=== PATIENT | female | born 1945 | race Caucasian/White ===

== ENCOUNTER 2016-10-14 17:16 | Inpatient (IN) | payer OTHER, BC ==
[2016-10-14] MEDS ORDERED: morphine CARPU-JECT 4 MG/1 ML DISP.SYRIN IVPUSH ONE (17:32)
--- NOTE | 2016-10-14 17:36 | PDOC ---
History of Present Illness - General History Source: Patient - History of Present Illness Initial Comments: 10/14/16 18:13 The patient is a 70 year old female with a significant past medical history CAD s/p stents x5 on aspirin and plavix, NIDDM, and parkinsons disease who presents to the Emergency Department s/p fall. Pt states that she fell, landed on her left hip, and hit her face when she was getting of a chair outside her house. She reports right hip pain and laceration to her lower lip and right eyebrow. She denies fever, chills, abdominal pain, nausea, vomiting, diarrhea, chest pain, SOB, palpitations, neck pain, back pain, headache, dizziness, change in vision, LOC. <Macy Bullock - Last Filed: 10/14/16 18:13> - General History Source: Patient, Family Exam Limitations: No Limitations <Saad Newby - Last Filed: 10/16/16 21:35> - General Stated Complaint: SLIP AND FALL HIP INJURY Time Seen by Provider: 10/14/16 17:22 Past History <Macy Blulock - Last Filed: 10/14/16 18:13> - Past Medical History Cardiac Disorders: Yes (cardiac stent x 5) Diabetes: Yes (NIDDM) HTN: Yes - Psycho/Social/Smoking Cessation Hx Anxiety: No Suicidal Ideation: No Smoking History: Current every day smoker Number of Cigarettes Smoked Daily: 3 Hx Alcohol Use: No Substance Use Type: None <Saad Newby - Last Filed: 10/16/16 21:35> - Past Medical History Allergies/Adverse Reactions: Allergies Allergy/AdvReac Type Severity Reaction Status Date / Time No Known Allergies Allergy Verified 10/14/16 18:39 Home Medications: Ambulatory Orders PARoxetine HCL [Paxil] 20 mg PO DAILY #7 tablet 07/19/14 Ascorbate Calcium [Vitamin C] 500 mg PO DAILY 10/14/16 Aspirin [Aspirin EC] 81 mg PO DAILY 10/14/16 Atorvastatin Ca [Lipitor] 40 mg PO HS 10/14/16 Carbidopa/Levodopa [Carbidopa-Levodopa 25-100 Tab] 1 each PO BID 10/14/16 Clopidogrel Bisulfate [Plavix -] 75 mg PO DAILY 10/14/16 Metformin HCl [Glucophage] 1,000 mg PO BID 10/14/16 Metoprolol Tartrate [Lopressor -] 50 mg PO DAILY 10/14/16 Triamterene/Hydrochlorothiazid [Triamterene-Hctz 37.5-25 mg Cp] 1 each PO DAILY 10/14/16 Review of Systems - Review of Systems Able to Perform ROS?: Yes Comments:: 10/14/16 18:14 GENERAL/CONSTITUTIONAL: No fever or chills. No weakness. HEAD, EYES, EARS, NOSE AND THROAT: No change in vision. No ear pain or discharge. No sore throat. CARDIOVASCULAR: No chest pain or shortness of breath. RESPIRATORY: No cough, wheezing, or hemoptysis. GASTROINTESTINAL: No nausea, vomiting, diarrhea or constipation. GENITOURINARY: No dysuria, frequency, or change in urination. MUSCULOSKELETAL: Yes: right hip pain. No joint or muscle swelling. No neck or back pain. SKIN: Yes: laceration to right eyebrow and lower lip No rash NEUROLOGIC: No headache, vertigo, loss of consciousness, or change in strength/ sensation. ENDOCRINE: No increased thirst. No abnormal weight change. HEMATOLOGIC/LYMPHATIC: No anemia, easy bleeding, or history of blood clots. ALLERGIC/IMMUNOLOGIC: No hives or skin allergy. All Other Systems: Reviewed and Negative <Macy Bullock - Last Filed: 10/14/16 18:13> *Physical Exam - Physical Exam Comments: 10/14/16 18:16 GENERAL: Awake, alert, and fully oriented, in no acute distress HEAD: No signs of trauma EYES: PERRLA, EOMI, sclera anicteric, conjunctiva clear ENT: Auricles normal inspection, hearing grossly normal, nares patent, oropharynx clear without exudates. Moist mucosa NECK: Normal ROM, supple, no lymphadenopathy, JVD, or masses LUNGS: Breath sounds equal, clear to auscultation bilaterally. No wheezes, and no crackles HEART: Regular rate and rhythm, normal S1 and S2, no murmurs, rubs or gallops ABDOMEN: Soft, nontender, normoactive bowel sounds. No guarding, no rebound. No masses EXTREMITIES: +Right hip shortened externally rotated. Normal range of motion, no edema. No clubbing or cyanosis. No cords, erythema. NEUROLOGICAL: Cranial nerves II through XII grossly intact. Normal speech, normal gait SKIN: +Small laceration lateral aspect of right eyebrow. Lower lip ecchymosis and edema with superficial laceration to inner lip.Warm, Dry, normal turgor, no rashes. <GaspermargretMacy simental - Last Filed: 10/14/16 18:13> Heart Score/ECG Review #1 ECG reviewed & interpreted by me at: 17:40 10/14/16 18:41 NSR 68, no std/cholo, T wave flat III, QTC 414 msec, normal axis, normal intervals <Saad Newby - Last Filed: 10/16/16 21:35> ED Treatment Course - LABORATORY CBC & Chemistry Diagram: 10/15/16 07:20 10/16/16 08:35 - RADIOLOGY Radiology Studies Ordered: Category Date Time Status HEAD CT WITHOUT CONTRAST [CT] Stat CT Scan 10/14/16 17:32 Ordered CHEST - PA [RAD] Stat Radiology 10/14/16 17:32 Ordered HIP & PELVIS-RIGHT [RAD] Stat Radiology 10/14/16 17:32 Ordered <Saad Newby - Last Filed: 10/16/16 21:35> Medical Decision Making - Medical Decision Making 10/14/16 17:51 A portion of this note was documented by scribe services under my direction. I have reviewed the details of the note, within reason, and agree with the documentation with the following case summary and management plan written by me. Patient treated in the ED. Nursing notes are reviewed and incorporated into the medical decision-making. Vital signs reviewed. Peripheral IV access obtained by the nurse, laboratory studies are drawn and sent, reviewed and interpreted by myself. 70-year-old female with past medical history of Parkinson's disease, coronary artery disease status post 5 stents on aspirin and Plavix presents with mechanical fall. Patient was attempting to get off from chair when she fell and landed on her right hip and hit her face. Sustained a superficial abrasion to the right eyebrow and swollen lower lip. Had a superficial inner lip abrasion. No through and through. Last tetanus status unknown. The wounds are too superficial to suture up at this time. Update tetanus. CAT scan the head given that she is on aspirin and Plavix. She has no cervical spine tenderness. Patient's right hip appears to have femoral neck or intertrochanteric fracture. We'll perform x-rays. Pain control. Labs and admission to the hospital. 10/14/16 19:19 CBC, BMP 10/14/16 18:10 10/14/16 18:10 CMP Sodium 139 mmol/L (136-145) 10/14/16 18:10 Potassium 4.4 mmol/L (3.5-5.1) 10/14/16 18:10 Chloride 108 mmol/L (98-107) H 10/14/16 18:10 Carbon Dioxide 24 mmol/L (21-32) 10/14/16 18:10 Anion Gap 7 (8-16) L 10/14/16 18:10 BUN 52 mg/dL (7-18) H 10/14/16 18:10 Creatinine 1.2 mg/dL (0.55-1.02) H D 10/14/16 18:10 Creat Clearance w eGFR 44.41 (>60) 10/14/16 18:10 Random Glucose 170 mg/dL (74-106) H 10/14/16 18:10 Calcium 8.6 mg/dL (8.5-10.1) 10/14/16 18:10 Total Bilirubin 0.8 mg/dL (0.2-1.0) 10/14/16 18:10 AST 17 U/L (15-37) D 10/14/16 18:10 ALT 13 U/L (12-78) 10/14/16 18:10 Alkaline Phosphatase 121 U/L (45-117) H D 10/14/16 18:10 Total Protein 6.8 g/dl (6.4-8.2) 10/14/16 18:10 Albumin 3.8 g/dl (3.4-5.0) 10/14/16 18:10 Labs reviewed. Imaging pending. [facility] attending DR. Clark for further management and disposition. <Saad Newby - Last Filed: 10/16/16 21:35> *DC/Admit/Observation/Transfer - Attestations Scribe Attestion: 10/14/16 18:17 Documentation prepared by Macy Bullock, acting as durable medical equipment technician for Saad Newby MD. <Macy Bullock - Last Filed: 10/14/16 18:13> <Saad Newby - Last Filed: 10/16/16 21:35> Diagnosis at time of Disposition: Femoral neck fracture, Parkinsons disease - Discharge Dispostion Condition at time of disposition: Improved - Referrals
[2016-10-14] MEDS ORDERED: DIPHTH,PERTUSS(ACELL),TET 0.5 ML DISP.SYRIN IM ONE (17:40)
[2016-10-14] MEDS ORDERED: morphine CARPU-JECT 4 MG/1 ML DISP.SYRIN ONE (18:00)
[2016-10-14 18:36] LABS: BASOPHIL 0.4 % (0-2.0); EOSINOPHIL 0.5 % (0-4.5); MCH 27.6 pg (25.7-33.7); MCHC 31.7 g/dl (32.0-36.0); MEAN PLT VOLUME 9.1 fl (7.5-11.1); NEUTROPHILS 89.4 % (42.8-82.8); PLATELET COUNT 222 K/MM3 (134-434); RDW 13.5 % (11.6-15.6); WHITE BLOOD COUNT 12.1 K/mm3 (4.0-10.0)
[2016-10-14 18:47] LABS: INR 1.18 (0.82-1.09)
[2016-10-14 18:50] LABS: ACTIVATED PTT 29.1 SECONDS (26.9-34.4)
[2016-10-14 19:03] LABS: ALBUMIN 3.8 g/dl (3.4-5.0); CALCIUM 8.6 mg/dL (8.5-10.1); CREATININE 1.2 mg/dL (0.55-1.02)
[2016-10-14 19:04] LABS: BILIRUBIN,TOTAL 0.8 mg/dL (0.2-1.0); TOT PROT 6.8 g/dl (6.4-8.2)
--- NOTE | 2016-10-14 19:20 | PDOC ---
*Physical Exam - Vital Signs Last Vital Signs Temp Pulse Resp BP Pulse Ox 97.6 F 68 18 146/75 94 L 10/14/16 17:34 10/14/16 17:34 10/14/16 17:34 10/14/16 17:34 10/14/16 17:34 <Kaiser Clark - Last Filed: 10/14/16 21:50> - Vital Signs Last Vital Signs Temp Pulse Resp BP Pulse Ox 97.6 F 68 18 146/75 94 L 10/14/16 17:34 10/14/16 17:34 10/14/16 17:34 10/14/16 17:34 10/14/16 17:34 <Aria Weiss - Last Filed: 10/14/16 22:08> ED Treatment Course - LABORATORY CBC & Chemistry Diagram: 10/14/16 18:10 10/14/16 18:10 - ADDITIONAL ORDERS Additional order review: Laboratory Results 10/14/16 10/14/16 18:10 18:10 INR 1.18 H PTT (Actin FS) 29.1 Sodium 139 Potassium 4.4 Chloride 108 H Carbon Dioxide 24 Anion Gap 7 L BUN 52 H Creatinine 1.2 H D Creat Clearance w eGFR 44.41 Random Glucose 170 H Calcium 8.6 Total Bilirubin 0.8 AST 17 D ALT 13 Alkaline Phosphatase 121 H D Total Protein 6.8 Albumin 3.8 10/14/16 18:10 RBC 4.28 MCV 87.0 MCHC 31.7 L RDW 13.5 MPV 9.1 Neutrophils % 89.4 H Lymphocytes % 4.4 L Monocytes % 5.3 Eosinophils % 0.5 Basophils % 0.4 - Medications Given in the ED: ED Medications Discontinued Medications Generic Name Dose Route Start Last Admin Trade Name Freq PRN Reason Stop Dose Admin Diphtheria/Tetanus/Acell Pertussis 0.5 ml 10/14/16 17:40 10/14/16 18:10 Boostrix - IM 10/14/16 17:41 0.5 ml .ONCE ONE Administration Morphine Sulfate 4 mg 10/14/16 17:32 10/14/16 18:10 Morphine Injection - IVPUSH 10/14/16 17:33 4 mg ONCE ONE Administration <Kaiser Clark - Last Filed: 10/14/16 21:50> - LABORATORY CBC & Chemistry Diagram: 10/14/16 18:10 01/01/17 18:10 - ADDITIONAL ORDERS Additional order review: Laboratory Results 10/14/16 10/14/16 18:10 18:10 INR 1.18 H PTT (Actin FS) 29.1 Sodium 139 Potassium 4.4 Chloride 108 H Carbon Dioxide 24 Anion Gap 7 L BUN 52 H Creatinine 1.2 H D Creat Clearance w eGFR 44.41 Random Glucose 170 H Calcium 8.6 Total Bilirubin 0.8 AST 17 D ALT 13 Alkaline Phosphatase 121 H D Total Protein 6.8 Albumin 3.8 10/14/16 18:10 RBC 4.28 MCV 87.0 MCHC 31.7 L RDW 13.5 MPV 9.1 Neutrophils % 89.4 H Lymphocytes % 4.4 L Monocytes % 5.3 Eosinophils % 0.5 Basophils % 0.4 - Medications Given in the ED: ED Medications Discontinued Medications Generic Name Dose Route Start Last Admin Trade Name Freq PRN Reason Stop Dose Admin Diphtheria/Tetanus/Acell Pertussis 0.5 ml 10/14/16 17:40 10/14/16 18:10 Boostrix - IM 10/14/16 17:41 0.5 ml .ONCE ONE Administration Morphine Sulfate 4 mg 10/14/16 17:32 10/14/16 18:10 Morphine Injection - IVPUSH 10/14/16 17:33 4 mg ONCE ONE Administration <Aria Weiss - Last Filed: 10/14/16 22:08> Medical Decision Making - Medical Decision Making 10/14/16 19:29 70 year old female with history of Parkinsons, CAD presents s/p fall with head injury and likely right hip fracture. Plan: Awaiting CMP, CBC, UA, x-ray, head CT. Will likely admit. 10/14/16 19:[address] without contrast, reviewed and interpreted by Imaging Carpenter Supervisor [employer]. COMPARISON: None. FINDINGS: 1. There is no evidence of an acute intracranial process, intracranial hemorrhage or mass effect. There are infarcts in the basal ganglia bilaterally and thalami bilaterally that appear to be chronic. 2. Ventricular size is concordant with the degree of atrophy. 3. The visualized portions of the orbits, paranasal and mastoid sinuses are notable for moderate paranasal sinus mucosal thickening with air-fluid levels. This may represent changes of acute sinusitis. 4. There is no evidence of fracture. THIS DOCUMENT HAS BEEN ELECTRONICALLY SIGNED Griselda Elizabeth MD 10/14/2016 19:45 EST 10/14/16 20:05 Placed call to patient's PCP, Dr. Grimm, at [phone]. Was instructed to call [phone] for cardiology related consults only. Will admit to [facility]. 10/14/16 20:41 Declined by [facility], who said they do not cover for Dr. Grimm. Call placed to Dr. Grimm's home number at [phone], who requested Dr. Moreland for admssion, Dr. Garcia for cardiology. Placed call to Dr. Moreland at [phone]. Awaiting call back. 10/14/16 21:[address] Hubbard, covering for Dr. Moreland, who agreed to admission. Placed call to Dr. Reddy, requested for Orthopedic Surgery by Dr. Grimm, at [phone]. Awaiting call back. 10/14/16 21:[address] David, covering for Dr. Reddy, who agreed to consult. <Aira Weiss - Last Filed: 10/14/16 22:08> *DC/Admit/Observation/Transfer - Discharge Dispostion Admit: Yes - Attestations Physician Attestion: 10/14/16 19:19 I, Dr. Kaiser Clark, attest that this document has been prepared under my direction and personally reviewed by me in its entirety. I further attest, that it accurately reflects all work, treatment, procedures and medical decision -making performed by me. <Kaiser Clark - Last Filed: 10/14/16 21:50> - Attestations Scribe Attestion: 10/14/16 19:31 Documentation prepared by Aria Weiss, acting as medical coding manager for Kaiser Clark DO. <Aria Weiss - Last Filed: 10/14/16 22:08> Diagnosis at time of Disposition: Parkinsons disease Femoral neck fracture Qualifiers: Encounter type: initial encounter Fracture type: closed Laterality: right Qualified Code(s): S72.001A - Fracture of unspecified part of neck of right femur, initial encounter for closed fracture - Discharge Dispostion Condition at time of disposition: Improved - Referrals Referrals: Nikita Grimm MD [Primary Care Provider] - - Patient Instructions - Post Discharge Activity
[2016-10-14 19:27] LABS: URINE APPEARANCE SLCLOUDY; URINE BILIRUBIN NEGATIVE (NEGATIVE); URINE BLOOD NEGATIVE (NEGATIVE); URINE COLOR YELLOW; URINE GLUCOSE (UA) NEGATIVE (NEGATIVE); URINE KETONE NEGATIVE (NEGATIVE); URINE LEUK ESTERASE NEGATIVE (NEGATIVE); URINE NITRITE NEGATIVE (NEGATIVE); URINE UROBILINOGEN NEGATIVE E.U./dl (0.2-1.0)
[2016-10-14 19:34] LABS: URINE PROTEIN 1+ (NEGATIVE)
[2016-10-14 19:36] LABS: URINE BACTERIA RARE /hpf (NONE SEEN); URINE MUCUS RARE; URINE RBC 2 /hpf (0-3); URINE WBC 1 /hpf (3-5); YEAST FEW
[2016-10-14] MEDS ORDERED: CARBIDOPA/LEVODOPA 25/100 TABLET (FP) ONE (21:17)
[2016-10-14] MEDS ORDERED: ATORVASTATIN CA 40 MG TABLET (FP) ONE (21:17)
[2016-10-14] MEDS ORDERED: metFORMIN HCL 500 MG TABLET (FP) ONE (21:17)
[2016-10-14] MEDS ORDERED: TRIAMTERENE AND HCTZ - 37.5 MG/25 MG CAPSULE PO ONE (21:19)
[2016-10-14] MEDS ORDERED: metFORMIN HCL 500 MG TABLET (FP) PO ONE (21:20)
[2016-10-14] MEDS ORDERED: CARBIDOPA/LEVODOPA 25/100 TABLET (FP) PO ONE (21:20)
[2016-10-14] MEDS ORDERED: ATORVASTATIN CA 40 MG TABLET (FP) PO ONE (21:21)
[2016-10-14] MEDS ORDERED: HYDROmorphone HCL CARPU-JECT 1 MG/1 ML DISP.SYRIN IVPUSH PRN (22:32)
[2016-10-14] MEDS ORDERED: ACETAMINOPHEN 325 MG TABLET (FP) PO PRN (22:32)
[2016-10-14] MEDS ORDERED: D5-1/2NS+20 MEQ KCL - 1,000 ML IV SCH (22:45)
[2016-10-15] MEDS: HYDROmorphone HCL CARPU-JECT 1 MG/1 ML DISP.SYRIN IVPB PRN ×2 (00:59→12:54)
[2016-10-15 01:21] VITALS: BMI 25.5
[2016-10-15] MEDS: metFORMIN HCL 500 MG TABLET (FP) PO SCH ×2 (06:24→16:49)
[2016-10-15] MEDS ORDERED: PT OWN MED DRAWER 7, Y5N ONE ×2 (08:44→10:21)
[2016-10-15 08:49] LABS: BASOPHIL 0.4 % (0-2.0); EOSINOPHIL 0.8 % (0-4.5); MCH 28.9 pg (25.7-33.7); MCHC 33.3 g/dl (32.0-36.0); MEAN CELL VOLUME 86.9 fl (80-96); MEAN PLT VOLUME 8.9 fl (7.5-11.1); PLATELET COUNT 218 K/MM3 (134-434); RDW 13.4 % (11.6-15.6); WHITE BLOOD COUNT 10.3 K/mm3 (4.0-10.0)
[2016-10-15 09:20] LABS: ALBUMIN 3.5 g/dl (3.4-5.0); BILIRUBIN,TOTAL 0.7 mg/dL (0.2-1.0); CALCIUM 8.7 mg/dL (8.5-10.1); CREATININE 1.2 mg/dL (0.55-1.02); TOT PROT 6.3 g/dl (6.4-8.2)
[2016-10-15] MEDS: HEPARIN NA (PORCINE) 5,000 UNITS/ML 1ML VIAL SQ SCH ×2 (09:58→22:17)
[2016-10-15] MEDS: METOPROLOL TARTRATE 50 MG TABLET (FP) PO SCH (09:59)
[2016-10-15] MEDS: CARBIDOPA/LEVODOPA 25/100 TABLET (FP) PO SCH ×2 (10:25→22:18)
--- NOTE | 2016-10-15 11:25 | HP ---
Admitting History and Physical - Primary Care Physician PCP: Erika Moreland - Admission Chief Complaint: S/P FALL RIGHT HIPN FRACTURE History of Present Illness: 70 Y/O FEMALE WITH PARKINSONS DISEASE AND HTN, CAD S/P STENT HERE WITH FALL OUTSIDE HER HOUSE WITH ACUTE RIGHT HIP FRACTURE SCHEDULED FOR ORTHOPDIC SURGERY IN A.M. 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 Cardiovascular: Yes: CAD, HTN - Smoking History Smoking history: Current every day smoker Have you smoked in the past 12 months: No Aproximately how many cigarettes per day: 3 - Alcohol/Substance Use Hx Alcohol Use: No Home Medications - Allergies Allergies/Adverse Reactions: Allergies Allergy/AdvReac Type Severity Reaction Status Date / Time No Known Allergies Allergy Verified 10/14/16 18:39 - Home Medications Home Medications: Ambulatory Orders PARoxetine HCL [Paxil] 20 mg PO DAILY #7 tablet 07/19/14 Ascorbate Calcium [Vitamin C] 500 mg PO DAILY 10/14/16 Aspirin [Aspirin EC] 81 mg PO DAILY 10/14/16 Atorvastatin Ca [Lipitor] 40 mg PO HS 10/14/16 Carbidopa/Levodopa [Carbidopa-Levodopa 25-100 Tab] 1 each PO BID 10/14/16 Clopidogrel Bisulfate [Plavix -] 75 mg PO DAILY 10/14/16 Metformin HCl [Glucophage] 1,000 mg PO BID 10/14/16 Metoprolol Tartrate [Lopressor -] 50 mg PO DAILY 10/14/16 Triamterene/Hydrochlorothiazid [Triamterene-Hctz 37.5-25 mg Cp] 1 each PO DAILY 10/14/16 Review of Systems - Review of Systems Constitutional: reports: Weakness Eyes: reports: No Symptoms HENT: reports: Gingival Bleeding Neck: reports: No Symptoms Cardiovascular: reports: No Symptoms Respiratory: reports: No Symptoms Gastrointestinal: reports: No Symptoms Genitourinary: reports: Other Musculoskeletal: reports: Extremity Pain, Joint Pain, Joint Swelling, Muscle Pain Integumentary: reports: Bruising Neurological: reports: No Symptoms Endocrine: reports: No Symptoms Hematology/Lymphatic: reports: No Symptoms Physical Examination Vital Signs: Vital Signs Temperature 98.1 F 10/15/16 09:00 Pulse Rate 64 10/15/16 09:00 Respiratory Rate 18 10/15/16 09:00 Blood Pressure 153/79 10/15/16 09:00 O2 Sat by Pulse Oximetry (%) 98 10/14/16 23:59 Findings/Remarks: BEDSIDE, DENIES CP OR SOB Constitutional: Yes: Mild Distress Eyes: Yes: WNL HENT: Yes: Other (ECCHYMOSIS TO LOWER LIP NO ACTIVE BLEED) Neck: Yes: WNL Cardiovascular: Yes: WNL Respiratory: Yes: WNL Gastrointestinal: Yes: WNL Renal/: Yes: Schmid Present, Hematuria Musculoskeletal: Yes: Muscle Weakness Extremities: Yes: Other Edema: No Peripheral Pulses WNL: Yes Integumentary: Yes: Bruising, Erythema Wound/Incision: Yes: Dressing Dry and Intact Neurological: Yes: Pre-Existing Deficit, Unsteady Gait ...Motor Strength: LLE, RLE Psychiatric: Yes: Other Labs: CBC, BMP 10/15/16 07:20 10/15/16 07:20 Imaging - Results X-ray: Report Reviewed Problem List - Problems (1) Femoral neck fracture Code(s): S72.009A - FRACTURE OF UNSP PART OF NECK OF UNSP FEMUR, INIT Qualifiers: Encounter type: initial encounter Fracture type: closed Laterality : right Qualified Code(s): S72.001A - Fracture of unspecified part of neck of right femur, initial encounter for closed fracture (2) Parkinsons disease Code(s): G20 - PARKINSON'S DISEASE (3) Fall Code(s): W19.XXXA - UNSPECIFIED FALL, INITIAL ENCOUNTER (4) Low back pain Code(s): M54.5 - LOW BACK PAIN (5) Rib contusion Code(s): S20.219A - CONTUSION OF UNSPECIFIED FRONT WALL OF THORAX, INIT ENCNTR Assessment/Plan CARDIOLOGY CLEARANCE FOR HIP FRACTURE REPAIR PAIN CONTROL DVT PROPHYLAXIS SCHMID WITH HEMATUREA, LIKELY KIDNEY CONTUSION [facility] PER FAMILY REQUEST
--- NOTE | 2016-10-15 11:41 | CONSULT ---
Consult - text type - Consultation Consultation Note: FULL CONSULT DICTATED IMP: RIGHT DISPLACED FEMORAL NECK FRACTURE PLAN: --> OR TOMORROW FOR RIGHT HIP HEMIARTHROPLASTY
[2016-10-15] MEDS: PARoxetine HCL 20 MG TABLET (FP) PO SCH (12:07)
[2016-10-15] MEDS: TRIAMTERENE AND HCTZ - 37.5 MG/25 MG CAPSULE PO SCH (12:07)
--- NOTE | 2016-10-15 12:27 | CONS ---
DATE OF CONSULTATION: 10/15/2016 HISTORY: The patient is a 70-year-old female status post fall injuring her right hip complaining of pain in the right hip with inability to ambulate. PHYSICAL EXAMINATION: The patient has a shortened, externally rotated right hip. Marked increased pain with range of motion of the hip. Good motion in the ankle and toes. Calf is soft, nontender, neurovascularly intact with 2+ pulses. DIAGNOSTICS: X-rays reveal a displaced right femoral neck fracture. IMPRESSION: Displaced right femoral neck fracture. PLAN: Risks, benefits, and alternatives discussed with the patient and with in great detail. The patient will be booked for a right hemiarthroplasty tomorrow with Dr. Erika Moreland, the patient's medical doctor. The patient is optimizing the patient. Cardiology will be consulted as well as the patient has had 5 cardiac stents in the past and needs to be assessed preoperatively. The patient is only on aspirin, and no other anticoagulation should interfere with operative intervention. We will tentatively put the patient on the schedule for tomorrow pending these optimizations and evaluations. RODRIGO LEBRON M.D. [id number]
--- NOTE | 2016-10-15 13:09 | EKG ---
Test Reason : Blood Pressure : / mmHG Vent. Rate : 068 BPM Atrial Rate : 068 BPM P-R Int : 154 ms QRS Dur : 080 ms QT Int : 390 ms P-R-T Axes : 048 046 026 degrees QTc Int : 414 ms NORMAL SINUS RHYTHM WITH SINUS ARRHYTHMIA NORMAL ECG WHEN COMPARED WITH ECG OF 08-SEP-2008 11:34, NO SIGNIFICANT CHANGE WAS FOUND Confirmed by STEPHANY ZIMMERMAN MD ([id number]) on 10/15/2016 1:09:34 PM Referred By: Overread By: STEPHANY ZIMMERMAN MD
--- NOTE | 2016-10-15 17:20 | CONSULT ---
Cardiology Consult (text) - Consultation Consultation Note: CC: pre-operative clearance 70 year old smoker with a significant past medical history CAD s/p stents x 5 ( not within past year) on aspirin and plavix, HTN, NIDDM, and parkinsons disease who presents s/p mechanical fall c/b hip fracture. States fall was not related to dizziness or presyncope. Lost her balance, has chronic unstable gait. Denies anginal symptoms, able to regularly walk up and down stairs in home without symptoms or limitations. Denies h/o heart failure, TIA/CVA. No orthopnea, pnd, le edema, cp, sob, palps, dizziness, claudication, bleeding or transient neurologic symptoms. No f/c/s, n/v/d, rashes, cough, congestion, headache. Patient with mild pain at site of bruising/injury. Pain currently well controlled. Cards: Dr. Grimm pmhx/pshx: per hpi social hx: smoker, no etoh or illicits fam hx: nc ros: per hpi Ambulatory Orders PARoxetine HCL [Paxil] 20 mg PO DAILY #7 tablet 07/19/14 Ascorbate Calcium [Vitamin C] 500 mg PO DAILY 10/14/16 Aspirin [Aspirin EC] 81 mg PO DAILY 10/14/16 Atorvastatin Ca [Lipitor] 40 mg PO HS 10/14/16 Carbidopa/Levodopa [Carbidopa-Levodopa 25-100 Tab] 1 each PO BID 10/14/16 Clopidogrel Bisulfate [Plavix -] 75 mg PO DAILY 10/14/16 Metformin HCl [Glucophage] 1,000 mg PO BID 10/14/16 Metoprolol Tartrate [Lopressor -] 50 mg PO DAILY 10/14/16 Triamterene/Hydrochlorothiazid [Triamterene-Hctz 37.5-25 mg Cp] 1 each PO DAILY 10/14/16 Current Medications Acetaminophen (Tylenol -) 650 mg PO Q4H PRN PRN Reason: FEVER OR PAIN Atorvastatin Calcium (Lipitor -) 40 mg PO [facility] Carbidopa/Levodopa (Sinemet 25/100 -) 1 each PO BID [facility] Last Admin: 10/15/16 10:25 Dose: 1 each Heparin Sodium (Porcine) (Heparin -) 5,000 unit SQ BID [facility] Last Admin: 10/15/16 09:58 Dose: 5,000 unit Hydromorphone HCl (Dilaudid Injection -) 1 mg IVPB Q4H PRN PRN Reason: PAIN Last Admin: 10/15/16 12:54 Dose: 1 mg Metformin HCl (Glucophage -) 1,000 mg PO BIDAC [facility] Last Admin: 10/15/16 16:49 Dose: 1,000 mg Metoprolol Tartrate (Lopressor -) 50 mg PO DAILY [facility] Last Admin: 10/15/16 09:59 Dose: 50 mg Paroxetine HCl (Paxil -) 20 mg PO DAILY [facility] Last Admin: 10/15/16 12:07 Dose: 20 mg Triamterene/HCTZ (Dyazide 25/37.5mg) 1 cap PO DAILY [facility] Last Admin: 10/15/16 12:07 Dose: 1 cap Vital Signs - 24 hr 10/14/16 10/14/16 10/14/16 17:34 22:33 23:59 Temperature 97.6 F 99.6 F Pulse Rate 68 67 Pulse Rate [ 65 Right Radial] Respiratory 18 20 18 Rate Blood Pressure 146/75 145/77 Blood Pressure 136/72 [Left Arm] O2 Sat by Pulse 94 L 98 98 Oximetry (%) 10/15/16 10/15/16 10/15/16 06:00 09:00 11:57 Temperature 98.2 F 98.1 F Pulse Rate 66 64 86 Pulse Rate [ Right Radial] Respiratory 20 18 Rate Blood Pressure 122/68 153/79 Blood Pressure [Left Arm] O2 Sat by Pulse 97 97 Oximetry (%) 10/15/16 14:46 Temperature 98.5 F Pulse Rate 59 L Pulse Rate [ Right Radial] Respiratory 20 Rate Blood Pressure 143/80 Blood Pressure [Left Arm] O2 Sat by Pulse Oximetry (%) CBC, BMP 10/15/16 07:20 10/15/16 07:20 Laboratory Tests 10/14/16 10/15/16 18:10 07:20 INR 1.18 H Total Bilirubin 0.7 AST 12 L D ALT 14 Alkaline Phosphatase 113 Albumin 3.5 EKG: SR, nl axis/intervals. no ischemic changes. CXR: weak inspiration with possible congestive changes. By my review appears to have changes c/w chronic lung disease. 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 Chronic small vessel ischemia. Mild diffuse atrophy with ventricular dilation. Sinusitis. 70 year old smoker with a significant past medical history CAD s/p stents x 5 on aspirin and plavix, HTN, HL, NIDDM, and parkinsons disease who presents s/ p mechanical fall c/b hip fracture. Pre-operative clearance - R displaced femoral neck fracture - h/o CAD. No signs or symptoms of volume overload. But diminished air movement on exam, likely from weak inspiration +/- underlying pulmonary disease. No h/o TIA/CVA, but evidence of small vessel ischemia on CT. RCRI 1- 2. No further testing needed prior to surgery. Patient with intermediate risk of cheo-operative complications, patient counseled on risk. Close monitoring of respiratory status cheo-operatively, low threshold for pulmonary evaluation. Incentive spirometry, O2 monitoring. CAD s/p stent x 5 - no stent within the past year. On DAPT as outpatient, currently holding for surgery. Resume at least ASA once ok per surgery. - no anginal sx's. No ischemic ekg changes. - con't metoprolol, atorvastatin HTN - well controlled on home regimen. + tobacco, - cessation counseling.
[2016-10-15] MEDS ORDERED: ATORVASTATIN CA 40 MG TABLET (FP) PO SCH (22:00)
[2016-10-16] MEDS: metFORMIN HCL 500 MG TABLET (FP) PO SCH ×2 (06:20→17:30)
[2016-10-16 09:17] LABS: CREATININE 1.1 mg/dL (0.55-1.02)
[2016-10-16] MEDS: CARBIDOPA/LEVODOPA 25/100 TABLET (FP) PO SCH ×2 (10:45→21:51)
[2016-10-16] MEDS: METOPROLOL TARTRATE 50 MG TABLET (FP) PO SCH (10:45)
[2016-10-16] MEDS: HEPARIN NA (PORCINE) 5,000 UNITS/ML 1ML VIAL SQ SCH (10:50)
[2016-10-16] MEDS: PARoxetine HCL 20 MG TABLET (FP) PO SCH (10:50)
[2016-10-16] MEDS: TRIAMTERENE AND HCTZ - 37.5 MG/25 MG CAPSULE PO SCH (10:51)
[2016-10-16] MEDS ORDERED: ceFAZolin SODIUM 1 GM VIAL ONE ×2 (10:53→12:35)
[2016-10-16] MEDS ORDERED: MIDAZOLAM HCL 2 MG/2 ML SINGLE DOSE VIAL ONE (11:47)
[2016-10-16] MEDS ORDERED: BUPIVACAINE HCL/PF 0.5% (5MG/ML) 10 ML VIAL ONE (11:48)
[2016-10-16] MEDS ORDERED: ePHEDrine SULFATE 50 MG/1 ML AMPULE ONE (12:30)
[2016-10-16] MEDS ORDERED: ceFAZolin SODIUM 1 GM VIAL IVPB ONE (12:34)
[2016-10-16] MEDS ORDERED: ONDANSETRON 4 MG/2 ML VIAL ONE (12:40)
[2016-10-16] MEDS ORDERED: VANCOMYCIN 1,000 MG VIAL (RESTRICTED TO ID ONLY) ONE ×2 (12:58)
[2016-10-16] MEDS ORDERED: VASOPRESSIN 20 UNITS/ML VIAL IV ONE (13:12)
--- NOTE | 2016-10-16 13:30 | OP ---
Operative Note - Note: Operative Date: 10/16/16 ([facility]) Pre-Operative Diagnosis: right femoral neck fx Operation: right hip dalia Post-Operative Diagnosis: Same as Pre-op Surgeon: Claudio David Per Diem Physical Therapist Assistant: Will Beverly Anesthesiologist/VEHICLE WASHER: Ritesh Cast Anesthesia: Spinal, Local Specimens Removed: femoral head Estimated Blood Loss (mls): 100 Operative Report Dictated: Yes
[2016-10-16] MEDS ORDERED: ONDANSETRON 4 MG/2 ML VIAL IVPUSH PRN (13:41)
[2016-10-16] MEDS ORDERED: ACETAMINOPHEN 1000 MG/100 ML VIAL (NON FORMULARY) IVPB ONE ×2 (13:42→14:57)
[2016-10-16] MEDS ORDERED: ACETAMINOPHEN 325 MG TABLET (FP) PO PRN (13:56)
--- NOTE | 2016-10-16 14:29 | OP ---
DATE OF OPERATION: 10/16/2016 PREOPERATIVE DIAGNOSIS: Displaced right femoral neck fracture. POSTOPERATIVE DIAGNOSIS: Displaced right femoral neck fracture. PROCEDURE: Right hip hemiarthroplasty. SURGICAL ATTENDING: Claudio David MD TIN RECOVERY WORKER: LAZARUS Hdez ANESTHESIA: Spinal. CLOSURE: Accolade II Press-Fit No. 5 stem with 1 Dall-Miles cable, a +4 head, and a 46 bipolar, No. 1 Vicryl on the capsule and fascia, 0 and 2-0 subcutaneous, 3-0 Monocryl subcuticular with skin glue for skin. ESTIMATED BLOOD LOSS: 100 mL. COMPLICATIONS: None. CONDITION: To recovery in stable condition. DESCRIPTION OF OPERATIVE PROCEDURE: Patient taken to the operating room on October 16, 2016. Spinal anesthesia was administered by the anesthesiologist. IV Kefzol was administered prophylactically prior to the case. Patient placed in a lateral decubitus position with all prominences well padded. Right hip area was prepped and draped in the usual sterile fashion. A posterior approach was utilized to gain access to the hip. A 12-cm curved longitudinal incision over the posterolateral aspect of the greater trochanter was incised. Hemostasis achieved with Bovie cautery. Sharp dissection was carried down to the level of the fascia which was opened the entire length of the incision. The gluteus robert fibers were spread in the direction of origin, exposing the greater trochanter. A Charnley retractor was placed on this layer. Care was taken not to impale the sciatic nerve. Short external rotators were detached off the capsule. A T-capsulotomy was then performed, exposing the fracture. The femoral head was removed with a corkscrew. The acetabulum was trialed with a 46 bipolar head and achieved good suction and fit. The neck was osteotomized at the appropriate level with the oscillating saw. The proximal femur was prepared using serial broaches and awls until a No. 5 stem achieved a good fit. There was a possible small crack in the calcar. One Dall-Miles cable was placed circumferentially on the bone just above the lesser trochanter and on the calcar to prophylactically fix it before any propagation of any fracture in the calcar could propagate. A No. 5 real stem was then malleted into place and achieved good fixation and fill. A +4 and a 46 bipolar was cold welded to the Charnley and the hip was reduced. Leg lengths were judged to be equal. Range of motion was found to be stable in marked flexion at 90 degrees of flexion, was stable to marked adduction and internal rotation, a positive hang test, negative telescoping, and good stability in external rotation and extension. The hip was irrigated with copious amounts of irrigation. Vancomycin powder was placed inside the joint. The capsule was closed using 0 Vicryl, 0 and 2-0 for the subcutaneous and the fascia, and 3-0 Monocryl subcuticular layer for the skin with skin glue. Estimated blood loss: Approximately 100 mL. No complication. Patient was transferred to recovery room in stable condition with bilateral SCDs. An abduction pillow was applied. X-ray shows good position of the component. Bryce [id number]
[2016-10-16] MEDS ORDERED: ACETAMINOPHEN INJECTION 100 ML IVPB ONE (14:46)
[2016-10-16] MEDS ORDERED: LACTATED RINGERS SOLUTION 1,000 ML IV SCH (15:00)
--- NOTE | 2016-10-16 15:30 | PN ---
Progress Note, Physician Chief Complaint: s/p right hip repair doing well in bed with family bedside denies cp or sob - Current Medication List Current Medications: Active Medications Acetaminophen (Tylenol -) 650 mg PO Q4H PRN PRN Reason: FEVER OR PAIN Atorvastatin Calcium (Lipitor -) 40 mg PO HS [facility] Carbidopa/Levodopa (Sinemet 25/100 -) 1 each PO BID [facility] Enoxaparin Sodium (Lovenox -) 40 mg SQ DAILY [facility] Fentanyl (Sublimaze Injection -) 50 mcg IVPUSH [id number] PRN PRN Reason: PAIN Stop: 10/19/16 13:42 Hydromorphone HCl (Dilaudid Injection -) 1 mg IVPB Q4H PRN PRN Reason: PAIN Lactated Ringer's (Lactated Ringers Solution) 1,000 mls @ 75 mls/hr IV ASDIR [facility] Cefazolin Sodium (Ancef 1 Gm Premixed Ivpb -) 50 mls @ 100 mls/hr IVPB Q8H [facility] Stop: 10/17/16 04:29 Metformin HCl (Glucophage -) 1,000 mg PO BIDAC [facility] Metoprolol Tartrate (Lopressor -) 50 mg PO DAILY [facility] Ondansetron HCl (Zofran Injection) 4 mg IVPUSH Q6H PRN PRN Reason: NAUSEA AND/OR VOMITING Stop: 10/16/16 19:42 Paroxetine HCl (Paxil -) 20 mg PO DAILY [facility] Triamterene/HCTZ (Dyazide 25/37.5mg) 1 cap PO DAILY [facility] - Objective Vital Signs: Vital Signs Temperature 98.0 F 10/16/16 15:05 Pulse Rate 58 L 10/16/16 15:05 Respiratory Rate 16 10/16/16 15:05 Blood Pressure 117/63 10/16/16 15:05 O2 Sat by Pulse Oximetry (%) 98 10/16/16 14:50 Constitutional: Yes: Mild Distress Eyes: Yes: WNL HENT: Yes: WNL Neck: Yes: WNL Cardiovascular: Yes: WNL Respiratory: Yes: WNL Gastrointestinal: Yes: WNL Genitourinary: Yes: WNL Musculoskeletal: Yes: Joint Swelling, Muscle Pain, Muscle Weakness Extremities: Yes: Other Edema: No Peripheral Pulses WNL: Yes Integumentary: Yes: WNL Wound/Incision: Yes: Clean/Dry Neurological: Yes: WNL ...Motor Strength: RLE Psychiatric: Yes: WNL Labs: CBC, BMP 10/15/16 07:20 10/16/16 08:35 INR, PTT INR 1.18 (0.82-1.09) H 10/14/16 18:10 Problem List - Problems (1) Femoral neck fracture Code(s): S72.009A - FRACTURE OF UNSP PART OF NECK OF UNSP FEMUR, INIT Qualifiers: Encounter type: initial encounter Fracture type: closed Laterality : right Qualified Code(s): S72.001A - Fracture of unspecified part of neck of right femur, initial encounter for closed fracture (2) Parkinsons disease Code(s): G20 - PARKINSON'S DISEASE (3) Fall Code(s): W19.XXXA - UNSPECIFIED FALL, INITIAL ENCOUNTER (4) Low back pain Code(s): M54.5 - LOW BACK PAIN (5) Rib contusion Code(s): S20.219A - CONTUSION OF UNSPECIFIED FRONT WALL OF THORAX, INIT ENCNTR Assessment/Plan Hip repair today for Right hip fracture dvt prophylaxis adira for snf pain control
[2016-10-16] MEDS ORDERED: CEFAZOLIN 1 GM/D5W 50 ML IVPB SCH (20:00)
[2016-10-16] MEDS: CEFAZOLIN 1 GM/D5W 50 ML IVPB SCH (20:06)
[2016-10-16] MEDS: ATORVASTATIN CA 40 MG TABLET (FP) PO SCH (21:51)
[2016-10-16] MEDS: HYDROmorphone HCL CARPU-JECT 1 MG/1 ML DISP.SYRIN IVPB PRN (21:57)
[2016-10-17] MEDS: CEFAZOLIN 1 GM/D5W 50 ML IVPB SCH (04:15)
[2016-10-17] MEDS: metFORMIN HCL 500 MG TABLET (FP) PO SCH ×2 (06:32→16:43)
--- NOTE | 2016-10-17 08:23 | PN ---
Progress Note (short form) - Note Progress Note: ANESTHESIA POST-OP CHECK 70F s/p right hip hemiarthroplasty under spinal anesthesia, POD #1. No acute complaints, denies N/V, tolerating PO, schafer in place. Pain 5/10 and tolerable. Denies backache, headache, numbness, weakness. Vital Signs Temperature 98.1 F 10/17/16 08:00 Pulse Rate 84 10/17/16 08:00 Respiratory Rate 20 10/17/16 08:00 Blood Pressure 132/62 10/17/16 08:00 O2 Sat by Pulse Oximetry (%) 99 10/16/16 21:25 Active Medications Acetaminophen (Tylenol -) 650 mg PO Q4H PRN PRN Reason: FEVER OR PAIN Atorvastatin Calcium (Lipitor -) 40 mg PO HS [facility] Last Admin: 10/16/16 21:51 Dose: 40 mg Carbidopa/Levodopa (Sinemet 25/100 -) 1 each PO BID [facility] Last Admin: 10/16/16 21:51 Dose: 1 each Enoxaparin Sodium (Lovenox -) 40 mg SQ DAILY [facility] Fentanyl (Sublimaze Injection -) 50 mcg IVPUSH [id number] PRN PRN Reason: PAIN Stop: 10/19/16 13:42 Hydromorphone HCl (Dilaudid Injection -) 1 mg IVPB Q4H PRN PRN Reason: PAIN Last Admin: 10/16/16 21:57 Dose: 1 mg Lactated Ringer's (Lactated Ringers Solution) 1,000 mls @ 75 mls/hr IV ASDIR [facility] Metformin HCl (Glucophage -) 1,000 mg PO BIDAC [facility] Last Admin: 10/17/16 06:32 Dose: 1,000 mg Metoprolol Tartrate (Lopressor -) 50 mg PO DAILY [facility] Paroxetine HCl (Paxil -) 20 mg PO DAILY [facility] Triamterene/HCTZ (Dyazide 25/37.5mg) 1 cap PO DAILY [facility] Gen: awake, alert Ext: No apparent motor or sensory deficits of bilateral lower ext. No apparent anesthesia complications. Pain well controlled. Continue management as per primary team.
[2016-10-17 08:44] LABS: MCH 28.6 pg (25.7-33.7); MCHC 33.3 g/dl (32.0-36.0); MEAN CELL VOLUME 85.8 fl (80-96); MEAN PLT VOLUME 8.3 fl (7.5-11.1); PLATELET COUNT 228 K/MM3 (134-434); RDW 13.3 % (11.6-15.6); WHITE BLOOD COUNT 10.8 K/mm3 (4.0-10.0)
[2016-10-17] MEDS ORDERED: PT OWN MED DRAWER 7, Y5N ONE (08:49)
[2016-10-17] MEDS: PARoxetine HCL 20 MG TABLET (FP) PO SCH (09:04)
[2016-10-17] MEDS: ENOXAPARIN NA (PORCINE) 40 MG/0.4 ML DISP.SYRIN SQ SCH (09:04)
[2016-10-17] MEDS: TRIAMTERENE AND HCTZ - 37.5 MG/25 MG CAPSULE PO SCH (09:04)
[2016-10-17] MEDS: METOPROLOL TARTRATE 50 MG TABLET (FP) PO SCH (09:04)
[2016-10-17] MEDS: CARBIDOPA/LEVODOPA 25/100 TABLET (FP) PO SCH ×2 (09:04→21:58)
[2016-10-17 09:13] LABS: CALCIUM 8.7 mg/dL (8.5-10.1); CREATININE 1.2 mg/dL (0.55-1.02)
--- NOTE | 2016-10-17 09:25 | PN ---
Progress Note, Physician Chief Complaint: AWAKE ALERT DENIES CHEST PAIN NO SOB INSTRUCTIONS GIVEN ON INCENTIVE SPIROMETRY - Current Medication List Current Medications: Active Medications Acetaminophen (Tylenol -) 650 mg PO Q4H PRN PRN Reason: FEVER OR PAIN Atorvastatin Calcium (Lipitor -) 40 mg PO HS [facility] Last Admin: 10/16/16 21:51 Dose: 40 mg Carbidopa/Levodopa (Sinemet 25/100 -) 1 each PO BID [facility] Last Admin: 10/17/16 09:04 Dose: 1 each Enoxaparin Sodium (Lovenox -) 40 mg SQ DAILY [facility] Last Admin: 10/17/16 09:04 Dose: 40 mg Fentanyl (Sublimaze Injection -) 50 mcg IVPUSH [id number] PRN PRN Reason: PAIN Stop: 10/19/16 13:42 Ferrous Sulfate (Feosol -) 325 mg PO DAILY [facility] Hydromorphone HCl (Dilaudid Injection -) 1 mg IVPB Q4H PRN PRN Reason: PAIN Last Admin: 10/16/16 21:57 Dose: 1 mg Lactated Ringer's (Lactated Ringers Solution) 1,000 mls @ 75 mls/hr IV ASDIR [facility] Metformin HCl (Glucophage -) 1,000 mg PO BIDAC [facility] Last Admin: 10/17/16 06:32 Dose: 1,000 mg Metoprolol Tartrate (Lopressor -) 50 mg PO DAILY [facility] Last Admin: 10/17/16 09:04 Dose: 50 mg Paroxetine HCl (Paxil -) 20 mg PO DAILY [facility] Last Admin: 10/17/16 09:04 Dose: 20 mg Triamterene/HCTZ (Dyazide 25/37.5mg) 1 cap PO DAILY [facility] Last Admin: 10/17/16 09:04 Dose: 1 cap - Objective Vital Signs: Vital Signs Temperature 98.1 F 10/17/16 08:00 Pulse Rate 84 10/17/16 08:00 Respiratory Rate 20 10/17/16 08:00 Blood Pressure 132/62 10/17/16 08:00 O2 Sat by Pulse Oximetry (%) 99 10/16/16 21:25 Constitutional: Yes: No Distress Eyes: Yes: WNL HENT: Yes: WNL Neck: Yes: WNL Cardiovascular: Yes: WNL Respiratory: Yes: WNL Gastrointestinal: Yes: WNL Genitourinary: Yes: WNL Musculoskeletal: Yes: Joint Stiffness, Muscle Pain, Muscle Weakness Extremities: Yes: WNL Edema: No Peripheral Pulses WNL: Yes Integumentary: Yes: WNL Wound/Incision: Yes: Clean/Dry Neurological: Yes: WNL ...Motor Strength: RLE Psychiatric: Yes: WNL Labs: CBC, BMP 10/17/16 08:00 10/17/16 08:00 INR, PTT INR 1.18 (0.82-1.09) H 10/14/16 18:10 Problem List - Problems (1) Femoral neck fracture Code(s): S72.009A - FRACTURE OF UNSP PART OF NECK OF UNSP FEMUR, INIT Qualifiers: Encounter type: initial encounter Fracture type: closed Laterality : right Qualified Code(s): S72.001A - Fracture of unspecified part of neck of right femur, initial encounter for closed fracture (2) Parkinsons disease Code(s): G20 - PARKINSON'S DISEASE (3) Fall Code(s): W19.XXXA - UNSPECIFIED FALL, INITIAL ENCOUNTER (4) Low back pain Code(s): M54.5 - LOW BACK PAIN (5) Rib contusion Code(s): S20.219A - CONTUSION OF UNSPECIFIED FRONT WALL OF THORAX, INIT ENCNTR Assessment/Plan Hip repair POD #1 for Right hip fracture dvt prophylaxis adira for snf pain control FERROUS SULFATE 325MG DAILY CHECK LABS AM SPIROMETRY
--- NOTE | 2016-10-17 09:44 | PN ---
Progress Note (short form) - Note Progress Note: Ortho Pt seen and examined s/p right hip dalia pod #1 Selected Entries 10/17/16 08:00 Temperature 98.1 F Pulse Rate 84 Respiratory 20 Rate Blood Pressure 132/62 Laboratory Tests 10/17/16 08:00 WBC 10.8 H Hgb 9.3 L D Hct 27.9 L Plt Count 228 dressing c/d/i, calf soft, nt nvi a/p PT monitor h/h dvt ppx pain control d/c planning
[2016-10-17] MEDS: FERROUS SO4 325 MG TABLET (FP) PO SCH (09:50)
[2016-10-17] MEDS ORDERED: ENOXAPARIN NA (PORCINE) 30 MG/0.3 ML DISP.SYRIN SQ SCH (10:00)
[2016-10-17] MEDS: HYDROmorphone HCL CARPU-JECT 1 MG/1 ML DISP.SYRIN IVPB PRN (15:17)
--- NOTE | 2016-10-17 18:51 | PN ---
Progress Note (short form) - Note Progress Note: CC: pre-operative clearance S: Feels well, ambulated today. pain controlled. no cp, sob, palps, dizziness. Eating well. Cards: Dr. Grimm Current Medications Acetaminophen (Tylenol -) 650 mg PO Q4H PRN PRN Reason: FEVER OR PAIN Atorvastatin Calcium (Lipitor -) 40 mg PO HS [facility] Last Admin: 10/16/16 21:51 Dose: 40 mg Carbidopa/Levodopa (Sinemet 25/100 -) 1 each PO BID [facility] Last Admin: 10/17/16 09:04 Dose: 1 each Enoxaparin Sodium (Lovenox -) 40 mg SQ DAILY [facility] Last Admin: 10/17/16 09:04 Dose: 40 mg Fentanyl (Sublimaze Injection -) 50 mcg IVPUSH [id number] PRN PRN Reason: PAIN Stop: 10/19/16 13:42 Ferrous Sulfate (Feosol -) 325 mg PO DAILY [facility] Last Admin: 10/17/16 09:50 Dose: 325 mg Hydromorphone HCl (Dilaudid Injection -) 1 mg IVPB Q4H PRN PRN Reason: PAIN Last Admin: 10/17/16 15:17 Dose: 1 mg Lactated Ringer's (Lactated Ringers Solution) 1,000 mls @ 75 mls/hr IV ASDIR [facility] Last Admin: 10/17/16 16:42 Dose: 75 mls/hr Metformin HCl (Glucophage -) 1,000 mg PO BIDAC [facility] Last Admin: 10/17/16 16:43 Dose: 1,000 mg Metoprolol Tartrate (Lopressor -) 50 mg PO DAILY [facility] Last Admin: 10/17/16 09:04 Dose: 50 mg Paroxetine HCl (Paxil -) 20 mg PO DAILY [facility] Last Admin: 10/17/16 09:04 Dose: 20 mg Triamterene/HCTZ (Dyazide 25/37.5mg) 1 cap PO DAILY [facility] Last Admin: 10/17/16 09:04 Dose: 1 cap Vital Signs - 24 hr 10/16/16 10/16/16 10/17/16 21:00 21:25 02:04 Temperature 97.9 F 98.3 F Pulse Rate 74 70 Respiratory 20 20 Rate Blood Pressure 147/68 137/75 O2 Sat by Pulse 99 99 Oximetry (%) 10/17/16 10/17/16 10/17/16 05:24 08:00 09:00 Temperature 99.2 F 98.1 F Pulse Rate 80 84 Respiratory 20 20 Rate Blood Pressure 130/64 132/62 O2 Sat by Pulse 99 Oximetry (%) 10/17/16 10/17/16 09:50 13:38 Temperature 98.8 F Pulse Rate 88 70 Respiratory 17 Rate Blood Pressure O2 Sat by Pulse 93 L Oximetry (%) Intake & Output 10/15/16 10/16/16 10/17/16 10/18/16 07:59 07:59 07:59 07:59 Intake Total 450 1435 1300 300 Output Total 1100 1350 500 325 Balance -650 85 800 -25 Weight 130 lb 12.8 oz NAD, calm JVD flat, neck supple diminished bs, nl effort RRR nl s1, s2 nl m/r/g + bs soft nt nd ext without e/c/c + dp/pt aaox3 CBC, BMP 10/17/16 08:00 10/17/16 08:00 EKG: SR, nl axis/intervals. no ischemic changes. CXR: weak inspiration with possible congestive changes. By my review appears to have changes c/w chronic lung disease. 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 Chronic small vessel ischemia. Mild diffuse atrophy with ventricular dilation. Sinusitis. 70 year old smoker with a significant past medical history CAD s/p stents x 5 on aspirin and plavix, HTN, HL, NIDDM, possible ckd and parkinsons disease who presents s/p mechanical fall c/b hip fracture. Pre-operative clearance - R displaced femoral neck fracture. POD 1 s/p Rt hip hemiarthroplasty without complication. Pre-operative clearance-intermediate risk of cheo-operative complications. - Doing well post-op. HR well controlled, no recent bp's but had been well controlled. - Would d/c IVF to prevent volume overload. Poor air movement on exam. Incentive spirometry, O2 monitoring. CAD s/p stent x 5 - no stent within the past year. On DAPT as outpatient, held cheo-operatively. Resume at least ASA once ok per surgery. - no anginal sx's. No ischemic ekg changes. - con't metoprolol, atorvastatin HTN - well controlled on home regimen. + tobacco, - cessation counseling. DM - glucose control per pmd.
[2016-10-17] MEDS: ATORVASTATIN CA 40 MG TABLET (FP) PO SCH (21:58)
[2016-10-18] MEDS: metFORMIN HCL 500 MG TABLET (FP) PO SCH ×2 (06:13→16:56)
[2016-10-18 08:17] LABS: MCH 27.8 pg (25.7-33.7); MCHC 32.8 g/dl (32.0-36.0); MEAN CELL VOLUME 84.7 fl (80-96); MEAN PLT VOLUME 8.2 fl (7.5-11.1); PLATELET COUNT 257 K/MM3 (134-434); WHITE BLOOD COUNT 14.1 K/mm3 (4.0-10.0)
[2016-10-18 08:35] LABS: CALCIUM 8.6 mg/dL (8.5-10.1); CREATININE 1.1 mg/dL (0.55-1.02)
[2016-10-18] MEDS ORDERED: PT OWN MED DRAWER 7, Y5N ONE (08:58)
[2016-10-18] MEDS: FERROUS SO4 325 MG TABLET (FP) PO SCH (09:05)
[2016-10-18] MEDS: ENOXAPARIN NA (PORCINE) 40 MG/0.4 ML DISP.SYRIN SQ SCH (09:05)
[2016-10-18] MEDS: CARBIDOPA/LEVODOPA 25/100 TABLET (FP) PO SCH ×2 (09:05→22:37)
[2016-10-18] MEDS: METOPROLOL TARTRATE 50 MG TABLET (FP) PO SCH (09:06)
[2016-10-18] MEDS: PARoxetine HCL 20 MG TABLET (FP) PO SCH (09:06)
[2016-10-18] MEDS: TRIAMTERENE AND HCTZ - 37.5 MG/25 MG CAPSULE PO SCH (09:06)
--- NOTE | 2016-10-18 10:20 | PN ---
Progress Note (short form) - Note Progress Note: Ortho Pt seen and examined s/p right hip dalia pod #2 Selected Entries 10/18/16 08:39 Temperature 100 F H Pulse Rate 99 H Respiratory 18 Rate Blood Pressure 145/77 Laboratory Tests 10/18/16 07:35 WBC 14.1 H D Hgb 7.7 L D Hct 23.4 L D Plt Count 257 dressing c/d/i, calf soft, nt nvi a/p Transfuse 1 unit PRBCs- f/u cbc Hold AC until tomorrows dose PT if able dvt ppx pain control d/c planning
--- NOTE | 2016-10-18 10:49 | PN ---
Progress Note, Physician Chief Complaint: PATIENT SCHEDULED FOR DISCHARGE TODAY HOWEVER, SHE DEVELOPED FEVER 101', ACUTE DROP IN H/H TO 7.7/23 - Current Medication List Current Medications: Active Medications Acetaminophen (Tylenol -) 650 mg PO Q4H PRN PRN Reason: FEVER OR PAIN Atorvastatin Calcium (Lipitor -) 40 mg PO HS [facility] Last Admin: 10/17/16 21:58 Dose: 40 mg Carbidopa/Levodopa (Sinemet 25/100 -) 1 each PO BID [facility] Last Admin: 10/18/16 09:05 Dose: 1 each Enoxaparin Sodium (Lovenox -) 40 mg SQ DAILY [facility] Last Admin: 10/18/16 09:05 Dose: 40 mg Fentanyl (Sublimaze Injection -) 50 mcg IVPUSH [id number] PRN PRN Reason: PAIN Stop: 10/19/16 13:42 Ferrous Sulfate (Feosol -) 325 mg PO DAILY [facility] Last Admin: 10/18/16 09:05 Dose: 325 mg Hydromorphone HCl (Dilaudid Injection -) 1 mg IVPB Q4H PRN PRN Reason: PAIN Last Admin: 10/17/16 15:17 Dose: 1 mg Metformin HCl (Glucophage -) 1,000 mg PO BIDAC [facility] Last Admin: 10/18/16 06:13 Dose: 1,000 mg Metoprolol Tartrate (Lopressor -) 50 mg PO DAILY [facility] Last Admin: 10/18/16 09:06 Dose: 50 mg Paroxetine HCl (Paxil -) 20 mg PO DAILY [facility] Last Admin: 10/18/16 09:06 Dose: 20 mg Triamterene/HCTZ (Dyazide 25/37.5mg) 1 cap PO DAILY [facility] Last Admin: 10/18/16 09:06 Dose: 1 cap - Objective Vital Signs: Vital Signs Temperature 100 F H 10/18/16 08:39 Pulse Rate 99 H 10/18/16 08:39 Respiratory Rate 18 10/18/16 08:39 Blood Pressure 145/77 10/18/16 08:39 O2 Sat by Pulse Oximetry (%) 98 10/17/16 21:00 Constitutional: Yes: Mild Distress HENT: Yes: WNL Cardiovascular: Yes: WNL Respiratory: Yes: WNL Gastrointestinal: Yes: WNL Genitourinary: Yes: Incontinence Musculoskeletal: Yes: Muscle Pain, Muscle Weakness Extremities: Yes: Other Edema: No Peripheral Pulses WNL: Yes Integumentary: Yes: Bruising Wound/Incision: Yes: Dressing Dry and Intact Neurological: Yes: Other ...Motor Strength: LLE, RLE Psychiatric: Yes: WNL Labs: CBC, BMP 10/18/16 07:35 10/18/16 07:35 INR, PTT INR 1.18 (0.82-1.09) H 10/14/16 18:10 Problem List - Problems (1) Femoral neck fracture Code(s): S72.009A - FRACTURE OF UNSP PART OF NECK OF UNSP FEMUR, INIT Qualifiers: Encounter type: initial encounter Fracture type: closed Laterality : right Qualified Code(s): S72.001A - Fracture of unspecified part of neck of right femur, initial encounter for closed fracture (2) Parkinsons disease Code(s): G20 - PARKINSON'S DISEASE (3) Fall Code(s): W19.XXXA - UNSPECIFIED FALL, INITIAL ENCOUNTER (4) Low back pain Code(s): M54.5 - LOW BACK PAIN (5) Rib contusion Code(s): S20.219A - CONTUSION OF UNSPECIFIED FRONT WALL OF THORAX, INIT ENCNTR (6) Fever Code(s): R50.9 - FEVER, UNSPECIFIED (7) Anemia Code(s): D64.9 - ANEMIA, UNSPECIFIED Assessment/Plan Hip repair POD #2 for Right hip fracture FEVER AND ACUTE ANEMIA BLOOD LOSS, HOLD DISCHARGE UNTIL TOMORROW ID FOR EVAL dvt prophylaxis adira for snf pain control FERROUS SULFATE 325MG DAILY CHECK LABS AM SPIROMETRY
[2016-10-18] MEDS: DOCUSATE SODIUM 100 MG CAPSULE (FP) PO SCH (11:44)
[2016-10-18] MEDS: POLYETHYLENE GLYCOL 3350 119 GM BTL PO SCH (11:44)
--- NOTE | 2016-10-18 12:10 | PATH ---
Surgical Pathology Report Patient Name: ANGELA MONCADA [facility]. Rec. #: [id number] /Age/Gender: 1945 (Age: 70) / F Account: [id number] Location: [address] [place] [address] Taken: 10/16/2016 Received: 10/16/2016 Reported: 10/18/2016 Physicians: Claudio David M.D. Specimen(s) Received RIGHT FEMORAL HEAD Clinical History Right hip fracture Final Diagnosis FEMORAL HEAD, RIGHT HIP ARTHROPLASTY: BONE WITH FOCAL NECROSIS AND HEMORRHAGE CONSISTENT WITH FRACTURE SITE. Electronically Signed Russel Pina M.D. Gross Description Received in formalin, labeled "right femoral head" is a 4.0 x 4.0 x 3.8 cm. femoral head with no femoral neck attached. The margin of resection is red-brown, jagged and hemorrhagic. No areas of eburnation are identified. The articular surface is cancino-yellow and focally granular. The underlying trabecular bone is cancino-yellow, heterogeneous and focally hemorrhagic. Separately received within the same container are 2 cancino, irregular, hemorrhagic portions of bone measuring 4.5 x 3.0 x 2.4 cm in aggregate, consistent with portions of femoral neck. Export Coordinator sections are submitted in one cassette, following decalcification. 10/17/201610/17/2016
--- NOTE | 2016-10-18 14:48 | PN ---
Progress Note (short form) - Note Progress Note: ID Full note dictated Low grade temps getting blood now No complaints Selected Entries 10/18/16 10/18/16 08:39 13:29 Temperature 100 F H 98.6 F Pulse Rate 75 Respiratory 20 Rate Blood Pressure 137/71 Looks comfortable Microbiology 10/14/16 18:42 Urine - Urine - Catheterized Urine Culture - Final NO GROWTH OBTAINED Laboratory Tests 10/18/16 10/18/16 07:35 07:35 WBC 14.1 H D Hgb 7.7 L D Hct 23.4 L D Plt Count 257 BUN 31 H Day 2 post op Low grade fever Post op anemia orthopedic surgery Plan Observe only discharge planning if afebrile HCT stable [facility] Problem List - Problems (1) Femoral neck fracture Code(s): S72.009A - FRACTURE OF UNSP PART OF NECK OF UNSP FEMUR, INIT Qualifiers: Encounter type: initial encounter Fracture type: closed Laterality : right Qualified Code(s): S72.001A - Fracture of unspecified part of neck of right femur, initial encounter for closed fracture (2) Fever Code(s): R50.9 - FEVER, UNSPECIFIED
--- NOTE | 2016-10-18 15:30 | CONS ---
INFECTIOUS DISEASE CONSULTATION DATE OF CONSULTATION: DATE OF DICTATION: 10/18/2016 This is a 70-year-old female who fell at home, fracturing her right hip, who I am asked to see 2 days postoperatively orthopedic surgery for fever. She has a history of Parkinson disease and notes that she fell on her porch. She did not lose consciousness. She has a history of coronary artery disease with her stent, and at the same time, fractured her hip and sustained contusions to her face and scalp. She was seen in consultation by Orthopedic Surgery, and on October 16, taken to the operating room for right hemiarthroplasty surgery. The surgery was uneventful, and she did well. I am asked to see her now as she was noted to have low-grade fever today, and at the same time, her hemoglobin and hematocrit were decreasing in the absence of any obvious bleeding source. She is currently receiving transfusion of 1 unit of packed cells, but note that the fever apparently occurred prior to blood transfusion. She denies any shortness of breath, cough, chest pain, abdominal pain, diarrhea, or urinary complaints. PAST MEDICAL HISTORY: As noted above. MEDICATIONS AT HOME: Aspirin, atorvastatin, Sinemet, metformin, metoprolol, triamterene/hydrochlorothiazide. ALLERGIES: None known. SOCIAL HISTORY: Every-day smoker. Lives with her and daughter. No history of alcohol abuse. FAMILY HISTORY AND REVIEW OF SYSTEMS: Reviewed and noncontributory. PHYSICAL EXAMINATION: General: She was an alert, quiet, elderly woman in no acute distress. Vital Signs: Her temperature was 98.6, pulse 75, blood pressure 137/71, respirations 20, T-max 100. Neck: Supple. Lungs: Diminished breath sounds bilaterally. Heart: S1, S2. Regular rhythm without audible murmur. Abdomen: Soft, nontender, without organomegaly. Extremities: Right hip surgical postop incision. LABORATORY DATA: The white count is 14.1, hemoglobin 7.7, hematocrit 23.4, platelets 257. INR 1.18. BUN of 31, creatinine 1.1. Urinalysis with 2 RBCs, 1 WBC. Urine culture dated October____2016, no growth. ASSESSMENT: A 70-year-old female day 2 postoperative right hemiarthroplasty following a fall at home. Low-grade temperatures in the postoperative setting to be expected. She does not look toxic or have any obvious subjective or objective findings suggesting an infection at this time. She is receiving blood transfusion but apparently had fever prior to the initiation of the transfusion. At this point, she is encouraged to increase her mobility in bed, encourage incentive spirometry, and observe fever off of antibiotics for the time being. PRANAY DYE M.D. [id number]
[2016-10-18] MEDS: ATORVASTATIN CA 40 MG TABLET (FP) PO SCH (22:37)
[2016-10-19 06:08] VITALS: BP 137/74
[2016-10-19] MEDS: metFORMIN HCL 500 MG TABLET (FP) PO SCH (07:01)
[2016-10-19 07:40] LABS: MCH 28.7 pg (25.7-33.7); MCHC 33.4 g/dl (32.0-36.0); MEAN PLT VOLUME 8.3 fl (7.5-11.1); PLATELET COUNT 274 K/MM3 (134-434); RDW 13.2 % (11.6-15.6); WHITE BLOOD COUNT 16.5 K/mm3 (4.0-10.0)
--- NOTE | 2016-10-19 08:03 | DS ---
Physical Examination Vital Signs: Vital Signs Temperature 98.7 F 10/19/16 06:00 Pulse Rate 93 H 10/19/16 06:00 Respiratory Rate 28 H 10/19/16 06:00 Blood Pressure 137/74 10/19/16 06:00 O2 Sat by Pulse Oximetry (%) 95 10/18/16 21:00 Constitutional: Yes: No Distress Eyes: Yes: WNL HENT: Yes: WNL Neck: Yes: WNL Cardiovascular: Yes: WNL Respiratory: Yes: WNL Gastrointestinal: Yes: WNL Renal/: Yes: WNL Musculoskeletal: Yes: Joint Swelling, Muscle Weakness Extremities: Yes: Deformity Edema: No Peripheral Pulses WNL: Yes Integumentary: Yes: Other Wound/Incision: Yes: Dressing Dry and Intact Neurological: Yes: Pre-Existing Deficit, Unsteady Gait ...Motor Strength: RLE Psychiatric: Yes: WNL Labs: CBC, BMP 10/19/16 06:30 Discharge Summary Reason For Visit: FEMORAL NECK FRACTURE, PARKINSONS DISEASE Current Active Problems Anemia (Acute) Femoral neck fracture (Acute) Fever (Acute) Parkinsons disease (Acute) Procedures: Principal: right hipneck repair/fx Other Procedures: transfusion prbc Hospital Course: admitted cleared medically for hip fracture surgery, femeral neck fracture repair, post op fever and acute blood loss with transfusion given, can dc to snf with close monitoring of cbc and fevers , id consult no abx at this time Condition: Improved - Instructions Diet, Activity, Other Instructions: low sodium Referrals: Nikita Grimm MD [Primary Care Provider] - Disposition: [facility]ILITY - Home Medications Comprehensive Discharge Medication List: Ambulatory Orders PARoxetine HCL [Paxil] 20 mg PO DAILY #7 tablet 07/19/14 Ascorbate Calcium [Vitamin C] 500 mg PO DAILY 10/14/16 Aspirin [Aspirin EC] 81 mg PO DAILY 10/14/16 Atorvastatin Ca [Lipitor] 40 mg PO HS 10/14/16 Carbidopa/Levodopa [Carbidopa-Levodopa 25-100 Tab] 1 each PO BID 10/14/16 Clopidogrel Bisulfate [Plavix -] 75 mg PO DAILY 10/14/16 Metformin HCl [Glucophage] 1,000 mg PO BID 10/14/16 Metoprolol Tartrate [Lopressor -] 50 mg PO DAILY 10/14/16 Triamterene/Hydrochlorothiazid [Triamterene-Hctz 37.5-25 mg Cp] 1 each PO DAILY 10/14/16
[2016-10-19 08:23] LABS: CALCIUM 8.9 mg/dL (8.5-10.1); CREATININE 1.1 mg/dL (0.55-1.02)
--- NOTE | 2016-10-19 09:24 | PN ---
Progress Note (short form) - Note Progress Note: Ortho Pt seen and examined s/p right hip dalia pod #3 Selected Entries 10/19/16 06:00 Temperature 98.7 F Pulse Rate 93 H Respiratory 28 H Rate Blood Pressure 137/74 Laboratory Tests 10/19/16 06:30 WBC 16.5 H Hgb 8.9 L D Hct 26.7 L Plt Count 274 dressing c/d/i, calf soft, nt nvi a/p PT dvt ppx pain control d/c to snf when medically cleared
[2016-10-19] MEDS: FERROUS SO4 325 MG TABLET (FP) PO SCH (09:59)
[2016-10-19] MEDS: DOCUSATE SODIUM 100 MG CAPSULE (FP) PO SCH (09:59)
[2016-10-19] MEDS: METOPROLOL TARTRATE 50 MG TABLET (FP) PO SCH (09:59)
[2016-10-19] MEDS: CARBIDOPA/LEVODOPA 25/100 TABLET (FP) PO SCH (09:59)
[2016-10-19] MEDS: PARoxetine HCL 20 MG TABLET (FP) PO SCH (09:59)
[2016-10-19] MEDS: POLYETHYLENE GLYCOL 3350 119 GM BTL PO SCH (10:00)
[2016-10-19] MEDS: ENOXAPARIN NA (PORCINE) 40 MG/0.4 ML DISP.SYRIN SQ SCH (10:00)
[2016-10-19] MEDS ORDERED: MAGNESIUM HYDROX 2400MG/30ML ORAL SUSPENSION 30 ML CUP PO PRN (11:03)
[2016-10-19] MEDS: TRIAMTERENE AND HCTZ - 37.5 MG/25 MG CAPSULE PO SCH (11:35)
[2016-10-19 13:56] VITALS: PULSE 78; TEMP 97.9
[2016-10-19] MEDS ORDERED: INSULIN SLIDING SCALE (NOVOLOG) 1 VIAL SQ SCH (16:30)
== END 2016-10-19 15:44 | DRG 470 ==
LOC: JER 17:16 → JERBED 21:56 → OBSVTOIN 22:33 → J6S 10-15 00:42
PROVIDERS: ADMIT Family Medicine; ATTEND Family Medicine
PROC: 0SRR0JZ Replacement of Right Hip Joint, Femoral Surface with Synthetic Substitute, Open Approach (ICD-10-PCS; principal; 2016-10-16 11:30)
PROC: 30233N1 Transfusion of Nonautologous Red Blood Cells into Peripheral Vein, Percutaneous Approach (ICD-10-PCS; 2016-10-18)
DX: S72.001A Fracture of unspecified part of neck of right femur, initial encounter for closed fracture (principal); D62 Acute posthemorrhagic anemia; S00.211A Abrasion of right eyelid and periocular area, initial encounter; S00.511A Abrasion of lip, initial encounter; W07.XXXA Fall from chair, initial encounter; Y92.008 Other place in unspecified non-institutional (private) residence as the place of occurrence of the external cause; I25.10 Atherosclerotic heart disease of native coronary artery without angina pectoris; F17.210 Nicotine dependence, cigarettes, uncomplicated; Z95.5 Presence of coronary angioplasty implant and graft; G20 Parkinson's disease; E11.9 Type 2 diabetes mellitus without complications; M54.5 Low back pain; R31.9 Hematuria, unspecified; R26.81 Unsteadiness on feet; J32.8 Other chronic sinusitis; R50.9 Fever, unspecified; Z79.84 Long term (current) use of oral hypoglycemic drugs
CPT/HCPCS: 36415; 36430; 70450-TC; 71010-TC; 73501-TC-RT; 73523-TC; 80048; 80053; 81003; 81015; 83036; 85025; 85027; 85610; 85730; 86850; 86900; 86901; 86922; 87086; 88305-TC; 88311-TC; 90715; 93005; 93010; 94010; 94760; 97116-GP; 97163-GP; 99284-25; G0378; J1644; P9058

== ENCOUNTER 2017-04-01 10:30 | Inpatient (IN) | payer OTHER, BC ==
--- NOTE | 2017-04-01 11:20 | PDOC ---
History of Present Illness - General History Source: Patient, Old Records Exam Limitations: No Limitations - History of Present Illness Initial Comments: 04/01/17 11:27 The patient is a 71-year-old woman with a significant past medical history of hypertension, hypercholesterolemia, coronary artery disease status post stents x5 (on Aspirin/Plavix), non-insulin dependent diabetes mellitus, Parkinsons disease who presents to the emergency department with complaints of buttocks pain status post fall this morning. No head injury, No loss of consciousness. Patient is typically ambulatory with a walker status post fall in that led to a right total hip replacement. She states that this morning, she got up to get her walker, when she suddenly fell backwards and landing on her side, somewhat injuring her face. She states that initially she felt pain upon her right groin area, that has migrated to her bilateral buttocks muscles. She is unable to describe the nature of the pain but notes that it is exacerbated when she attempts to sit/up, thus she has not been able to ambulate and mildly alleviated when lying supine on the stretcher. She denies experiencing numbness , weakness and tingling sensations throughout her extremities. She denies other bodily pain or injury. She denies chest pain, shortness of breath, dizziness, lightheadedness, or palpitation. She denies headache, fever, chills, cough, nausea, vomiting, diarrhea, visual changes, neck pain, dysuria, hematuria, frequency, bowel/bladder incontinence or retention, abdominal pain. Allergies: No Known Drug Allergies Past Surgical History: Stent placements x5. Total right hip replacement. Social History: Current everyday cigarettes smoker (approximately 5 cigarettes/ day. No EtOH and recreational drug use. Primary Care Physician/Orthotics Prosthetics Technician: Dr. Nikita Grimm [phone]/ Orthopedic Surgeon: Dr. Claudio David [phone] <Silvia Contreras - Last Filed: 04/01/17 13:54> - General History Source: Patient Exam Limitations: No Limitations <Saad Newby - Last Filed: 04/01/17 15:22> - General Chief Complaint: Injury Stated Complaint: FALL Time Seen by Provider: 04/01/17 10:45 Past History <Silvia Contreras - Last Filed: 04/01/17 13:54> - Past Medical History Cardiac Disorders: Yes (cardiac stent x 5) Diabetes: Yes (NIDDM) HTN: Yes - Psycho/Social/Smoking Cessation Hx Anxiety: No Suicidal Ideation: No Smoking History: Current every day smoker Have you smoked in the past 12 months: No Number of Cigarettes Smoked Daily: 3 'Breaking Loose' booklet given: 10/14/16 Hx Alcohol Use: No Drug/Substance Use Hx: No Substance Use Type: None Hx Substance Use Treatment: No <Saad Newby - Last Filed: 04/01/17 15:22> - Past Medical History Allergies/Adverse Reactions: Allergies Allergy/AdvReac Type Severity Reaction Status Date / Time No Known Allergies Allergy Verified 04/01/17 11:33 Home Medications: Ambulatory Orders PARoxetine HCL [Paxil] 20 mg PO DAILY #7 tablet 07/19/14 Ascorbate Calcium [Vitamin C] 500 mg PO DAILY 10/14/16 Aspirin [Aspirin EC] 81 mg PO DAILY 10/14/16 Atorvastatin Ca [Lipitor] 40 mg PO HS 10/14/16 Carbidopa/Levodopa [Carbidopa-Levodopa 25-100 Tab] 1 each PO BID 10/14/16 Clopidogrel Bisulfate [Plavix -] 75 mg PO DAILY 10/14/16 Metformin HCl [Glucophage] 1,000 mg PO BID 10/14/16 Metoprolol Tartrate [Lopressor -] 50 mg PO DAILY 10/14/16 Triamterene/Hydrochlorothiazid [Triamterene-Hctz 37.5-25 mg Cp] 1 each PO DAILY 10/14/16 Review of Systems - Review of Systems Able to Perform ROS?: Yes Comments:: 04/01/17 11:27 GENERAL/CONSTITUTIONAL: No fever or chills. No weakness. HEAD, EYES, EARS, NOSE AND THROAT: No change in vision. No ear pain or discharge. No sore throat. CARDIOVASCULAR: No chest pain or shortness of breath. RESPIRATORY: No cough, wheezing, or hemoptysis. GASTROINTESTINAL: No nausea, vomiting, diarrhea or constipation. GENITOURINARY: No dysuria, frequency, or change in urination. MUSCULOSKELETAL: Yes: Right groin pain (now resolved). Bilateral buttocks pain. No neck or back pain. SKIN: No rash NEUROLOGIC: No headache, vertigo, loss of consciousness, or change in strength/ sensation. ENDOCRINE: No increased thirst. No abnormal weight change. HEMATOLOGIC/LYMPHATIC: No anemia, easy bleeding, or history of blood clots. ALLERGIC/IMMUNOLOGIC: No hives or skin allergy. <ContrerasSilvia - Last Filed: 04/01/17 13:54> *Physical Exam - Physical Exam Comments: 04/01/17 11:27 GENERAL: Awake, alert, and fully oriented, in no acute distress HEAD: Mild ecchymosis over the right forehead EYES: PERRLA, EOMI, sclera anicteric, conjunctiva clear ENT: Auricles normal inspection, hearing grossly normal, nares patent, oropharynx clear without exudates. Moist mucosa NECK: Normal ROM, supple, no lymphadenopathy, JVD, or masses LUNGS: Breath sounds equal, clear to auscultation bilaterally. No wheezes, and no crackles HEART: Regular rate and rhythm, normal S1 and S2, no murmurs, rubs or gallops ABDOMEN: Soft, nontender, normoactive bowel sounds. No guarding, no rebound. No masses EXTREMITIES: Normal range of motion, no edema. No clubbing or cyanosis. No cords, erythema, or tenderness NEUROLOGICAL: Cranial nerves II through XII grossly intact. Normal speech. <Contreras,Silvia - Last Filed: 04/01/17 13:54> Heart Score/ECG Review #1 ECG reviewed & interpreted by me at: 11:35 04/01/17 15:22 NSR 52, no std/cholo, normal axis, normal intervals, occasional PAC, QTC 412 msec. no TWI <Saad Newby - Last Filed: 04/01/17 15:22> ED Treatment Course - RADIOLOGY Radiograph Interpretation: 04/01/17 13:33 EXAM: CT/PELVIS CT WITHOUT CONTRAST Interpreted by Dr. Lawson Kapoor IMPRESSION: Sequential axial images were obtained from the iliac crests through the symphysis pubis. Coronal and sagittal reconstructed images were also obtained. There are comminuted fractures of the medial aspect of the left superior and inferior pubic rami near the symphysis. No significant displacement of fracture fragments is identified. No additional fractures or acute bony abnormalities are identified. The patient is S/P total right hip replacement. Evaluation of the soft tissues of the pelvis demonstrates marked fecal impaction within the rectum. No pelvic masses or fluid collections are identified. There are uterine calcifications consistent with leiomyomata. EXAM: CT/HEAD CT WITHOUT CONTRAST Interpreted by Dr. Lawson Kapoor IMPRESSION: Sequential axial images were obtained from the base of the skull to the vertex. There is no evidence of acute intracranial hemorrhage, mass lesions or infarctions. There is a mild degree of diffuse cerebral atrophy with sulcal widening and ventricular dilatation. There is a moderate degree of hypodense changes within the periventricular white matter, left greater than right, consistent with chronic, small vessel ischemia. There is a scalp hematoma in the right frontal region. There is no evidence of fracture or acute bony pathology. <Silvia Contreras - Last Filed: 04/01/17 13:54> - LABORATORY CBC & Chemistry Diagram: 04/01/17 14:45 04/01/17 14:45 - RADIOLOGY Radiology Studies Ordered: Category Date Time Status HEAD CT WITHOUT CONTRAST [CT] Stat CT Scan 04/01/17 11:[address] WITHOUT CONTRAST [CT] Stat CT Scan 04/01/17 11:15 Ordered <Saad Newby - Last Filed: 04/01/17 15:22> Medical Decision Making - Medical Decision Making 04/01/17 13:[address] Erika Moreland. Immediate response. Case was discussed. 04/01/17 13:[address] Claudio David. Immediate response. Case was discussed. <Silvia Contreras - Last Filed: 04/01/17 13:54> - Medical Decision Making 04/01/17 12:47 A portion of this note was documented by scribe services under my direction. I have reviewed the details of the note, within reason, and agree with the documentation with the following case summary and management plan written by me. Patient treated in the ED. Nursing notes are reviewed and incorporated into the medical decision-making. Vital signs reviewed. Peripheral IV access obtained by the nurse, laboratory studies are drawn and sent, reviewed and interpreted by myself. Vital Signs Temp Pulse Resp BP Pulse Ox 98.6 F 50 L 18 120/72 97 04/01/17 11:30 04/01/17 11:30 04/01/17 11:30 04/01/17 11:30 04/01/17 11:30 71-year-old female history of hypertension, hyperlipidemia, coronary disease status post stents, diabetes, Parkinson's disease, hip replacement presents with mechanical fall. Patient was attempting to reach for her walker when she fell backwards and landed on her buttocks and hit her head. Denies also conscious. Patient does take aspirin and Plavix. Has no headache. Did develop some mild ecchymosis over the right forehead. Denies C-spine tenderness. Does report some worsening generalized pelvic pain on ambulation. However, did not palpate any particular tenderness. We'll obtain a head CT to rule out intercrural hemorrhage. Patient is cleared from C-spine perspective given negative Nexus criteria. We'll need to rule out occult pelvis fracture with a pelvis CT and reassess. 04/01/17 13:[address] reviewed. No acute findings. CT pelvis demonstrated communited left superior and inferior rami fracture. Given unable to ambulate, will admit. Case discussed with Dr. David who is aware of the patient. Case discussed with Dr. Moreland who admits the patient to med/surg admission. Case discussed in detail with admitting physician including history, physical exam and ancillary studies. Admitting physician has assumed care for the patient, will follow all pending diagnostics and will complete the evaluation and treatment. <Saad Newby - Last Filed: 04/01/17 15:22> *DC/Admit/Observation/Transfer - Attestations Scribe Attestion: 04/01/17 11:28 Documentation prepared by Silvia Contreras, acting as medical doctor md/medical director for Saad Newby MD. <Silvia Contreras - Last Filed: 04/01/17 13:54> - Discharge Dispostion Admit: Yes <Saad Newby - Last Filed: 04/01/17 15:22> Diagnosis at time of Disposition: Pelvic fracture Qualifiers: Encounter type: initial encounter Pelvic bone location: multiple parts Fracture type: closed Fracture alignment: without disruption of pelvic ring Qualified Code(s): S32.82XA - Multiple fractures of pelvis without disruption of pelvic ring, initial encounter for closed fracture - Referrals
[2017-04-01 11:35] VITALS: BMI 24.8
[2017-04-01] MEDS ORDERED: ACETAMINOPHEN 325 MG TABLET (FP) PO ONE (12:47)
--- NOTE | 2017-04-01 14:18 | EKG ---
Test Reason : Blood Pressure : / mmHG Vent. Rate : 052 BPM Atrial Rate : 052 BPM P-R Int : 184 ms QRS Dur : 084 ms QT Int : 444 ms P-R-T Axes : 036 020 039 degrees QTc Int : 412 ms SINUS BRADYCARDIA WITH PREMATURE ATRIAL COMPLEXES OTHERWISE NORMAL ECG WHEN COMPARED WITH ECG OF 14-OCT-2016 17:40, PREMATURE ATRIAL COMPLEXES ARE NOW PRESENT Confirmed by STEPHANY ZIMMERMAN MD ([id number]) on 04/01/2017 2:17:33 PM Referred By: Confirmed By:STEPHANY ZIMMERMAN MD
[2017-04-01] MEDS ORDERED: ACETAMINOPHEN 325 MG TABLET (FP) ONE (14:41)
[2017-04-01 15:00] LABS: BASOPHIL 0.4 % (0-2.0); EOSINOPHIL 0.7 % (0-4.5); MCH 28.2 pg (25.7-33.7); MCHC 32.5 g/dl (32.0-36.0); MEAN CELL VOLUME 86.7 fl (80-96); MEAN PLT VOLUME 8.4 fl (7.5-11.1); NEUTROPHILS 79.2 % (42.8-82.8); PLATELET COUNT 183 K/MM3 (134-434); RDW 14.5 % (11.6-15.6); WHITE BLOOD COUNT 9.1 K/mm3 (4.0-10.0)
[2017-04-01 15:22] LABS: INR 1.08 (0.82-1.09); PROTHROMBIN TIME (PATIENT) 11.9 SEC (9.98-11.88)
[2017-04-01 15:24] LABS: ACTIVATED PTT 31.1 SECONDS (26.9-34.4)
[2017-04-01 15:27] LABS: ALBUMIN 3.9 g/dl (3.4-5.0); ALK PHOS 100 U/L (45-117); ANION GAP 6 (8-16); BILIRUBIN,TOTAL 1.1 mg/dL (0.2-1.0); CALCIUM 9.5 mg/dL (8.5-10.1); CO2 27 mmol/L (21-32); CREATININE 1.3 mg/dL (0.55-1.02); GLUCOSE,RANDOM 117 mg/dL (74-106); SGOT/AST 22 U/L (15-37); SGPT/ALT 28 U/L (12-78); TOT PROT 7.1 g/dl (6.4-8.2)
[2017-04-01] MEDS ORDERED: ACETAMINOPHEN 1000 MG/100 ML VIAL (NON FORMULARY) IVPB PRN (17:12)
--- NOTE | 2017-04-01 19:08 | HP ---
Admitting History and Physical - Primary Care Physician PCP: Erika Moreland - Admission Chief Complaint: HIP FRACTURE History of Present Illness: The patient is a 71-year-old woman with a significant past medical history of hypertension, hypercholesterolemia, coronary artery disease status post stents x5 (on Aspirin/Plavix), non-insulin dependent diabetes mellitus, Parkinsons disease who presents to the emergency department with complaints of buttocks pain status post fall this morning. No head injury, No loss of consciousness. Patient is typically ambulatory with a walker status post fall in that led to a right total hip replacement. She states that this morning, she got up to get her walker, when she suddenly fell backwards and landing on her side, somewhat injuring her face. She states that initially she felt pain upon her right groin area, that has migrated to her bilateral buttocks muscles. She is unable to describe the nature of the pain but notes that it is exacerbated when she attempts to sit/up, thus she has not been able to ambulate and mildly alleviated when lying supine on the stretcher. She denies experiencing numbness , weakness and tingling sensations throughout her extremities. She denies other bodily pain or injury. She denies chest pain, shortness of breath, dizziness, lightheadedness, or palpitation. She denies headache, fever, chills, cough, nausea, vomiting, diarrhea, visual changes, neck pain, dysuria, hematuria, frequency, bowel/bladder incontinence or retention, abdominal pain. History Source: Patient, Medical Record Limitations to Obtaining History: Clinical Condition - Past Medical History [employer] REPA[employer]ER: Yes: Parkinson's Cardiovascular: Yes: CAD, HTN ...: No - Smoking History Smoking history: Former smoker Have you smoked in the past 12 months: No Aproximately how many cigarettes per day: 0 - Alcohol/Substance Use Hx Alcohol Use: No Home Medications - Allergies Allergies/Adverse Reactions: Allergies Allergy/AdvReac Type Severity Reaction Status Date / Time No Known Allergies Allergy Verified 04/01/17 11:33 - Home Medications Home Medications: Ambulatory Orders PARoxetine HCL [Paxil] 20 mg PO DAILY #7 tablet 07/19/14 Ascorbate Calcium [Vitamin C] 500 mg PO DAILY 10/14/16 Aspirin [Aspirin EC] 81 mg PO DAILY 10/14/16 Atorvastatin Ca [Lipitor] 40 mg PO HS 10/14/16 Carbidopa/Levodopa [Carbidopa-Levodopa 25-100 Tab] 1 each PO BID 10/14/16 Clopidogrel Bisulfate [Plavix -] 75 mg PO DAILY 10/14/16 Metoprolol Tartrate [Lopressor -] 50 mg PO DAILY 10/14/16 Triamterene/Hydrochlorothiazid [Triamterene-Hctz 37.5-25 mg Cp] 1 each PO DAILY 10/14/16 Glipizide [Glipizide ER] 5 mg PO DAILY 04/01/17 Review of Systems - Review of Systems Constitutional: reports: Weakness Eyes: reports: No Symptoms HENT: reports: No Symptoms Neck: reports: No Symptoms Cardiovascular: reports: No Symptoms Respiratory: reports: No Symptoms Gastrointestinal: reports: No Symptoms Genitourinary: reports: No Symptoms Musculoskeletal: reports: Extremity Pain, Muscle Pain, Muscle Weakness Integumentary: reports: No Symptoms Neurological: reports: Pre-Existing Deficit, Unsteady Gait, Weakness Endocrine: reports: No Symptoms Hematology/Lymphatic: reports: No Symptoms Psychiatric: reports: No Symptoms Physical Examination Vital Signs: Vital Signs Temperature 98.4 F 04/01/17 17:21 Pulse Rate 48 L 04/01/17 17:21 Respiratory Rate 20 04/01/17 17:21 Blood Pressure 136/88 04/01/17 17:21 O2 Sat by Pulse Oximetry (%) 95 04/01/17 17:33 Constitutional: Yes: Moderate Distress Eyes: Yes: WNL HENT: Yes: WNL Neck: Yes: WNL Cardiovascular: Yes: WNL Respiratory: Yes: WNL Gastrointestinal: Yes: WNL Renal/: Yes: WNL Musculoskeletal: Yes: Muscle Weakness Extremities: Yes: Other Edema: No Peripheral Pulses WNL: Yes Integumentary: Yes: WNL Wound/Incision: Yes: Clean/Dry Neurological: Yes: Pre-Existing Deficit, Unsteady Gait ...Motor Strength: LLE, RLE Psychiatric: Yes: WNL Labs: CBC, BMP 04/01/17 14:45 04/01/17 14:45 Imaging - Results Cat Scan: Report Reviewed Problem List - Problems (1) Anemia Code(s): D64.9 - ANEMIA, UNSPECIFIED Qualifiers: Anemia type: other cause (2) Femoral neck fracture Code(s): S72.009A - FRACTURE OF UNSP PART OF NECK OF UNSP FEMUR, INIT (3) Parkinsons disease Code(s): G20 - PARKINSON'S DISEASE (4) Pelvic fracture Code(s): S32.9XXA - FRACTURE OF UNSP PARTS OF LUMBOSACRAL SPINE AND PELVIS, INIT Qualifiers: Encounter type: initial encounter Pelvic bone location: multiple parts Fracture type: closed Fracture alignment: without disruption of pelvic ring Qualified Code(s): S32.82XA - Multiple fractures of pelvis without disruption of pelvic ring, initial encounter for closed fracture (5) Fall Code(s): W19.XXXA - UNSPECIFIED FALL, INITIAL ENCOUNTER Assessment/Plan PELVIC FRACTURE DR [facility] CARDIAC CLEARANCE LABS FALL PRECAUTION DVT PROPHYLAXIS
[2017-04-01] MEDS ORDERED: INSULIN (NOVOLOG) ASPART 100 UNITS/ML 10ML VIAL ONE (21:14)
[2017-04-01] MEDS: ATORVASTATIN CA 40 MG TABLET (FP) PO SCH (21:15)
[2017-04-01] MEDS: HEPARIN NA (PORCINE) 5,000 UNITS/ML 1ML VIAL SQ SCH (21:15)
[2017-04-01] MEDS: CARBIDOPA/LEVODOPA 25/100 TABLET (FP) PO SCH (21:15)
[2017-04-01] MEDS: INSULIN SLIDING SCALE (NOVOLOG) 1 VIAL SQ SCH (21:15)
[2017-04-01] MEDS: SENNOSIDES 8.6MG TABLET (FP) PO SCH (21:19)
[2017-04-01] MEDS ORDERED: EYE OS SCH (22:00)
[2017-04-01] MEDS ORDERED: KETOROLAC 0.4% OS SCH (22:00)
[2017-04-01] MEDS ORDERED: PREDNISOLONE 1% OS SCH (22:00)
[2017-04-01] MEDS ORDERED: POLYMYXIN B OS SCH (23:00)
[2017-04-01] MEDS ORDERED: TRIMETHOPRIM OS SCH (23:00)
[2017-04-01] MEDS: KETOROLAC 0.4% OS SCH (23:07)
[2017-04-01] MEDS: EYE OS SCH (23:07)
[2017-04-01] MEDS: POLYMYXIN B OS SCH (23:07)
[2017-04-01] MEDS: TRIMETHOPRIM OS SCH (23:07)
[2017-04-01] MEDS: PREDNISOLONE 1% OS SCH (23:07)
[2017-04-02] MEDS: POLYMYXIN B OS SCH ×3 (06:04→18:33)
[2017-04-02] MEDS: TRIMETHOPRIM OS SCH ×3 (06:04→18:33)
[2017-04-02] MEDS: EYE OS SCH ×3 (06:04→18:33)
[2017-04-02] MEDS: KETOROLAC 0.4% OS SCH ×3 (06:04→18:33)
[2017-04-02] MEDS: PREDNISOLONE 1% OS SCH ×3 (06:05→18:33)
[2017-04-02] MEDS: INSULIN SLIDING SCALE (NOVOLOG) 1 VIAL SQ SCH ×4 (06:05→21:37)
[2017-04-02] MEDS ORDERED: PT OWN MED DRAWER 7, Y5N ONE ×5 (06:21→23:38)
[2017-04-02 07:15] LABS: MCH 29.2 pg (25.7-33.7); MCHC 33.8 g/dl (32.0-36.0); MEAN CELL VOLUME 86.3 fl (80-96); MEAN PLT VOLUME 8.2 fl (7.5-11.1); PLATELET COUNT 164 K/MM3 (134-434); RDW 14.6 % (11.6-15.6); WHITE BLOOD COUNT 7.8 K/mm3 (4.0-10.0)
[2017-04-02 07:38] LABS: ALBUMIN 3.6 g/dl (3.4-5.0); ANION GAP 9 (8-16); CALCIUM 9.2 mg/dL (8.5-10.1); CO2 25 mmol/L (21-32); CREATININE 1.3 mg/dL (0.55-1.02); GLUCOSE,RANDOM 135 mg/dL (74-106); SGOT/AST 14 U/L (15-37); SGPT/ALT 13 U/L (12-78)
[2017-04-02 07:42] LABS: ALK PHOS 87 U/L (45-117); BILIRUBIN,TOTAL 1.3 mg/dL (0.2-1.0); TOT PROT 6.5 g/dl (6.4-8.2)
[2017-04-02] MEDS: TRIAMTERENE AND HCTZ - 37.5 MG/25 MG CAPSULE PO SCH (09:56)
[2017-04-02] MEDS: HEPARIN NA (PORCINE) 5,000 UNITS/ML 1ML VIAL SQ SCH ×2 (09:56→21:36)
[2017-04-02] MEDS: PARoxetine HCL 20 MG TABLET (FP) PO SCH (09:56)
[2017-04-02] MEDS: CARBIDOPA/LEVODOPA 25/100 TABLET (FP) PO SCH ×2 (09:56→21:36)
[2017-04-02] MEDS ORDERED: METOPROLOL TARTRATE 50 MG TABLET (FP) PO SCH (10:00)
--- NOTE | 2017-04-02 11:26 | CON.CARD ---
Cardiology Consult (text) - Consultation Consultation Note: CC: pre-operative clearance 71 year old smoker with a significant past medical history CAD s/p stents x 5 ( not within past year) on aspirin and plavix, HTN, NIDDM, parkinsons disease, recent rt hip fracture s/p repair in October now with recurrent mechanical fall c/b left hip fracture. States fall was not related to dizziness or presyncope. Lost her balance, has chronic unstable gait. Denies anginal symptoms, able to regularly walk up and down stairs in home without symptoms or limitations. Denies h/o heart failure, TIA/CVA. No orthopnea, pnd, le edema, cp, sob, palps, dizziness, claudication, bleeding or transient neurologic symptoms. No f/c/s, n/v/d, rashes, cough, congestion, headache. Patient with mild pain at site of bruising/injury. Pain currently well controlled. Cards: Dr. Grimm pmhx/pshx: per hpi social hx: smoker, no etoh or illicits fam hx: no premature cad ros: per hpi Ambulatory Orders PARoxetine HCL [Paxil] 20 mg PO DAILY #7 tablet 07/19/14 Ascorbate Calcium [Vitamin C] 500 mg PO DAILY 10/14/16 Aspirin [Aspirin EC] 81 mg PO DAILY 10/14/16 Atorvastatin Ca [Lipitor] 40 mg PO HS 10/14/16 Carbidopa/Levodopa [Carbidopa-Levodopa 25-100 Tab] 1 each PO BID 10/14/16 Clopidogrel Bisulfate [Plavix -] 75 mg PO DAILY 10/14/16 Metoprolol Tartrate [Lopressor -] 50 mg PO DAILY 10/14/16 Triamterene/Hydrochlorothiazid [Triamterene-Hctz 37.5-25 mg Cp] 1 each PO DAILY 10/14/16 Glipizide [Glipizide ER] 5 mg PO DAILY 04/01/17 Current Medications Atorvastatin Calcium (Lipitor -) 40 mg PO [facility] Last Admin: 04/01/17 21:15 Dose: 40 mg Carbidopa/Levodopa (Sinemet 25/100 -) 1 each PO BID [facility] Last Admin: 04/02/17 09:56 Dose: 1 each Heparin Sodium (Porcine) (Heparin -) 5,000 unit SQ BID [facility] Last Admin: 04/02/17 09:56 Dose: 5,000 unit Insulin Aspart (Novolog Vial Sliding Scale -) 1 vial SQ ACHS [facility] PRN Reason: Protocol Last Admin: 04/02/17 06:05 Dose: Not Given Metoprolol Tartrate (Lopressor -) 50 mg PO DAILY [facility] Last Admin: 04/02/17 09:56 Dose: 50 mg Paroxetine HCl (Paxil -) 20 mg PO DAILY [facility] Last Admin: 04/02/17 09:56 Dose: 20 mg (Pt Own Med) Prednisolone 1% Suspension 1 each OS Q6HPO [facility] Last Admin: 04/02/17 06:05 Dose: 1 each (Pt Own Med) Ketorolac 0.4% Eye Drops 1 each OS Q6HPO [facility] Last Admin: 04/02/17 06:04 Dose: 1 each (Pt Own Med) Polymixin B/Trimethoprim Eye Drops 1 each OS Q6HPO [facility] Last Admin: 04/02/17 06:04 Dose: 1 each Senna (Senna -) 1 tab PO HS [facility] Last Admin: 04/01/17 21:19 Dose: 1 tab Triamterene/HCTZ (Dyazide 25/37.5mg) 1 cap PO DAILY [facility] Last Admin: 04/02/17 09:56 Dose: 1 cap Vital Signs - 24 hr 04/01/17 04/01/17 04/01/17 11:30 17:21 17:33 Temperature 98.6 F 98.4 F Pulse Rate 50 L 48 L Respiratory 18 20 Rate Blood Pressure 120/72 136/88 O2 Sat by Pulse 97 95 Oximetry (%) 04/01/17 04/01/17 04/02/17 20:06 23:52 02:00 Temperature 97.8 F 99.0 F Pulse Rate 63 Respiratory 20 20 Rate Blood Pressure 128/70 O2 Sat by Pulse 95 Oximetry (%) 04/02/17 04/02/17 06:08 08:00 Temperature 98.8 F 98.4 F Pulse Rate 70 53 L Respiratory 20 18 Rate Blood Pressure 107/60 137/72 O2 Sat by Pulse Oximetry (%) Intake & Output 03/31/17 04/01/17 04/02/17 04/03/17 07:59 07:59 07:59 07:59 Intake Total 200 350 Balance 200 350 Weight 136 lb NAD, calm JVD flat, neck supple ctab, nl effort rrr nl s1, s2 no mrg + bs soft nt nd ext without e/c/c no carotid bruits no jaundice, diaphoresis CBC, BMP 04/02/17 06:35 04/02/17 06:35 EKG: SB, PAC, nl axis/intervals. early r wave progression. no ischemic changes. head CT: no acute pathology 71 year old smoker with a significant past medical history CAD s/p stents x 5 ( not within past year) on aspirin and plavix, HTN, NIDDM, parkinsons disease, recent rt hip fracture s/p repair in October now with recurrent mechanical fall c/b left hip fracture. Pre-operative clearance - h/o CAD, revascularized. No signs or symptoms of volume overload. No h/o TIA/CVA, evidence of small vessel ischemia on CT. RCRI 1-2 with poor functional status. No active cardiac issues, no further testing needed prior to surgery. Patient with intermediate risk of hceo-operative complications, patient counseled on risk. Close monitoring of respiratory status cheo- operatively, low threshold for pulmonary evaluation. Incentive spirometry, O2 monitoring. CAD s/p stent x 5 - no stent within the past year. Recently on DAPT but changed to ASA only s/p last hip fracture surgery. Currently both on hold in prep for OR. Would recommend resuming asa alone, no strong indication for ongoing DAPT. - no anginal sx's. No ischemic ekg changes. - con't metoprolol, (decrease dose in light of bradycardia), atorvastatin HTN - well controlled on home regimen. adjustments as above. + tobacco, - cessation counseling.
--- NOTE | 2017-04-02 14:55 | CON.ORTH ---
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: Yes: Parkinson's Cardio/Vascular: Yes: CAD, HTN ...: No - Alcohol/Substance Use Hx Alcohol Use: No - Smoking History Smoking history: Former smoker Have you smoked in the past 12 months: No Aproximately how many cigarettes per day: 0 Home Medications - Allergies Allergies/Adverse Reactions: Allergies Allergy/AdvReac Type Severity Reaction Status Date / Time No Known Allergies Allergy Verified 04/01/17 11:33 - Home Medications Home Medications: Ambulatory Orders PARoxetine HCL [Paxil] 20 mg PO DAILY #7 tablet 07/19/14 Ascorbate Calcium [Vitamin C] 500 mg PO DAILY 10/14/16 Aspirin [Aspirin EC] 81 mg PO DAILY 10/14/16 Atorvastatin Ca [Lipitor] 40 mg PO HS 10/14/16 Carbidopa/Levodopa [Carbidopa-Levodopa 25-100 Tab] 1 each PO BID 10/14/16 Clopidogrel Bisulfate [Plavix -] 75 mg PO DAILY 10/14/16 Metoprolol Tartrate [Lopressor -] 50 mg PO DAILY 10/14/16 Triamterene/Hydrochlorothiazid [Triamterene-Hctz 37.5-25 mg Cp] 1 each PO DAILY 10/14/16 Glipizide [Glipizide ER] 5 mg PO DAILY 04/01/17 Physical Exam for Ortho Vital Signs: Vital Signs Temperature 98.9 F 04/02/17 14:36 Pulse Rate 53 L 04/02/17 14:36 Respiratory Rate 18 04/02/17 14:36 Blood Pressure 129/73 04/02/17 14:36 O2 Sat by Pulse Oximetry (%) 95 04/02/17 09:00 Labs: CBC, BMP 04/02/17 06:35 04/02/17 06:35 INR, PTT INR 1.08 (0.82-1.09) 04/01/17 14:45 - Lower Extremity Pelvis: Yes: Left, Limited ROM, Pain, Tenderness, Other (nvi) Imaging - Results Cat Scan: Report Reviewed, Image Reviewed Assessment/Plan 71-year-old woman with a significant past medical history of hypertension, hypercholesterolemia, coronary artery disease status post stents x5 (on Aspirin/ Plavix), non-insulin dependent diabetes mellitus, Parkinsons disease who presented to the emergency department with complaints of left hip/pelvic pain s/ p fall. h/o right hip dalia a/p- left superior and inferior pubic rami fx PT eval wbat pain control dvt ppx d/c planning to either home/rehab d/w Dr. David
--- NOTE | 2017-04-02 15:14 | PN ---
Progress Note, Physician Chief Complaint: NOTES REVIEWED PAIN CONTROLLED NO SURGERY NEEDED - Current Medication List Current Medications: Active Medications Atorvastatin Calcium (Lipitor -) 40 mg PO HS [facility] Last Admin: 04/01/17 21:15 Dose: 40 mg Calcitonin (Miacalcin [place] -) 200 units NS DAILY [facility] Carbidopa/Levodopa (Sinemet 25/100 -) 1 each PO BID [facility] Last Admin: 04/02/17 09:56 Dose: 1 each Ergocalciferol (Drisdol -) 50,000 unit PO Q7D@1000 [facility] Heparin Sodium (Porcine) (Heparin -) 5,000 unit SQ BID [facility] Last Admin: 04/02/17 09:56 Dose: 5,000 unit Insulin Aspart (Novolog Vial Sliding Scale -) 1 vial SQ ACHS [facility] PRN Reason: Protocol Last Admin: 04/02/17 11:53 Dose: Not Given Metoprolol Tartrate (Lopressor -) 50 mg PO DAILY [facility] Last Admin: 04/02/17 09:56 Dose: 50 mg Paroxetine HCl (Paxil -) 20 mg PO DAILY [facility] Last Admin: 04/02/17 09:56 Dose: 20 mg (Pt Own Med) Prednisolone 1% Suspension 1 each OS Q6HPO [facility] Last Admin: 04/02/17 12:29 Dose: 1 each (Pt Own Med) Ketorolac 0.4% Eye Drops 1 each OS Q6HPO [facility] Last Admin: 04/02/17 12:29 Dose: 1 each (Pt Own Med) Polymixin B/Trimethoprim Eye Drops 1 each OS Q6HPO [facility] Last Admin: 04/02/17 12:29 Dose: 1 each Senna (Senna -) 1 tab PO HS [facility] Last Admin: 04/01/17 21:19 Dose: 1 tab Triamterene/HCTZ (Dyazide 25/37.5mg) 1 cap PO DAILY [facility] Last Admin: 04/02/17 09:56 Dose: 1 cap - Objective Vital Signs: Vital Signs Temperature 98.9 F 04/02/17 14:36 Pulse Rate 53 L 04/02/17 14:36 Respiratory Rate 18 04/02/17 14:36 Blood Pressure 129/73 04/02/17 14:36 O2 Sat by Pulse Oximetry (%) 95 04/02/17 09:00 Constitutional: Yes: Mild Distress Eyes: Yes: WNL, Other (RIGHT EYE ECCHYMOSIS) HENT: Yes: WNL Neck: Yes: WNL Cardiovascular: Yes: WNL Respiratory: Yes: WNL Gastrointestinal: Yes: WNL Genitourinary: Yes: Incontinence Musculoskeletal: Yes: Muscle Pain, Muscle Weakness Extremities: Yes: Other Edema: No Peripheral Pulses WNL: Yes Integumentary: Yes: WNL Wound/Incision: Yes: Clean/Dry Neurological: Yes: Pre-Existing Deficit ...Motor Strength: LLE, RLE Psychiatric: Yes: WNL Labs: CBC, BMP 04/02/17 06:35 04/02/17 06:35 INR, PTT INR 1.08 (0.82-1.09) 04/01/17 14:45 Problem List - Problems (1) Anemia Code(s): D64.9 - ANEMIA, UNSPECIFIED Qualifiers: Anemia type: other cause (2) Femoral neck fracture Code(s): S72.009A - FRACTURE OF UNSP PART OF NECK OF UNSP FEMUR, INIT (3) Parkinsons disease Code(s): G20 - PARKINSON'S DISEASE (4) Pelvic fracture Code(s): S32.9XXA - FRACTURE OF UNSP PARTS OF LUMBOSACRAL SPINE AND PELVIS, INIT Qualifiers: Encounter type: initial encounter Pelvic bone location: multiple parts Fracture type: closed Fracture alignment: without disruption of pelvic ring Qualified Code(s): S32.82XA - Multiple fractures of pelvis without disruption of pelvic ring, initial encounter for closed fracture (5) Fall Code(s): W19.XXXA - UNSPECIFIED FALL, INITIAL ENCOUNTER Assessment/Plan PELVIC FRACTURE DR [facility] NO SURGERY NEEDED PT EVAL SNF VS HOME CALCITONIN VIT D CARDIAC CLEARANCE LABS FALL PRECAUTION DVT PROPHYLAXIS
[2017-04-02] MEDS: CALCITONIN - SALMON SYNTHETIC 3.7 ML SPRAY.PUMP NS SCH (16:34)
[2017-04-02] MEDS: SENNOSIDES 8.6MG TABLET (FP) PO SCH (21:36)
[2017-04-02] MEDS: ATORVASTATIN CA 40 MG TABLET (FP) PO SCH (21:36)
[2017-04-03] MEDS: PREDNISOLONE 1% OS SCH ×4 (00:06→18:17)
[2017-04-03] MEDS: POLYMYXIN B OS SCH ×4 (00:06→18:17)
[2017-04-03] MEDS: KETOROLAC 0.4% OS SCH ×4 (00:06→18:16)
[2017-04-03] MEDS: EYE OS SCH ×4 (00:06→18:16)
[2017-04-03] MEDS: TRIMETHOPRIM OS SCH ×4 (00:06→18:17)
[2017-04-03] MEDS: INSULIN SLIDING SCALE (NOVOLOG) 1 VIAL SQ SCH ×4 (06:11→21:22)
[2017-04-03] MEDS ORDERED: PT OWN MED DRAWER 7, Y5N ONE ×5 (06:22→23:05)
[2017-04-03 08:02] LABS: MCH 29.2 pg (25.7-33.7); MCHC 33.6 g/dl (32.0-36.0); MEAN CELL VOLUME 86.9 fl (80-96); MEAN PLT VOLUME 8.4 fl (7.5-11.1); PLATELET COUNT 180 K/MM3 (134-434); RDW 14.7 % (11.6-15.6); WHITE BLOOD COUNT 9.4 K/mm3 (4.0-10.0)
[2017-04-03 08:22] LABS: ANION GAP 11 (8-16); CALCIUM 9.5 mg/dL (8.5-10.1); CO2 22 mmol/L (21-32); CREATININE 1.1 mg/dL (0.55-1.02); GLUCOSE,RANDOM 165 mg/dL (74-106)
--- NOTE | 2017-04-03 09:33 | PN ---
Progress Note, Physician Chief Complaint: awake alert c/o constipation no cp/sob - Current Medication List Current Medications: Active Medications Atorvastatin Calcium (Lipitor -) 40 mg PO HS [facility] Last Admin: 04/02/17 21:36 Dose: 40 mg Calcitonin (Miacalcin [place] -) 200 units NS DAILY [facility] Last Admin: 04/02/17 16:34 Dose: 200 unit Carbidopa/Levodopa (Sinemet 25/100 -) 1 each PO BID [facility] Last Admin: 04/02/17 21:36 Dose: 1 each Ergocalciferol (Drisdol -) 50,000 unit PO Q7D@1000 [facility] Heparin Sodium (Porcine) (Heparin -) 5,000 unit SQ BID [facility] Last Admin: 04/02/17 21:36 Dose: 5,000 unit Insulin Aspart (Novolog Vial Sliding Scale -) 1 vial SQ ACHS [facility] PRN Reason: Protocol Last Admin: 04/03/17 06:11 Dose: Not Given Metoprolol Tartrate (Lopressor -) 25 mg PO DAILY [facility] Paroxetine HCl (Paxil -) 20 mg PO DAILY [facility] Last Admin: 04/02/17 09:56 Dose: 20 mg (Pt Own Med) Prednisolone 1% Suspension 1 each OS Q6HPO [facility] Last Admin: 04/03/17 06:11 Dose: 1 each (Pt Own Med) Ketorolac 0.4% Eye Drops 1 each OS Q6HPO [facility] Last Admin: 04/03/17 06:11 Dose: 1 each (Pt Own Med) Polymixin B/Trimethoprim Eye Drops 1 each OS Q6HPO [facility] Last Admin: 04/03/17 06:11 Dose: 1 each Senna (Senna -) 1 tab PO HS [facility] Last Admin: 04/02/17 21:36 Dose: 1 tab Triamterene/HCTZ (Dyazide 25/37.5mg) 1 cap PO DAILY [facility] Last Admin: 04/02/17 09:56 Dose: 1 cap - Objective Vital Signs: Vital Signs Temperature 98.1 F 04/03/17 08:00 Pulse Rate 62 04/03/17 08:00 Respiratory Rate 18 04/03/17 08:00 Blood Pressure 145/78 04/03/17 08:00 O2 Sat by Pulse Oximetry (%) 95 04/02/17 21:00 Constitutional: Yes: Mild Distress Eyes: Yes: WNL HENT: Yes: WNL Neck: Yes: WNL Cardiovascular: Yes: WNL Respiratory: Yes: WNL Gastrointestinal: Yes: WNL Genitourinary: Yes: Incontinence Musculoskeletal: Yes: Joint Swelling, Muscle Weakness Extremities: Yes: Other Edema: No Peripheral Pulses WNL: Yes Integumentary: Yes: WNL Wound/Incision: Yes: Clean/Dry Neurological: Yes: Pre-Existing Deficit, Weakness ...Motor Strength: LLE, RLE Psychiatric: Yes: Other Labs: CBC, BMP 04/03/17 07:15 04/03/17 07:15 INR, PTT INR 1.08 (0.82-1.09) 04/01/17 14:45 Problem List - Problems (1) Anemia Code(s): D64.9 - ANEMIA, UNSPECIFIED Qualifiers: Anemia type: other cause (2) Femoral neck fracture Code(s): S72.009A - FRACTURE OF UNSP PART OF NECK OF UNSP FEMUR, INIT (3) Parkinsons disease Code(s): G20 - PARKINSON'S DISEASE (4) Pelvic fracture Code(s): S32.9XXA - FRACTURE OF UNSP PARTS OF LUMBOSACRAL SPINE AND PELVIS, INIT Qualifiers: Encounter type: initial encounter Pelvic bone location: multiple parts Fracture type: closed Fracture alignment: without disruption of pelvic ring Qualified Code(s): S32.82XA - Multiple fractures of pelvis without disruption of pelvic ring, initial encounter for closed fracture (5) Fall Code(s): W19.XXXA - UNSPECIFIED FALL, INITIAL ENCOUNTER Assessment/Plan FREQUENT FALLS PHYSIATRY EVAL DR ALBERTS NO ORTHOPEDIC PROCEDURES FOR PELVIC FX PT OOB TO CHAIR NEURO EVAL FOR PARKINSONS UNSTEADY GAIT
[2017-04-03] MEDS: METOPROLOL TARTRATE 50 MG TABLET (FP) PO SCH (09:35)
[2017-04-03] MEDS: CARBIDOPA/LEVODOPA 25/100 TABLET (FP) PO SCH (09:36)
[2017-04-03] MEDS: PARoxetine HCL 20 MG TABLET (FP) PO SCH (09:36)
[2017-04-03] MEDS: TRIAMTERENE AND HCTZ - 37.5 MG/25 MG CAPSULE PO SCH (09:36)
[2017-04-03] MEDS: HEPARIN NA (PORCINE) 5,000 UNITS/ML 1ML VIAL SQ SCH ×2 (09:37→21:22)
[2017-04-03] MEDS: CALCITONIN - SALMON SYNTHETIC 3.7 ML SPRAY.PUMP NS SCH (09:37)
[2017-04-03] MEDS ORDERED: ACETAMINOPHEN 325 MG TABLET (FP) PO PRN (10:26)
[2017-04-03] MEDS: oxyCODONE HCL 5 MG TABLET PO PRN (10:58)
--- NOTE | 2017-04-03 19:36 | CONSULT ---
Consult - text type - Consultation Consultation Note: NEUROLOGY CONSULTATION is greatly appreciated: This 71 yo RH woman lives with her who is present throughout the exam. PMH sig for DM, HTN, Chol, ASHD, S/P Stents on multiple meds including clopidogrel. Seen by me in for "slowing up" and received diagnosis of PD. Responded to starter dose of L-Dopa (25/100 TID) but last seen 11/27/12. Since then progressive gait detioration with multiple falls, usually "backwards. " S/P fall in Oct requiring R Hip ORIF. Went home without rehab stint. notes she walks with walker and his assist but requires help with "everything." On Sinemet IR 25/100 BID. Yesterday was sitting in the backyard, smoking when she slid out of the chair and landed on her buttocks with subsequent pain. C/o incontinence In ED Pelvic CT showed non-displaced pelvic ramus fracture. CT of head (reviewed): Moderate atrophy, B/L basal ganglia lacunar infarcts, diffuse periventricular microvascualr disease. ELI: No evidence of head trauma. No bruits. Cor reg. s/p R hip ORIF. Right leg foreshortened 1 inch. NEURO: Awake, alert, Ox 3. MS Normal. Speech sl hypophonic Masked facies. Gag OK Bradykinesia. No tremor. + Cogwheel rigidity. Normal reflexes in arms and knees. Absent AJ's. Normal strength. Downgoing toes. No FTN dystaxia Decreased vibration both feet. Stands with assistance. Frozen. Spontaneous retropulsion and falls to Right. IMP: Moderately severe Parkinsonism. PD vs Vascular etiology Diabetic Peripheral Neuropathy Severe gait dysfunction secondary to both of the above and mechanical factors. SUGGEST: Change Sinemet to CR 25/100 and increase to TID @ 7, 12, and 5 for 3 days... Then 1 1/2 tabs (ie 37.5/150) PO TID x 3 days... Then CR 50/200 PO TID @ 7, 12, 5 Check B12, TSH, UA, C&S and Rx for UTI if present. PT for gait with walker and BUILD-UP right shoe. Neuro follow-up as out patient. Thank you very much, Claudio Pool MD
[2017-04-03] MEDS: ATORVASTATIN CA 40 MG TABLET (FP) PO SCH (21:22)
[2017-04-03] MEDS: SENNOSIDES 8.6MG TABLET (FP) PO SCH (21:22)
[2017-04-03 22:02] LABS: URINE APPEARANCE CLOUDY; URINE BILIRUBIN NEGATIVE (NEGATIVE); URINE COLOR YELLOW; URINE GLUCOSE (UA) NEGATIVE (NEGATIVE); URINE KETONE NEGATIVE (NEGATIVE); URINE NITRITE NEGATIVE (NEGATIVE); URINE UROBILINOGEN NEGATIVE E.U./dl (0.2-1.0)
[2017-04-03 22:10] LABS: URINE BLOOD 1+ (NEGATIVE); URINE LEUK ESTERASE 3+ (NEGATIVE); URINE PROTEIN 1+ (NEGATIVE)
[2017-04-03 22:47] LABS: URINE BACTERIA RARE /hpf (NONE SEEN); URINE RBC 8 /hpf (0-3); URINE WBC 62 /hpf (3-5)
[2017-04-04] MEDS: TRIMETHOPRIM OS SCH ×3 (00:01→11:50)
[2017-04-04] MEDS: POLYMYXIN B OS SCH ×3 (00:01→11:50)
[2017-04-04] MEDS: PREDNISOLONE 1% OS SCH ×3 (00:01→11:50)
[2017-04-04] MEDS: KETOROLAC 0.4% OS SCH ×3 (00:01→11:50)
[2017-04-04] MEDS: EYE OS SCH ×3 (00:01→11:50)
[2017-04-04] MEDS ORDERED: PT OWN MED DRAWER 7, Y5N ONE ×2 (06:01→10:44)
[2017-04-04] MEDS: INSULIN SLIDING SCALE (NOVOLOG) 1 VIAL SQ SCH ×3 (06:12→11:48)
--- NOTE | 2017-04-04 09:04 | PN ---
Progress Note (short form) - Note Progress Note: Ortho Pt seen and examined s/p left pelvic fx decr pain, incr rom, nvi a/p PT wbat dvt ppx pain control d/c planning
[2017-04-04] MEDS: oxyCODONE HCL 5 MG TABLET PO PRN (10:06)
--- NOTE | 2017-04-04 10:15 | DS ---
Physical Examination Vital Signs: Vital Signs Temperature 97.8 F 04/04/17 08:28 Pulse Rate 84 04/04/17 08:28 Respiratory Rate 24 04/04/17 08:28 Blood Pressure 140/85 04/04/17 08:28 O2 Sat by Pulse Oximetry (%) 96 04/03/17 21:00 Findings/Remarks: NAD IN PT Constitutional: Yes: Mild Distress Eyes: Yes: WNL HENT: Yes: WNL Neck: Yes: WNL Cardiovascular: Yes: WNL Respiratory: Yes: WNL Gastrointestinal: Yes: WNL Musculoskeletal: Yes: Joint Stiffness, Muscle Weakness Extremities: Yes: Other Edema: No Peripheral Pulses WNL: Yes Integumentary: Yes: Other Wound/Incision: Yes: Other Neurological: Yes: Pre-Existing Deficit, Unsteady Gait ...Motor Strength: LLE, RLE Psychiatric: Yes: Other Labs: CBC, BMP 04/03/17 07:15 04/03/17 07:15 Discharge Summary Reason For Visit: PELVIC FRACTURE Current Active Problems Anemia (Acute) Femoral neck fracture (Acute) Fever (Acute) Parkinsons disease (Acute) Pelvic fracture (Acute) Procedures: Principal: CT SCAN Other Procedures: LABS Hospital Course: PELVIC FRACTURE, NO SURGERY NEEDED, NEUROLOGY AND PHYSIATRY EVAL FOR FALL PREVENTION AND OPTIMIZE PARKINSONS GAIT, FAMILY REFUSING SNF, HOME WITH [facility] Condition: Fair - Instructions Diet, Activity, Other Instructions: LOW SODIUM/ADA SEE PMD IN 2 WEEKS Referrals: Nikita Grimm MD [Primary Care Provider] - Disposition: [facility]/HOME HEALTH CARE - Home Medications Comprehensive Discharge Medication List: Ambulatory Orders PARoxetine HCL [Paxil] 20 mg PO DAILY #7 tablet 07/19/14 Ascorbate Calcium [Vitamin C] 500 mg PO DAILY 10/14/16 Aspirin [Aspirin EC] 81 mg PO DAILY 10/14/16 Atorvastatin Ca [Lipitor] 40 mg PO HS 10/14/16 Clopidogrel Bisulfate [Plavix -] 75 mg PO DAILY 10/14/16 Metoprolol Tartrate [Lopressor -] 50 mg PO DAILY 10/14/16 Triamterene/Hydrochlorothiazid [Triamterene-Hctz 37.5-25 mg Cp] 1 each PO DAILY 10/14/16 Glipizide [Glipizide ER] 5 mg PO DAILY 04/01/17 Acetaminophen [Tylenol .Regular Strength -] 650 mg PO Q6H PRN #0 tablet Atorvastatin Ca [Lipitor] 40 mg PO HS tablet 04/04/17 Calcitonin-[place] [Miacalcin [place] -] 200 units NS DAILY #1 spray 04/04/17 Carbidopa/Levodopa *Cr* 25/100 [Sinemet *Cr* 25/100 -] 1 combo PO TID #90 tab Ergocalciferol [Drisdol -] 50,000 unit PO Q7D@1000 #4 cap 04/04/17 Metoprolol Tartrate [Lopressor -] 50 mg PO DAILY tablet 04/04/17 Paroxetine HCl [Paxil -] 20 mg PO DAILY tablet 04/04/17 Sennosides [Senna -] 1 tab PO HS tablet 04/04/17
[2017-04-04] MEDS: METOPROLOL TARTRATE 50 MG TABLET (FP) PO SCH (10:50)
[2017-04-04] MEDS: PARoxetine HCL 20 MG TABLET (FP) PO SCH (10:50)
[2017-04-04] MEDS: TRIAMTERENE AND HCTZ - 37.5 MG/25 MG CAPSULE PO SCH (10:51)
[2017-04-04] MEDS: CALCITONIN - SALMON SYNTHETIC 3.7 ML SPRAY.PUMP NS SCH (10:52)
[2017-04-04] MEDS: HEPARIN NA (PORCINE) 5,000 UNITS/ML 1ML VIAL SQ SCH (10:52)
[2017-04-04 13:02] VITALS: BP 133/77; PULSE 61; TEMP 98.5
--- NOTE | 2017-04-04 13:27 | CONSULT ---
Consult Consult Specialty:: PM&R - History of Present Illness Chief Complaint: L groin pain up to 03/23 with walking History of Present Illness: This is a 71 year old woman with a medical history of Parkinson's disease, HTN, HLD, CAD s/p stents, NIDDM, s/p R THR, who presented to the ED 04/01/17 following a fall at home. CT head 04/01/17 showed no acute pathology, and CT pelvis showed L superior and inferior pubic rami fx. Cardiology was consulted for cardiac clearance; Ortho was consulted who cleared for WBAT LLE and PT without surgical intervention. Per PT note 04/04/17, she is Minimum Assist in Transfers, and ambulated 20 feet Contact Guard with Rolling Walker. Physiatry is being consulted for further recommendations. 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 Cardio/Vascular: Yes: CAD, HTN ...: No - Alcohol/Substance Use Hx Alcohol Use: No - Smoking History Smoking history: Former smoker Have you smoked in the past 12 months: No Aproximately how many cigarettes per day: 0 - Social History Usual Living Arrangement: With Spouse (in apartment in house, 3+1 steps to enter then one level, ambulated with Rollator) Home Medications - Allergies Allergies/Adverse Reactions: Allergies Allergy/AdvReac Type Severity Reaction Status Date / Time No Known Allergies Allergy Verified 04/01/17 11:33 - Home Medications Home Medications: Ambulatory Orders PARoxetine HCL [Paxil] 20 mg PO DAILY #7 tablet 07/19/14 Ascorbate Calcium [Vitamin C] 500 mg PO DAILY 10/14/16 Aspirin [Aspirin EC] 81 mg PO DAILY 10/14/16 Atorvastatin Ca [Lipitor] 40 mg PO HS 10/14/16 Clopidogrel Bisulfate [Plavix -] 75 mg PO DAILY 10/14/16 Metoprolol Tartrate [Lopressor -] 50 mg PO DAILY 10/14/16 Triamterene/Hydrochlorothiazid [Triamterene-Hctz 37.5-25 mg Cp] 1 each PO DAILY 10/14/16 Glipizide [Glipizide ER] 5 mg PO DAILY 04/01/17 Acetaminophen [Tylenol .Regular Strength -] 650 mg PO Q6H PRN #0 tablet Atorvastatin Ca [Lipitor] 40 mg PO HS tablet 04/04/17 Calcitonin-[place] [Miacalcin [place] -] 200 units NS DAILY #1 spray 04/04/17 Carbidopa/Levodopa *Cr* 25/100 [Sinemet *Cr* 25/100 -] 1 combo PO TID #90 tab Ergocalciferol [Drisdol -] 50,000 unit PO Q7D@1000 #4 cap 04/04/17 Metoprolol Tartrate [Lopressor -] 50 mg PO DAILY tablet 04/04/17 Paroxetine HCl [Paxil -] 20 mg PO DAILY tablet 04/04/17 Sennosides [Senna -] 1 tab PO HS tablet 04/04/17 Review of Systems Findings/Remarks: denies fevers, chills, changes in vision/ hearing/ mood, CP, SOB, abdominal pain , nausea, vomiting, diarrhea, dysuria, numbness/ paresthesias. She notes constipation and L groin pain with weight-bearing only, no pain at rest and no other muscle/ joint pain. Physical Exam Vital Signs: Vital Signs Temperature 98.5 F 04/04/17 13:01 Pulse Rate 61 04/04/17 13:01 Respiratory Rate 18 04/04/17 13:01 Blood Pressure 133/77 04/04/17 13:01 O2 Sat by Pulse Oximetry (%) 96 04/03/17 21:00 Musculoskeletal: Yes: Other (General: calm elderly F sitting in chair NAD, AAO x3 HEENT: NC with R forehead hematoma EOMI OP clear N/M: CN II-XII grossly Intact; B shoulder flexion to 130 degrees, 5-/5 BUE/ BLE except for 4-/ 5 L HF due to groin pain; Pinprick Intact BUE/ BLE, diffusely hyporeflexic BUE/ BLE, negative B Bergeron's sign, B plantars equivocal Extremities: no BLE pitting edema, no B calf tenderness) Labs: CBC, BMP 04/03/17 07:15 04/03/17 07:15 Imaging - Results Cat Scan: Pending, Report Reviewed (CT head 04/01/17 no acute injury; CT pelvis shows L superior and inferior pubic rami fx) Assessment/Plan Impression: 1) Deficits mobility/ ADLs 2) Gait abnormality 3) L groin pain 2/2 04/01/17 L superior and inferior pubic rami fx 4) hx R THR with multiple recent falls 5) Parkinson's disease 6) hx HTN, HLD, CAD s/p stents 7) NIDDM with diabetic neuropathy 8) BMI WNL 9) UA+ 04/03/17 with UCx pending 10) Up to date pneumovax, no recent flu shot Recommendations: 1) PT for stretching strengthening ROM bed mobility, transfers, balance, ambulation, stairs, and caregiver training 2) Falls, safety precautions 3) Cardiac, diabetic precautions 4) Ice L groin/ hip prn, WBAT LLE 5) DVT ppx: on hep sc 6) Encourage prn bowel regimen and consider increasing Senna to 2 qHS with Colace 100mg TID 7) Skin protection: float heels while in bed, frequent turning 8) Agree with Neurology consult for neuropathy work-up. May benefit from EMG BLE r/o peripheral neuropathy as outpatient once L groin pain improves in order to better tolerate 9) F/u UCx 10) Discharge planning: d/w pt and that she would benefit from short- stay inpatient rehabilitation for pain control and gait abnormality. She is not interested in inpatient rehab; recommended home with home services instead. Thank you for this referral.
[2017-04-09] MEDS ORDERED: ERGOCALCIFEROL (VITAMIN D2) 50,000 UNIT CAPSULE (FP) PO SCH (10:00)
== END 2017-04-04 15:19 | disposition home health service (06) | DRG 536 ==
LOC: JER 10:30 → JERBED 13:51 → J6S 16:40
PROVIDERS: ADMIT Family Medicine; ATTEND Family Medicine
DX: S32.82XA Multiple fractures of pelvis without disruption of pelvic ring, initial encounter for closed fracture (principal); S00.03XA Contusion of scalp, initial encounter; W01.0XXA Fall on same level from slipping, tripping and stumbling without subsequent striking against object, initial encounter; Z91.81 History of falling; Y92.009 Unspecified place in unspecified non-institutional (private) residence as the place of occurrence of the external cause; G20 Parkinson's disease; I10 Essential (primary) hypertension; E78.5 Hyperlipidemia, unspecified; I25.10 Atherosclerotic heart disease of native coronary artery without angina pectoris; Z95.5 Presence of coronary angioplasty implant and graft; Z72.0 Tobacco use; K56.41 Fecal impaction; Z96.641 Presence of right artificial hip joint; E11.42 Type 2 diabetes mellitus with diabetic polyneuropathy; Z79.84 Long term (current) use of oral hypoglycemic drugs
CPT/HCPCS: 36415; 70450-TC; 71010-TC; 72192-TC; 80048; 80053; 81003; 81015; 82607; 85025; 85027; 85610; 85730; 86850; 86900; 86901; 87086; 93005; 93010; 97116-GP; 97161-GP; 99283-25; J1644; J3489

== ENCOUNTER 2019-06-24 21:17 | Inpatient (IN) | payer OTHER, BC ==
--- NOTE | 2019-06-24 22:51 | PDOC ---
Attending Attestation - Resident Resident Name: Darlyn Patel - ED Attending Attestation I have performed the following: I have examined & evaluated the patient, The case was reviewed & discussed with the resident, I agree w/resident's findings & plan - HPI HPI: 06/25/19 02:48 see resident hpi - Physicial Exam PE: 06/25/19 02:49 agree with resident exam - Medical Decision Making 06/25/19 02:49 73-year-old female with difficulty ambulating, last seen normal 24 hours ago according to family who is at the bedside On attempts to ablate in the emergency department patient has difficulty moving both lower extremities, more so on the right Plan for CT labs EKG and admission to medical service for further evaluation
--- NOTE | 2019-06-24 23:07 | PDOC ---
History of Present Illness - General Chief Complaint: CVA/TIA Stated Complaint: POSSIBLE STROKE Time Seen by Provider: 06/24/19 22:39 - History of Present Illness Initial Comments: 06/24/19 23:08 73 year old woman with a significant past medical history of hypertension, hypercholesterolemia, coronary artery disease status post stents x5 (on Aspirin/ Plavix), non-insulin dependent diabetes mellitus, prior CVA/TIAs, Parkinsons disease who presents with R leg dragging while walking with walker and possible R arm and R facial droop as witnessed by her daughter at approx 1900. Last known well was at 0700 today. The daughter also notes that the patient was mumbling and less comprehensible (albeit at baseline the patient talks very low and unclear). Once the patient's daughter called EMS and by the time she arrived the daughter reports improvement of her symptoms in arm weakness and facial changes (baseline, pt has L eye droop). Daughter denies any recent illness, cough, congestion, vomiting, diarrhea. Patient has urinary and fecal incontinence at baseline ROS GENERAL/CONSTITUTIONAL: No fever or chills. No weakness. HEAD, EYES, EARS, NOSE AND THROAT: No change in vision. No ear pain or discharge. No sore throat. CARDIOVASCULAR: No chest pain or shortness of breath RESPIRATORY: No cough, wheezing, or hemoptysis. GASTROINTESTINAL: No nausea, vomiting, diarrhea or constipation. GENITOURINARY: No dysuria, frequency, or change in urination. MUSCULOSKELETAL: No joint or muscle swelling or pain. No neck or back pain. SKIN: No rash NEUROLOGIC: No headache, vertigo, loss of consciousness, or change in strength/ sensation. ENDOCRINE: No increased thirst. No abnormal weight change HEMATOLOGIC/LYMPHATIC: No anemia, easy bleeding, or history of blood clots. ALLERGIC/IMMUNOLOGIC: No hives or skin allergy. PE GENERAL: Awake, alert, and fully oriented, in no acute distress HEAD: No signs of trauma, normocephalic, atraumatic EYES: PERRLA, EOMI, sclera anicteric, conjunctiva clear ENT: oropharynx clear without exudates. Moist mucosa NECK: Normal ROM, supple LUNGS: No distress, speaks very low but clear, CTAB HEART: Regular rate and rhythm, normal S1 and S2, no murmurs, rubs or gallops, peripheral pulses normal and equal bilaterally. ABDOMEN: Soft, nontender, No guarding, no rebound. No masses EXTREMITIES : Normal inspection, Normal range of motion, no edema. No clubbing or cyanosis. NEUROLOGICAL: Cranial nerves II through XII grossly intact, No pronator drift, no sensory changes, patient with intermittent foot dragging with walking. SKIN: Warm, Dry, normal turgor, no rashes or lesions noted MDM DDX including but not limited to: r/o cva W/U: - cbc, cmp, caogs, CT ED Course: Patient with labs wnl CT - old infarcts no new bleeds Plan for admission to r/o CVA Darlyn Patel, PGY2 Emergency Medicine tPA Exclusion checklist 3-4.5h - Time Elapsed Date last known well: 06/24/19 Time last known well: 07:00 Elaspsed time: 9 Day(s) and 10 Hour(s) and 20 Minutes - Thrombolytic Therapy Candidate Is patient eligible for thrombolytic therapy: No - Exclusion Criteria 3-4.5 hr SBP greater than 185 or DBP greater than 110mmHg despite tx: No Recent IC/spinal surgery,head trauma or stroke<3mos.: No Hx IC hemorrhage, IC neoplasm, AV malformation or aneurysm: No Active internal bleeding: No Blding diathesis(low plt ct, inc PTT,INR>1.7 or use of NOAC): No Symptoms suggest subarachnoid hemorrhage: No CT demonstrates multilobar infarct(>1/3 cerebral hemiphere): No Arterial puncture at noncompressible site in previous 7 days: No Blood glucose concentration less than 50mg/dL (2.7mmol/L): No - Relative Exclusion Criteria 3-4.5 hr Life expectancy <1 yr or severe co-morbid illness: No : No Patient/family refused: No Rapid improvement: Yes Stroke severity too mild: Yes Recent acute HI (w/in previous 3 months): No Seizure at onset with postictal residual neuro impairments: No Major surgery or serious trauma w/in previous 14 days: No - Add'l Relative Exclusion 3-4.5 hr Age > 80: No Hx of both diabetes AND prior ischemic stroke: Yes Taking an oral anticoagulant regardless of INR: No NIHSS >25: No - Ineligibility reason(s) Reasons No tPA given: Outside of window - delayed arrival NIH Stroke Scale - Last Known Well Date/Time & Onset Date Last Known Well: 06/24/19 Time Last Known Well: 07:00 - Initial Evaluation Level of consciousness: Alert Ask patient the month and their age: Answers both correctly Ask patient to open & close eyes; make fist and let go: Obeys both correctly Best gaze (horizontal eye movement): Normal Visual field testing: No visual field loss Facial paresis (Show teeth/raise eyebrows/close eyes tight): Normal symmetrical movement Motor Function: Left Arm: Normal Motor Function: Right Arm: Normal (extends arm 90 (or 45) degrees for 10 seconds without drift Motor Function: Left Leg: Normal (extends leg 30 degrees for 5 seconds without drift) Motor Function: Right Leg: Normal (extends leg 30 degrees for 5 seconds without drift) Limb Ataxia: No ataxia Sensory(Use pinprick test arms,legs,trunk,face/side to side): Normal Best language (Describe picture, name items, read sentences): No Aphasia Dysarthria (read several words): Normal articulation Extinction and Inattention: No abnormality - Total Score NIH Stroke Scale Score: 0 Past History - Past Medical History Allergies/Adverse Reactions: Allergies Allergy/AdvReac Type Severity Reaction Status Date / Time No Known Allergies Allergy Verified 06/24/19 21:27 Home Medications: Ambulatory Orders PARoxetine HCL [Paxil] 20 mg PO DAILY #7 tablet 07/19/14 Ascorbate Calcium [Vitamin C] 500 mg PO DAILY 10/14/16 Aspirin [Aspirin EC] 81 mg PO DAILY 10/14/16 Atorvastatin Ca [Lipitor] 40 mg PO HS 10/14/16 Clopidogrel Bisulfate [Plavix -] 75 mg PO DAILY 10/14/16 Metoprolol Tartrate [Lopressor -] 50 mg PO DAILY 10/14/16 Triamterene/Hydrochlorothiazid [Triamterene-Hctz 37.5-25 mg Cp] 1 each PO DAILY 10/14/16 Acetaminophen [Tylenol .Regular Strength -] 650 mg PO Q6H PRN #0 tablet Calcitonin-[place] [Miacalcin [place] -] 200 units NS DAILY #1 spray 04/04/17 Carbidopa/Levodopa *Cr* 25/100 [Sinemet *Cr* 25/100 -] 1 combo PO TID #90 tab Ergocalciferol [Vitamin D2] 50,000 unit PO Q7D@1000 #4 cap 04/04/17 Sitagliptin Phosphate [Januvia] 0 mg PO DAILY 06/25/19 Vitamin E 0 unit PO DAILY 06/25/19 Cardiac Disorders: Yes (cardiac stent x 5) COPD: No Diabetes: Yes (NIDDM) HTN: Yes - Surgical History Orthopedic Surgery: Yes (right hip surgery oct 2016) - Suicide/Smoking/Psychosocial Hx Smoking History: Never smoked Have you smoked in the past 12 months: No Number of Cigarettes Smoked Daily: 0 'Breaking Loose' booklet given: 10/14/16 Hx Alcohol Use: No Drug/Substance Use Hx: No Substance Use Type: None Hx Substance Use Treatment: No *Physical Exam - Vital Signs Last Vital Signs Temp Pulse Resp BP Pulse Ox 98.4 F 72 18 145/72 06/24/19 21:28 06/24/19 21:28 06/24/19 21:28 06/24/19 21:28 ED Treatment Course - LABORATORY CBC & Chemistry Diagram: 06/30/19 05:10 07/03/19 10:54 *DC/Admit/Observation/Transfer Diagnosis at time of Disposition: Facial droop, Right sided weakness - Discharge Dispostion Condition at time of disposition: Guarded Decision to Admit order: Yes - Referrals - Patient Instructions - Post Discharge Activity
[2019-06-24 23:27] LABS: BASO % 1.1 % (0-2.0); EOS % 1.3 % (0-4.5); HEMATOCRIT 35.7 % (32.4-45.2); HEMOGLOBIN 11.9 GM/dL (10.7-15.3); LYMPH % 19.7 % (8-40); MCH 29.3 pg (25.7-33.7); MCHC 33.3 g/dl (32.0-36.0); MEAN CELL VOLUME 88.1 fl (80-96); MEAN PLT VOLUME 8.9 fl (7.5-11.1); MONO % 7.2 % (3.8-10.2); NEUT % 70.7 % (42.8-82.8); PLATELET COUNT 202 K/MM3 (134-434); RBC 4.06 M/mm3 (3.60-5.2); RDW 13.7 % (11.6-15.6); WHITE BLOOD COUNT 7.1 K/mm3 (4.0-10.0)
[2019-06-24 23:47] LABS: INR 1.05 (0.83-1.09); PROTHROMBIN TIME (PATIENT) 12.4 SEC (9.7-13.0)
[2019-06-24 23:50] LABS: ACTIVATED PTT 31.8 SECONDS (25.2-36.5)
[2019-06-24 23:57] LABS: ALBUMIN 3.9 g/dl (3.4-5.0); ALK PHOS 81 U/L (45-117); ANION GAP 12 MMOL/L (8-16); BILIRUBIN,TOTAL 1.2 mg/dL (0.2-1); BLOOD UREA NITROGEN 48.5 mg/dL (7-18); CHLORIDE 105 mmol/L (98-107); CO2 26 mmol/L (21-32); CREATININE 1.5 mg/dL (0.55-1.3); GLUCOSE,RANDOM 227 mg/dL (74-106); POTASSIUM 3.4 mmol/L (3.5-5.1); SGOT/AST 9 U/L (15-37); SGPT/ALT 6 U/L (13-61); SODIUM 143 mmol/L (136-145); TOT PROT 6.8 g/dl (6.4-8.2)
[2019-06-25] MEDS: SODIUM CHLORIDE 1,000 ML IV SCH ×2 (00:12→23:19)
[2019-06-25] MEDS ORDERED: SODIUM CHLORIDE 1,000 ML IV SCH (08:15)
--- NOTE | 2019-06-25 08:40 | PDOC ---
*Physical Exam - Vital Signs Last Vital Signs Temp Pulse Resp BP Pulse Ox 97.2 F L 80 19 122/76 95 06/24/19 21:40 06/24/19 21:40 06/24/19 21:40 06/24/19 21:40 06/24/19 21:40 ED Treatment Course - LABORATORY CBC & Chemistry Diagram: 06/25/19 08:50 06/25/19 08:50 - ADDITIONAL ORDERS Additional order review: Laboratory Results 06/24/19 06/24/19 06/24/19 23:20 23:20 23:20 PT with INR 12.40 INR 1.05 PTT (Actin FS) 31.8 Sodium 143 Potassium 3.4 L Chloride 105 Carbon Dioxide 26 Anion Gap 12 BUN 48.5 H Creatinine 1.5 H Est GFR (CKD-EPI)AfAm 39.64 Est GFR (CKD-EPI)NonAf 34.21 Random Glucose 227 H Calcium 10.0 Total Bilirubin 1.2 H AST 9 L ALT 6 L Alkaline Phosphatase 81 Troponin I < 0.02 B-Natriuretic Peptide 135.0 H Total Protein 6.8 Albumin 3.9 06/24/19 23:20 RBC 4.06 MCV 88.1 MCHC 33.3 RDW 13.7 MPV 8.9 Neutrophils % 70.7 Lymphocytes % 19.7 D Monocytes % 7.2 Eosinophils % 1.3 D Basophils % 1.1 Medical Decision Making - Medical Decision Making Patient signed out by Dr. Patel 73 year old woman with a significant past medical history of hypertension, hypercholesterolemia, coronary artery disease status post stents x5 (on Aspirin/ Plavix), non-insulin dependent diabetes mellitus, prior CVA/TIAs, Parkinsons disease who presents with R leg dragging while walking with walker and possible R arm and R facial droop as witnessed by her daughter at approx 1900. Weakness and facial droop have since resolved, however, R. leg is still dragging NIHSS 0 Outside the window for tpa Patient admitted and endorsed to inpatient team. Per their request, we will call neurology. Pagenikko Pool who is on-call, [phone] 06/25/19 08:40 Per inpatient team request, we will page Dr. Snell instead of Dr. Corine Snell paged 06/25/19 09:[address] Malkani who will evaluate the patient Stroke w/u recommended Already on ASA and plavix No further interventions at this time 06/25/19 09:19 *DC/Admit/Observation/Transfer Diagnosis at time of Disposition: Facial droop, Right sided weakness - Discharge Dispostion Condition at time of disposition: Guarded Decision to Admit order: Yes - Referrals - Patient Instructions - Post Discharge Activity
--- NOTE | 2019-06-25 08:46 | HP ---
CHIEF COMPLAINT: RLE Weakness + R Facial droop PCP: Dr. Moreland HISTORY OF PRESENT ILLNESS: 73 y/o F with PMHx of CAD (s/p 5 stents, on ASA/Plavix), Parkinsons disease, Prior CVA/TIA, HTN, NIDDM, HLD, presents with Right lower extremity weakness. Patient was accompanied by her daughter Theresa who aided in providing HPI. Theresa says that patient typically has an abnormal gait requiring assistance, and has recently had atleast 2 falls, most recently falling backward yesterday into an arm chair without hitting her head or LOC. Yesterday evening around 1900, theresa noticed that patient had weakness performing her ADLs and speaking very slowly with mumbling; typically patient is able to eat on her own and bring her dishes to the sink. Theresa additionally noticed a right facial droop at this time accompanied by right lower extremity weakness; Patient was dragging her right lower extremity and her gait was changed prompting her daughter to alert EMD. At baseline, patient has dementia, a soft spoken occassionally mumbled speech and difficult with balance but this was much different. Theresa mentions that the patient was trying to speak but slurring with word finding difficulty. Theresa lives at home with her mother and ensures that patient is medication complaint. Denies any recent medication changes or travel. Additionally she mentions that the has constipation, otherwise denies fevers, chills, chest pain , SOB, nausea, vomiting, diarrhea, hematuria. Recent Travel: Denies PAST MEDICAL HISTORY: As above PAST SURGICAL HISTORY: 5 Cardiac stents R Total hip replacement Hysterectomy Social History: Smoking: Quit in September 2018 Alcohol: Denies Drugs: Denies Residence: at home with , daughter Ambulation: Walker Family History: Mother: Renal Cell carcinoma Allergies No Known Allergies Allergy (Verified 06/24/19 21:27) HOME MEDICATIONS: Home Medications Medication Instructions Recorded PARoxetine HCL [Paxil] 20 mg PO DAILY #7 tablet 07/19/14 Ascorbate Calcium [Vitamin C] 500 mg PO DAILY 10/14/16 Aspirin [Aspirin EC] 81 mg PO DAILY 10/14/16 Atorvastatin Ca [Lipitor] 40 mg PO HS 10/14/16 Clopidogrel Bisulfate [Plavix -] 75 mg PO DAILY 10/14/16 Metoprolol Tartrate [Lopressor -] 50 mg PO DAILY 10/14/16 Triamterene/Hydrochlorothiazid 1 each PO DAILY 10/14/16 [Triamterene-Hctz 37.5-25 mg Cp] Acetaminophen [Tylenol .Regular 650 mg PO Q6H PRN #0 tablet 04/04/17 Strength -] Calcitonin-[place] [Miacalcin [place] 200 units NS DAILY #1 spray 04/04/17 -] Carbidopa/Levodopa *Cr* 25/100 1 combo PO TID #90 tab 04/04/17 [Sinemet *Cr* 25/100 -] Ergocalciferol [Vitamin D2] 50,000 unit PO Q7D@1000 #4 cap 04/04/17 Sitagliptin Phosphate [Januvia] 0 mg PO DAILY 06/25/19 Vitamin E 0 unit PO DAILY 06/25/19 REVIEW OF SYSTEMS As per HPI PHYSICAL EXAMINATION Vital Signs - 24 hr 06/24/19 06/24/19 21:28 21:40 Temperature 98.4 F 97.2 F L Pulse Rate 72 60 Pulse Rate [ 80 Left Apical] Respiratory 18 19 Rate Blood Pressure 145/72 Blood Pressure 122/76 [Right Arm] O2 Sat by Pulse 95 Oximetry (%) GENERAL: Awake, alert, NAD HEAD: NCAT EYES: PERRL, EOMI, Left lid lag (Chronic) ENT: Moist mucous membranes. NECK: Supple, No JVD LUNGS: CTAB. No wheezes, no crackles. HEART: Regular rate and rhythm, normal S1 and S2 without murmur ABDOMEN: Soft, nontender, not distended, + bowel sounds, no guarding, no rebound MUSCULOSKELETAL: No CVA tenderness. EXTREMITIES: 2+ pulses, No peripheral edema. NEUROLOGICAL: Cranial nerves II-XII intact. Gait not observed. Awake and Verbal but minimally responsive to questioning, intermittently answering yes or no. NIHSS 5 (Unable to perform finger to nose with RUE, No response to sensation questioning, Mild to moderate aphasia with some obvious changes, Mild to moderate dysarthria) SKIN: Warm, dry, diffuse ecchymosis over the LLE, and Right medial upper extremity Laboratory Results - last 24 hr 06/24/19 06/24/19 06/24/19 23:20 23:20 23:20 WBC 7.1 RBC 4.06 Hgb 11.9 Hct 35.7 MCV 88.1 MCH 29.3 MCHC 33.3 RDW 13.7 Plt Count 202 MPV 8.9 Absolute Neuts (auto) 5.0 Neutrophils % 70.7 Lymphocytes % 19.7 D Monocytes % 7.2 Eosinophils % 1.3 D Basophils % 1.1 Nucleated RBC % 0 PT with INR INR PTT (Actin FS) Sodium 143 Potassium 3.4 L Chloride 105 Carbon Dioxide 26 Anion Gap 12 BUN 48.5 H Creatinine 1.5 H Est GFR (CKD-EPI)AfAm 39.64 Est GFR (CKD-EPI)NonAf 34.21 Random Glucose 227 H Calcium 10.0 Total Bilirubin 1.2 H AST 9 L ALT 6 L Alkaline Phosphatase 81 Troponin I < 0.02 B-Natriuretic Peptide 135.0 H Total Protein 6.8 Albumin 3.9 06/24/19 23:20 WBC RBC Hgb Hct MCV MCH MCHC RDW Plt Count MPV Absolute Neuts (auto) Neutrophils % Lymphocytes % Monocytes % Eosinophils % Basophils % Nucleated RBC % PT with INR 12.40 INR 1.05 PTT (Actin FS) 31.8 Sodium Potassium Chloride Carbon Dioxide Anion Gap BUN Creatinine Est GFR (CKD-EPI)AfAm Est GFR (CKD-EPI)NonAf Random Glucose Calcium Total Bilirubin AST ALT Alkaline Phosphatase Troponin I B-Natriuretic Peptide Total Protein Albumin ASSESSMENT/PLAN: 73 y/o F with PMHx of CAD (s/p 5 stents, on ASA/Plavix), Parkinsons disease, Prior CVA/TIA, HTN, NIDDM, HLD, presents with Right lower extremity weakness. #RLE Weakness + R Facial Droop, Now resolved -Concern for possible TIA, NIHSS 5; Outside tPA window -Noncon Head CT negative for acute pathology; Pending official read -EKG shows Sinus bradycardia, possibly T Wave Flattening in V1-V6 -Continue home dose Antiplatelet therapy (ASA, Clopidogrel), Statin -Will Check Echo, Carotid dopplers, Lipid panel, Brain MRI w/o contrast -Neurochecks -Tele -Fall/Seizure/Dysphagia precautions -Keep HOB elevated to 30 degrees -neurology (Dr. Snell) consulted -Cardiology (Dr. Garcia) consulted -Speech and Swallow #NOELLE -Likely due to dehydration, Resolved -Continue IV Hydration #Hypokalemia -Repleted #Falls -Physical therapy -Pain control via Acetaminophen #CAD -Continue home dose ASA, Clopidogrel, Statin #NIDDM -BGMs ISS ACHS #HLD -Statin #FEN -NS @ 50 -Replete lytes PRN -NPO pending S&S eval #PPx -DVT: Heparin SQ Dispo: Admit to tele Visit type - Emergency Visit Emergency Visit: Yes ED Registration Date: 06/25/19 Care time: The patient presented to the Emergency Department on the above date and was hospitalized for further evaluation of their emergent condition. - New Patient This patient is new to me today: Yes Date on this admission: 06/26/19 - Critical Care Critical Care patient: No ATTENDING PHYSICIAN STATEMENT I saw and evaluated the patient. I reviewed the resident's note and discussed the case with the resident. I agree with the resident's findings and plan as documented. SUBJECTIVE: OBJECTIVE: ASSESSMENT AND PLAN:
--- NOTE | 2019-06-25 08:53 | PN ---
Teaching Attending Note Name of Resident: Marcela Yadav ATTENDING PHYSICIAN STATEMENT I saw and evaluated the patient. I reviewed the resident's note and discussed the case with the resident. I agree with the resident's findings and plan as documented. SUBJECTIVE: Patient is a 73 y/o F with PMHx of CAD (s/p 5 stents, on ASA/Plavix), Parkinsons disease, Prior CVA/TIA, HTN, NIDDM, HLD, presents with Right lower extremity weakness with right facial droop and expressive aphasia. OBJECTIVE: Vital Signs Temperature 97.2 F L 06/24/19 21:40 Pulse Rate 80 06/24/19 21:40 Respiratory Rate 19 06/24/19 21:40 Blood Pressure 122/76 06/24/19 21:40 O2 Sat by Pulse Oximetry (%) 95 06/24/19 21:40 GENERAL: The patient is awake, alert, and fully oriented, in no acute distress. HEAD: Normal with no signs of trauma. EYES: PERRL, extraocular movements intact, sclera anicteric, conjunctiva clear. ENT: Ears normal, oropharynx clear without exudates, moist mucous membranes. NECK: Trachea midline, full range of motion, supple. LUNGS: Breath sounds equal, clear to auscultation bilaterally, no wheezes, no crackles, no accessory muscle use. HEART: Regular rate and rhythm, S1, S2 without murmur, rub or gallop. ABDOMEN: Soft, nontender, nondistended, normoactive bowel sounds, no guarding, no rebound, no hepatosplenomegaly, no masses. EXTREMITIES: 2+ pulses, warm, well-perfused, no edema. NEUROLOGICAL: Cranial nerves II through XII grossly intact. expressive aphasia, gait not observed. PSYCH: Normal mood, normal affect. SKIN: Warm, dry, normal turgor, bruises on LEs bl old from falls CBCD WBC 7.1 K/mm3 (4.0-10.0) 06/24/19 23:20 RBC 4.06 M/mm3 (3.60-5.2) 06/24/19 23:20 Hgb 11.9 GM/dL (10.7-15.3) 06/24/19 23:20 Hct 35.7 % (32.4-45.2) 06/24/19 23:20 MCV 88.1 fl (80-96) 06/24/19 23:20 MCHC 33.3 g/dl (32.0-36.0) 06/24/19 23:20 RDW 13.7 % (11.6-15.6) 06/24/19 23:20 Plt Count 202 K/MM3 (134-434) 06/24/19 23:20 MPV 8.9 fl (7.5-11.1) 06/24/19 23:20 CMP Sodium 143 mmol/L (136-145) 06/24/19 23:20 Potassium 3.4 mmol/L (3.5-5.1) L 06/24/19 23:20 Chloride 105 mmol/L (98-107) 06/24/19 23:20 Carbon Dioxide 26 mmol/L (21-32) 06/24/19 23:20 Anion Gap 12 MMOL/L (8-16) 06/24/19 23:20 BUN 48.5 mg/dL (7-18) H 06/24/19 23:20 Creatinine 1.5 mg/dL (0.55-1.3) H 06/24/19 23:20 Random Glucose 227 mg/dL (74-106) H 06/24/19 23:20 Calcium 10.0 mg/dL (8.5-10.1) 06/24/19 23:20 Total Bilirubin 1.2 mg/dL (0.2-1) H 06/24/19 23:20 AST 9 U/L (15-37) L 06/24/19 23:20 ALT 6 U/L (13-61) L 06/24/19 23:20 Alkaline Phosphatase 81 U/L (45-117) 06/24/19 23:20 Total Protein 6.8 g/dl (6.4-8.2) 06/24/19 23:20 Albumin 3.9 g/dl (3.4-5.0) 06/24/19 23:20 CARDIAC ENZYMES Troponin I < 0.02 ng/ml (0.00-0.05) 06/24/19 23:20 Current Medications Generic Name Dose Route Start Last Admin Trade Name Freq PRN Reason Stop Dose Admin Aspirin 81 mg 06/25/19 10:00 Asa - PO DAILY [facility] Atorvastatin Calcium 40 mg 06/25/19 22:00 Lipitor - PO HS [facility] Clopidogrel Bisulfate 75 mg 06/25/19 10:00 Plavix - PO DAILY [facility] Heparin Sodium (Porcine) 5,000 unit 06/25/19 09:00 Heparin - SQ TID [facility] Sodium Chloride 1,000 mls @ 0 mls/hr 06/24/19 23:30 06/25/19 00:12 Normal Saline - IV 1,000 mls/hr ASDIR [facility] Administration Wide Open Sodium Chloride 1,000 mls @ 50 mls/hr 06/25/19 08:15 Normal Saline - IV ASDIR [facility] Insulin Aspart 1 vial 06/25/19 11:00 Novolog Vial Sliding Scale - SQ ACHS [facility] Protocol Home Medications Medication Instructions Recorded PARoxetine HCL [Paxil] 20 mg PO DAILY #7 tablet 07/19/14 Ascorbate Calcium [Vitamin C] 500 mg PO DAILY 10/14/16 Aspirin [Aspirin EC] 81 mg PO DAILY 10/14/16 Atorvastatin Ca [Lipitor] 40 mg PO HS 10/14/16 Clopidogrel Bisulfate [Plavix -] 75 mg PO DAILY 10/14/16 Metoprolol Tartrate [Lopressor -] 50 mg PO DAILY 10/14/16 Triamterene/Hydrochlorothiazid 1 each PO DAILY 10/14/16 [Triamterene-Hctz 37.5-25 mg Cp] Acetaminophen [Tylenol .Regular 650 mg PO Q6H PRN #0 tablet 04/04/17 Strength -] Calcitonin-[place] [Miacalcin [place] 200 units NS DAILY #1 spray 04/04/17 -] Carbidopa/Levodopa *Cr* 25/100 1 combo PO TID #90 tab 04/04/17 [Sinemet *Cr* 25/100 -] Ergocalciferol [Vitamin D2] 50,000 unit PO Q7D@1000 #4 cap 04/04/17 Sitagliptin Phosphate [Januvia] 0 mg PO DAILY 06/25/19 Vitamin E 0 unit PO DAILY 06/25/19 ASSESSMENT AND PLAN: Patient is a 73 y/o F with PMHx of CAD (s/p 5 stents, on ASA/Plavix), Parkinsons disease, Prior CVA/TIA, HTN, NIDDM, HLD, presents with Right lower extremity weakness with facial droop. #TIA r/o CVA with RLE Weakness with right Facial Droop, which resolved now. will admit her to tele and monitor for possible P-afib, patient is on plavix and asa. will continue lipitor 40mg , cpk level , lipid panel. #s/p Falls with hx of falls due to unsteady gait due to having advanced parkinsonism, PT evaluation. #Hx of CAD with prior 5 stents continue current home regimen dose ASA, plavix , Statin #NIDDM: BGMs ISS ACHS #HLD: continue statin ,will get lipid panel. DVT PPx: Heparin SQ will go back to 's service today.
[2019-06-25 09:00] LABS: BASO % 0.9 % (0-2.0); EOS % 2.4 % (0-4.5); HEMATOCRIT 33.5 % (32.4-45.2); HEMOGLOBIN 11.4 GM/dL (10.7-15.3); LYMPH % 25.8 % (8-40); MCH 29.7 pg (25.7-33.7); MCHC 33.9 g/dl (32.0-36.0); MEAN CELL VOLUME 87.6 fl (80-96); MEAN PLT VOLUME 8.6 fl (7.5-11.1); MONO % 7.6 % (3.8-10.2); NEUT % 63.3 % (42.8-82.8); PLATELET COUNT 186 K/MM3 (134-434); RBC 3.82 M/mm3 (3.60-5.2); RDW 13.5 % (11.6-15.6); WHITE BLOOD COUNT 6.2 K/mm3 (4.0-10.0)
[2019-06-25 09:38] LABS: ALBUMIN 3.5 g/dl (3.4-5.0); ALK PHOS 64 U/L (45-117); ANION GAP 10 MMOL/L (8-16); BILIRUBIN,TOTAL 1.3 mg/dL (0.2-1); BLOOD UREA NITROGEN 40.4 mg/dL (7-18); CALCIUM 9.3 mg/dL (8.5-10.1); CHLORIDE 108 mmol/L (98-107); CHOLESTEROL 172 mg/dL (50-200); CO2 26 mmol/L (21-32); CREATININE 1.2 mg/dL (0.55-1.3); GLUCOSE,RANDOM 148 mg/dL (74-106); HDL CHOLESTEROL 36 mg/dL (40-60); PHOSPHOROUS 2.8 mg/dL (2.5-4.9); SGOT/AST 11 U/L (15-37); SGPT/ALT < 6 U/L (13-61); SODIUM 144 mmol/L (136-145); TOT PROT 6.2 g/dl (6.4-8.2); TRIGLYCERIDES 224 mg/dL (0-150)
[2019-06-25] MEDS ORDERED: ASPIRIN 81 MG CHEWABLE TABLETS PO SCH (10:00)
[2019-06-25] MEDS ORDERED: POTASSIUM CHLORIDE TABS 20 MEQ TABLET.ER (FP) PO ONE ×2 (10:59→17:02)
[2019-06-25] MEDS ORDERED: ASPIRIN 300 MG SUPP.RECT PR SCH (11:00)
[2019-06-25] MEDS ORDERED: HEPARIN NA (PORCINE) 5,000 UNITS/ML 1ML VIAL ONE (11:45)
[2019-06-25] MEDS ORDERED: KCL 10 MEQ IVPB 10 MEQ/100 ML INFUS.BAG IVPB ONE (11:45)
[2019-06-25] MEDS: KCL 10 MEQ IVPB 10 MEQ/100 ML INFUS.BAG IVPB SCH ×3 (11:58→18:07)
[2019-06-25] MEDS: INSULIN SLIDING SCALE (NOVOLOG) 1 VIAL SQ SCH ×3 (11:58→23:19)
[2019-06-25] MEDS: HEPARIN NA (PORCINE) 5,000 UNITS/ML 1ML VIAL SQ SCH ×3 (11:58→23:16)
[2019-06-25] MEDS ORDERED: ASPIRIN 300 MG SUPP.RECT RC ONE (12:21)
--- NOTE | 2019-06-25 13:08 | CON.CARD ---
Cardiology Consult (text) - Consultation Consultation Note: cc: rle weakness hpi: hx from charts, pt with dementia, not communicating. 73 year old f with history of CAD s/p remote stents, HTN, NIDDM, and parkinsons disease, dementia here with rle weakness. Pt appears comfortable. Found to have lacunar cva. pmhx/pshx: per hpi, hysterectomy social hx: ex smoker fam hx: unknown ros: unable to obtain 2/2 dementia meds: Home Medications Medication Instructions Recorded PARoxetine HCL [Paxil] 20 mg PO DAILY #7 tablet 07/19/14 Ascorbate Calcium [Vitamin C] 500 mg PO DAILY 10/14/16 Aspirin [Aspirin EC] 81 mg PO DAILY 10/14/16 Atorvastatin Ca [Lipitor] 40 mg PO HS 10/14/16 Clopidogrel Bisulfate [Plavix -] 75 mg PO DAILY 10/14/16 Metoprolol Tartrate [Lopressor -] 50 mg PO DAILY 10/14/16 Triamterene/Hydrochlorothiazid 1 each PO DAILY 10/14/16 [Triamterene-Hctz 37.5-25 mg Cp] Acetaminophen [Tylenol .Regular 650 mg PO Q6H PRN #0 tablet 04/04/17 Strength -] Calcitonin-[place] [Miacalcin [place] 200 units NS DAILY #1 spray 04/04/17 -] Carbidopa/Levodopa *Cr* 25/100 1 combo PO TID #90 tab 04/04/17 [Sinemet *Cr* 25/100 -] Ergocalciferol [Vitamin D2] 50,000 unit PO Q7D@1000 #4 cap 04/04/17 Sitagliptin Phosphate [Januvia] 0 mg PO DAILY 06/25/19 Vitamin E 0 unit PO DAILY 06/25/19 pe: Vital Signs Period Temp Pulse Resp BP Sys/Chavez Pulse Ox Last 24 Hr 97.2 F-98.4 F 60-80 18-19 122-145/72-76 95-95 nad no jvd rrr s1s2 no mrg cta bl nl eff awake alert confused abd nt nd pos bs no jaundice diaphoresis pos dp pt no carotid bruits no le e/c/c Laboratory Last Values WBC 6.2 K/mm3 (4.0-10.0) 06/25/19 08:50 RBC 3.82 M/mm3 (3.60-5.2) 06/25/19 08:50 Hgb 11.4 GM/dL (10.7-15.3) 06/25/19 08:50 Hct 33.5 % (32.4-45.2) 06/25/19 08:50 MCV 87.6 fl (80-96) 06/25/19 08:50 MCH 29.7 pg (25.7-33.7) 06/25/19 08:50 MCHC 33.9 g/dl (32.0-36.0) 06/25/19 08:50 RDW 13.5 % (11.6-15.6) 06/25/19 08:50 Plt Count 186 K/MM3 (134-434) 06/25/19 08:50 MPV 8.6 fl (7.5-11.1) 06/25/19 08:50 Absolute Neuts (auto) 3.9 K/mm3 (1.5-8.0) 06/25/19 08:50 Neutrophils % 63.3 % (42.8-82.8) 06/25/19 08:50 Lymphocytes % 25.8 % (8-40) D 06/25/19 08:50 Monocytes % 7.6 % (3.8-10.2) 06/25/19 08:50 Eosinophils % 2.4 % (0-4.5) D 06/25/19 08:50 Basophils % 0.9 % (0-2.0) 06/25/19 08:50 Nucleated RBC % 0 % (0-0) 06/25/19 08:50 PT with INR 12.40 SEC (9.7-13.0) 06/24/19 23:20 INR 1.05 (0.83-1.09) 06/24/19 23:20 PTT (Actin FS) 31.8 SECONDS (25.2-36.5) 06/24/19 23:20 Sodium 144 mmol/L (136-145) 06/25/19 08:50 Potassium 3.0 mmol/L (3.5-5.1) L 06/25/19 08:50 Chloride 108 mmol/L (98-107) H 06/25/19 08:50 Carbon Dioxide 26 mmol/L (21-32) 06/25/19 08:50 Anion Gap 10 MMOL/L (8-16) 06/25/19 08:50 BUN 40.4 mg/dL (7-18) H 06/25/19 08:50 Creatinine 1.2 mg/dL (0.55-1.3) 06/25/19 08:50 Est GFR (CKD-EPI)AfAm 51.92 06/25/19 08:50 Est GFR (CKD-EPI)NonAf 44.80 06/25/19 08:50 POC Glucometer 153 UNITS (80-120) 06/25/19 11:55 Random Glucose 148 mg/dL (74-106) H 06/25/19 08:50 Hemoglobin A1c % 7.2 % (4.2-6.3) H 06/25/19 08:50 Calcium 9.3 mg/dL (8.5-10.1) 06/25/19 08:50 Phosphorus 2.8 mg/dL (2.5-4.9) 06/25/19 08:50 Magnesium 2.0 mg/dL (1.8-2.4) 06/25/19 08:50 Total Bilirubin 1.3 mg/dL (0.2-1) H 06/25/19 08:50 AST 11 U/L (15-37) L 06/25/19 08:50 ALT < 6 U/L (13-61) L 06/25/19 08:50 Alkaline Phosphatase 64 U/L (45-117) 06/25/19 08:50 Troponin I < 0.02 ng/ml (0.00-0.05) 06/24/19 23:20 B-Natriuretic Peptide 135.0 pg/ml (5-125) H 06/24/19 23:20 Total Protein 6.2 g/dl (6.4-8.2) L 06/25/19 08:50 Albumin 3.5 g/dl (3.4-5.0) 06/25/19 08:50 Triglycerides 224 mg/dL (0-150) H 06/25/19 08:50 Cholesterol 172 mg/dL (50-200) 06/25/19 08:50 Total LDL Cholesterol 99 mg/dL (5-100) 06/25/19 08:50 HDL Cholesterol 36 mg/dL (40-60) L 06/25/19 08:50 TSH 0.53 uIU/ml (0.358-3.74) 06/25/19 08:50 EKG: SR, nl axis/intervals. no ischemic changes. CXR: no chf echo 06/2019: nl lv/rv, no sig valve path carotids 06/2019: no sig stenosis a/p: 73 year old f with history of CAD s/p remote stents, HTN, NIDDM, and parkinsons disease, dementia here with rle weakness. cva: -echo and carotids unremarkable -cont tele -neuro eval CAD s/p remote pci: - no signs acs - echo unremarkable here - has been on asa and plavix as outpt, cont if ok by neuro - continue atorvastatin HTN -stable, cont home meds
--- NOTE | 2019-06-25 13:32 | ECHO ---
Name: ANTWAN ANGELA Exam:Adult Echocardiogram Study Date: 06/25/2019 10:14 AM Age: 73 yrs Reason For Study: R/O AFIB Height: 62 in Weight: 130 lb BSA: 1.6 m2 MMode/2D Measurements & Calculations IVSd: 1.1 cm Ao root diam: 3.0 cm LVIDd: 3.5 cm LA dimension: 3.7 cm LVIDs: 2.2 cm LVPWd: 1.1 cm LVPWs: 1.3 cm EDV(Teich): 51.3 ml ESV(Teich): 15.8 ml LVOT diam: 1.7 cm RV S Javid: 14.3 cm/sec Doppler Measurements & Calculations MV E max javid: 56.3 cm/sec Ao V2 max: 114.9 cm/sec MV A max javid: 95.1 cm/sec Ao max P.3 mmHg MV E/A: 0.59 Ao V2 mean: 76.4 cm/sec MV dec time: 0.25 sec Ao mean P.7 mmHg Ao V2 VTI: 24.8 cm SHIRA(I,D): 2.2 cm2 SHIRA(V,D): 2.4 cm2 LV V1 max P.6 mmHg SV(LVOT): 54.3 ml LV V1 mean P.5 mmHg LV V1 max: 118.4 cm/sec LV V1 mean: 71.8 cm/sec LV V1 VTI: 23.0 cm PA V2 max: 95.0 cm/sec Med Peak E' Javid: 4.6 cm/sec PA max P.6 mmHg Med E/e': 12.3 Lat Peak E' Javid: 7.3 cm/sec Lat E/e': 7.7 Procedure A complete two-dimensional transthoracic echocardiogram was performed (2D, M-mode, Doppler and color flow Doppler). Left Ventricle The left ventricular size, thickness and function are normal. The left ventricular ejection fraction is normal. Ejection Fraction = 60-65%. The left ventricular wall motion is normal. Right Ventricle The right ventricle is normal in size and function. Atria Normal left and right atrial size and function. Mitral Valve There is no mitral regurgitation noted. Tricuspid Valve There is trace tricuspid regurgitation. There was insufficient TR detected to calculate RV systolic p ressure. Aortic Valve No hemodynamically significant valvular aortic stenosis. No aortic regurgitation is present. Pulmonic Valve There is no pulmonic valvular regurgitation. Great Vessels The aortic root is normal size. Pericardium/Pleura There is no pericardial effusion. Interpretation Summary The left ventricular size, thickness and function are normal The right ventricle is normal in size and function. There is trace tricuspid regurgitation. MD Mark Tran 06/25/2019 01:31 PM
--- NOTE | 2019-06-25 14:03 | PN ---
Progress Note, Physician History of Present Illness: patient seen and examined in ER difficulty with speech able to move her right leg and arm daughter at bedside says that her mom speech is different - Current Medication List Current Medications: Active Medications Aspirin (Asa -) 300 mg MT DAILY [facility] Last Admin: 06/25/19 12:23 Dose: 300 mg Atorvastatin Calcium (Lipitor -) 40 mg PO HS [facility] Clopidogrel Bisulfate (Plavix -) 75 mg PO DAILY [facility] Heparin Sodium (Porcine) (Heparin -) 5,000 unit SQ TID [facility] Last Admin: 06/25/19 11:58 Dose: 5,000 unit Sodium Chloride (Normal Saline -) 1,000 mls @ 0 mls/hr IV ASDIR [facility] Last Admin: 06/25/19 00:12 Dose: 1,000 mls/hr Sodium Chloride (Normal Saline -) 1,000 mls @ 50 mls/hr IV ASDIR [facility] Last Admin: 06/25/19 09:58 Dose: 50 mls/hr Potassium Chloride (Potassium Chloride 10 Meq Premix Ivpb -) 10 meq in 100 mls @ 100 mls/hr IVPB Q60M [facility] Stop: 06/25/19 13:59 Last Admin: 06/25/19 11:58 Dose: 100 mls/hr Insulin Aspart (Novolog Vial Sliding Scale -) 1 vial SQ ACHS [facility]; Protocol Last Admin: 06/25/19 11:58 Dose: Not Given - Objective Vital Signs: Vital Signs Temperature 97.2 F L 06/24/19 21:40 Pulse Rate 80 06/24/19 21:40 Respiratory Rate 19 06/24/19 21:40 Blood Pressure 122/76 06/24/19 21:40 O2 Sat by Pulse Oximetry (%) 95 06/24/19 21:40 Constitutional: Yes: Calm Cardiovascular: Yes: Regular Rate and Rhythm, S1, S2 Respiratory: Yes: CTA Bilaterally Gastrointestinal: Yes: Normal Bowel Sounds, Soft Edema: No Neurological: Yes: Facial Droop, Other (change in speech able to move all 4 extremties) Labs: CBC, BMP 06/25/19 08:50 06/25/19 08:50 INR, PTT INR 1.05 (0.83-1.09) 06/24/19 23:20 Problem List - Problems (1) CVA (cerebral vascular accident) Assessment/Plan: MRI note acute /subacute infarct in right side rodriguez radiate and periventricular white matter NPO swallow eval statin aspirin, neuro consult PT echo noted for normal left ventricle function and size carotid doppler no significant stenosis Code(s): I63.9 - CEREBRAL INFARCTION, UNSPECIFIED (2) Hypokalemia Assessment/Plan: repleted recheck potassium and magnesium Code(s): E87.6 - HYPOKALEMIA (3) Diabetes Assessment/Plan: bgm sliding scale [id number] 7.2 Code(s): E11.9 - TYPE 2 DIABETES MELLITUS WITHOUT COMPLICATIONS (4) Parkinsons disease Assessment/Plan: sinemet once cleard to take oral medication neuro eval Code(s): G20 - PARKINSON'S DISEASE
--- NOTE | 2019-06-25 14:25 | CONSULT ---
Admitting History and Physical - Primary Care Physician PCP: Maeve Machado - Admission History of Present Illness: Patient is a 73 y/o F with PMHx of CAD (s/p 5 stents, on ASA/Plavix), Parkinsons disease, Prior CVA/TIA, HTN, NIDDM, HLD, presents with Right lower extremity weakness with facial droop. Known to me from previous MBS, last in 2017. Pt has been on soft food thin liquid, careful slow intake with good tolerance. MRI -acute /subacute infarct in right side rodriguez radiate and periventricular white matter. Multiple infarcts. Recently she has been more forgetful, ST memory worse than LT. Pt remember my name immediately. 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 Cardiovascular: Yes: CAD, HTN - Smoking History Smoking history: Never smoked Have you smoked in the past 12 months: No Aproximately how many cigarettes per day: 0 - Alcohol/Substance Use Hx Alcohol Use: No History - Admission Reason For Visit: POSSIBLE STROKE,WEAKNESS - Diagnostics X-ray: Report Reviewed CT Scan: Report Reviewed MRI: Report Reviewed (acute /subacute infarct in right side rodriguez radiate and periventricular white matter) - General Mental Status: Alert and Oriented, Awake and Alert, Able to Follow Commands, Vague, Flat Affect Attention: Moderate Impairment Ability to Follow Directions: Fair Head/Neck Control: Fair - Hearing Hearing: Functional Speech Evaluation - Communication Primary Language: TURKISH Communication: Yes: Dysarthria Oral Expression Ability: Yes: Moderate Impairment, Severe Impairment - Speech Production Dysarthria: Yes: Mixed Able to Make Needs Known: Yes: Moderately Impaired, Severely Impaired Intelligibility: Yes: Moderately Impaired, Severely Impaired - Speech Characteristics Voice Loudness: Mildly Soft/Quiet Voice Pitch: Yes: Mildly Low Voice Phonatory-based Quality: Yes: Harsh (strain strangled), Dysphonia Speech Pattern: Impaired Speech Clarity: < 25% Nasal Resonance: Hypernasal Articulation: Yes: Imprecise Rate of Speech: Too Slow - Language/Auditory Comprehension Follows: Yes: 1 Stage Simple Commands Observation: Able to respond to yes/no queries: Yes, Yes/No Confusion: No, Comprehends Conversational Speech: Yes - Language/Verbal Expression Functional Communication Status: Yes: Moderately Impaired, Severely Impaired - Swallow Evaluation/Bedside Assessment Current Nutritional Intake: NPO Oral Secretions: Yes: WFL Dentition: Yes: Adequate Facial Symmetry at Rest: Symmetrical Jaw Position: Closed at Rest Against Resistance Opening: Weak Against Resistance Closing: Weak Lingual Movement: Symmetric Lingual Speed of Movement: Reduced Lingual Movement Strgth Against Opposition: Reduced Laryngeal Movement: Reduced Excursion, Labored,delay initiation Rate of Intake: Slow/Holding Chewing: Impaired Oral Prep Time: Increased A-P Transit: Impaired Timing of Swallow: Delayed Coughing/Throat Clear: Yes (thin) Recommendations - Speech Evaluation, Impression/Plan Impression: Dysarthria, Strain strangled, limited articulatory excursion, difficulty initiating speech. Recognizes me. Thinks she is at [facility]. Orl holding with very delayerd untimely swallow. Educated daughter present. - Dysphagia Impressions/Plan Swallowing Skills: Impaired Dysphagia Impressions: Moderate Impairment, Severe Impairment *Silent aspiration: cannot be R/O at bedside Recommendations: Modified Barium Swallow (when improved) - Recommendations Diet Consistency: NPO Medication Administration: Crushed with applesauce (1/3 tsp, wait for swallow reflex before given more/) Liquids: NPO
--- NOTE | 2019-06-25 14:43 | PN ---
Progress Note (short form) - Note Progress Note: not able to swallow aspirin supository given ivf with potassium recheck labs Problem List - Problems (1) CVA (cerebral vascular accident) Code(s): I63.9 - CEREBRAL INFARCTION, UNSPECIFIED (2) Hypokalemia Code(s): E87.6 - HYPOKALEMIA (3) Diabetes Code(s): E11.9 - TYPE 2 DIABETES MELLITUS WITHOUT COMPLICATIONS (4) Parkinsons disease Code(s): G20 - PARKINSON'S DISEASE
--- NOTE | 2019-06-25 15:28 | EKG ---
Test Reason : Blood Pressure : / mmHG Vent. Rate : 055 BPM Atrial Rate : 055 BPM P-R Int : 186 ms QRS Dur : 088 ms QT Int : 412 ms P-R-T Axes : 037 007 123 degrees QTc Int : 394 ms SINUS BRADYCARDIA NONSPECIFIC T WAVE ABNORMALITY ABNORMAL ECG WHEN COMPARED WITH ECG OF 01-APR-2017 11:35, PREMATURE ATRIAL COMPLEXES ARE NO LONGER PRESENT NONSPECIFIC T WAVE ABNORMALITY NOW EVIDENT IN INFERIOR LEADS NONSPECIFIC T WAVE ABNORMALITY NOW EVIDENT IN ANTEROLATERAL LEADS Confirmed by TAMARA KRAMER MD ([id number]) on 06/25/2019 3:28:02 PM Referred By: Confirmed By:TAMARA KRAMER MD
[2019-06-25] MEDS: D5-1/2NS+20 MEQ KCL - 20 MEQ/1,000 ML INFUS.BAG IV SCH (16:15)
[2019-06-25] MEDS ORDERED: CLOPIDOGREL BISULFATE 75 MG TABLET (FP) ONE (17:02)
[2019-06-25] MEDS: CLOPIDOGREL BISULFATE 75 MG TABLET (FP) PO SCH (17:18)
[2019-06-25] MEDS: ATORVASTATIN CA 80 MG TABLET (FP) PO SCH (23:32)
[2019-06-26] MEDS: INSULIN SLIDING SCALE (NOVOLOG) 1 VIAL SQ SCH ×4 (06:34→22:25)
[2019-06-26] MEDS: HEPARIN NA (PORCINE) 5,000 UNITS/ML 1ML VIAL SQ SCH ×3 (06:34→22:25)
[2019-06-26 07:20] LABS: BASO % 1.2 % (0-2.0); EOS % 2.2 % (0-4.5); HEMATOCRIT 34.6 % (32.4-45.2); HEMOGLOBIN 11.9 GM/dL (10.7-15.3); LYMPH % 22.9 % (8-40); MCH 29.8 pg (25.7-33.7); MCHC 34.3 g/dl (32.0-36.0); MONO % 6.7 % (3.8-10.2); PLATELET COUNT 199 K/MM3 (134-434); RBC 3.98 M/mm3 (3.60-5.2); RDW 13.5 % (11.6-15.6); WHITE BLOOD COUNT 7.1 K/mm3 (4.0-10.0)
[2019-06-26 07:36] LABS: ALBUMIN 3.6 g/dl (3.4-5.0); BILIRUBIN,TOTAL 1.8 mg/dL (0.2-1); BLOOD UREA NITROGEN 25.5 mg/dL (7-18); CALCIUM 9.1 mg/dL (8.5-10.1); CREATININE 0.9 mg/dL (0.55-1.3); MAGNESIUM 1.7 mg/dL (1.8-2.4); PHOSPHOROUS 1.9 mg/dL (2.5-4.9); POTASSIUM 3.1 mmol/L (3.5-5.1); TOT PROT 6.1 g/dl (6.4-8.2)
--- NOTE | 2019-06-26 08:54 | CONSULT ---
Consult - text type - Consultation Consultation Note: Neurology CHIEF COMPLAINT: Weakness HISTORY OF PRESENT ILLNESS: 73 y/o F with PMHx of CAD (s/p 5 stents, on ASA/Plavix), Parkinsons disease, Prior CVA/TIA, HTN, NIDDM, HLD, presented with right lower extremity weakness. Patient was accompanied by her daughter Theresa who aided in providing HPI per notes. Theresa stated that patient typically has an abnormal gait requiring assistance, and has recently had at least 2 falls, most recently falling backward yesterday into an arm chair without hitting her head or LOC. Evening prior to admission around 1900, daughter reportedly noticed that patient had weakness performing her ADLs and speaking very slowly with mumbling; typically patient is able to eat on her own and bring her dishes to the sink. Theresa additionally noticed a right facial droop at this time accompanied by right lower extremity weakness; Patient was dragging her right lower extremity and her gait was changed prompting her daughter to alert EMD. At baseline, patient has dementia, a soft spoken occassionally mumbled speech and difficult with balance but this was much different. Theresa lives at home with her mother and ensures that patient is medication complaint according to note. Denies any recent medication changes or travel. Additionally she mentions that the has constipation, otherwise denies fevers, chills, chest pain, SOB, nausea, vomiting , diarrhea, hematuria. CT head completed and without acute changes though noted chronic L periventricular infarcts. MRI brain completed overnight and although it demonstrated acute R rodriguez radiata infarct that does not localize to R sided weakness. Of note, there are chronic R perventricular chronic infarcts. Patient with minimal speech and limited exam but is moving extremities grossly. She was on ASA 81, Plavix 75 but inpatient ordered to have ASA 300, this would significantly increase bleed risk. Patient already on dual antiplatelet, adjusted back to plavix 75 with ASA 81. LDL 99, remains on statin 40mg. Recent Travel: Denies PAST MEDICAL HISTORY: As above PAST SURGICAL HISTORY: 5 Cardiac stents R Total hip replacement Hysterectomy Social History: Smoking: Quit in September 2018 Alcohol: Denies Drugs: Denies Residence: at home with , daughter Ambulation: Walker Family History: Mother: Renal Cell carcinoma Allergies No Known Allergies Allergy (Verified 06/24/19 21:27) HOME MEDICATIONS: Home Medications Medication Instructions Recorded PARoxetine HCL [Paxil] 20 mg PO DAILY #7 tablet 07/19/14 Ascorbate Calcium [Vitamin C] 500 mg PO DAILY 10/14/16 Aspirin [Aspirin EC] 81 mg PO DAILY 10/14/16 Atorvastatin Ca [Lipitor] 40 mg PO HS 10/14/16 Clopidogrel Bisulfate [Plavix -] 75 mg PO DAILY 10/14/16 Metoprolol Tartrate [Lopressor -] 50 mg PO DAILY 10/14/16 Triamterene/Hydrochlorothiazid 1 each PO DAILY 10/14/16 [Triamterene-Hctz 37.5-25 mg Cp] Acetaminophen [Tylenol .Regular 650 mg PO Q6H PRN #0 tablet 04/04/17 Strength -] Calcitonin-[place] [Miacalcin [place] 200 units NS DAILY #1 spray 04/04/17 -] Carbidopa/Levodopa *Cr* 25/100 1 combo PO TID #90 tab 04/04/17 [Sinemet *Cr* 25/100 -] Ergocalciferol [Vitamin D2] 50,000 unit PO Q7D@1000 #4 cap 04/04/17 Sitagliptin Phosphate [Januvia] 0 mg PO DAILY 06/25/19 Vitamin E 0 unit PO DAILY 06/25/19 REVIEW OF SYSTEMS REVIEW OF SYSTEMS CONSTITUTIONAL: Absent: fever, chills, diaphoresis, + generalized weakness, malaise HEENT: Absent: rhinorrhea, nasal congestion, throat pain, throat swelling, difficulty swallowing, mouth swelling, ear pain, eye pain, visual changes CARDIOVASCULAR: Absent: chest pain, syncope, palpitations, irregular heart rate, lightheadedness , peripheral edema RESPIRATORY: Absent: cough, shortness of breath, dyspnea with exertion, orthopnea, wheezing, stridor, hemoptysis GASTROINTESTINAL: Absent: abdominal pain, abdominal distension, nausea GENITOURINARY: Absent: dysuria, frequency, urgency, MUSCULOSKELETAL: Absent: myalgia, SKIN: Absent: rash, itching, pallor HEMATOLOGIC/IMMUNOLOGIC: Absent: easy bleeding, easy bruising, lymphadenopathy, frequent infections ENDOCRINE: Absent: unexplained weight gain, unexplained weight loss, heat intolerance, cold intolerance NEUROLOGIC: Absent: headache, focal weakness or paresthesias, dizziness, seizure, PSYCHIATRIC: Absent: anxiety, depression, suicidal or homicidal ideation, hallucinations. PHYSICAL EXAMINATION Vital Signs - 24 hr 06/24/19 06/24/19 21:28 21:40 Temperature 98.4 F 97.2 F L Pulse Rate 72 60 Pulse Rate [ 80 Left Apical] Respiratory 18 19 Rate Blood Pressure 145/72 Blood Pressure 122/76 [Right Arm] O2 Sat by Pulse 95 Oximetry (%) GENERAL: Awake, alert, NAD HEAD: NCAT EYES: PERRL, EOMI, Left lid lag (Chronic) ENT: Moist mucous membranes. NECK: Supple, No JVD LUNGS: CTAB. No wheezes, no crackles. HEART: Regular rate and rhythm, normal S1 and S2 without murmur ABDOMEN: Soft, nontender, not distended, + bowel sounds, no guarding, no rebound MUSCULOSKELETAL: No CVA tenderness. EXTREMITIES: 2+ pulses, No peripheral edema. NEUROLOGICAL: Cranial nerves II-XII intact. Awake and Verbal but minimally responsive to questioning, intermittently answering yes or no. moves all extremities but not participating in confrontation testing, sensory grossly intact, gait deferred SKIN: Warm, dry, diffuse ecchymosis over the LLE, and Right medial upper extremity CBCD WBC 7.1 K/mm3 (4.0-10.0) 06/26/19 06:17 RBC 3.98 M/mm3 (3.60-5.2) 06/26/19 06:17 Hgb 11.9 GM/dL (10.7-15.3) 06/26/19 06:17 Hct 34.6 % (32.4-45.2) 06/26/19 06:17 MCV 87.0 fl (80-96) 06/26/19 06:17 MCHC 34.3 g/dl (32.0-36.0) 06/26/19 06:17 RDW 13.5 % (11.6-15.6) 06/26/19 06:17 Plt Count 199 K/MM3 (134-434) 06/26/19 06:17 MPV 9.0 fl (7.5-11.1) 06/26/19 06:17 CMP Sodium 143 mmol/L (136-145) 06/26/19 06:17 Potassium 3.1 mmol/L (3.5-5.1) L 06/26/19 06:17 Chloride 110 mmol/L (98-107) H 06/26/19 06:17 Carbon Dioxide 26 mmol/L (21-32) 06/26/19 06:17 Anion Gap 7 MMOL/L (8-16) L 06/26/19 06:17 BUN 25.5 mg/dL (7-18) H 06/26/19 06:17 Creatinine 0.9 mg/dL (0.55-1.3) 06/26/19 06:17 Random Glucose 124 mg/dL (74-106) H 06/26/19 06:17 Calcium 9.1 mg/dL (8.5-10.1) 06/26/19 06:17 Total Bilirubin 1.8 mg/dL (0.2-1) H 06/26/19 06:17 AST 10 U/L (15-37) L 06/26/19 06:17 ALT 11 U/L (13-61) L 06/26/19 06:17 Alkaline Phosphatase 67 U/L (45-117) 06/26/19 06:17 Total Protein 6.1 g/dl (6.4-8.2) L 06/26/19 06:17 Albumin 3.6 g/dl (3.4-5.0) 06/26/19 06:17 CARDIAC ENZYMES Troponin I < 0.02 ng/ml (0.00-0.05) 06/24/19 23:20 ASSESSMENT/PLAN: 73 y/o F with PMHx of CAD (s/p 5 stents, on ASA/Plavix), Parkinsons disease, Prior CVA/TIA, HTN, NIDDM, HLD, presented with right lower extremity weakness. Patient was accompanied by her daughter Theresa who aided in providing HPI per notes. Theresa stated that patient typically has an abnormal gait requiring assistance, and has recently had at least 2 falls, most recently falling backward yesterday into an arm chair without hitting her head or LOC. Evening prior to admission around 1900, daughter reportedly noticed that patient had weakness performing her ADLs and speaking very slowly with mumbling; typically patient is able to eat on her own and bring her dishes to the sink. Theresa additionally noticed a right facial droop at this time accompanied by right lower extremity weakness; Patient was dragging her right lower extremity and her gait was changed prompting her daughter to alert EMD. At baseline, patient has dementia, a soft spoken occassionally mumbled speech and difficult with balance but this was much different. Theresa lives at home with her mother and ensures that patient is medication complaint according to note. Denies any recent medication changes or travel. Additionally she mentions that the has constipation, otherwise denies fevers, chills, chest pain, SOB, nausea, vomiting , diarrhea, hematuria. CT head completed and without acute changes though noted chronic L periventricular infarcts. MRI brain completed overnight and although it demonstrated acute R rodriguez radiata infarct that does not localize to R sided weakness. Of note, there are chronic R perventricular chronic infarcts. Patient with minimal speech and limited exam but is moving extremities grossly. She was on ASA 81, Plavix 75 but inpatient ordered to have ASA 300, this would significantly increase bleed risk. Patient already on dual antiplatelet, adjusted back to plavix 75 with ASA 81. LDL 99, remains on statin 40mg. Monitor tele, if found to have Afib, then may consider AC would need to reduce antiplatelet again due to bleed risk. PT as tolerated. Continue Statin at current dose as LDL < 100. Carotid doppler, echo recommended. Continue hydration for NOELLE. MOnitor glucose, maintain euglycemic range. Monitor bp, maintain less than 140/90 (CVA in subacute duration, does not require elevated BPs at this time). SPeech/swallow eval reviewed, modified barium swallow planned. DVT ppx
--- NOTE | 2019-06-26 09:27 | PN ---
Progress Note, Physician Chief Complaint: nonverbal TELE: SB - Current Medication List Current Medications: Active Medications Aspirin (Ecotrin -) 81 mg PO DAILY [facility] Atorvastatin Calcium (Lipitor -) 40 mg PO HS [facility] Last Admin: 06/25/19 23:32 Dose: 40 mg Clopidogrel Bisulfate (Plavix -) 75 mg PO DAILY [facility] Last Admin: 06/25/19 17:18 Dose: 75 mg Heparin Sodium (Porcine) (Heparin -) 5,000 unit SQ TID [facility] Last Admin: 06/26/19 06:34 Dose: 5,000 unit Sodium Chloride (Normal Saline -) 1,000 mls @ 0 mls/hr IV ASDIR [facility] Last Admin: 06/25/19 23:19 Dose: Not Given Sodium Chloride (Normal Saline -) 1,000 mls @ 50 mls/hr IV ASDIR [facility] Last Admin: 06/25/19 09:58 Dose: 50 mls/hr Potassium Chloride/Dextrose/Sod Cl (D5-1/2ns+20 Meq Kcl -) 20 meq in 1,000 mls @ 75 mls/hr IV ASDIR [facility] Last Admin: 06/25/19 16:15 Dose: 75 mls/hr Insulin Aspart (Novolog Vial Sliding Scale -) 1 vial SQ ACHS [facility]; Protocol Last Admin: 06/26/19 06:34 Dose: Not Given - Objective Vital Signs: Vital Signs Temperature 98.1 F 06/26/19 05:59 Pulse Rate 77 06/26/19 05:59 Respiratory Rate 20 06/26/19 05:59 Blood Pressure 125/76 06/26/19 05:59 O2 Sat by Pulse Oximetry (%) 97 06/25/19 21:00 Constitutional: Yes: No Distress Cardiovascular: Yes: Regular Rate and Rhythm Respiratory: Yes: CTA Bilaterally Gastrointestinal: Yes: Soft Edema: No Neurological: Yes: Other (moves all 4 ext) Labs: CBC, BMP 06/26/19 06:17 06/26/19 06:17 INR, PTT INR 1.05 (0.83-1.09) 06/24/19 23:20 - ....Imaging EKG: Image Reviewed Assessment/Plan EKG: SR, nl axis/intervals. no ischemic changes. CXR: no chf echo 06/2019: nl lv/rv, no sig valve path carotids 06/2019: no sig stenosis a/p: 73 year old f with history of CAD s/p remote stents, HTN, NIDDM, and parkinsons disease, dementia here with rle weakness, CVA cva: -echo and carotids unremarkable -cont tele r/o occult AF -neuro eval CAD s/p remote pci: - no signs acs - echo unremarkable here - has been on asa and plavix as outpt, cont if ok by neuro - continue atorvastatin HTN -stable, cont home meds HypoK: -replete to K of 4
[2019-06-26] MEDS: D5-1/2NS+20 MEQ KCL - 20 MEQ/1,000 ML INFUS.BAG IV SCH ×2 (10:14→16:44)
[2019-06-26] MEDS: ASPIRIN COATED 81 MG TABLET.EC PO SCH (10:59)
[2019-06-26] MEDS: CLOPIDOGREL BISULFATE 75 MG TABLET (FP) PO SCH (10:59)
[2019-06-26] MEDS ORDERED: POTASSIUM PHOSPHATE IVPB ONE (11:22)
[2019-06-26] MEDS ORDERED: SODIUM CHLORIDE IVPB ONE (11:22)
[2019-06-26] MEDS ORDERED: MAGNESIUM SULF 50% (8.12 MEQ/2 ML-1 GM VIAL) IVPB ONE (11:30)
--- NOTE | 2019-06-26 11:32 | PN ---
Progress Note, Physician Chief Complaint: patient seen today talking very slowly able to tell me her name electrolyes abnormality noted and repleted - Current Medication List Current Medications: Active Medications Aspirin (Ecotrin -) 81 mg PO DAILY [facility] Last Admin: 06/26/19 10:59 Dose: 81 mg Atorvastatin Calcium (Lipitor -) 40 mg PO HS [facility] Last Admin: 06/25/19 23:32 Dose: 40 mg Clopidogrel Bisulfate (Plavix -) 75 mg PO DAILY [facility] Last Admin: 06/26/19 10:59 Dose: 75 mg Heparin Sodium (Porcine) (Heparin -) 5,000 unit SQ TID [facility] Last Admin: 06/26/19 06:34 Dose: 5,000 unit Potassium Chloride/Dextrose/Sod Cl (D5-1/2ns+20 Meq Kcl -) 20 meq in 1,000 mls @ 75 mls/hr IV ASDIR [facility] Last Admin: 06/26/19 10:14 Dose: 75 mls/hr Potassium Phosphate 42 mm/ (Sodium Chloride) 514 mls @ 62.5 mls/hr IVPB ONCE ONE Stop: 06/26/19 19:35 Insulin Aspart (Novolog Vial Sliding Scale -) 1 vial SQ [facility]; Protocol Last Admin: 06/26/19 10:52 Dose: Not Given Magnesium Sulfate (Magnesium Sulfate) 2 gm IVPB ONCE ONE Stop: 06/26/19 11:31 - Objective Vital Signs: Vital Signs Temperature 98.1 F 06/26/19 05:59 Pulse Rate 77 06/26/19 05:59 Respiratory Rate 20 06/26/19 05:59 Blood Pressure 125/76 06/26/19 05:59 O2 Sat by Pulse Oximetry (%) 97 06/25/19 21:00 Constitutional: Yes: Calm Cardiovascular: Yes: Regular Rate and Rhythm, S1, S2 Respiratory: Yes: CTA Bilaterally Gastrointestinal: Yes: Normal Bowel Sounds, Soft Edema: No Neurological: Yes: Alert Labs: CBC, BMP 06/26/19 06:17 06/26/19 06:17 INR, PTT INR 1.05 (0.83-1.09) 06/24/19 23:20 Problem List - Problems (1) CVA (cerebral vascular accident) Assessment/Plan: MRI note acute /subacute infarct in right side rodriguez radiate and periventricular white matter NPO crush meds with apple sauce swallow eval statin aspirin, neuro consult noted PT echo noted for normal left ventricle function and size carotid doppler no significant stenosis Code(s): I63.9 - CEREBRAL INFARCTION, UNSPECIFIED Qualifiers: CVA mechanism: unspecified Qualified Code(s): I63.9 - Cerebral infarction, unspecified (2) Hypokalemia Assessment/Plan: repleted recheck potassium and magnesium today ivf with potassium iv magnesium Code(s): E87.6 - HYPOKALEMIA (3) Diabetes Assessment/Plan: bgm sliding scale hgba1c 7.2 Code(s): E11.9 - TYPE 2 DIABETES MELLITUS WITHOUT COMPLICATIONS (4) Parkinsons disease Assessment/Plan: sinemet crush with apple sauce neuro eval noted Code(s): G20 - PARKINSON'S DISEASE
--- NOTE | 2019-06-26 12:04 | PN ---
Progress Note, [employer] - Note Progress Note: Pt appears non verbal but she is not. She has impaired ability to initiate speech. Once a word or two are elicited (Ask "Whats your name? "Count to 3 with me -1..2..3..) she responds and appropriately. Knows she is in a hospital, her name, my name "72" yo. 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 She can open her mouth and move her tongue however range is significantly reduced. Tongue is symmetric. Very delayed oral transit of puree and >5 sec delay of swallow onset. Quite untimely with aspiration a concern. Consider NGT for nutrition/medication. MBS for Saturday if improved.
[2019-06-26] MEDS ORDERED: PT OWN MED DRAWER 7, Y5N ONE (12:33)
[2019-06-26] MEDS: CARBIDOPA/LEVODOPA 25/100 TABLET (FP) PO SCH ×2 (14:20→22:25)
[2019-06-26 16:43] LABS: ALBUMIN 3.6 g/dl (3.4-5.0); BILIRUBIN,TOTAL 1.5 mg/dL (0.2-1); BLOOD UREA NITROGEN 21.5 mg/dL (7-18); CALCIUM 8.9 mg/dL (8.5-10.1); POTASSIUM 3.7 mmol/L (3.5-5.1)
[2019-06-26 18:09] LABS: MAGNESIUM 2.5 mg/dL (1.8-2.4)
[2019-06-26 19:45] LABS: EPI CELLS 7.4 /HPF (0-5/HPF); HYALINE CASTS 3 /lpf (0-8); PH,URINE 6.5 (5.0-8.0); URINE APPEARANCE CLOUDY; URINE BACTERIA 183.9 /hpf (NEGATIVE); URINE BILIRUBIN NEGATIVE (NEGATIVE); URINE COLOR YELLOW; URINE GLUCOSE (UA) NEGATIVE (NEGATIVE); URINE KETONE NEGATIVE (NEGATIVE); URINE LEUK ESTERASE 3+ (NEGATIVE); URINE NITRITE NEGATIVE (NEGATIVE); URINE PROTEIN 1+ (NEGATIVE); URINE WBC 215 /hpf (0-5)
[2019-06-26 20:45] LABS: URINE RBC 18.2 /hpf (0-4)
[2019-06-26] MEDS: ATORVASTATIN CA 80 MG TABLET (FP) PO SCH (22:25)
[2019-06-27] MEDS: HEPARIN NA (PORCINE) 5,000 UNITS/ML 1ML VIAL SQ SCH ×3 (05:31→22:23)
[2019-06-27] MEDS: CARBIDOPA/LEVODOPA 25/100 TABLET (FP) PO SCH ×3 (05:31→22:24)
[2019-06-27] MEDS: INSULIN SLIDING SCALE (NOVOLOG) 1 VIAL SQ SCH ×4 (06:06→22:25)
--- NOTE | 2019-06-27 08:09 | PN ---
Progress Note, Physician Chief Complaint: nonverbal TELE: Sinus mary, no AF History of Present Illness: BP controlled - Current Medication List Current Medications: Active Medications Aspirin (Ecotrin -) 81 mg PO DAILY [facility] Last Admin: 06/26/19 10:59 Dose: 81 mg Atorvastatin Calcium (Lipitor -) 40 mg PO HS [facility] Last Admin: 06/26/19 22:25 Dose: 40 mg Carbidopa/Levodopa (Sinemet 25/100 -) 1 each PO TID [facility] Last Admin: 06/27/19 05:31 Dose: 1 each Clopidogrel Bisulfate (Plavix -) 75 mg PO DAILY [facility] Last Admin: 06/26/19 10:59 Dose: 75 mg Heparin Sodium (Porcine) (Heparin -) 5,000 unit SQ TID [facility] Last Admin: 06/27/19 05:31 Dose: 5,000 unit Potassium Chloride/Dextrose/Sod Cl (D5-1/2ns+20 Meq Kcl -) 20 meq in 1,000 mls @ 75 mls/hr IV ASDIR [facility] Last Admin: 06/26/19 16:44 Dose: Not Given Insulin Aspart (Novolog Vial Sliding Scale -) 1 vial SQ [facility]; Protocol Last Admin: 06/27/19 06:06 Dose: Not Given - Objective Vital Signs: Vital Signs Temperature 97.9 F 06/27/19 06:00 Pulse Rate 56 L 06/27/19 06:00 Respiratory Rate 18 06/27/19 06:00 Blood Pressure 127/70 06/27/19 06:00 O2 Sat by Pulse Oximetry (%) 96 06/26/19 21:00 Constitutional: Yes: No Distress, Calm Eyes: Yes: Conjunctiva Clear Cardiovascular: Yes: Regular Rate and Rhythm Respiratory: Yes: CTA Bilaterally Gastrointestinal: Yes: Soft (NT) Edema: No Neurological: Yes: Other (nonverbal) Labs: CBC, BMP 06/26/19 06:17 INR, PTT INR 1.05 (0.83-1.09) 06/24/19 23:20 - ....Imaging EKG: Image Reviewed Assessment/Plan Assessment/Plan EKG: SR, nl axis/intervals. no ischemic changes. CXR: no chf echo 06/2019: nl lv/rv, no sig valve path carotids 06/2019: no sig stenosis a/p: 73 year old f with history of CAD s/p remote stents, HTN, NIDDM, and parkinsons disease, dementia here with rle weakness, CVA cva: -echo and carotids unremarkable -cont tele r/o occult AF, thus far negative -neuro eval CAD s/p remote pci: - no signs acs - echo unremarkable here - has been on asa and plavix as outpt, cont if ok by neuro - continue atorvastatin HTN -stable, cont home meds HypoK: -replete to K of 4 DVT prophylaxis
[2019-06-27 09:10] LABS: ALBUMIN 3.3 g/dl (3.4-5.0); ALK PHOS 62 U/L (45-117); ANION GAP 8 MMOL/L (8-16); BILIRUBIN,TOTAL 1.6 mg/dL (0.2-1); BLOOD UREA NITROGEN 16.1 mg/dL (7-18); CALCIUM 8.3 mg/dL (8.5-10.1); CHLORIDE 111 mmol/L (98-107); CO2 24 mmol/L (21-32); CREATININE 0.9 mg/dL (0.55-1.3); GLUCOSE,RANDOM 161 mg/dL (74-106); POTASSIUM 3.6 mmol/L (3.5-5.1); SGOT/AST 10 U/L (15-37); SGPT/ALT < 6 U/L (13-61); SODIUM 142 mmol/L (136-145); TOT PROT 5.9 g/dl (6.4-8.2)
--- NOTE | 2019-06-27 11:01 | PN ---
Progress Note, Physician Chief Complaint: AWAKE CONFUSED NGT IN PLACE - Current Medication List Current Medications: Active Medications Aspirin (Ecotrin -) 81 mg PO DAILY [facility] Last Admin: 06/26/19 10:59 Dose: 81 mg Atorvastatin Calcium (Lipitor -) 40 mg PO HS [facility] Last Admin: 06/26/19 22:25 Dose: 40 mg Carbidopa/Levodopa (Sinemet 25/100 -) 1 each PO TID [facility] Last Admin: 06/27/19 05:31 Dose: 1 each Clopidogrel Bisulfate (Plavix -) 75 mg PO DAILY [facility] Last Admin: 06/26/19 10:59 Dose: 75 mg Heparin Sodium (Porcine) (Heparin -) 5,000 unit SQ TID [facility] Last Admin: 06/27/19 05:31 Dose: 5,000 unit Potassium Chloride/Dextrose/Sod Cl (D5-1/2ns+20 Meq Kcl -) 20 meq in 1,000 mls @ 75 mls/hr IV ASDIR [facility] Last Admin: 06/26/19 16:44 Dose: Not Given Insulin Aspart (Novolog Vial Sliding Scale -) 1 vial SQ [facility]; Protocol Last Admin: 06/27/19 06:06 Dose: Not Given - Objective Vital Signs: Vital Signs Temperature 97.9 F 06/27/19 06:00 Pulse Rate 56 L 06/27/19 06:00 Respiratory Rate 18 06/27/19 06:00 Blood Pressure 127/70 06/27/19 06:00 O2 Sat by Pulse Oximetry (%) 96 06/26/19 21:00 Constitutional: Yes: Mild Distress HENT: Yes: Other (NGT) Cardiovascular: Yes: Regular Rate and Rhythm Respiratory: Yes: On Nasal O2 Gastrointestinal: Yes: Soft Genitourinary: Yes: Incontinence Neurological: Yes: Confusion, Pre-Existing Deficit Labs: CBC, BMP 06/26/19 06:17 06/27/19 06:35 INR, PTT INR 1.05 (0.83-1.09) 06/24/19 23:20 Problem List - Problems (1) CVA (cerebral vascular accident) Code(s): I63.9 - CEREBRAL INFARCTION, UNSPECIFIED Qualifiers: CVA mechanism: unspecified Qualified Code(s): I63.9 - Cerebral infarction, unspecified (2) Diabetes Code(s): E11.9 - TYPE 2 DIABETES MELLITUS WITHOUT COMPLICATIONS (3) Right sided weakness Code(s): R53.1 - WEAKNESS (4) Anemia Code(s): D64.9 - ANEMIA, UNSPECIFIED Qualifiers: Anemia type: other cause Assessment/Plan NGT IN PLACE MBS SATURDAY IVF CARDIO/NEURO F/U PT EVAL NPO IVF
[2019-06-27] MEDS: D5-1/2NS+20 MEQ KCL - 20 MEQ/1,000 ML INFUS.BAG IV SCH ×2 (12:52→16:28)
[2019-06-27] MEDS: ASPIRIN COATED 81 MG TABLET.EC PO SCH (15:56)
[2019-06-27] MEDS: CLOPIDOGREL BISULFATE 75 MG TABLET (FP) PO SCH (15:57)
[2019-06-27] MEDS: ATORVASTATIN CA 80 MG TABLET (FP) PO SCH (22:23)
[2019-06-28] MEDS: HEPARIN NA (PORCINE) 5,000 UNITS/ML 1ML VIAL SQ SCH ×3 (06:30→22:36)
[2019-06-28] MEDS: CARBIDOPA/LEVODOPA 25/100 TABLET (FP) PO SCH ×3 (06:30→22:36)
[2019-06-28] MEDS: INSULIN SLIDING SCALE (NOVOLOG) 1 VIAL SQ SCH ×4 (06:30→22:41)
[2019-06-28 08:18] VITALS: BMI 24.1
--- NOTE | 2019-06-28 09:55 | PN ---
Progress Note, Physician Chief Complaint: non verbal TELE: NSR. No AF noted. History of Present Illness: average BP 140/80 - Current Medication List Current Medications: Active Medications Aspirin (Ecotrin -) 81 mg PO DAILY [facility] Last Admin: 06/27/19 15:56 Dose: 81 mg Atorvastatin Calcium (Lipitor -) 40 mg PO HS [facility] Last Admin: 06/27/19 22:23 Dose: 40 mg Carbidopa/Levodopa (Sinemet 25/100 -) 1 each PO TID [facility] Last Admin: 06/28/19 06:30 Dose: 1 each Clopidogrel Bisulfate (Plavix -) 75 mg PO DAILY [facility] Last Admin: 06/27/19 15:57 Dose: 75 mg Heparin Sodium (Porcine) (Heparin -) 5,000 unit SQ TID [facility] Last Admin: 06/28/19 06:30 Dose: 5,000 unit Potassium Chloride/Dextrose/Sod Cl (D5-1/2ns+20 Meq Kcl -) 20 meq in 1,000 mls @ 75 mls/hr IV ASDIR [facility] Last Admin: 06/27/19 16:28 Dose: Not Given Insulin Aspart (Novolog Vial Sliding Scale -) 1 vial SQ [facility]; Protocol Last Admin: 06/28/19 06:30 Dose: 2 units - Objective Vital Signs: Vital Signs Temperature 97.9 F 06/28/19 05:33 Pulse Rate 78 06/28/19 05:33 Respiratory Rate 18 06/28/19 05:33 Blood Pressure 138/70 06/28/19 05:33 O2 Sat by Pulse Oximetry (%) 96 06/27/19 21:00 Constitutional: Yes: Calm Cardiovascular: Yes: Regular Rate and Rhythm Respiratory: Yes: CTA Bilaterally Gastrointestinal: Yes: Soft Edema: No Neurological: Yes: Alert, Oriented Labs: CBC, BMP 06/26/19 06:17 06/27/19 06:35 INR, PTT INR 1.05 (0.83-1.09) 06/24/19 23:20 - ....Imaging EKG: Image Reviewed Assessment/Plan Assessment/Plan EKG: SR, nl axis/intervals. no ischemic changes. CXR: no chf echo 06/2019: nl lv/rv, no sig valve path carotids 06/2019: no sig stenosis a/p: 73 year old f with history of CAD s/p remote stents, HTN, NIDDM, and parkinsons disease, dementia here with rle weakness, CVA cva: lacunar -echo and carotids unremarkable -cont tele r/o occult AF, thus far negative -neuro following CAD s/p remote pci: - no signs acs - echo unremarkable here - has been on asa and plavix as outpt, cont if ok by neuro - continue atorvastatin for LDL goal 70mg/dl HTN -stable, cont home meds HypoK: -replete to K of 4 DVT prophylaxis
[2019-06-28] MEDS: ASPIRIN COATED 81 MG TABLET.EC PO SCH (10:54)
[2019-06-28] MEDS: CLOPIDOGREL BISULFATE 75 MG TABLET (FP) PO SCH (10:54)
[2019-06-28] MEDS: D5-1/2NS+20 MEQ KCL - 20 MEQ/1,000 ML INFUS.BAG IV SCH (14:59)
--- NOTE | 2019-06-28 16:24 | PN ---
Progress Note, Physician Chief Complaint: RLE + RUE weakness - Current Medication List Current Medications: Active Medications Aspirin (Ecotrin -) 81 mg PO DAILY [facility] Last Admin: 06/28/19 10:54 Dose: 81 mg Atorvastatin Calcium (Lipitor -) 40 mg PO HS [facility] Last Admin: 06/27/19 22:23 Dose: 40 mg Carbidopa/Levodopa (Sinemet 25/100 -) 1 each PO TID [facility] Last Admin: 06/28/19 14:59 Dose: 1 each Clopidogrel Bisulfate (Plavix -) 75 mg PO DAILY [facility] Last Admin: 06/28/19 10:54 Dose: 75 mg Heparin Sodium (Porcine) (Heparin -) 5,000 unit SQ TID [facility] Last Admin: 06/28/19 14:59 Dose: 5,000 unit Potassium Chloride/Dextrose/Sod Cl (D5-1/2ns+20 Meq Kcl -) 20 meq in 1,000 mls @ 75 mls/hr IV ASDIR [facility] Last Admin: 06/28/19 14:59 Dose: Not Given Insulin Aspart (Novolog Vial Sliding Scale -) 1 vial SQ [facility]; Protocol Last Admin: 06/28/19 12:04 Dose: 2 units - Objective Vital Signs: Vital Signs Temperature 98.7 F 06/28/19 14:00 Pulse Rate 62 06/28/19 14:00 Respiratory Rate 18 06/28/19 14:00 Blood Pressure 129/69 06/28/19 14:00 O2 Sat by Pulse Oximetry (%) 96 06/28/19 10:00 Constitutional: Yes: Well Nourished, No Distress, Calm HENT: Yes: Other (left nare NGT) Cardiovascular: Yes: Regular Rate and Rhythm Respiratory: Yes: Regular, CTA Bilaterally Gastrointestinal: Yes: Normal Bowel Sounds, Soft Genitourinary: Yes: Incontinence Musculoskeletal: Yes: Muscle Weakness Extremities: Yes: WNL Edema: No Peripheral Pulses WNL: Yes Neurological: Yes: Alert, Confusion Psychiatric: Yes: Alert Labs: CBC, BMP 06/26/19 06:17 06/27/19 06:35 INR, PTT INR 1.05 (0.83-1.09) 06/24/19 23:20 Problem List - Problems (1) CVA (cerebral vascular accident) Assessment/Plan: -Seen by Neurology -CT head w/o contrast: moderate atrophy and chronic microvascular ischemic changes. Left anterior periventricular and right posterior frontal/parietal junction chronic infarcts. Left thalamic chronic lacunar infarct -MRI brain w/o contrast: Aute/subacue lacunar infarct in the right periventricular white matter at the level of rodriguez radiata and in right centrum semiovale, superiorly/medially -U/S carotid: intimal thickening and small to moderate size plaues at the common carotid bifurcation without evidence of hemodynamicaly significant stenosis Code(s): I63.9 - CEREBRAL INFARCTION, UNSPECIFIED Qualifiers: CVA mechanism: unspecified Qualified Code(s): I63.9 - Cerebral infarction, unspecified (2) Right sided weakness Assessment/Plan: -seems to have resolved -Physical therapy Code(s): R53.1 - WEAKNESS (3) Parkinsons disease Assessment/Plan: -continue home meds Code(s): G20 - PARKINSON'S DISEASE (4) Diabetes Assessment/Plan: -BGM AC HS -Dietary consult -ISS -A1c at 7.2 Code(s): E11.9 - TYPE 2 DIABETES MELLITUS WITHOUT COMPLICATIONS Assessment/Plan see problem list
[2019-06-28] MEDS: POLYETHYLENE GLYCOL 3350 119 GM BTL NGT SCH (18:42)
[2019-06-28] MEDS: ATORVASTATIN CA 80 MG TABLET (FP) PO SCH (22:36)
[2019-06-29] MEDS: HEPARIN NA (PORCINE) 5,000 UNITS/ML 1ML VIAL SQ SCH ×3 (06:27→22:16)
[2019-06-29] MEDS: INSULIN SLIDING SCALE (NOVOLOG) 1 VIAL SQ SCH ×4 (06:27→22:17)
[2019-06-29] MEDS: CARBIDOPA/LEVODOPA 25/100 TABLET (FP) PO SCH ×3 (06:27→22:15)
--- NOTE | 2019-06-29 08:15 | PN ---
Progress Note, Physician - Current Medication List Current Medications: Active Medications Aspirin (Ecotrin -) 81 mg PO DAILY [facility] Last Admin: 06/28/19 10:54 Dose: 81 mg Atorvastatin Calcium (Lipitor -) 40 mg PO HS [facility] Last Admin: 06/28/19 22:36 Dose: 40 mg Carbidopa/Levodopa (Sinemet 25/100 -) 1 each PO TID [facility] Last Admin: 06/29/19 06:27 Dose: 1 each Clopidogrel Bisulfate (Plavix -) 75 mg PO DAILY [facility] Last Admin: 06/28/19 10:54 Dose: 75 mg Heparin Sodium (Porcine) (Heparin -) 5,000 unit SQ TID [facility] Last Admin: 06/29/19 06:27 Dose: 5,000 unit Potassium Chloride/Dextrose/Sod Cl (D5-1/2ns+20 Meq Kcl -) 20 meq in 1,000 mls @ 75 mls/hr IV ASDIR [facility] Last Admin: 06/28/19 14:59 Dose: Not Given Insulin Aspart (Novolog Vial Sliding Scale -) 1 vial SQ ACHS [facility]; Protocol Last Admin: 06/29/19 06:27 Dose: 4 units Polyethylene Glycol (Miralax (For Daily Use) -) 17 gm NGT DAILY [facility] Last Admin: 06/28/19 18:42 Dose: 17 gm - Objective Vital Signs: Vital Signs Temperature 98.9 F 06/29/19 02:00 Pulse Rate 90 06/29/19 02:00 Respiratory Rate 20 06/29/19 02:00 Blood Pressure 135/86 06/29/19 02:00 O2 Sat by Pulse Oximetry (%) 98 06/28/19 21:00 Labs: CBC, BMP 06/26/19 06:17 06/27/19 06:35 INR, PTT INR 1.05 (0.83-1.09) 06/24/19 23:20 Problem List - Problems (1) CVA (cerebral vascular accident) Code(s): I63.9 - CEREBRAL INFARCTION, UNSPECIFIED Qualifiers: CVA mechanism: unspecified Qualified Code(s): I63.9 - Cerebral infarction, unspecified (2) Diabetes Code(s): E11.9 - TYPE 2 DIABETES MELLITUS WITHOUT COMPLICATIONS (3) Right sided weakness Code(s): R53.1 - WEAKNESS (4) Anemia Code(s): D64.9 - ANEMIA, UNSPECIFIED Qualifiers: Anemia type: other cause
--- NOTE | 2019-06-29 08:43 | PN ---
Progress Note, Physician Chief Complaint: CVA R sided Weakness History of Present Illness: Previous notes and events reviewed awake and alert NAD NGT with feeds infusing no acute events overnight noted - Current Medication List Current Medications: Active Medications Aspirin (Ecotrin -) 81 mg PO DAILY [facility] Last Admin: 06/28/19 10:54 Dose: 81 mg Atorvastatin Calcium (Lipitor -) 40 mg PO HS [facility] Last Admin: 06/28/19 22:36 Dose: 40 mg Carbidopa/Levodopa (Sinemet 25/100 -) 1 each PO TID [facility] Last Admin: 06/29/19 06:27 Dose: 1 each Clopidogrel Bisulfate (Plavix -) 75 mg PO DAILY [facility] Last Admin: 06/28/19 10:54 Dose: 75 mg Heparin Sodium (Porcine) (Heparin -) 5,000 unit SQ TID [facility] Last Admin: 06/29/19 06:27 Dose: 5,000 unit Potassium Chloride/Dextrose/Sod Cl (D5-1/2ns+20 Meq Kcl -) 20 meq in 1,000 mls @ 75 mls/hr IV ASDIR [facility] Last Admin: 06/28/19 14:59 Dose: Not Given Insulin Aspart (Novolog Vial Sliding Scale -) 1 vial SQ [facility]; Protocol Last Admin: 06/29/19 06:27 Dose: 4 units Polyethylene Glycol (Miralax (For Daily Use) -) 17 gm NGT DAILY [facility] Last Admin: 06/28/19 18:42 Dose: 17 gm - Objective Vital Signs: Vital Signs Temperature 99.0 F 06/29/19 06:00 Pulse Rate 83 06/29/19 06:00 Respiratory Rate 20 06/29/19 06:00 Blood Pressure 142/88 06/29/19 06:00 O2 Sat by Pulse Oximetry (%) 98 06/28/19 21:00 Constitutional: Yes: No Distress, Calm Eyes: Yes: Conjunctiva Clear HENT: Yes: Atraumatic, Other (NGT left nares) Cardiovascular: Yes: Regular Rate and Rhythm Respiratory: Yes: Regular, CTA Bilaterally Gastrointestinal: Yes: Normal Bowel Sounds, Soft Musculoskeletal: Yes: Muscle Weakness Extremities: Yes: WNL Edema: No Neurological: Yes: Alert, Weakness (RUE and RLE) Psychiatric: Yes: Alert Labs: CBC, BMP 06/26/19 06:17 06/27/19 06:35 INR, PTT INR 1.05 (0.83-1.09) 06/24/19 23:20 Microbiology 06/25/19 00:00 Urine - Urine Clean Catch Urine Culture - Final Normal Urogenital Imelda Problem List - Problems (1) CVA (cerebral vascular accident) Assessment/Plan: -Neurology on board -Head CT Scan shows moderate atrophy and chronic microvascular ischemic disease changes, left anterior periventricular and right posterior frontal/ parietal junction infarcts , left thalamic chronic lacunar infarct -Brain MRI shows acute/subacute lacunar infarct in the right periventricular whie matter at the level of the rodriguez radiata and in the right centrum semiovale, superiorly/medially -Cardiology on board -Carotid US shows intimal thickening and small to moderate size plaques at the common carotid bifurcation/bulb, bilaterally without evidence of hemodynamically significant stenosis -Fall precaution -PT -Atorvastatin -Barium Swallow Code(s): I63.9 - CEREBRAL INFARCTION, UNSPECIFIED Qualifiers: CVA mechanism: unspecified Qualified Code(s): I63.9 - Cerebral infarction, unspecified (2) Diabetes Assessment/Plan: -BGM ACHS -ISS -A1C 7.2% Code(s): E11.9 - TYPE 2 DIABETES MELLITUS WITHOUT COMPLICATIONS (3) Right sided weakness Assessment/Plan: -Fall precautions -PT Code(s): R53.1 - WEAKNESS (4) Parkinsons disease Assessment/Plan: -Neurology on board -Carbidopa/Levidopa Code(s): G20 - PARKINSON'S DISEASE Assessment/Plan see problem list dvt ppx SNF for PT when discharged
--- NOTE | 2019-06-29 08:43 | PN ---
Progress Note (short form) - Note Progress Note: Neurology CHIEF COMPLAINT: Weakness HISTORY OF PRESENT ILLNESS: 73 y/o F with PMHx of CAD (s/p 5 stents, on ASA/Plavix), Parkinsons disease, Prior CVA/TIA, HTN, NIDDM, HLD, presented with right lower extremity weakness. Patient was accompanied by her daughter Theresa at time of admission. Theresa stated that patient typically has an abnormal gait requiring assistance, and has recently had at least 2 falls, most recently falling backward day prior to admission into an arm chair without hitting her head or LOC. Evening prior to admission around 1900, daughter reportedly noticed that patient had weakness performing her ADLs and speaking very slowly with mumbling; typically patient is able to eat on her own and bring her dishes to the sink. Theresa additionally noticed a right facial droop at this time accompanied by right lower extremity weakness; Patient was dragging her right lower extremity and her gait was changed prompting her daughter to alert EMD. At baseline, patient has dementia, a soft spoken occassionally mumbled speech and difficult with balance but this was much different. Theresa lives at home with her mother and ensures that patient is medication complaint according to note. Denies any recent medication changes or travel. Additionally she mentions that the has constipation, otherwise denies fevers, chills, chest pain, SOB, nausea, vomiting, diarrhea, hematuria. CT head completed and without acute changes though noted chronic L periventricular infarcts. MRI brain completed overnight and although it demonstrated acute R rodriguez radiata infarct that does not localize to R sided weakness. Of note, there are chronic R perventricular chronic infarcts. Patient with minimal speech and limited exam but is moving extremities grossly. She was on ASA 81, Plavix 75. LDL 99, remains on statin 40mg. Weekend notes reviewed, patient more interactive today and moves b/l extremities with more symetric strength, not providing full effort yet but does not have hemiplegia. Allergies No Known Allergies Allergy (Verified 06/24/19 21:27) Active Medications Aspirin (Ecotrin -) 81 mg PO DAILY [facility] Last Admin: 06/28/19 10:54 Dose: 81 mg Atorvastatin Calcium (Lipitor -) 40 mg PO HS [facility] Last Admin: 06/28/19 22:36 Dose: 40 mg Carbidopa/Levodopa (Sinemet 25/100 -) 1 each PO TID [facility] Last Admin: 06/29/19 06:27 Dose: 1 each Clopidogrel Bisulfate (Plavix -) 75 mg PO DAILY [facility] Last Admin: 06/28/19 10:54 Dose: 75 mg Heparin Sodium (Porcine) (Heparin -) 5,000 unit SQ TID [facility] Last Admin: 06/29/19 06:27 Dose: 5,000 unit Potassium Chloride/Dextrose/Sod Cl (D5-1/2ns+20 Meq Kcl -) 20 meq in 1,000 mls @ 75 mls/hr IV ASDIR [facility] Last Admin: 06/28/19 14:59 Dose: Not Given Insulin Aspart (Novolog Vial Sliding Scale -) 1 vial SQ ACHS [facility]; Protocol Last Admin: 06/29/19 06:27 Dose: 4 units Polyethylene Glycol (Miralax (For Daily Use) -) 17 gm NGT DAILY [facility] Last Admin: 06/28/19 18:42 Dose: 17 gm PHYSICAL EXAMINATION Vital Signs Period Temp Pulse Resp BP Sys/Chavez Pulse Ox Last 24 Hr 98.4 F-99.3 F 62-90 18-20 127-142/69-88 96-98 GENERAL: Awake, alert, NAD HEAD: NCAT EYES: PERRL, EOMI, Left lid lag (Chronic) ENT: Moist mucous membranes. NECK: Supple, No JVD LUNGS: CTAB. No wheezes, no crackles. HEART: Regular rate and rhythm, normal S1 and S2 without murmur ABDOMEN: Soft, nontender, not distended, + bowel sounds, no guarding, no rebound MUSCULOSKELETAL: No CVA tenderness. EXTREMITIES: 2+ pulses, No peripheral edema. NEUROLOGICAL: Cranial nerves II-XII intact. Awake and Verbal but minimally responsive to questioning, intermittently answering yes or no. moves all extremities but not participating in confrontation testing, sensory grossly intact, gait deferred SKIN: Warm, dry, diffuse ecchymosis over the LLE, and Right medial upper extremity CBCD WBC 7.1 K/mm3 (4.0-10.0) 06/26/19 06:17 RBC 3.98 M/mm3 (3.60-5.2) 06/26/19 06:17 Hgb 11.9 GM/dL (10.7-15.3) 06/26/19 06:17 Hct 34.6 % (32.4-45.2) 06/26/19 06:17 MCV 87.0 fl (80-96) 06/26/19 06:17 MCHC 34.3 g/dl (32.0-36.0) 06/26/19 06:17 RDW 13.5 % (11.6-15.6) 06/26/19 06:17 Plt Count 199 K/MM3 (134-434) 06/26/19 06:17 MPV 9.0 fl (7.5-11.1) 06/26/19 06:17 CMP Sodium 142 mmol/L (136-145) 06/27/19 06:35 Potassium 3.6 mmol/L (3.5-5.1) 06/27/19 06:35 Chloride 111 mmol/L (98-107) H 06/27/19 06:35 Carbon Dioxide 24 mmol/L (21-32) 06/27/19 06:35 Anion Gap 8 MMOL/L (8-16) 06/27/19 06:35 BUN 16.1 mg/dL (7-18) 06/27/19 06:35 Creatinine 0.9 mg/dL (0.55-1.3) 06/27/19 06:35 Random Glucose 161 mg/dL (74-106) H 06/27/19 06:35 Calcium 8.3 mg/dL (8.5-10.1) L 06/27/19 06:35 Total Bilirubin 1.6 mg/dL (0.2-1) H 06/27/19 06:35 AST 10 U/L (15-37) L 06/27/19 06:35 ALT < 6 U/L (13-61) L 06/27/19 06:35 Alkaline Phosphatase 62 U/L (45-117) 06/27/19 06:35 Total Protein 5.9 g/dl (6.4-8.2) L 06/27/19 06:35 Albumin 3.3 g/dl (3.4-5.0) L 06/27/19 06:35 CARDIAC ENZYMES Troponin I < 0.02 ng/ml (0.00-0.05) 06/24/19 23:20 ASSESSMENT/PLAN: 73 y/o F with PMHx of CAD (s/p 5 stents, on ASA/Plavix), Parkinsons disease, Prior CVA/TIA, HTN, NIDDM, HLD, presented with right lower extremity weakness. Patient was accompanied by her daughter Theresa who aided in providing HPI per notes. Theresa stated that patient typically has an abnormal gait requiring assistance, and has recently had at least 2 falls, most recently falling backward yesterday into an arm chair without hitting her head or LOC. Evening prior to admission around 1900, daughter reportedly noticed that patient had weakness performing her ADLs and speaking very slowly with mumbling; typically patient is able to eat on her own and bring her dishes to the sink. Theresa additionally noticed a right facial droop at this time accompanied by right lower extremity weakness; Patient was dragging her right lower extremity and her gait was changed prompting her daughter to alert EMD. At baseline, patient has dementia, a soft spoken occassionally mumbled speech and difficult with balance but this was much different. Theresa lives at home with her mother and ensures that patient is medication complaint according to note. Denies any recent medication changes or travel. Additionally she mentions that the has constipation, otherwise denies fevers, chills, chest pain, SOB, nausea, vomiting , diarrhea, hematuria. CT head completed and without acute changes though noted chronic L periventricular infarcts. MRI brain completed overnight and although it demonstrated acute R rodriguez radiata infarct that does not localize to R sided weakness. Of note, there are chronic R perventricular chronic infarcts. Patient with minimal speech and limited exam but is moving extremities grossly. She was on ASA 81, Plavix 75. LDL 99, remains on statin 40mg. Weekend notes reviewed, patient more interactive today and moves b/l extremities with more symetric strength, not providing full effort yet but does not have hemiplegia. PT as tolerated. Continue Statin at current dose as LDL < 100. Carotid doppler, echo recommended, pending. Continue hydration for NOELLE. MOnitor glucose, maintain euglycemic range. Monitor bp, maintain less than 140/90, caridology notes reviewed, no evidence of Afib, would not require AC thus far. DVT ppx
[2019-06-29] MEDS: POLYETHYLENE GLYCOL 3350 119 GM BTL NGT SCH (09:09)
[2019-06-29] MEDS: CLOPIDOGREL BISULFATE 75 MG TABLET (FP) PO SCH (09:09)
[2019-06-29] MEDS: ASPIRIN COATED 81 MG TABLET.EC PO SCH (09:09)
--- NOTE | 2019-06-29 11:24 | PN ---
Progress Note, SURGICAL SERVICES TECH - Note Progress Note: Receiving nutrition/all meds including PD meds via NGT Speech/swallowing reassessed. Significant impairment in speech initiation,harsh strain-strangled hypernasal speech, apraxia. Able to repeat and name but very delayed spontaneous responses to simple questions. Baseline pt has hypokinetic speech sec to PD, with low volume. Speech characteristics are diiferent with signif deterioration in functional communication. Bilateral facial weakness. oriented and seems cognitively ok. Swallow still quite delayed in oropharyngeal transit and swallow onset. For MBS today. Selected Entries 06/28/19 06/28/19 06/28/19 01:59 05:33 10:00 Lunch Temperature 98.4 F 97.9 F 98.4 F 06/28/19 06/28/19 06/29/19 14:00 22:00 02:00 Lunch Temperature 98.7 F 99.3 F 98.9 F 06/29/19 06/29/19 06/29/19 06:00 10:00 10:42 Lunch NPO Temperature 99.0 F 98.7 F Laboratory Tests 06/26/19 06:17 WBC 7.1 Pt wll needs intensive rehab- She has been at [facility] before.
--- NOTE | 2019-06-29 12:22 | PN ---
Progress Note, Physician Chief Complaint: cva History of Present Illness: being fed with NGT denies cp, palpit, sob (shakes head "no") - Current Medication List Current Medications: Active Medications Aspirin (Ecotrin -) 81 mg PO DAILY [facility] Last Admin: 06/29/19 09:09 Dose: 81 mg Atorvastatin Calcium (Lipitor -) 40 mg PO HS [facility] Last Admin: 06/28/19 22:36 Dose: 40 mg Carbidopa/Levodopa (Sinemet 25/100 -) 1 each PO TID [facility] Last Admin: 06/29/19 06:27 Dose: 1 each Clopidogrel Bisulfate (Plavix -) 75 mg PO DAILY [facility] Last Admin: 06/29/19 09:09 Dose: 75 mg Heparin Sodium (Porcine) (Heparin -) 5,000 unit SQ TID [facility] Last Admin: 06/29/19 06:27 Dose: 5,000 unit Potassium Chloride/Dextrose/Sod Cl (D5-1/2ns+20 Meq Kcl -) 20 meq in 1,000 mls @ 75 mls/hr IV ASDIR [facility] Last Admin: 06/28/19 14:59 Dose: Not Given Insulin Aspart (Novolog Vial Sliding Scale -) 1 vial SQ ACHS [facility]; Protocol Last Admin: 06/29/19 11:26 Dose: 2 units Polyethylene Glycol (Miralax (For Daily Use) -) 17 gm NGT DAILY [facility] Last Admin: 06/29/19 09:09 Dose: 17 gm - Objective Vital Signs: Vital Signs Temperature 98.7 F 06/29/19 10:00 Pulse Rate 88 06/29/19 10:00 Respiratory Rate 20 06/29/19 10:00 Blood Pressure 136/84 06/29/19 10:00 O2 Sat by Pulse Oximetry (%) 93 L 06/29/19 09:00 Constitutional: Yes: Well Nourished, No Distress, Calm Cardiovascular: Yes: Regular Rate and Rhythm, S1, S2. No: Gallop, Murmur Respiratory: Yes: Regular, CTA Bilaterally. No: Accessory Muscle Use, Rales Extremities: No: Cold Edema: No Neurological: Yes: Alert. No: Seizure Psychiatric: No: Agitated Labs: CBC, BMP 06/26/19 06:17 06/27/19 06:35 INR, PTT INR 1.05 (0.83-1.09) 06/24/19 23:20 Assessment/Plan echo 06/2019: nl lv/rv, no sig valve path carotids 06/2019: no sig stenosis tele: NSR a/p: 73 year old f with history of CAD s/p remote stents, HTN, NIDDM, and parkinsons disease, dementia here with rle weakness, CVA cva: lacunar -echo and carotids unremarkable -cont tele r/o occult AF, thus far negative -BP controlled -neuro following CAD s/p remote pci: - no signs acs - echo unremarkable here - continue asa and plavix - continue atorvastatin for LDL goal 70mg/dl HTN -stable, cont home meds
[2019-06-29] MEDS: D5-1/2NS+20 MEQ KCL - 20 MEQ/1,000 ML INFUS.BAG IV SCH (16:45)
[2019-06-29] MEDS: ATORVASTATIN CA 80 MG TABLET (FP) PO SCH (22:15)
[2019-06-30] MEDS: CARBIDOPA/LEVODOPA 25/100 TABLET (FP) PO SCH ×3 (05:38→23:18)
[2019-06-30] MEDS: HEPARIN NA (PORCINE) 5,000 UNITS/ML 1ML VIAL SQ SCH ×3 (05:38→23:18)
[2019-06-30] MEDS: INSULIN SLIDING SCALE (NOVOLOG) 1 VIAL SQ SCH ×4 (06:11→23:22)
[2019-06-30 06:16] LABS: HEMATOCRIT 34.4 % (32.4-45.2); HEMOGLOBIN 11.6 GM/dL (10.7-15.3); MCH 29.7 pg (25.7-33.7); MCHC 33.6 g/dl (32.0-36.0); MEAN CELL VOLUME 88.6 fl (80-96); MEAN PLT VOLUME 9.1 fl (7.5-11.1); PLATELET COUNT 197 K/MM3 (134-434); RBC 3.88 M/mm3 (3.60-5.2); RDW 13.6 % (11.6-15.6); WHITE BLOOD COUNT 9.2 K/mm3 (4.0-10.0)
[2019-06-30 06:45] LABS: ALBUMIN 3.2 g/dl (3.4-5.0); BILIRUBIN,TOTAL 1.3 mg/dL (0.2-1); CALCIUM 8.6 mg/dL (8.5-10.1); POTASSIUM 3.5 mmol/L (3.5-5.1); TOT PROT 5.8 g/dl (6.4-8.2)
--- NOTE | 2019-06-30 08:55 | PN ---
Progress Note (short form) - Note Progress Note: Neurology CHIEF COMPLAINT: Weakness HISTORY OF PRESENT ILLNESS: 73 y/o F with PMHx of CAD (s/p 5 stents, on ASA/Plavix), Parkinsons disease, Prior CVA/TIA, HTN, NIDDM, HLD, presented with right lower extremity weakness. Patient was accompanied by her daughter Theresa at time of admission. Theresa stated that patient typically has an abnormal gait requiring assistance, and has recently had at least 2 falls, most recently falling backward day prior to admission into an arm chair without hitting her head or LOC. Evening prior to admission around 1900, daughter reportedly noticed that patient had weakness performing her ADLs and speaking very slowly with mumbling; typically patient is able to eat on her own and bring her dishes to the sink. Theresa additionally noticed a right facial droop at this time accompanied by right lower extremity weakness; Patient was dragging her right lower extremity and her gait was changed prompting her daughter to alert EMD. At baseline, patient has dementia, a soft spoken occassionally mumbled speech and difficult with balance but this was much different. Theresa lives at home with her mother and ensures that patient is medication complaint according to note. Denies any recent medication changes or travel. Additionally she mentions that the has constipation, otherwise denies fevers, chills, chest pain, SOB, nausea, vomiting, diarrhea, hematuria. CT head completed and without acute changes though noted chronic L periventricular infarcts. MRI brain completed overnight and although it demonstrated acute R rodriguez radiata infarct that does not localize to R sided weakness. Of note, there are chronic R perventricular chronic infarcts. Patient with minimal speech and limited exam but is moving extremities grossly. She was on ASA 81, Plavix 75. LDL 99, remains on statin 40mg. Remains mminimally interactive and moves b/l extremities with more symetric strength, not providing full effort yet but does not have hemiplegia. NG tube in place, speech pathologist following. Cardiology note reviewed. Allergies No Known Allergies Allergy (Verified 06/24/19 21:27) Active Medications Aspirin (Ecotrin -) 81 mg PO DAILY [facility] Last Admin: 06/29/19 09:09 Dose: 81 mg Atorvastatin Calcium (Lipitor -) 40 mg PO HS [facility] Last Admin: 06/29/19 22:15 Dose: 40 mg Carbidopa/Levodopa (Sinemet 25/100 -) 1 each PO TID [facility] Last Admin: 06/30/19 05:38 Dose: 1 each Clopidogrel Bisulfate (Plavix -) 75 mg PO DAILY [facility] Last Admin: 06/29/19 09:09 Dose: 75 mg Heparin Sodium (Porcine) (Heparin -) 5,000 unit SQ TID [facility] Last Admin: 06/30/19 05:38 Dose: 5,000 unit Potassium Chloride/Dextrose/Sod Cl (D5-1/2ns+20 Meq Kcl -) 20 meq in 1,000 mls @ 75 mls/hr IV ASDIR [facility] Last Admin: 06/29/19 16:45 Dose: Not Given Insulin Aspart (Novolog Vial Sliding Scale -) 1 vial SQ ACHS [facility]; Protocol Last Admin: 06/30/19 06:11 Dose: 2 units Polyethylene Glycol (Miralax (For Daily Use) -) 17 gm NGT DAILY [facility] Last Admin: 06/29/19 09:09 Dose: 17 gm PHYSICAL EXAMINATION Vital Signs Period Temp Pulse Resp BP Sys/Chavez Pulse Ox Last 24 Hr 97.5 F-98.9 F 76-106 18-20 115-152/62-92 93-96 GENERAL: Awake, alert, NAD HEAD: NCAT EYES: PERRL, EOMI, Left lid lag (Chronic) ENT: Moist mucous membranes. NECK: Supple, No JVD LUNGS: CTAB. No wheezes, no crackles. HEART: Regular rate and rhythm, normal S1 and S2 without murmur ABDOMEN: Soft, nontender, not distended, + bowel sounds, no guarding, no rebound MUSCULOSKELETAL: No CVA tenderness. EXTREMITIES: 2+ pulses, No peripheral edema. NEUROLOGICAL: Cranial nerves II-XII intact. Awake and Verbal but minimally responsive to questioning, intermittently answering yes or no. moves all extremities but not participating in confrontation testing, sensory grossly intact, gait deferred SKIN: Warm, dry, diffuse ecchymosis over the LLE, and Right medial upper extremity CBCD WBC 9.2 K/mm3 (4.0-10.0) 06/30/19 05:10 RBC 3.88 M/mm3 (3.60-5.2) 06/30/19 05:10 Hgb 11.6 GM/dL (10.7-15.3) 06/30/19 05:10 Hct 34.4 % (32.4-45.2) 06/30/19 05:10 MCV 88.6 fl (80-96) 06/30/19 05:10 MCHC 33.6 g/dl (32.0-36.0) 06/30/19 05:10 RDW 13.6 % (11.6-15.6) 06/30/19 05:10 Plt Count 197 K/MM3 (134-434) 06/30/19 05:10 MPV 9.1 fl (7.5-11.1) 06/30/19 05:10 CMP Sodium 142 mmol/L (136-145) 06/30/19 05:10 Potassium 3.5 mmol/L (3.5-5.1) 06/30/19 05:10 Chloride 110 mmol/L (98-107) H 06/30/19 05:10 Carbon Dioxide 27 mmol/L (21-32) 06/30/19 05:10 Anion Gap 5 MMOL/L (8-16) L 06/30/19 05:10 BUN 17.0 mg/dL (7-18) 06/30/19 05:10 Creatinine 1.0 mg/dL (0.55-1.3) 06/30/19 05:10 Random Glucose 189 mg/dL (74-106) H 06/30/19 05:10 Calcium 8.6 mg/dL (8.5-10.1) 06/30/19 05:10 Total Bilirubin 1.3 mg/dL (0.2-1) H 06/30/19 05:10 AST 35 U/L (15-37) 06/30/19 05:10 ALT 14 U/L (13-61) 06/30/19 05:10 Alkaline Phosphatase 107 U/L (45-117) 06/30/19 05:10 Total Protein 5.8 g/dl (6.4-8.2) L 06/30/19 05:10 Albumin 3.2 g/dl (3.4-5.0) L 06/30/19 05:10 CARDIAC ENZYMES Troponin I < 0.02 ng/ml (0.00-0.05) 06/24/19 23:20 ASSESSMENT/PLAN: 73 y/o F with PMHx of CAD (s/p 5 stents, on ASA/Plavix), Parkinsons disease, Prior CVA/TIA, HTN, NIDDM, HLD, presented with right lower extremity weakness. Patient was accompanied by her daughter Theresa who aided in providing HPI per notes. Theresa stated that patient typically has an abnormal gait requiring assistance, and has recently had at least 2 falls, most recently falling backward yesterday into an arm chair without hitting her head or LOC. Evening prior to admission around 1900, daughter reportedly noticed that patient had weakness performing her ADLs and speaking very slowly with mumbling; typically patient is able to eat on her own and bring her dishes to the sink. Theresa additionally noticed a right facial droop at this time accompanied by right lower extremity weakness; Patient was dragging her right lower extremity and her gait was changed prompting her daughter to alert EMD. At baseline, patient has dementia, a soft spoken occassionally mumbled speech and difficult with balance but this was much different. Theresa lives at home with her mother and ensures that patient is medication complaint according to note. Denies any recent medication changes or travel. Additionally she mentions that the has constipation, otherwise denies fevers, chills, chest pain, SOB, nausea, vomiting , diarrhea, hematuria. CT head completed and without acute changes though noted chronic L periventricular infarcts. MRI brain completed overnight and although it demonstrated acute R rodriguez radiata infarct that does not localize to R sided weakness. Of note, there are chronic R perventricular chronic infarcts. Patient with minimal speech and limited exam but is moving extremities grossly. She was on ASA 81, Plavix 75. LDL 99, remains on statin 40mg. Weekend notes reviewed, patient more interactive today and moves b/l extremities with more symetric strength, not providing full effort yet but does not have hemiplegia. PT as tolerated. Continue Statin at current dose as LDL < 100. Continue hydration for NOELLE. MOnitor glucose, maintain euglycemic range. Monitor bp, maintain less than 140/90, Cardiology follow-up. Speech pathology is following closely. NG tube in place, defer PEG status to primary team. DVT ppx
--- NOTE | 2019-06-30 09:34 | PN ---
Progress Note, Physician - Current Medication List Current Medications: Active Medications Aspirin (Ecotrin -) 81 mg PO DAILY [facility] Last Admin: 06/29/19 09:09 Dose: 81 mg Atorvastatin Calcium (Lipitor -) 40 mg PO HS [facility] Last Admin: 06/29/19 22:15 Dose: 40 mg Carbidopa/Levodopa (Sinemet 25/100 -) 1 each PO TID [facility] Last Admin: 06/30/19 05:38 Dose: 1 each Clopidogrel Bisulfate (Plavix -) 75 mg PO DAILY [facility] Last Admin: 06/29/19 09:09 Dose: 75 mg Heparin Sodium (Porcine) (Heparin -) 5,000 unit SQ TID [facility] Last Admin: 06/30/19 05:38 Dose: 5,000 unit Potassium Chloride/Dextrose/Sod Cl (D5-1/2ns+20 Meq Kcl -) 20 meq in 1,000 mls @ 75 mls/hr IV ASDIR [facility] Last Admin: 06/29/19 16:45 Dose: Not Given Insulin Aspart (Novolog Vial Sliding Scale -) 1 vial SQ [facility]; Protocol Last Admin: 06/30/19 06:11 Dose: 2 units Polyethylene Glycol (Miralax (For Daily Use) -) 17 gm NGT DAILY [facility] Last Admin: 06/29/19 09:09 Dose: 17 gm - Objective Vital Signs: Vital Signs Temperature 98.7 F 06/30/19 06:00 Pulse Rate 76 06/30/19 06:00 Respiratory Rate 18 06/30/19 06:00 Blood Pressure 115/62 06/30/19 06:00 O2 Sat by Pulse Oximetry (%) 96 06/29/19 21:00 Cardiovascular: Yes: S1, S2 Respiratory: Yes: Regular, CTA Bilaterally Gastrointestinal: Yes: Normal Bowel Sounds, Soft. No: Tenderness Neurological: Yes: Alert, Facial Droop, Weakness Labs: CBC, BMP 06/30/19 05:10 06/30/19 05:10 INR, PTT INR 1.05 (0.83-1.09) 06/24/19 23:20 Assessment/Plan - Problems (1) CVA (cerebral vascular accident) Assessment/Plan: -Neurology on board -Head CT Scan shows moderate atrophy and chronic microvascular ischemic disease changes, left anterior periventricular and right posterior frontal/ parietal junction infarcts , left thalamic chronic lacunar infarct -Brain MRI shows acute/subacute lacunar infarct in the right periventricular whie matter at the level of the rodriguez radiata and in the right centrum semiovale, superiorly/medially -Cardiology on board -Carotid US shows intimal thickening and small to moderate size plaques at the common carotid bifurcation/bulb, bilaterally without evidence of hemodynamically significant stenosis -Fall precaution -PT -Atorvastatin -Barium Swallow--aspiration risk--gi for peg Code(s): I63.9 - CEREBRAL INFARCTION, UNSPECIFIED Qualifiers: CVA mechanism: unspecified Qualified Code(s): I63.9 - Cerebral infarction, unspecified (2) Diabetes Assessment/Plan: -[facility] -A1C 7.2% Code(s): E11.9 - TYPE 2 DIABETES MELLITUS WITHOUT COMPLICATIONS (3) Right sided weakness Assessment/Plan: -Fall precautions -PT Code(s): R53.1 - WEAKNESS (4) Parkinsons disease Assessment/Plan: -Neurology on board -Carbidopa/Levidopa Code(s): G20 - [facility] for PT when discharged
[2019-06-30] MEDS ORDERED: KCL 10 MEQ IVPB 10 MEQ/100 ML INFUS.BAG IVPB SCH (10:00)
[2019-06-30] MEDS: POLYETHYLENE GLYCOL 3350 119 GM BTL NGT SCH (11:05)
[2019-06-30] MEDS: ASPIRIN COATED 81 MG TABLET.EC PO SCH (11:05)
[2019-06-30] MEDS: CLOPIDOGREL BISULFATE 75 MG TABLET (FP) PO SCH (11:05)
--- NOTE | 2019-06-30 12:41 | PN ---
Progress Note (short form) - Note Progress Note: shakes head no when asked if chest pain, palps, dizziness, dyspnea, not speaking. pulling at NGT Current Medications Aspirin (Ecotrin -) 81 mg PO DAILY [facility] Last Admin: 06/30/19 11:05 Dose: 81 mg Atorvastatin Calcium (Lipitor -) 40 mg PO HS [facility] Last Admin: 06/29/19 22:15 Dose: 40 mg Carbidopa/Levodopa (Sinemet 25/100 -) 1 each PO TID [facility] Last Admin: 06/30/19 05:38 Dose: 1 each Clopidogrel Bisulfate (Plavix -) 75 mg PO DAILY [facility] Last Admin: 06/30/19 11:05 Dose: 75 mg Heparin Sodium (Porcine) (Heparin -) 5,000 unit SQ TID [facility] Last Admin: 06/30/19 05:38 Dose: 5,000 unit Potassium Chloride/Dextrose/Sod Cl (D5-1/2ns+20 Meq Kcl -) 20 meq in 1,000 mls @ 75 mls/hr IV ASDIR [facility] Last Admin: 06/29/19 16:45 Dose: Not Given Insulin Aspart (Novolog Vial Sliding Scale -) 1 vial SQ ACHS [facility]; Protocol Last Admin: 06/30/19 11:18 Dose: 2 units Polyethylene Glycol (Miralax (For Daily Use) -) 17 gm NGT DAILY [facility] Last Admin: 06/30/19 11:05 Dose: 17 gm Vital Signs Period Temp Pulse Resp BP Sys/Chavez Pulse Ox Last 24 Hr 97.5 F-98.9 F 76-106 18-20 112-152/62-92 96-97 Constitutional: Yes: Well Nourished, No Distress, Calm Cardiovascular: Yes: Regular Rate and Rhythm, S1, S2. No: Gallop, Murmur Respiratory: Yes: Regular, CTA Bilaterally. No: Accessory Muscle Use, Rales Extremities: No: Cold Edema: No Neurological: Yes: Alert. No: Seizure Psychiatric: No: Agitated echo 06/2019: nl lv/rv, no sig valve path carotids 06/2019: no sig stenosis tele: NSR, ST a/p: 73 year old f with history of CAD s/p remote stents, HTN, NIDDM, and parkinsons disease, dementia here with rle weakness, CVA cva: lacunar -echo and carotids unremarkable -cont tele r/o occult AF, thus far negative -BP controlled -manage per neuro CAD s/p remote pci: - no signs acs - echo unremarkable here - continue asa and plavix - continue atorvastatin for LDL goal 70mg/dl HTN -stable, cont home meds
--- NOTE | 2019-06-30 13:15 | PN ---
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 MBS reviewed at length last night with pt's daughter. PEG recommended at this time. Hopefully swallowing will improve and PO trial can be considered in future. Suggest consideration for [place] as well as STR.
--- NOTE | 2019-06-30 14:09 | PN ---
Progress Note, ICE RINK ATTENDANT - Note Progress Note: Poor speech initiation but able to repeat and respond intermittently with slight improvement of intelligibility. Pt oriented, recalls my name, etc [facility] said they will accept pt, pending PEG insertion. Daughter Theresa [phone] called me. Her sister wanted PEG deferred, ENT consult, etc. I discussed benefit of PEG insertion early, to initiate acute rehab early. I believe speech and swallowing will improve, but doubt she will be able to tolerate meds, nutrition, hydration in the immediate future. PEG will not stop her rehabilitation and hopefully it can be used to supplement PO trials as swallowing improves. We discussed that if PEG is inserted, she would probably benefit from leaving it in/flushed for LT, for future needs. Pt was crying today once my rec were discussed. Her reports that she has been crying at home. She admits to feeling depressed. She agreed to consulting Psychiatry. Family report she was on Paxil at home. 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 Reviewed with JESSE. REC: PEG Psych consult r/o depression LARA
[2019-06-30] MEDS: D5-1/2NS+20 MEQ KCL - 20 MEQ/1,000 ML INFUS.BAG IV SCH (21:30)
--- NOTE | 2019-06-30 23:12 | CONS ---
DATE OF CONSULTATION: DATE OF DICTATION: 06/30/2019 GASTROINTESTINAL CONSULTATION HISTORY OF PRESENT ILLNESS: The patient is a 73-year-old female with a past medical history of coronary artery disease status post PCI with 5 stents on aspirin and Plavix, also Parkinson disease, prior history of CVA, hypertension, diabetes, hyperlipidemia, who was admitted to the hospital with complaints of right lower extremity weakness. She also had episode of speaking slowly and mumbling at the time with an additional facial droop. Her brain MRI on the revealed the acute, subacute lacunar infarct in the right periventricular white matter at the level of the rodriguez radiata and in the right centrum semiovale superior medially, otherwise requiring changes. During the course, she had a modified barium swallow on the which revealed ataxia with swallow reflex not initiated during the study, and NG tube feeds were recommended as well as PEG tube insertion. The patient denies any complaints. She is a poor historian at this time, does not offer much history. PAST MEDICAL AND SURGICAL HISTORY: As listed in the HPI with the addition of a right total hip replacement and hysterectomy. SOCIAL HISTORY: Quit smoking September of 2018. Does not drink or use drugs. She was living at home and walking with a walker. FAMILY HISTORY: Significant for renal cell carcinoma. ALLERGIES: Drug allergies. HOME MEDICATIONS: Include Taxol, vitamin D, aspirin, Lipitor, Plavix, Lopressor, triamterene, hydrochlorothiazide, acetaminophen, calcitonin, Sinemet, vitamin D, Januvia, and vitamin A. PHYSICAL EXAMINATION: Vital Signs: Temperature 98, pulse 54, respiratory rate 12, blood pressure 122/76, pulse oximetry 97% on room air. General: In no acute distress. NG tube in place. HEENT: Anicteric sclerae. Cardiovascular: S1, S2, regular rate and rhythm. Lungs: Bilaterally clear to auscultation. Abdomen: Soft, nontender, with no visible surgical scars. Extremities: No edema. LABORATORY: White blood cell count 9.2, hemoglobin and hematocrit 11/34, MCV 88, platelet count 197. INR 1, sodium 142, potassium 3.5, BUN/creatinine 17/1, glucose 189, total bilirubin 1.3, AST 35, ALT 14, alkaline phosphatase 107. Urine 3+ leukocyte esterase, cultures are negative. Imaging results as mentioned previously in the HPI. IMPRESSION: Dysphagia, underlying cerebrovascular accident and Parkinson disease. RECOMMENDATION: I believe she would be a candidate for a percutaneous gastrotomy tube. The risks and benefits of the procedure was explained in detail to her daughter who will speak to her other siblings and come to a decision tomorrow regarding placement of a percutaneous gastrostomy tube. For now would recommend continuing NG tube feeds with full aspiration precautions. She is currently on aspirin and Plavix, would recommend holding these medications in preparation for potential PEG tube placement. Will follow up with the daughter tomorrow and plan accordingly. DO TANK VILLANUEVA/[id number]
[2019-06-30] MEDS: ATORVASTATIN CA 80 MG TABLET (FP) PO SCH (23:18)
[2019-07-01 06:44] LABS: BLOOD UREA NITROGEN 14.9 mg/dL (7-18); CALCIUM 8.8 mg/dL (8.5-10.1); MAGNESIUM 1.9 mg/dL (1.8-2.4); POTASSIUM 3.8 mmol/L (3.5-5.1)
[2019-07-01] MEDS: HEPARIN NA (PORCINE) 5,000 UNITS/ML 1ML VIAL SQ SCH ×3 (07:00→21:34)
[2019-07-01] MEDS: CARBIDOPA/LEVODOPA 25/100 TABLET (FP) PO SCH ×3 (07:00→21:35)
[2019-07-01] MEDS: INSULIN SLIDING SCALE (NOVOLOG) 1 VIAL SQ SCH ×4 (07:11→21:47)
--- NOTE | 2019-07-01 08:31 | PN ---
Progress Note (short form) - Note Progress Note: Neurology CHIEF COMPLAINT: Weakness HISTORY OF PRESENT ILLNESS: 73 y/o F with PMHx of CAD (s/p 5 stents, on ASA/Plavix), Parkinsons disease, Prior CVA/TIA, HTN, NIDDM, HLD, presented with right lower extremity weakness. Patient was accompanied by her daughter Theresa at time of admission. Theresa stated that patient typically has an abnormal gait requiring assistance, and has recently had at least 2 falls, most recently falling backward day prior to admission into an arm chair without hitting her head or LOC. Evening prior to admission around 1900, daughter reportedly noticed that patient had weakness performing her ADLs and speaking very slowly with mumbling; typically patient is able to eat on her own and bring her dishes to the sink. Theresa additionally noticed a right facial droop at this time accompanied by right lower extremity weakness; Patient was dragging her right lower extremity and her gait was changed prompting her daughter to alert EMD. At baseline, patient has dementia, a soft spoken occassionally mumbled speech and difficult with balance but this was much different. Theresa lives at home with her mother and ensures that patient is medication complaint according to note. Denies any recent medication changes or travel. Additionally she mentions that the has constipation, otherwise denies fevers, chills, chest pain, SOB, nausea, vomiting, diarrhea, hematuria. CT head completed and without acute changes though noted chronic L periventricular infarcts. MRI brain completed overnight and although it demonstrated acute R rodriguez radiata infarct that does not localize to R sided weakness. Of note, there are chronic R perventricular chronic infarcts. Patient with minimal speech and limited exam but is moving extremities grossly. She was on ASA 81, Plavix 75. LDL 99, remains on statin 40mg. Remains mminimally interactive and moves b/l extremities with more symetric strength, not providing full effort yet but does not have hemiplegia. NG tube in place, speech pathologist following. Spoke to daughter, Theresa, yesterday in detail and discussed my assessment. Likely mutifactorial etiology of patient's condition involving acute infarct superimposed on chronic CVAs and underlying Parkinson's Disease. This combination is likely leading to patient's limitations. GI note reviewed from Dr. Monroe, considering PEG. lubrication worker note reviewed, Jerel requested PEG tube prior to transfer. Allergies No Known Allergies Allergy (Verified 06/24/19 21:27) Active Medications Aspirin (Ecotrin -) 81 mg PO DAILY [facility] Atorvastatin Calcium (Lipitor -) 40 mg PO HS [facility] Last Admin: 06/30/19 23:18 Dose: 40 mg Carbidopa/Levodopa (Sinemet 25/100 -) 1 each PO TID [facility] Last Admin: 07/01/19 07:00 Dose: 1 each Clopidogrel Bisulfate (Plavix -) 75 mg PO DAILY [facility] Last Admin: 06/30/19 11:05 Dose: 75 mg Heparin Sodium (Porcine) (Heparin -) 5,000 unit SQ TID [facility] Last Admin: 07/01/19 07:00 Dose: 5,000 unit Potassium Chloride/Dextrose/Sod Cl (D5-1/2ns+20 Meq Kcl -) 20 meq in 1,000 mls @ 75 mls/hr IV ASDIR [facility] Last Admin: 06/30/19 21:30 Dose: 75 mls/hr Insulin Aspart (Novolog Vial Sliding Scale -) 1 vial SQ ACHS [facility]; Protocol Last Admin: 07/01/19 07:11 Dose: 4 units Polyethylene Glycol (Miralax (For Daily Use) -) 17 gm NGT DAILY [facility] Last Admin: 06/30/19 11:05 Dose: 17 gm PHYSICAL EXAMINATION Vital Signs Period Temp Pulse Resp BP Sys/Chavez Pulse Ox Last 24 Hr 98.3 F-988.1 F 64-90 17-18 112-146/71-83 96-97 GENERAL: Awake, alert, NAD HEAD: NCAT EYES: PERRL, EOMI, Left lid lag (Chronic) ENT: Moist mucous membranes. NECK: Supple, No JVD LUNGS: CTAB. No wheezes, no crackles. HEART: Regular rate and rhythm, normal S1 and S2 without murmur ABDOMEN: Soft, nontender, not distended, + bowel sounds, no guarding, no rebound MUSCULOSKELETAL: No CVA tenderness. EXTREMITIES: 2+ pulses, No peripheral edema. NEUROLOGICAL: Cranial nerves II-XII intact. Awake and Verbal but minimally responsive to questioning, intermittently answering yes or no. moves all extremities but not participating in confrontation testing, sensory grossly intact, gait deferred SKIN: Warm, dry, diffuse ecchymosis over the LLE, and Right medial upper extremity CBCD WBC 9.2 K/mm3 (4.0-10.0) 06/30/19 05:10 RBC 3.88 M/mm3 (3.60-5.2) 06/30/19 05:10 Hgb 11.6 GM/dL (10.7-15.3) 06/30/19 05:10 Hct 34.4 % (32.4-45.2) 06/30/19 05:10 MCV 88.6 fl (80-96) 06/30/19 05:10 MCHC 33.6 g/dl (32.0-36.0) 06/30/19 05:10 RDW 13.6 % (11.6-15.6) 06/30/19 05:10 Plt Count 197 K/MM3 (134-434) 06/30/19 05:10 MPV 9.1 fl (7.5-11.1) 06/30/19 05:10 CMP Sodium 142 mmol/L (136-145) 07/01/19 05:05 Potassium 3.8 mmol/L (3.5-5.1) 07/01/19 05:05 Chloride 110 mmol/L (98-107) H 07/01/19 05:05 Carbon Dioxide 26 mmol/L (21-32) 07/01/19 05:05 Anion Gap 6 MMOL/L (8-16) L 07/01/19 05:05 BUN 14.9 mg/dL (7-18) 07/01/19 05:05 Creatinine 1.0 mg/dL (0.55-1.3) 07/01/19 05:05 Random Glucose 249 mg/dL (74-106) H 07/01/19 05:05 Calcium 8.8 mg/dL (8.5-10.1) 07/01/19 05:05 Total Bilirubin 1.3 mg/dL (0.2-1) H 06/30/19 05:10 AST 35 U/L (15-37) 06/30/19 05:10 ALT 14 U/L (13-61) 06/30/19 05:10 Alkaline Phosphatase 107 U/L (45-117) 06/30/19 05:10 Total Protein 5.8 g/dl (6.4-8.2) L 06/30/19 05:10 Albumin 3.2 g/dl (3.4-5.0) L 06/30/19 05:10 CARDIAC ENZYMES Troponin I < 0.02 ng/ml (0.00-0.05) 06/24/19 23:20 ASSESSMENT/PLAN: 73 y/o F with PMHx of CAD (s/p 5 stents, on ASA/Plavix), Parkinsons disease, Prior CVA/TIA, HTN, NIDDM, HLD, presented with right lower extremity weakness. Patient was accompanied by her daughter Theresa who aided in providing HPI per notes. Theresa stated that patient typically has an abnormal gait requiring assistance, and has recently had at least 2 falls, most recently falling backward yesterday into an arm chair without hitting her head or LOC. Evening prior to admission around 1900, daughter reportedly noticed that patient had weakness performing her ADLs and speaking very slowly with mumbling; typically patient is able to eat on her own and bring her dishes to the sink. Theresa additionally noticed a right facial droop at this time accompanied by right lower extremity weakness; Patient was dragging her right lower extremity and her gait was changed prompting her daughter to alert EMD. At baseline, patient has dementia, a soft spoken occassionally mumbled speech and difficult with balance but this was much different. Theresa lives at home with her mother and ensures that patient is medication complaint according to note. Denies any recent medication changes or travel. Additionally she mentions that the has constipation, otherwise denies fevers, chills, chest pain, SOB, nausea, vomiting , diarrhea, hematuria. CT head completed and without acute changes though noted chronic L periventricular infarcts. MRI brain completed overnight and although it demonstrated acute R rodriguez radiata infarct that does not localize to R sided weakness. Of note, there are chronic R perventricular chronic infarcts. Patient with minimal speech and limited exam but is moving extremities grossly. She was on ASA 81, Plavix 75. LDL 99, remains on statin 40mg. Weekend notes reviewed, patient more interactive today and moves b/l extremities with more symetric strength, not providing full effort yet but does not have hemiplegia. Spoke to daughter, Theresa, yesterday in detail and discussed my assessment. Likely mutifactorial etiology of patient's condition involving acute infarct superimposed on chronic CVAs and underlying Parkinson's Disease. This combination is likely leading to patient's limitations. GI note reviewed from Dr. Monroe, considering PEG. lubrication worker note reviewed, Jerel requested PEG tube prior to transfer. PT as tolerated. Continue Statin at current dose as LDL < 100. Continue hydration for NOELLE. MOnitor glucose, maintain euglycemic range. Monitor bp, maintain less than 140/90, Cardiology follow-up. Speech pathology is following closely, discussed with Barbie Mustafa yesterday. Continue medical mgmt.
[2019-07-01] MEDS ORDERED: PT OWN MED DRAWER 7, Y5N ONE (10:31)
[2019-07-01] MEDS: POLYETHYLENE GLYCOL 3350 119 GM BTL NGT SCH (10:33)
[2019-07-01] MEDS: CLOPIDOGREL BISULFATE 75 MG TABLET (FP) PO SCH (10:33)
[2019-07-01] MEDS: ASPIRIN COATED 81 MG TABLET.EC PO SCH (10:33)
--- NOTE | 2019-07-01 10:37 | PN ---
Progress Note, Physician Chief Complaint: RLE + RUE weakness History of Present Illness: NAD in bed failed MBS, recommended PEG Awaiting GI consult for PEG - Current Medication List Current Medications: Active Medications Aspirin (Ecotrin -) 81 mg PO DAILY [facility] Last Admin: 07/01/19 10:33 Dose: 81 mg Atorvastatin Calcium (Lipitor -) 40 mg PO HS [facility] Last Admin: 06/30/19 23:18 Dose: 40 mg Carbidopa/Levodopa (Sinemet 25/100 -) 1 each PO TID [facility] Last Admin: 07/01/19 07:00 Dose: 1 each Clopidogrel Bisulfate (Plavix -) 75 mg PO DAILY [facility] Last Admin: 07/01/19 10:33 Dose: 75 mg Heparin Sodium (Porcine) (Heparin -) 5,000 unit SQ TID [facility] Last Admin: 07/01/19 07:00 Dose: 5,000 unit Potassium Chloride/Dextrose/Sod Cl (D5-1/2ns+20 Meq Kcl -) 20 meq in 1,000 mls @ 75 mls/hr IV ASDIR [facility] Last Admin: 06/30/19 21:30 Dose: 75 mls/hr Insulin Aspart (Novolog Vial Sliding Scale -) 1 vial SQ ACHS [facility]; Protocol Last Admin: 07/01/19 07:11 Dose: 4 units Polyethylene Glycol (Miralax (For Daily Use) -) 17 gm NGT DAILY [facility] Last Admin: 07/01/19 10:33 Dose: 17 gm - Objective Vital Signs: Vital Signs Temperature 99.1 F 07/01/19 05:44 Pulse Rate 90 07/01/19 05:44 Respiratory Rate 18 07/01/19 05:44 Blood Pressure 133/71 07/01/19 05:44 O2 Sat by Pulse Oximetry (%) 96 06/30/19 21:00 Constitutional: Yes: Well Nourished, No Distress, Calm Cardiovascular: Yes: Regular Rate and Rhythm Respiratory: Yes: Regular Gastrointestinal: Yes: Normal Bowel Sounds, Soft Genitourinary: Yes: WNL Musculoskeletal: Yes: WNL Extremities: Yes: WNL Edema: No Peripheral Pulses WNL: Yes Neurological: Yes: Alert, Oriented Psychiatric: Yes: Alert, Oriented Labs: CBC, BMP 06/30/19 05:10 07/01/19 05:05 INR, PTT INR 1.05 (0.83-1.09) 06/24/19 23:20 Problem List - Problems (1) CVA (cerebral vascular accident) Assessment/Plan: -Seen by Neurology -CT head w/o contrast: moderate atrophy and chronic microvascular ischemic changes. Left anterior periventricular and right posterior frontal/parietal junction chronic infarcts. Left thalamic chronic lacunar infarct -MRI brain w/o contrast: Acute/subacute lacunar infarct in the right periventricular white matter at the level of rodriguez radiata and in right centrum semiovale, superiorly/medially -U/S carotid: intimal thickening and small to moderate size plaques at the common carotid bifurcation without evidence of hemodynamicaly significant stenosis Code(s): I63.9 - CEREBRAL INFARCTION, UNSPECIFIED Qualifiers: CVA mechanism: unspecified Qualified Code(s): I63.9 - Cerebral infarction, unspecified (2) Right sided weakness Assessment/Plan: -seems to have resolved -Physical therapy Code(s): R53.1 - WEAKNESS (3) Parkinsons disease Assessment/Plan: -continue home meds Code(s): G20 - PARKINSON'S DISEASE (4) Diabetes Assessment/Plan: -BGM AC HS -Dietary consult -ISS -A1c at 7.2 Code(s): E11.9 - TYPE 2 DIABETES MELLITUS WITHOUT COMPLICATIONS Assessment/Plan see problem list Pt understands and agrees to PEG Spoke to at bedside
[2019-07-01] MEDS ORDERED: PARoxetine HCL 30 MG TABLET PO SCH (10:45)
--- NOTE | 2019-07-01 11:17 | PN ---
Progress Note, RESPIRATORY CLINICIAN - Note Progress Note: Selected Entries 06/30/19 06/30/19 06/30/19 02:00 06:00 10:00 Breakfast Temperature 98.7 F 98.7 F 98.8 F 06/30/19 06/30/19 06/30/19 14:05 18:00 21:00 Breakfast Temperature 98.3 F 988.1 F H 99.5 F 07/01/19 07/01/19 07/01/19 02:00 05:44 09:44 Breakfast NPO Temperature 99.4 F 99.1 F Laboratory Tests 06/30/19 05:10 WBC 9.2 Worked on oral reading, repetition and responding to questions. Speech initiation starting to improve. harsh vocal quality and hypernasality. Oriented. Good comprehension. Yes/No response is consistent and reliable. Drooling,pooling of saliva in oral cavity. Delayed, weak, untimely swallow. pt denies feeling congested.Nursing report rhonchi. Educated pt on self suctioning.Mouthcare. HOB elevated. Case reviewed with PIPE CREW FOREMAN.
[2019-07-01] MEDS: D5-1/2NS+20 MEQ KCL - 20 MEQ/1,000 ML INFUS.BAG IV SCH ×2 (11:45→18:08)
[2019-07-01] MEDS: PAROXETINE HCL 20 MG, PAROXETINE HCL 10 MG PO SCH (11:51)
--- NOTE | 2019-07-01 12:13 | PN ---
Progress Note (short form) - Note Progress Note: no chest pain, palps, dizziness, dyspnea Current Medications Aspirin (Ecotrin -) 81 mg PO DAILY [facility] Last Admin: 07/01/19 10:33 Dose: 81 mg Atorvastatin Calcium (Lipitor -) 40 mg PO HS [facility] Last Admin: 06/30/19 23:18 Dose: 40 mg Carbidopa/Levodopa (Sinemet 25/100 -) 1 each PO TID [facility] Last Admin: 07/01/19 07:00 Dose: 1 each Clopidogrel Bisulfate (Plavix -) 75 mg PO DAILY [facility] Last Admin: 07/01/19 10:33 Dose: 75 mg Heparin Sodium (Porcine) (Heparin -) 5,000 unit SQ TID [facility] Last Admin: 07/01/19 07:00 Dose: 5,000 unit Potassium Chloride/Dextrose/Sod Cl (D5-1/2ns+20 Meq Kcl -) 20 meq in 1,000 mls @ 75 mls/hr IV ASDIR [facility] Last Admin: 07/01/19 11:45 Dose: 75 mls/hr Insulin Aspart (Novolog Vial Sliding Scale -) 1 vial SQ ACHS [facility]; Protocol Last Admin: 07/01/19 11:47 Dose: 4 units Paroxetine HCl 20 mg/ (Paroxetine HCl 10 mg) 30 mg PO DAILY [facility] Last Admin: 07/01/19 11:51 Dose: 30 mg Polyethylene Glycol (Miralax (For Daily Use) -) 17 gm NGT DAILY [facility] Last Admin: 07/01/19 10:33 Dose: 17 gm Vital Signs Period Temp Pulse Resp BP Sys/Chavez Pulse Ox Last 24 Hr 98.3 F-988.1 F 64-90 -18 122-146/71-83 96 Constitutional: Yes: Well Nourished, No Distress, Calm Cardiovascular: Yes: Regular Rate and Rhythm, S1, S2. No: Gallop, Murmur Respiratory: Yes: Regular, CTA Bilaterally. No: Accessory Muscle Use, Rales Extremities: No: Cold Edema: No Neurological: Yes: Alert. No: Seizure Psychiatric: No: Agitated echo 06/2019: nl lv/rv, no sig valve path carotids 06/2019: no sig stenosis tele: NSR, ST, brief PSVT a/p: 73 year old f with history of CAD s/p remote stents, HTN, NIDDM, and parkinsons disease, dementia here with rle weakness, CVA cva: lacunar -echo and carotids unremarkable -cont tele r/o occult AF, thus far negative -BP controlled -manage per neuro CAD s/p remote pci: - no signs acs - echo unremarkable here - continue asa and plavix - continue atorvastatin for LDL goal 70mg/dl HTN -stable, cont home meds
--- NOTE | 2019-07-01 17:50 | PN ---
Progress Note (short form) - Note Progress Note: Brief GI note Pt on asa/plavix, ideally would perform if pt can be off plavix for 5-7 days. Spoke with cardiology (Dr. Cloud and Dr. Grimm) advised ok to hold from cardiac standpoint in setting of remote stents. Also spoke with neurologist Dr. Snell given recent acute CVA who prefers pt to remain on plavix though risks/ benefits to be carefully weighed as discharge planning in process and need for [facility] nutritional support/access. Spoke with pts daughter, Theresa regarding PEG placement. Detailed discussion taken place with pt regarding risks/benefits of EGD/PEG including but not limited to bleeding, infection, perforation, injury to surrounding organs and side/effects of sedation/anesthesia. Also discussed short/detention potential risks of PEG dislodgement, infection, leakage, malposition. Discussed with pt potential increased risk for bleeding if procedure performed on asa/plavix and also concern for further thrombotic events/progressive CVA if plavix withheld. She would like to discuss further with her sister and will inform us of her decision. Discussed with medicine team.
[2019-07-01] MEDS: ATORVASTATIN CA 80 MG TABLET (FP) PO SCH (21:34)
[2019-07-02] MEDS: CARBIDOPA/LEVODOPA 25/100 TABLET (FP) PO SCH ×3 (06:11→21:52)
[2019-07-02] MEDS: INSULIN SLIDING SCALE (NOVOLOG) 1 VIAL SQ SCH ×4 (06:11→21:52)
[2019-07-02] MEDS: HEPARIN NA (PORCINE) 5,000 UNITS/ML 1ML VIAL SQ SCH ×3 (06:11→21:52)
--- NOTE | 2019-07-02 08:36 | PN ---
Progress Note (short form) - Note Progress Note: Neurology CHIEF COMPLAINT: Weakness HISTORY OF PRESENT ILLNESS: 73 y/o F with PMHx of CAD (s/p 5 stents, on ASA/Plavix), Parkinsons disease, Prior CVA/TIA, HTN, NIDDM, HLD, presented with right lower extremity weakness. Patient was accompanied by her daughter Theresa at time of admission. Theresa stated that patient typically has an abnormal gait requiring assistance, and has recently had at least 2 falls, most recently falling backward day prior to admission into an arm chair without hitting her head or LOC. Evening prior to admission around 0, daughter reportedly noticed that patient had weakness performing her ADLs and speaking very slowly with mumbling; typically patient is able to eat on her own and bring her dishes to the sink. Theresa additionally noticed a right facial droop at this time accompanied by right lower extremity weakness; Patient was dragging her right lower extremity and her gait was changed prompting her daughter to alert EMD. At baseline, patient has dementia, a soft spoken occassionally mumbled speech and difficult with balance but this was much different. Theresa lives at home with her mother and ensures that patient is medication complaint according to note. Denies any recent medication changes or travel. Additionally she mentions that the has constipation, otherwise denies fevers, chills, chest pain, SOB, nausea, vomiting, diarrhea, hematuria. CT head completed and without acute changes though noted chronic L periventricular infarcts. MRI brain completed overnight and although it demonstrated acute R rodriguez radiata infarct that does not localize to R sided weakness. Of note, there are chronic R perventricular chronic infarcts. Patient with minimal speech and limited exam but is moving extremities grossly. She was on ASA 81, Plavix 75. LDL 99, remains on statin 40mg. Remains mminimally interactive and moves b/l extremities with more symetric strength, not providing full effort yet but does not have hemiplegia. NG tube in place, speech pathologist following. Spoke to daughterTheresa on Saturday in detail and discussed my assessment. Likely mutifactorial etiology of patient's condition involving acute infarct superimposed on chronic CVAs and underlying Parkinson's Disease. This combination is likely leading to patient's limitations. Extensive conversation with GI specialist yesterday and they are interested in possibly placing PEG tube However, this would require holding antiplatelet medication for up to 5 days which does slightly increased risk of stroke. GI to speak with patient's family regarding risks/benefits of procedure. Allergies No Known Allergies Allergy (Verified 06/24/19 21:27) Active Medications Aspirin (Ecotrin -) 81 mg PO DAILY [facility] Last Admin: 07/01/19 10:33 Dose: 81 mg Atorvastatin Calcium (Lipitor -) 40 mg PO HS [facility] Last Admin: 07/01/19 21:34 Dose: 40 mg Carbidopa/Levodopa (Sinemet 25/100 -) 1 each PO TID [facility] Last Admin: 07/02/19 06:11 Dose: 1 each Clopidogrel Bisulfate (Plavix -) 75 mg PO DAILY [facility] Last Admin: 07/01/19 10:33 Dose: 75 mg Heparin Sodium (Porcine) (Heparin -) 5,000 unit SQ TID [facility] Last Admin: 07/02/19 06:11 Dose: 5,000 unit Potassium Chloride/Dextrose/Sod Cl (D5-1/2ns+20 Meq Kcl -) 20 meq in 1,000 mls @ 75 mls/hr IV ASDIR [facility] Last Admin: 07/01/19 18:08 Dose: Not Given Insulin Aspart (Novolog Vial Sliding Scale -) 1 vial SQ ACHS [facility]; Protocol Last Admin: 07/02/19 06:11 Dose: 4 units Paroxetine HCl 20 mg/ (Paroxetine HCl 10 mg) 30 mg PO DAILY [facility] Last Admin: 07/01/19 11:51 Dose: 30 mg Polyethylene Glycol (Miralax (For Daily Use) -) 17 gm NGT DAILY [facility] Last Admin: 07/01/19 10:33 Dose: 17 gm PHYSICAL EXAMINATION Vital Signs Period Temp Pulse Resp BP Sys/Chavez Pulse Ox Last 24 Hr 98.1 F-99.2 F 67-79 16-19 127-156/60-76 96-96 GENERAL: Awake, alert, NAD HEAD: NCAT EYES: PERRL, EOMI, Left lid lag (Chronic) ENT: Moist mucous membranes. NECK: Supple, No JVD LUNGS: CTAB. No wheezes, no crackles. HEART: Regular rate and rhythm, normal S1 and S2 without murmur ABDOMEN: Soft, nontender, not distended, + bowel sounds, no guarding, no rebound MUSCULOSKELETAL: No CVA tenderness. EXTREMITIES: 2+ pulses, No peripheral edema. NEUROLOGICAL: Cranial nerves II-XII intact. Awake and Verbal but minimally responsive to questioning, intermittently answering yes or no. moves all extremities but not participating in confrontation testing, sensory grossly intact, gait deferred SKIN: Warm, dry, diffuse ecchymosis over the LLE, and Right medial upper extremity CBCD WBC 9.2 K/mm3 (4.0-10.0) 06/30/19 05:10 RBC 3.88 M/mm3 (3.60-5.2) 06/30/19 05:10 Hgb 11.6 GM/dL (10.7-15.3) 06/30/19 05:10 Hct 34.4 % (32.4-45.2) 06/30/19 05:10 MCV 88.6 fl (80-96) 06/30/19 05:10 MCHC 33.6 g/dl (32.0-36.0) 06/30/19 05:10 RDW 13.6 % (11.6-15.6) 06/30/19 05:10 Plt Count 197 K/MM3 (134-434) 06/30/19 05:10 MPV 9.1 fl (7.5-11.1) 06/30/19 05:10 CMP Sodium 142 mmol/L (136-145) 07/01/19 05:05 Potassium 3.8 mmol/L (3.5-5.1) 07/01/19 05:05 Chloride 110 mmol/L (98-107) H 07/01/19 05:05 Carbon Dioxide 26 mmol/L (21-32) 07/01/19 05:05 Anion Gap 6 MMOL/L (8-16) L 07/01/19 05:05 BUN 14.9 mg/dL (7-18) 07/01/19 05:05 Creatinine 1.0 mg/dL (0.55-1.3) 07/01/19 05:05 Calcium 8.8 mg/dL (8.5-10.1) 07/01/19 05:05 Total Bilirubin 1.3 mg/dL (0.2-1) H 06/30/19 05:10 AST 35 U/L (15-37) 06/30/19 05:10 ALT 14 U/L (13-61) 06/30/19 05:10 Alkaline Phosphatase 107 U/L (45-117) 06/30/19 05:10 Total Protein 5.8 g/dl (6.4-8.2) L 06/30/19 05:10 Albumin 3.2 g/dl (3.4-5.0) L 06/30/19 05:10 ASSESSMENT/PLAN: 73 y/o F with PMHx of CAD (s/p 5 stents, on ASA/Plavix), Parkinsons disease, Prior CVA/TIA, HTN, NIDDM, HLD, presented with right lower extremity weakness. Patient was accompanied by her daughter Theresa who aided in providing HPI per notes. Theresa stated that patient typically has an abnormal gait requiring assistance, and has recently had at least 2 falls, most recently falling backward yesterday into an arm chair without hitting her head or LOC. Evening prior to admission around 1900, daughter reportedly noticed that patient had weakness performing her ADLs and speaking very slowly with mumbling; typically patient is able to eat on her own and bring her dishes to the sink. Theresa additionally noticed a right facial droop at this time accompanied by right lower extremity weakness; Patient was dragging her right lower extremity and her gait was changed prompting her daughter to alert EMD. At baseline, patient has dementia, a soft spoken occassionally mumbled speech and difficult with balance but this was much different. Theresa lives at home with her mother and ensures that patient is medication complaint according to note. Denies any recent medication changes or travel. Additionally she mentions that the has constipation, otherwise denies fevers, chills, chest pain, SOB, nausea, vomiting , diarrhea, hematuria. CT head completed and without acute changes though noted chronic L periventricular infarcts. MRI brain completed overnight and although it demonstrated acute R rodriguez radiata infarct that does not localize to R sided weakness. Of note, there are chronic R perventricular chronic infarcts. Patient with minimal speech and limited exam but is moving extremities grossly. She was on ASA 81, Plavix 75. LDL 99, remains on statin 40mg. Weekend notes reviewed, patient more interactive today and moves b/l extremities with more symetric strength, not providing full effort yet but does not have hemiplegia. Spoke to daughter, Theresa on Saturday, in detail and discussed my assessment. Likely mutifactorial etiology of patient's condition involving acute infarct superimposed on chronic CVAs and underlying Parkinson's Disease. This combination is likely leading to patient's limitations. Extensive conversation with GI specialist yesterday and they are interested in possibly placing PEG tube However, this would require holding antiplatelet medication for up to 5 days which does slightly increased risk of stroke. GI to speak with patient's family regarding risks/benefits of procedure. PT as tolerated. Continue Statin at current dose as LDL < 100. Continue hydration for NOELLE. MOnitor glucose, maintain euglycemic range. Monitor bp, maintain less than 140/90, Cardiology follow-up. Continue medical mgmt.
--- NOTE | 2019-07-02 10:48 | PN ---
Progress Note (short form) - Note Progress Note: s: no chest pain, palps, dizziness, dyspnea Current Medications Generic Name Dose Route Start Last Admin Trade Name Carol PRN Reason Stop Dose Admin Aspirin 81 mg 06/30/19 17:04 07/01/19 10:33 Ecotrin - PO 81 mg DAILY [facility] Administration Atorvastatin Calcium 40 mg 06/25/19 22:00 07/01/19 21:34 Lipitor - PO 40 mg HS [facility] Administration Carbidopa/Levodopa 1 each 06/30/19 17:04 07/02/19 06:11 Sinemet 25/100 - PO 1 each TID [facility] Administration Clopidogrel Bisulfate 75 mg 06/25/19 10:00 07/01/19 10:33 Plavix - PO 75 mg DAILY [facility] Administration Heparin Sodium (Porcine) 5,000 unit 06/25/19 09:00 07/02/19 06:11 Heparin - SQ 5,000 unit TID [facility] Administration Potassium Chloride/Dextrose/Sod Cl 20 meq in 1,000 mls @ 75 mls/hr 06/25/19 14 :45 07/01/19 18:08 D5-1/2ns+20 Meq Kcl - IV Not Given ASDIR [facility] Insulin Aspart 1 vial 06/25/19 11:00 07/02/19 06:11 Novolog Vial Sliding Scale - SQ 4 units ACHS [facility] Administration Protocol Paroxetine HCl 30 mg 07/02/19 11:30 Paxil Oral Suspension - NGT DAILY [facility] Polyethylene Glycol 17 gm 06/28/19 16:30 07/01/19 10:33 Miralax (For Daily Use) - NGT 17 gm DAILY [facility] Administration Vital Signs Period Temp Pulse Resp BP Sys/Chavez Pulse Ox Last 24 Hr 98.1 F-99.2 F 67-76 16-18 129-156/60-76 96 Constitutional: Yes: Well Nourished, No Distress, Calm Cardiovascular: Yes: Regular Rate and Rhythm, S1, S2. No: Gallop, Murmur Respiratory: Yes: Regular, CTA Bilaterally. No: Accessory Muscle Use, Rales Extremities: No: Cold Edema: No Neurological: Yes: Alert. No: Seizure Psychiatric: No: Agitated no jaundice diaphoresis CBC, BMP 06/30/19 05:10 07/01/19 05:05 echo 06/2019: nl lv/rv, no sig valve path carotids 06/2019: no sig stenosis tele: sr a/p: 73 year old f with history of CAD s/p remote stents, HTN, NIDDM, and parkinsons disease, dementia here with rle weakness, CVA cva: lacunar -echo and carotids unremarkable -tele to r/o occult AF, thus far negative -BP controlled -manage per neuro CAD s/p remote pci: - no signs acs - echo unremarkable here - continue asa and plavix - continue atorvastatin for LDL goal 70mg/dl HTN -stable, cont home meds preop: -no cardiac contraindications to PEG. can hold asa and plavix if needed.
[2019-07-02] MEDS: POLYETHYLENE GLYCOL 3350 119 GM BTL NGT SCH (10:56)
[2019-07-02] MEDS: ASPIRIN COATED 81 MG TABLET.EC PO SCH (10:56)
[2019-07-02] MEDS: PAROXETINE HCL ORAL SUSPENSION 10 MG/5 ML NGT SCH (12:04)
[2019-07-02] MEDS ORDERED: INSULIN SLIDING SCALE (NOVOLOG) 1 VIAL SQ ONE (12:05)
[2019-07-02] MEDS: PAROXETINE HCL 20 MG, PAROXETINE HCL 10 MG PO SCH (12:07)
[2019-07-02] MEDS: CLOPIDOGREL BISULFATE 75 MG TABLET (FP) PO SCH (12:13)
--- NOTE | 2019-07-02 12:41 | PN ---
Progress Note, APPRENTICE TECHNICIAN - Note Progress Note: Selected Entries 07/01/19 07/01/19 07/01/19 02:00 05:44 10:00 Lunch Temperature 99.4 F 99.1 F 99 F 07/01/19 07/01/19 07/01/19 14:15 18:00 20:08 Lunch NPO NPO Temperature 98.1 F 99.0 F 07/01/19 07/02/19 07/02/19 21:53 02:00 05:44 Lunch Temperature 99.2 F 98.7 F 98.9 F 07/02/19 10:00 Lunch Temperature 99 F Laboratory Tests 06/30/19 05:10 WBC 9.2 Pending Psych consult. Pt with greater difficulty initiating speech and swallowing. Drooling, self suctioning, frequent throat clearing, harsh vocal quality. Reviewed with PMD/nursing. Mouth care/suction PRN, HOB elevated. Communication board constructed with good functional use of single words. More difficulty spelling words. Pending PEG. Monitor pulmonary status.
--- NOTE | 2019-07-02 13:39 | PN ---
Progress Note, Physician Chief Complaint: aspirin and plavix on hold for PEG patient constantly trying to clear her throat - Current Medication List Current Medications: Active Medications Aspirin (Ecotrin -) 81 mg PO DAILY [facility] Last Admin: 07/02/19 10:56 Dose: 81 mg Atorvastatin Calcium (Lipitor -) 40 mg PO HS [facility] Last Admin: 07/01/19 21:34 Dose: 40 mg Carbidopa/Levodopa (Sinemet 25/100 -) 1 each PO TID [facility] Last Admin: 07/02/19 06:11 Dose: 1 each Clopidogrel Bisulfate (Plavix -) 75 mg PO DAILY [facility] Last Admin: 07/02/19 12:13 Dose: Not Given Heparin Sodium (Porcine) (Heparin -) 5,000 unit SQ TID [facility] Last Admin: 07/02/19 06:11 Dose: 5,000 unit Insulin Aspart (Novolog Vial Sliding Scale -) 1 vial SQ ACHS [facility]; Protocol Last Admin: 07/02/19 12:05 Dose: 4 units Paroxetine HCl (Paxil Oral Suspension -) 30 mg NGT DAILY [facility] Last Admin: 07/02/19 12:04 Dose: 30 mg Polyethylene Glycol (Miralax (For Daily Use) -) 17 gm NGT DAILY [facility] Last Admin: 07/02/19 10:56 Dose: 17 gm - Objective Vital Signs: Vital Signs Temperature 99 F 07/02/19 10:00 Pulse Rate 58 L 07/02/19 10:00 Respiratory Rate 18 07/02/19 10:00 Blood Pressure 135/69 07/02/19 10:00 O2 Sat by Pulse Oximetry (%) 96 07/01/19 20:08 Constitutional: Yes: Calm Cardiovascular: Yes: Regular Rate and Rhythm, S1, S2 Respiratory: Yes: Rhonchi Gastrointestinal: Yes: Normal Bowel Sounds, Soft Neurological: Yes: Facial Droop, Other (able to move her arms and legs delayed start when trying to speak dysarthria) Labs: CBC, BMP 06/30/19 05:10 07/01/19 05:05 INR, PTT INR 1.05 (0.83-1.09) 06/24/19 23:20 Problem List - Problems (1) CVA (cerebral vascular accident) Assessment/Plan: MRI note acute /subacute infarct in right side rodriguez radiate and periventricular white matter ng tube with tube feeds swallow eval noted statin aspirin on hold neuro consult noted PT echo noted for normal left ventricle function and size carotid doppler no significant stenosis hold asprin and plavix for peg tube placement Code(s): I63.9 - CEREBRAL INFARCTION, UNSPECIFIED Qualifiers: CVA mechanism: unspecified Qualified Code(s): I63.9 - Cerebral infarction, unspecified (2) Hypokalemia Assessment/Plan: repleted Code(s): E87.6 - HYPOKALEMIA (3) Diabetes Assessment/Plan: bgm sliding scale [id number] 7.2 Code(s): E11.9 - TYPE 2 DIABETES MELLITUS WITHOUT COMPLICATIONS (4) Parkinsons disease Assessment/Plan: sinemet crush with apple sauce neuro eval noted Code(s): G20 - PARKINSON'S DISEASE Assessment/Plan plan to go to [place] for rehab- pt accepted peg to be placed after holding asprin plavix for 5 days cardiology aware and ok with holding above medications
--- NOTE | 2019-07-02 17:26 | PN ---
Progress Note (short form) - Note Progress Note: Plavix held today. Needs plavix held 5 days prior to PEG placement. OK to continue ASA 81mg once daily if medically necessary given CVA history. should be on GI prophylaxis.
[2019-07-02] MEDS: PANTOPRAZOLE SODIUM 40 MG VIAL IVPUSH SCH (17:48)
[2019-07-02] MEDS: ATORVASTATIN CA 80 MG TABLET (FP) PO SCH (21:52)
[2019-07-03] MEDS: INSULIN SLIDING SCALE (NOVOLOG) 1 VIAL SQ SCH ×4 (06:08→22:55)
[2019-07-03] MEDS: HEPARIN NA (PORCINE) 5,000 UNITS/ML 1ML VIAL SQ SCH (06:08)
[2019-07-03] MEDS: CARBIDOPA/LEVODOPA 25/100 TABLET (FP) PO SCH ×3 (06:08→22:55)
--- NOTE | 2019-07-03 09:10 | PN ---
Progress Note (short form) - Note Progress Note: Neurology CHIEF COMPLAINT: Weakness HISTORY OF PRESENT ILLNESS: 73 y/o F with PMHx of CAD (s/p 5 stents, on ASA/Plavix), Parkinsons disease, Prior CVA/TIA, HTN, NIDDM, HLD, presented with right lower extremity weakness. Patient was accompanied by her daughter Theresa at time of admission. Theresa stated that patient typically has an abnormal gait requiring assistance, and has recently had at least 2 falls, most recently falling backward day prior to admission into an arm chair without hitting her head or LOC. Evening prior to admission around 0, daughter reportedly noticed that patient had weakness performing her ADLs and speaking very slowly with mumbling; typically patient is able to eat on her own and bring her dishes to the sink. Theresa additionally noticed a right facial droop at this time accompanied by right lower extremity weakness; Patient was dragging her right lower extremity and her gait was changed prompting her daughter to alert EMD. At baseline, patient has dementia, a soft spoken occassionally mumbled speech and difficult with balance but this was much different. Theresa lives at home with her mother and ensures that patient is medication complaint according to note. Denies any recent medication changes or travel. Additionally she mentions that the has constipation, otherwise denies fevers, chills, chest pain, SOB, nausea, vomiting, diarrhea, hematuria. CT head completed and without acute changes though noted chronic L periventricular infarcts. MRI brain completed overnight and although it demonstrated acute R rodriguez radiata infarct that does not localize to R sided weakness. Of note, there are chronic R perventricular chronic infarcts. Patient with minimal speech and limited exam but is moving extremities grossly. She was on ASA 81, Plavix 75. LDL 99, remains on statin 40mg. Remains mminimally interactive and moves b/l extremities with more symetric strength, not providing full effort yet but does not have hemiplegia. NG tube in place, speech pathologist following. Spoke to daughterTheresa on Saturday in detail and discussed my assessment. Likely mutifactorial etiology of patient's condition involving acute infarct superimposed on chronic CVAs and underlying Parkinson's Disease. This combination is likely leading to patient's limitations. GI notes reviewed, plan is for PEG placement and Plavix being held for 5 days. Patient remains on aspirin 81 mg daily. Per notes GI discussed with family and they reportedly aware of slightly increased risk for stroke and wanted to pursue PEG tube for nutritional benefits. Patient remains neurologically stable this morning Allergies No Known Allergies Allergy (Verified 06/24/19 21:27) Active Medications Aspirin (Ecotrin -) 81 mg PO DAILY [facility] Last Admin: 07/02/19 10:56 Dose: 81 mg Atorvastatin Calcium (Lipitor -) 40 mg PO HS [facility] Last Admin: 07/02/19 21:52 Dose: 40 mg Carbidopa/Levodopa (Sinemet 25/100 -) 1 each PO TID [facility] Last Admin: 07/03/19 06:08 Dose: 1 each Clopidogrel Bisulfate (Plavix -) 75 mg PO DAILY [facility] Last Admin: 07/02/19 12:13 Dose: Not Given Heparin Sodium (Porcine) (Heparin -) 5,000 unit SQ TID [facility] Last Admin: 07/03/19 06:08 Dose: 5,000 unit Insulin Aspart (Novolog Vial Sliding Scale -) 1 vial SQ ACHS [facility]; Protocol Last Admin: 07/03/19 06:08 Dose: 4 units Pantoprazole Sodium (Protonix Iv) 40 mg IVPUSH DAILY [facility] Last Admin: 07/02/19 17:48 Dose: 40 mg Paroxetine HCl (Paxil Oral Suspension -) 30 mg NGT DAILY [facility] Last Admin: 07/02/19 12:04 Dose: 30 mg Polyethylene Glycol (Miralax (For Daily Use) -) 17 gm NGT DAILY [facility] Last Admin: 07/02/19 10:56 Dose: 17 gm PHYSICAL EXAMINATION Vital Signs Period Temp Pulse Resp BP Sys/Chavez Pulse Ox Last 24 Hr 97.5 F-99.6 F 58-68 18-18 134-138/64-79 96 GENERAL: Awake, alert, NAD HEAD: NCAT EYES: PERRL, EOMI, Left lid lag (Chronic) ENT: Moist mucous membranes. NECK: Supple, No JVD LUNGS: CTAB. No wheezes, no crackles. HEART: Regular rate and rhythm, normal S1 and S2 without murmur ABDOMEN: Soft, nontender, not distended, + bowel sounds, no guarding, no rebound MUSCULOSKELETAL: No CVA tenderness. EXTREMITIES: 2+ pulses, No peripheral edema. NEUROLOGICAL: Cranial nerves II-XII intact. Awake and responsive to questioning , still answering yes or no mostly. moves all extremities but not participating in confrontation testing, sensory grossly intact, gait deferred SKIN: Warm, dry, diffuse ecchymosis over the LLE, and Right medial upper extremity CBCD WBC 9.2 K/mm3 (4.0-10.0) 06/30/19 05:10 RBC 3.88 M/mm3 (3.60-5.2) 06/30/19 05:10 Hgb 11.6 GM/dL (10.7-15.3) 06/30/19 05:10 Hct 34.4 % (32.4-45.2) 06/30/19 05:10 MCV 88.6 fl (80-96) 06/30/19 05:10 MCHC 33.6 g/dl (32.0-36.0) 06/30/19 05:10 RDW 13.6 % (11.6-15.6) 06/30/19 05:10 Plt Count 197 K/MM3 (134-434) 06/30/19 05:10 MPV 9.1 fl (7.5-11.1) 06/30/19 05:10 CMP Sodium 142 mmol/L (136-145) 07/01/19 05:05 Potassium 3.8 mmol/L (3.5-5.1) 07/01/19 05:05 Chloride 110 mmol/L (98-107) H 07/01/19 05:05 Carbon Dioxide 26 mmol/L (21-32) 07/01/19 05:05 Anion Gap 6 MMOL/L (8-16) L 07/01/19 05:05 BUN 14.9 mg/dL (7-18) 07/01/19 05:05 Creatinine 1.0 mg/dL (0.55-1.3) 07/01/19 05:05 Random Glucose 249 mg/dL (74-106) H 07/01/19 05:05 Calcium 8.8 mg/dL (8.5-10.1) 07/01/19 05:05 Total Bilirubin 1.3 mg/dL (0.2-1) H 06/30/19 05:10 AST 35 U/L (15-37) 06/30/19 05:10 ALT 14 U/L (13-61) 06/30/19 05:10 Alkaline Phosphatase 107 U/L (45-117) 06/30/19 05:10 Total Protein 5.8 g/dl (6.4-8.2) L 06/30/19 05:10 Albumin 3.2 g/dl (3.4-5.0) L 06/30/19 05:10 CARDIAC ENZYMES Troponin I < 0.02 ng/ml (0.00-0.05) 06/24/19 23:20 ASSESSMENT/PLAN: 73 y/o F with PMHx of CAD (s/p 5 stents, on ASA/Plavix), Parkinsons disease, Prior CVA/TIA, HTN, NIDDM, HLD, presented with right lower extremity weakness. Patient was accompanied by her daughter Theresa who aided in providing HPI per notes. Theresa stated that patient typically has an abnormal gait requiring assistance, and has recently had at least 2 falls, most recently falling backward yesterday into an arm chair without hitting her head or LOC. Evening prior to admission around 1900, daughter reportedly noticed that patient had weakness performing her ADLs and speaking very slowly with mumbling; typically patient is able to eat on her own and bring her dishes to the sink. Theresa additionally noticed a right facial droop at this time accompanied by right lower extremity weakness; Patient was dragging her right lower extremity and her gait was changed prompting her daughter to alert EMD. At baseline, patient has dementia, a soft spoken occassionally mumbled speech and difficult with balance but this was much different. Theresa lives at home with her mother and ensures that patient is medication complaint according to note. Denies any recent medication changes or travel. Additionally she mentions that the has constipation, otherwise denies fevers, chills, chest pain, SOB, nausea, vomiting , diarrhea, hematuria. CT head completed and without acute changes though noted chronic L periventricular infarcts. MRI brain completed overnight and although it demonstrated acute R rodriguez radiata infarct that does not localize to R sided weakness. Of note, there are chronic R perventricular chronic infarcts. Patient with minimal speech and limited exam but is moving extremities grossly. She was on ASA 81, Plavix 75. LDL 99, remains on statin 40mg. Weekend notes reviewed, patient more interactive today and moves b/l extremities with more symetric strength, not providing full effort yet but does not have hemiplegia. Spoke to daughter, Theresa on Saturday, in detail and discussed my assessment. Likely mutifactorial etiology of patient's condition involving acute infarct superimposed on chronic CVAs and underlying Parkinson's Disease. This combination is likely leading to patient's limitations. GI notes reviewed, plan is for PEG placement and Plavix being held for 5 days. Patient remains on aspirin 81 mg daily. Per notes GI discussed with family and they reportedly aware of slightly increased risk for stroke and wanted to pursue PEG tube for nutritional benefits. Patient remains neurologically stable this morning. PT as tolerated. Continue Statin at current dose as LDL < 100. Continue hydration for NOELLE. MOnitor glucose, maintain euglycemic range. Monitor bp, maintain less than 140/90, Cardiology follow-up. Continue medical mgmt.
[2019-07-03] MEDS: POLYETHYLENE GLYCOL 3350 119 GM BTL NGT SCH (10:39)
[2019-07-03] MEDS: ASPIRIN COATED 81 MG TABLET.EC PO SCH (10:39)
[2019-07-03] MEDS: PAROXETINE HCL ORAL SUSPENSION 10 MG/5 ML NGT SCH (10:40)
[2019-07-03] MEDS: PANTOPRAZOLE SODIUM 40 MG VIAL IVPUSH SCH (10:40)
--- NOTE | 2019-07-03 10:52 | PN ---
Progress Note, Physician Chief Complaint: TELE: short run of PAF 07/02 Otherwise, no acute clinical changes. - Current Medication List Current Medications: Active Medications Aspirin (Ecotrin -) 81 mg PO DAILY [facility] Last Admin: 07/03/19 10:39 Dose: 81 mg Atorvastatin Calcium (Lipitor -) 40 mg PO HS [facility] Last Admin: 07/02/19 21:52 Dose: 40 mg Carbidopa/Levodopa (Sinemet 25/100 -) 1 each PO TID [facility] Last Admin: 07/03/19 06:08 Dose: 1 each Clopidogrel Bisulfate (Plavix -) 75 mg PO DAILY [facility] Last Admin: 07/02/19 12:13 Dose: Not Given Heparin Sodium (Porcine) (Heparin -) 5,000 unit SQ TID [facility] Last Admin: 07/03/19 06:08 Dose: 5,000 unit Insulin Aspart (Novolog Vial Sliding Scale -) 1 vial SQ [facility]; Protocol Last Admin: 07/03/19 06:08 Dose: 4 units Pantoprazole Sodium (Protonix Iv) 40 mg IVPUSH DAILY [facility] Last Admin: 07/03/19 10:40 Dose: 40 mg Paroxetine HCl (Paxil Oral Suspension -) 30 mg NGT DAILY [facility] Last Admin: 07/03/19 10:40 Dose: 30 mg Polyethylene Glycol (Miralax (For Daily Use) -) 17 gm NGT DAILY [facility] Last Admin: 07/03/19 10:39 Dose: 17 gm - Objective Vital Signs: Vital Signs Temperature 98.5 F 07/03/19 05:40 Pulse Rate 62 07/03/19 05:40 Respiratory Rate 18 07/03/19 05:40 Blood Pressure 137/79 07/03/19 05:40 O2 Sat by Pulse Oximetry (%) 96 07/02/19 21:00 Constitutional: Yes: No Distress, Calm Eyes: Yes: Conjunctiva Clear Cardiovascular: Yes: Regular Rate and Rhythm Respiratory: Yes: CTA Bilaterally Gastrointestinal: Yes: Soft Edema: No Neurological: Yes: Other (nonverbal) Labs: CBC, BMP 06/30/19 05:10 07/01/19 05:05 INR, PTT INR 1.05 (0.83-1.09) 06/24/19 23:20 - ....Imaging EKG: Image Reviewed Assessment/Plan echo 06/2019: nl lv/rv, no sig valve path carotids 06/2019: no sig stenosis tele: sr a/p: 73 year old f with history of CAD s/p remote stents, HTN, NIDDM, and parkinsons disease, dementia here with rle weakness, CVA cva: lacunar -echo and carotids unremarkable -tele shows episode of PAF on 07/02 -D/w PMD and Neuro -D/C Plavix and start UFH gtts or Lovenox if creat nl and hold accordingly prior to PEG as per GI -BP controlled CAD s/p remote pci: - no signs acs - echo unremarkable her - continue atorvastatin for LDL goal 70mg/dl -will likely need to continue low dose ASA given prior PCI HTN -stable, cont home meds preop: -no cardiac contraindications to PEG. Can d/c Plavix and hold ASA (IF NEEDED by GI) and resume after procedure
[2019-07-03] MEDS ORDERED: HEPARIN NA (PORCINE) 5,000 UNITS/ML 1ML VIAL IVPUSH PRN ×2 (11:28)
--- NOTE | 2019-07-03 11:36 | PN ---
Progress Note, Physician Chief Complaint: patient seen and examined awake alert - Current Medication List Current Medications: Active Medications Aspirin (Ecotrin -) 81 mg PO DAILY [facility] Last Admin: 07/03/19 10:39 Dose: 81 mg Atorvastatin Calcium (Lipitor -) 40 mg PO HS [facility] Last Admin: 07/02/19 21:52 Dose: 40 mg Carbidopa/Levodopa (Sinemet 25/100 -) 1 each PO TID [facility] Last Admin: 07/03/19 06:08 Dose: 1 each Heparin Sodium (Porcine) (Heparin -) 1,000 unit IVPUSH PRN PRN PRN Reason: Heparin Heparin Sodium (Porcine) (Heparin -) 5,000 unit IVPUSH PRN PRN PRN Reason: Heparin Heparin Sodium/Dextrose (Heparin Infusion -) 500 mls @ 16 mls/hr IV TITR [facility]; Protocol Insulin Aspart (Novolog Vial Sliding Scale -) 1 vial SQ ACHS [facility]; Protocol Last Admin: 07/03/19 06:08 Dose: 4 units Pantoprazole Sodium (Protonix Iv) 40 mg IVPUSH DAILY [facility] Last Admin: 07/03/19 10:40 Dose: 40 mg Paroxetine HCl (Paxil Oral Suspension -) 30 mg NGT DAILY [facility] Last Admin: 07/03/19 10:40 Dose: 30 mg Polyethylene Glycol (Miralax (For Daily Use) -) 17 gm NGT DAILY [facility] Last Admin: 07/03/19 10:39 Dose: 17 gm - Objective Vital Signs: Vital Signs Temperature 98.5 F 07/03/19 05:40 Pulse Rate 62 07/03/19 05:40 Respiratory Rate 18 07/03/19 05:40 Blood Pressure 137/79 07/03/19 05:40 O2 Sat by Pulse Oximetry (%) 96 07/02/19 21:00 Constitutional: Yes: Calm Cardiovascular: Yes: Regular Rate and Rhythm, S1, S2 Respiratory: Yes: CTA Bilaterally Gastrointestinal: Yes: Normal Bowel Sounds, Soft Edema: No Neurological: Yes: Dysarthria, Other (slow to initiate speech) Labs: CBC, BMP 06/30/19 05:10 07/01/19 05:05 INR, PTT INR 1.05 (0.83-1.09) 06/24/19 23:20 Problem List - Problems (1) CVA (cerebral vascular accident) Assessment/Plan: MRI note acute /subacute infarct in right side rodriguez radiate and periventricular white matter ng tube with tube feeds- will need PEG swallow eval noted statin aspirin on hold, DC plavix- started in iv heparin drip no bolus neuro consult noted PT- [facility] after peg echo noted for normal left ventricle function and size carotid doppler no significant stenosis hold asprin and DC plavix for peg tube placement Code(s): I63.9 - CEREBRAL INFARCTION, UNSPECIFIED Qualifiers: CVA mechanism: unspecified Qualified Code(s): I63.9 - Cerebral infarction, unspecified (2) Hypokalemia Assessment/Plan: repleted Code(s): E87.6 - HYPOKALEMIA (3) Diabetes Assessment/Plan: bgm sliding scale [id number] 7.2 Code(s): E11.9 - TYPE 2 DIABETES MELLITUS WITHOUT COMPLICATIONS Qualifiers: Diabetes mellitus type: type 2 (4) Parkinsons disease Assessment/Plan: sinemet crush with apple sauce neuro eval noted Code(s): G20 - PARKINSON'S DISEASE (5) Paroxysmal A-fib Assessment/Plan: will need NOAC after peg iv heparin no bolus for now Code(s): I48.0 - PAROXYSMAL ATRIAL FIBRILLATION (6) Dysphagia as late effect of cerebrovascular accident (CVA) Assessment/Plan: needs peg by IR plavix stopped since 07/02 hold aspirin iv heparin drip no bolus- hold for a few hours prior to peg Code(s): I69.391 - DYSPHAGIA FOLLOWING CEREBRAL INFARCTION
[2019-07-03] MEDS ORDERED: INSULIN SLIDING SCALE (NOVOLOG) 1 VIAL SQ ONE (12:53)
[2019-07-03] MEDS: HEPARIN INFUSION - 25,000 UNITS/500 ML INFUS.BAG IV SCH (13:04)
--- NOTE | 2019-07-03 13:20 | PN ---
Progress Note, [employer] - Note Progress Note: Per Cardiology- cva: lacunar -echo and carotids unremarkable -tele shows episode of PAF on 07/02 -D/w PMD and Neuro -D/C Plavix and start UFH gtts or Lovenox if creat nl and hold accordingly prior to PEG as per GI -BP controlled Pt much improved today. Yesterday, drooling, clearing secretions, unable to verbalize. AF, possible TIA/CVA/event? Today able to repeat words again, Mixed Dysarthria, with poor (+) intelligibility. Practiced reading aloud. Able to point to communication board and letters (unable to yesterday) and actually was able to write "No questions" in response to Any questions for me? Oriented/appropriate/motivated. 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 Continue use of Comm board/Writing/ yes-No questions/gesture to maximize functional communication as wellas speech drills/conversation. Excellent rehab candidate once PEG placed
[2019-07-03 13:40] LABS: BLOOD UREA NITROGEN 13.2 mg/dL (7-18); CALCIUM 9.4 mg/dL (8.5-10.1); POTASSIUM 3.9 mmol/L (3.5-5.1)
--- NOTE | 2019-07-03 14:49 | CON.PSY ---
Psychiatry Consult Chief Complaint: 73 Kaya old female with a history bof Major Depression, CVA seen for Psych eval. Patient is aphasic, spoke with in her presence. Patient is able to Comprehend. Hb reports increased deprssion and crying spells. Symptoms: reports: Depressed Mood - Previous Psychiatric Treatment Outpatient: More than 6 mos ago Inpatient: None - Previous Substance Abuse Treatment Outpatient: None Inpatient: None - Reason for Previous Treatment Reason for Previous Treatment: Major Depression - Current Medications Current Medications: Active Medications Aspirin (Ecotrin -) 81 mg PO DAILY [facility] Last Admin: 07/03/19 10:39 Dose: 81 mg Atorvastatin Calcium (Lipitor -) 40 mg PO HS [facility] Last Admin: 07/02/19 21:52 Dose: 40 mg Carbidopa/Levodopa (Sinemet 25/100 -) 1 each PO TID [facility] Last Admin: 07/03/19 13:00 Dose: 1 each Heparin Sodium (Porcine) (Heparin -) 1,000 unit IVPUSH PRN PRN PRN Reason: Heparin Heparin Sodium (Porcine) (Heparin -) 5,000 unit IVPUSH PRN PRN PRN Reason: Heparin Heparin Sodium/Dextrose (Heparin Infusion -) 25,000 units in 500 mls @ 16 mls/ hr IV TITR [facility]; Protocol Last Admin: 07/03/19 13:04 Dose: 800 units/hr, 16 mls/hr Insulin Aspart (Novolog Vial Sliding Scale -) 1 vial SQ ACHS [facility]; Protocol Last Admin: 07/03/19 12:53 Dose: 4 units Pantoprazole Sodium (Protonix Iv) 40 mg IVPUSH DAILY [facility] Last Admin: 07/03/19 10:40 Dose: 40 mg Polyethylene Glycol (Miralax (For Daily Use) -) 17 gm NGT DAILY [facility] Last Admin: 07/03/19 10:39 Dose: 17 gm - Allergies Allergies: Allergies Allergy/AdvReac Type Severity Reaction Status Date / Time No Known Allergies Allergy Verified 06/24/19 21:27 - Current Living Status Usual Living Arrangement: With Spouse - Current Mental Status Evaluation Appearance: Well Groomed Attitude: Cooperative - Affect Affect: Constrictive Appropriateness: Appropriate to Content - Mood Mood: Depressed - Speech/Language Expressive: Coherent - Psychomotor Activity Psychomotor Activity: Slowed - Thought Process Thought Process: Intact - Thought Content Hallucinations: Absent Delusions: Absent - Self Perception Self Perception: No Impairment - Cognition Attention: Alert Orientation: Time Memory, Immediate Recall: Intact Memory, Short Term: 2/3 Memory, Remote with Promptin/3 - Concentration Serial Sevens Intact: No Simple Calculations Intact: No - Abstraction Proverb Interpretation: Intact Judgement: Minimally Impaired - Insight Insight: Intact - Impulse Control Impulse Control: Good Control - Suicidal Ideation Suicidal Ideation: No - Homicidal Ideation Homicidal Ideation: No Assessment/Plan 1) increase Paxil 40 mg via GT.
--- NOTE | 2019-07-03 14:59 | PN ---
Progress Note (short form) - Note Progress Note: plan for peg tube placement saturday by IR continue iv heparin stop asprin and plavix Problem List - Problems (1) CVA (cerebral vascular accident) Code(s): I63.9 - CEREBRAL INFARCTION, UNSPECIFIED Qualifiers: CVA mechanism: unspecified Qualified Code(s): I63.9 - Cerebral infarction, unspecified (2) Hypokalemia Code(s): E87.6 - HYPOKALEMIA (3) Diabetes Code(s): E11.9 - TYPE 2 DIABETES MELLITUS WITHOUT COMPLICATIONS Qualifiers: Diabetes mellitus type: type 2 (4) Parkinsons disease Code(s): G20 - PARKINSON'S DISEASE (5) Paroxysmal A-fib Code(s): I48.0 - PAROXYSMAL ATRIAL FIBRILLATION (6) Dysphagia as late effect of cerebrovascular accident (CVA) Code(s): I69.391 - DYSPHAGIA FOLLOWING CEREBRAL INFARCTION
--- NOTE | 2019-07-03 16:13 | PN ---
Progress Note (short form) - Note Progress Note: Had long discussion with MrFam and Mrs. Holman regarding PEG placement. Discussed potential risks of the procedure like but not limited to bleeding, perforation requiring surgery to repair, infection, sedation medication effects , perotinitis if tube prematurely dislodged, tube malfuncgtion with need for replacement, aspiration of tube feeding, all of which could be potentially life thretening. They have agreed to the procedure, Plan for Sunday 07/08 with plavix having been held. Discussed with Dr. Garcia. Would prefer continuing ASA 81mg once daily. OK with PEG placement on ASA 81mg once daily and with Plavix held. Heparin will need to be held (new onset a. fib) 4 hours prior to the procedure as well. I gave Mr. Holman my office number if he or his daughters had any further questions regarding the procedure.
[2019-07-03] MEDS: ATORVASTATIN CA 80 MG TABLET (FP) PO SCH (22:55)
[2019-07-04] MEDS: CARBIDOPA/LEVODOPA 25/100 TABLET (FP) PO SCH ×3 (06:44→22:15)
[2019-07-04] MEDS: INSULIN SLIDING SCALE (NOVOLOG) 1 VIAL SQ SCH ×4 (06:44→22:14)
[2019-07-04] MEDS ORDERED: PARoxetine HCL 30 MG TABLET NR SCH (10:00)
[2019-07-04] MEDS ORDERED: PARoxetine HCL 10 MG TABLET ONE (10:45)
[2019-07-04] MEDS ORDERED: PT OWN MED DRAWER 7, Y5N ONE (10:46)
[2019-07-04] MEDS: ASPIRIN 81 MG CHEWABLE TABLETS PO SCH (10:50)
[2019-07-04] MEDS: PANTOPRAZOLE SODIUM 40 MG VIAL IVPUSH SCH (10:50)
[2019-07-04] MEDS: PARoxetine HCL 20 MG TABLET PO SCH (10:50)
[2019-07-04] MEDS: POLYETHYLENE GLYCOL 3350 119 GM BTL NGT SCH (10:51)
--- NOTE | 2019-07-04 11:11 | PN ---
Progress Note (short form) - Note Progress Note: Neurology CHIEF COMPLAINT: Weakness HISTORY OF PRESENT ILLNESS: 73 y/o F with PMHx of CAD (s/p 5 stents, on ASA/Plavix), Parkinsons disease, Prior CVA/TIA, HTN, NIDDM, HLD, presented with right lower extremity weakness. Patient was accompanied by her daughter Theresa at time of admission. Theresa stated that patient typically has an abnormal gait requiring assistance, and has recently had at least 2 falls, most recently falling backward day prior to admission into an arm chair without hitting her head or LOC. Evening prior to admission around 0, daughter reportedly noticed that patient had weakness performing her ADLs and speaking very slowly with mumbling; typically patient is able to eat on her own and bring her dishes to the sink. Theresa additionally noticed a right facial droop at this time accompanied by right lower extremity weakness; Patient was dragging her right lower extremity and her gait was changed prompting her daughter to alert EMD. At baseline, patient has dementia, a soft spoken occassionally mumbled speech and difficult with balance but this was much different. Theresa lives at home with her mother and ensures that patient is medication complaint according to note. Denies any recent medication changes or travel. Additionally she mentions that the has constipation, otherwise denies fevers, chills, chest pain, SOB, nausea, vomiting, diarrhea, hematuria. CT head completed and without acute changes though noted chronic L periventricular infarcts. MRI brain completed overnight and although it demonstrated acute R rodriguez radiata infarct that does not localize to R sided weakness. Of note, there are chronic R perventricular chronic infarcts. Patient with minimal speech and limited exam but is moving extremities grossly. She was on ASA 81, Plavix 75. LDL 99, remains on statin 40mg. Remains mminimally interactive and moves b/l extremities with more symetric strength, not providing full effort yet but does not have hemiplegia. NG tube in place, speech pathologist following. Spoke to daughterTheresa on Saturday in detail and discussed my assessment. Likely mutifactorial etiology of patient's condition involving acute infarct superimposed on chronic CVAs and underlying Parkinson's Disease. This combination is likely leading to patient's limitations. GI notes reviewed, plan is for PEG placement and Plavix being held for 5 days. Patient remains on aspirin 81 mg daily. Per notes GI discussed with family and they reportedly aware of slightly increased risk for stroke and wanted to pursue PEG tube for nutritional benefits. Patient remains neurologically stable this morning. Spoke to engagement liaison 07/03 who indicated Afib and therefore plan was to give patient IV heparin for AC and can held for procedure. No objection to this, again slight increased risk of bleed but concern for thrombotic events is greater at this time time. Would not bolus patient. Allergies No Known Allergies Allergy (Verified 06/24/19 21:27) Active Medications Aspirin (Asa -) 81 mg PO DAILY [facility] Last Admin: 07/04/19 10:50 Dose: 81 mg Atorvastatin Calcium (Lipitor -) 40 mg PO HS [facility] Last Admin: 07/03/19 22:55 Dose: 40 mg Carbidopa/Levodopa (Sinemet 25/100 -) 1 each PO TID [facility] Last Admin: 07/04/19 06:44 Dose: 1 each Heparin Sodium (Porcine) (Heparin -) 1,000 unit IVPUSH PRN PRN PRN Reason: Heparin Heparin Sodium (Porcine) (Heparin -) 5,000 unit IVPUSH PRN PRN PRN Reason: Heparin Heparin Sodium/Dextrose (Heparin Infusion -) 25,000 units in 500 mls @ 16 mls/ hr IV TITR [facility]; Protocol Last Titration: 07/04/19 03:44 Dose: 550 units/hr, 11 mls/hr Insulin Aspart (Novolog Vial Sliding Scale -) 1 vial SQ ACHS [facility]; Protocol Last Admin: 07/04/19 06:44 Dose: 4 units Pantoprazole Sodium (Protonix Iv) 40 mg IVPUSH DAILY [facility] Last Admin: 07/04/19 10:50 Dose: 40 mg Paroxetine HCl (Paxil -) 40 mg PO DAILY [facility] Last Admin: 07/04/19 10:50 Dose: 40 mg Polyethylene Glycol (Miralax (For Daily Use) -) 17 gm NGT DAILY [facility] Last Admin: 07/04/19 10:51 Dose: 17 gm PHYSICAL EXAMINATION Vital Signs Period Temp Pulse Resp BP Sys/Chavez Pulse Ox Last 24 Hr 98.1 F-99.5 F 62-73 16-18 125-139/57-77 97 GENERAL: Awake, alert, NAD HEAD: NCAT EYES: PERRL, EOMI, Left lid lag (Chronic) ENT: Moist mucous membranes. NECK: Supple, No JVD LUNGS: CTAB. No wheezes, no crackles. HEART: Regular rate and rhythm, normal S1 and S2 without murmur ABDOMEN: Soft, nontender, not distended, + bowel sounds, no guarding, no rebound MUSCULOSKELETAL: No CVA tenderness. EXTREMITIES: 2+ pulses, No peripheral edema. NEUROLOGICAL: Cranial nerves II-XII intact. Awake and responsive to questioning , still answering yes or no mostly. moves all extremities equally in confrontation testing, sensory grossly intact, gait deferred SKIN: Warm, dry, diffuse ecchymosis over the LLE, and Right medial upper extremity CBCD WBC 9.2 K/mm3 (4.0-10.0) 06/30/19 05:10 RBC 3.88 M/mm3 (3.60-5.2) 06/30/19 05:10 Hgb 11.6 GM/dL (10.7-15.3) 06/30/19 05:10 Hct 34.4 % (32.4-45.2) 06/30/19 05:10 MCV 88.6 fl (80-96) 06/30/19 05:10 MCHC 33.6 g/dl (32.0-36.0) 06/30/19 05:10 RDW 13.6 % (11.6-15.6) 06/30/19 05:10 Plt Count 197 K/MM3 (134-434) 06/30/19 05:10 MPV 9.1 fl (7.5-11.1) 06/30/19 05:10 CMP Sodium 143 mmol/L (136-145) 07/03/19 10:54 Potassium 3.9 mmol/L (3.5-5.1) 07/03/19 10:54 Chloride 110 mmol/L (98-107) H 07/03/19 10:54 Carbon Dioxide 25 mmol/L (21-32) 07/03/19 10:54 Anion Gap 7 MMOL/L (8-16) L 07/03/19 10:54 BUN 13.2 mg/dL (7-18) 07/03/19 10:54 Creatinine 1.0 mg/dL (0.55-1.3) 07/03/19 10:54 Calcium 9.4 mg/dL (8.5-10.1) 07/03/19 10:54 Total Bilirubin 1.3 mg/dL (0.2-1) H 06/30/19 05:10 AST 35 U/L (15-37) 06/30/19 05:10 ALT 14 U/L (13-61) 06/30/19 05:10 Alkaline Phosphatase 107 U/L (45-117) 06/30/19 05:10 Total Protein 5.8 g/dl (6.4-8.2) L 06/30/19 05:10 Albumin 3.2 g/dl (3.4-5.0) L 06/30/19 05:10 ASSESSMENT/PLAN: 73 y/o F with PMHx of CAD (s/p 5 stents, on ASA/Plavix), Parkinsons disease, Prior CVA/TIA, HTN, NIDDM, HLD, presented with right lower extremity weakness. Patient was accompanied by her daughter Theresa who aided in providing HPI per notes. Theresa stated that patient typically has an abnormal gait requiring assistance, and has recently had at least 2 falls, most recently falling backward yesterday into an arm chair without hitting her head or LOC. Evening prior to admission around 1900, daughter reportedly noticed that patient had weakness performing her ADLs and speaking very slowly with mumbling; typically patient is able to eat on her own and bring her dishes to the sink. Theresa additionally noticed a right facial droop at this time accompanied by right lower extremity weakness; Patient was dragging her right lower extremity and her gait was changed prompting her daughter to alert EMD. At baseline, patient has dementia, a soft spoken occassionally mumbled speech and difficult with balance but this was much different. Theresa lives at home with her mother and ensures that patient is medication complaint according to note. Denies any recent medication changes or travel. Additionally she mentions that the has constipation, otherwise denies fevers, chills, chest pain, SOB, nausea, vomiting , diarrhea, hematuria. CT head completed and without acute changes though noted chronic L periventricular infarcts. MRI brain completed overnight and although it demonstrated acute R rodriguez radiata infarct that does not localize to R sided weakness. Of note, there are chronic R perventricular chronic infarcts. Patient with minimal speech and limited exam but is moving extremities grossly. She was on ASA 81, Plavix 75. LDL 99, remains on statin 40mg. Weekend notes reviewed, patient more interactive today and moves b/l extremities with more symetric strength, not providing full effort yet but does not have hemiplegia. Spoke to daughter, Theresa on Saturday, in detail and discussed my assessment. Likely mutifactorial etiology of patient's condition involving acute infarct superimposed on chronic CVAs and underlying Parkinson's Disease. This combination is likely leading to patient's limitations. GI notes reviewed, plan is for PEG placement and Plavix being held for 5 days. Patient remains on aspirin 81 mg daily. Per notes GI discussed with family and they reportedly aware of slightly increased risk for stroke and wanted to pursue PEG tube for nutritional benefits. Patient remains neurologically stable this morning. PT as tolerated. Continue Statin at current dose as LDL < 100. Continue hydration for NOELLE. MOnitor glucose, maintain euglycemic range. Spoke to engagement liaison 07/03 who indicated Afib and therefore plan was to give patient IV heparin for AC and can held for procedure. No objection to this, again slight increased risk of bleed but concern for thrombotic events is greater at this time time. Would not bolus patient. Monitor bp, maintain less than 140/90, Cardiology follow-up. Continue medical mgmt.
--- NOTE | 2019-07-04 12:04 | PN ---
Progress Note (short form) - Note Progress Note: s: shakes head no for chest pain, palps, dizziness, dyspnea. appears comfortable. Current Medications Aspirin (Asa -) 81 mg PO DAILY [facility] Last Admin: 07/04/19 10:50 Dose: 81 mg Atorvastatin Calcium (Lipitor -) 40 mg PO HS [facility] Last Admin: 07/03/19 22:55 Dose: 40 mg Carbidopa/Levodopa (Sinemet 25/100 -) 1 each PO TID [facility] Last Admin: 07/04/19 06:44 Dose: 1 each Heparin Sodium (Porcine) (Heparin -) 1,000 unit IVPUSH PRN PRN PRN Reason: Heparin Heparin Sodium (Porcine) (Heparin -) 5,000 unit IVPUSH PRN PRN PRN Reason: Heparin Heparin Sodium/Dextrose (Heparin Infusion -) 25,000 units in 500 mls @ 16 mls/ hr IV TITR [facility]; Protocol Last Titration: 07/04/19 03:44 Dose: 550 units/hr, 11 mls/hr Insulin Aspart (Novolog Vial Sliding Scale -) 1 vial SQ ACHS [facility]; Protocol Last Admin: 07/04/19 11:55 Dose: 4 units Pantoprazole Sodium (Protonix Iv) 40 mg IVPUSH DAILY [facility] Last Admin: 07/04/19 10:50 Dose: 40 mg Paroxetine HCl (Paxil -) 40 mg PO DAILY [facility] Last Admin: 07/04/19 10:50 Dose: 40 mg Polyethylene Glycol (Miralax (For Daily Use) -) 17 gm NGT DAILY [facility] Last Admin: 07/04/19 10:51 Dose: 17 gm Vital Signs Period Temp Pulse Resp BP Sys/Chavez Pulse Ox Last 24 Hr 98.1 F-99.5 F 62-73 16-18 125-139/57-77 97 Constitutional: Yes: No Distress, Calm Eyes: Yes: Conjunctiva Clear Cardiovascular: Yes: Regular Rate and Rhythm Respiratory: Yes: CTA Bilaterally Gastrointestinal: Yes: Soft Edema: No Neurological: Yes: Other (nonverbal) no jaundice, diaphoresis not agitated Assessment/Plan echo 06/2019: nl lv/rv, no sig valve path carotids 06/2019: no sig stenosis tele: sr a/p: 73 year old f with history of CAD s/p remote stents, HTN, NIDDM, and parkinsons disease, dementia here with rle weakness, CVA cva: lacunar -echo and carotids unremarkable -tele shows episode of PAF on 07/02 - now on heparin gtt - plavix was dc'ed - continue aspirin -BP controlled CAD s/p remote pci: - no signs acs - echo unremarkable her - continue atorvastatin for LDL goal 70mg/dl - plavix was dc'ed, now on AC for afib - cont aspirin HTN -stable, cont home meds preop: -no cardiac contraindications to PEG. - plavix was dc'ed - per GI PEG planned for 07/08, will continue asa
[2019-07-04] MEDS: HEPARIN INFUSION - 25,000 UNITS/500 ML INFUS.BAG IV SCH (12:24)
--- NOTE | 2019-07-04 14:07 | PN ---
Progress Note, Physician Chief Complaint: AWAKE BEDSIDE ALL QUESTIONS ANSWERED PATIENT COMFORTABLE NGT IN PLACE - Current Medication List Current Medications: Active Medications Aspirin (Asa -) 81 mg PO DAILY [facility] Last Admin: 07/04/19 10:50 Dose: 81 mg Atorvastatin Calcium (Lipitor -) 40 mg PO HS [facility] Last Admin: 07/03/19 22:55 Dose: 40 mg Carbidopa/Levodopa (Sinemet 25/100 -) 1 each PO TID [facility] Last Admin: 07/04/19 13:21 Dose: 1 each Heparin Sodium (Porcine) (Heparin -) 1,000 unit IVPUSH PRN PRN PRN Reason: Heparin Heparin Sodium (Porcine) (Heparin -) 5,000 unit IVPUSH PRN PRN PRN Reason: Heparin Heparin Sodium/Dextrose (Heparin Infusion -) 25,000 units in 500 mls @ 16 mls/ hr IV TITR [facility]; Protocol Last Admin: 07/04/19 12:24 Dose: 550 units/hr, 11 mls/hr Insulin Aspart (Novolog Vial Sliding Scale -) 1 vial SQ ACHS [facility]; Protocol Last Admin: 07/04/19 11:55 Dose: 4 units Pantoprazole Sodium (Protonix Iv) 40 mg IVPUSH DAILY [facility] Last Admin: 07/04/19 10:50 Dose: 40 mg Paroxetine HCl (Paxil -) 40 mg PO DAILY [facility] Last Admin: 07/04/19 10:50 Dose: 40 mg Polyethylene Glycol (Miralax (For Daily Use) -) 17 gm NGT DAILY [facility] Last Admin: 07/04/19 10:51 Dose: 17 gm - Objective Vital Signs: Vital Signs Temperature 97.8 F 07/04/19 10:00 Pulse Rate 66 07/04/19 10:00 Respiratory Rate 18 07/04/19 10:00 Blood Pressure 142/73 07/04/19 10:00 O2 Sat by Pulse Oximetry (%) 96 07/04/19 09:00 Constitutional: Yes: No Distress Cardiovascular: Yes: Pulse Irregular Respiratory: Yes: WNL Gastrointestinal: Yes: Soft Genitourinary: Yes: Incontinence Musculoskeletal: Yes: Muscle Weakness Edema: No Neurological: Yes: Confusion Labs: CBC, BMP 06/30/19 05:10 07/03/19 10:54 INR, PTT INR 1.05 (0.83-1.09) 06/24/19 23:20 Problem List - Problems (1) CVA (cerebral vascular accident) Code(s): I63.9 - CEREBRAL INFARCTION, UNSPECIFIED Qualifiers: CVA mechanism: unspecified Qualified Code(s): I63.9 - Cerebral infarction, unspecified (2) Diabetes Code(s): E11.9 - TYPE 2 DIABETES MELLITUS WITHOUT COMPLICATIONS Qualifiers: Diabetes mellitus type: type 2 (3) Right sided weakness Code(s): R53.1 - WEAKNESS (4) Anemia Code(s): D64.9 - ANEMIA, UNSPECIFIED Qualifiers: Anemia type: other cause Assessment/Plan HEPARIN IV PAROXYSMAL AFIB WED 07/08 FOR PEG WITH GI CARDIAC CLEARANCE APPRECIATED WILL NEED SNF PLACEMENT MONITOR INR/LABS
[2019-07-04] MEDS: ATORVASTATIN CA 80 MG TABLET (FP) PO SCH (22:14)
[2019-07-05] MEDS: HEPARIN INFUSION - 25,000 UNITS/500 ML INFUS.BAG IV SCH ×2 (01:20→13:54)
[2019-07-05] MEDS: CARBIDOPA/LEVODOPA 25/100 TABLET (FP) PO SCH ×3 (05:48→21:57)
[2019-07-05] MEDS: INSULIN SLIDING SCALE (NOVOLOG) 1 VIAL SQ SCH ×4 (06:07→21:57)
[2019-07-05 07:21] LABS: BLOOD UREA NITROGEN 15.1 mg/dL (7-18); CALCIUM 9.6 mg/dL (8.5-10.1); POTASSIUM 3.8 mmol/L (3.5-5.1)
[2019-07-05 09:26] LABS: HEMOGLOBIN 12.4 GM/dL (10.7-15.3); MCH 29.9 pg (25.7-33.7); MCHC 33.7 g/dl (32.0-36.0); MEAN CELL VOLUME 88.9 fl (80-96); MEAN PLT VOLUME 9.4 fl (7.5-11.1); PLATELET COUNT 254 K/MM3 (134-434); RBC 4.15 M/mm3 (3.60-5.2); RDW 13.9 % (11.6-15.6); WHITE BLOOD COUNT 6.6 K/mm3 (4.0-10.0)
--- NOTE | 2019-07-05 10:35 | PN ---
Progress Note, Physician Chief Complaint: AWAKE NGT IN PLACE NO ACUTE EVENTS - Current Medication List Current Medications: Active Medications Aspirin (Asa -) 81 mg PO DAILY [facility] Last Admin: 07/04/19 10:50 Dose: 81 mg Atorvastatin Calcium (Lipitor -) 40 mg PO HS [facility] Last Admin: 07/04/19 22:14 Dose: 40 mg Carbidopa/Levodopa (Sinemet 25/100 -) 1 each PO TID [facility] Last Admin: 07/05/19 05:48 Dose: 1 each Heparin Sodium (Porcine) (Heparin -) 1,000 unit IVPUSH PRN PRN PRN Reason: Heparin Heparin Sodium (Porcine) (Heparin -) 5,000 unit IVPUSH PRN PRN PRN Reason: Heparin Heparin Sodium/Dextrose (Heparin Infusion -) 25,000 units in 500 mls @ 16 mls/ hr IV TITR [facility]; Protocol Last Admin: 07/05/19 01:20 Dose: 550 units/hr, 11 mls/hr Insulin Aspart (Novolog Vial Sliding Scale -) 1 vial SQ ACHS [facility]; Protocol Last Admin: 07/05/19 06:07 Dose: 4 units Pantoprazole Sodium (Protonix Iv) 40 mg IVPUSH DAILY [facility] Last Admin: 07/04/19 10:50 Dose: 40 mg Paroxetine HCl (Paxil -) 40 mg PO DAILY [facility] Last Admin: 07/04/19 10:50 Dose: 40 mg Polyethylene Glycol (Miralax (For Daily Use) -) 17 gm NGT DAILY [facility] Last Admin: 07/04/19 10:51 Dose: 17 gm - Objective Vital Signs: Vital Signs Temperature 98.6 F 07/05/19 06:00 Pulse Rate 65 07/05/19 06:00 Respiratory Rate 20 07/05/19 06:00 Blood Pressure 148/82 07/05/19 06:00 O2 Sat by Pulse Oximetry (%) 94 L 07/04/19 21:00 Constitutional: Yes: No Distress HENT: Yes: Thrush Cardiovascular: Yes: Pulse Irregular Respiratory: Yes: Diminished, On Nasal O2 Gastrointestinal: Yes: Soft Genitourinary: Yes: Incontinence Edema: No Integumentary: Yes: Other Labs: CBC, BMP 07/05/19 06:30 07/05/19 05:59 INR, PTT INR 1.05 (0.83-1.09) 06/24/19 23:20 Problem List - Problems (1) CVA (cerebral vascular accident) Code(s): I63.9 - CEREBRAL INFARCTION, UNSPECIFIED Qualifiers: CVA mechanism: unspecified Qualified Code(s): I63.9 - Cerebral infarction, unspecified (2) Diabetes Code(s): E11.9 - TYPE 2 DIABETES MELLITUS WITHOUT COMPLICATIONS Qualifiers: Diabetes mellitus type: type 2 (3) Right sided weakness Code(s): R53.1 - WEAKNESS (4) Anemia Code(s): D64.9 - ANEMIA, UNSPECIFIED Qualifiers: Anemia type: other cause Assessment/Plan HEPARIN IV PAROXYSMAL AFIB WED 07/08 FOR PEG WITH GI CARDIAC CLEARANCE APPRECIATED WILL NEED SNF PLACEMENT MONITOR INR/LABS [facility] FOR ORAL THRUSH
[2019-07-05] MEDS ORDERED: PARoxetine HCL 10 MG TABLET ONE (10:54)
[2019-07-05] MEDS: ASPIRIN 81 MG CHEWABLE TABLETS PO SCH (10:55)
[2019-07-05] MEDS: POLYETHYLENE GLYCOL 3350 119 GM BTL NGT SCH (10:55)
[2019-07-05] MEDS: PARoxetine HCL 20 MG TABLET PO SCH (10:56)
[2019-07-05] MEDS: PANTOPRAZOLE SODIUM 40 MG VIAL IVPUSH SCH (10:56)
--- NOTE | 2019-07-05 11:07 | PN ---
Progress Note (short form) - Note Progress Note: Neurology CHIEF COMPLAINT: Weakness HISTORY OF PRESENT ILLNESS: 73 y/o F with PMHx of CAD (s/p 5 stents, on ASA/Plavix), Parkinsons disease, Prior CVA/TIA, HTN, NIDDM, HLD, presented with right lower extremity weakness. Patient was accompanied by her daughter Theresa at time of admission. Theresa stated that patient typically has an abnormal gait requiring assistance, and has recently had at least 2 falls, most recently falling backward day prior to admission into an arm chair without hitting her head or LOC. Evening prior to admission around 0, daughter reportedly noticed that patient had weakness performing her ADLs and speaking very slowly with mumbling; typically patient is able to eat on her own and bring her dishes to the sink. Theresa additionally noticed a right facial droop at this time accompanied by right lower extremity weakness; Patient was dragging her right lower extremity and her gait was changed prompting her daughter to alert EMD. At baseline, patient has dementia, a soft spoken occassionally mumbled speech and difficult with balance but this was much different. Theresa lives at home with her mother and ensures that patient is medication complaint according to note. Denies any recent medication changes or travel. Additionally she mentions that the has constipation, otherwise denies fevers, chills, chest pain, SOB, nausea, vomiting, diarrhea, hematuria. CT head completed and without acute changes though noted chronic L periventricular infarcts. MRI brain completed overnight and although it demonstrated acute R rodriguez radiata infarct that does not localize to R sided weakness. Of note, there are chronic R perventricular chronic infarcts. Patient with minimal speech and limited exam but is moving extremities grossly. She was on ASA 81, Plavix 75. LDL 99, remains on statin 40mg. Remains mminimally interactive and moves b/l extremities with more symetric strength, not providing full effort yet but does not have hemiplegia. NG tube in place, speech pathologist following. Spoke to daughterTheresa on Saturday in detail and discussed my assessment. Likely mutifactorial etiology of patient's condition involving acute infarct superimposed on chronic CVAs and underlying Parkinson's Disease. This combination is likely leading to patient's limitations. GI notes reviewed, plan is for PEG placement and Plavix being held for 5 days. Patient remains on aspirin 81 mg daily. Per notes GI discussed with family and they reportedly aware of slightly increased risk for stroke and wanted to pursue PEG tube for nutritional benefits. Patient remains neurologically stable this morning. Spoke to pension administrator 07/03 who indicated Afib and therefore plan was to give patient IV heparin for AC and can held for procedure. No objection to this, again slight increased risk of bleed but concern for thrombotic events is greater at this time time. Remains eurologically stable at this time and no new complaints. Awaiting placement of PEG tube. Allergies No Known Allergies Allergy (Verified 06/24/19 21:27) Active Medications Aspirin (Asa -) 81 mg PO DAILY [facility] Last Admin: 07/05/19 10:55 Dose: 81 mg Atorvastatin Calcium (Lipitor -) 40 mg PO HS [facility] Last Admin: 07/04/19 22:14 Dose: 40 mg Carbidopa/Levodopa (Sinemet 25/100 -) 1 each PO TID [facility] Last Admin: 07/05/19 05:48 Dose: 1 each Heparin Sodium (Porcine) (Heparin -) 1,000 unit IVPUSH PRN PRN PRN Reason: Heparin Heparin Sodium (Porcine) (Heparin -) 5,000 unit IVPUSH PRN PRN PRN Reason: Heparin Heparin Sodium/Dextrose (Heparin Infusion -) 25,000 units in 500 mls @ 16 mls/ hr IV TITR [facility]; Protocol Last Admin: 07/05/19 01:20 Dose: 550 units/hr, 11 mls/hr Insulin Aspart (Novolog Vial Sliding Scale -) 1 vial SQ ACHS [facility]; Protocol Last Admin: 07/05/19 06:07 Dose: 4 units Pantoprazole Sodium (Protonix Iv) 40 mg IVPUSH DAILY [facility] Last Admin: 07/05/19 10:56 Dose: 40 mg Paroxetine HCl (Paxil -) 40 mg PO DAILY [facility] Last Admin: 07/05/19 10:56 Dose: 40 mg Polyethylene Glycol (Miralax (For Daily Use) -) 17 gm NGT DAILY [facility] Last Admin: 07/05/19 10:55 Dose: 17 gm PHYSICAL EXAMINATION Vital Signs Period Temp Pulse Resp BP Sys/Chavez Pulse Ox Last 24 Hr 97.4 F-98.8 F 61-71 18-20 126-148/56-82 94 GENERAL: Awake, alert, NAD HEAD: NCAT EYES: PERRL, EOMI, Left lid lag (Chronic) ENT: Moist mucous membranes. NECK: Supple, No JVD LUNGS: CTAB. No wheezes, no crackles. HEART: Regular rate and rhythm, normal S1 and S2 without murmur ABDOMEN: Soft, nontender, not distended, + bowel sounds, no guarding, no rebound MUSCULOSKELETAL: No CVA tenderness. EXTREMITIES: 2+ pulses, No peripheral edema. NEUROLOGICAL: Cranial nerves II-XII intact. Awake and responsive to questioning , still answering yes or no mostly. moves all extremities equally in confrontation testing, sensory grossly intact, gait deferred SKIN: Warm, dry, diffuse ecchymosis over the LLE, and Right medial upper extremity CBCD WBC 6.6 K/mm3 (4.0-10.0) 07/05/19 06:30 RBC 4.15 M/mm3 (3.60-5.2) 07/05/19 06:30 Hgb 12.4 GM/dL (10.7-15.3) 07/05/19 06:30 Hct 37.0 % (32.4-45.2) 07/05/19 06:30 MCV 88.9 fl (80-96) 07/05/19 06:30 MCHC 33.7 g/dl (32.0-36.0) 07/05/19 06:30 RDW 13.9 % (11.6-15.6) 07/05/19 06:30 Plt Count 254 K/MM3 (134-434) D 07/05/19 06:30 MPV 9.4 fl (7.5-11.1) 07/05/19 06:30 CMP Sodium 141 mmol/L (136-145) 07/05/19 05:59 Potassium 3.8 mmol/L (3.5-5.1) 07/05/19 05:59 Chloride 104 mmol/L (98-107) 07/05/19 05:59 Carbon Dioxide 29 mmol/L (21-32) 07/05/19 05:59 Anion Gap 8 MMOL/L (8-16) 07/05/19 05:59 BUN 15.1 mg/dL (7-18) 07/05/19 05:59 Creatinine 1.0 mg/dL (0.55-1.3) 07/05/19 05:59 Random Glucose 232 mg/dL (74-106) H 07/05/19 05:59 Calcium 9.6 mg/dL (8.5-10.1) 07/05/19 05:59 Total Bilirubin 1.3 mg/dL (0.2-1) H 06/30/19 05:10 AST 35 U/L (15-37) 06/30/19 05:10 ALT 14 U/L (13-61) 06/30/19 05:10 Alkaline Phosphatase 107 U/L (45-117) 06/30/19 05:10 Total Protein 5.8 g/dl (6.4-8.2) L 06/30/19 05:10 Albumin 3.2 g/dl (3.4-5.0) L 06/30/19 05:10 CARDIAC ENZYMES Troponin I < 0.02 ng/ml (0.00-0.05) 06/24/19 23:20 ASSESSMENT/PLAN: 73 y/o F with PMHx of CAD (s/p 5 stents, on ASA/Plavix), Parkinsons disease, Prior CVA/TIA, HTN, NIDDM, HLD, presented with right lower extremity weakness. Patient was accompanied by her daughter Theresa who aided in providing HPI per notes. Theresa stated that patient typically has an abnormal gait requiring assistance, and has recently had at least 2 falls, most recently falling backward yesterday into an arm chair without hitting her head or LOC. Evening prior to admission around 1900, daughter reportedly noticed that patient had weakness performing her ADLs and speaking very slowly with mumbling; typically patient is able to eat on her own and bring her dishes to the sink. Theresa additionally noticed a right facial droop at this time accompanied by right lower extremity weakness; Patient was dragging her right lower extremity and her gait was changed prompting her daughter to alert EMD. At baseline, patient has dementia, a soft spoken occassionally mumbled speech and difficult with balance but this was much different. Theresa lives at home with her mother and ensures that patient is medication complaint according to note. Denies any recent medication changes or travel. Additionally she mentions that the has constipation, otherwise denies fevers, chills, chest pain, SOB, nausea, vomiting , diarrhea, hematuria. CT head completed and without acute changes though noted chronic L periventricular infarcts. MRI brain completed overnight and although it demonstrated acute R rodriguez radiata infarct that does not localize to R sided weakness. Of note, there are chronic R perventricular chronic infarcts. Patient with minimal speech and limited exam but is moving extremities grossly. She was on ASA 81, Plavix 75. LDL 99, remains on statin 40mg. Weekend notes reviewed, patient more interactive today and moves b/l extremities with more symetric strength, not providing full effort yet but does not have hemiplegia. Spoke to daughter, Theresa on Saturday, in detail and discussed my assessment. Likely mutifactorial etiology of patient's condition involving acute infarct superimposed on chronic CVAs and underlying Parkinson's Disease. This combination is likely leading to patient's limitations. GI notes reviewed, plan is for PEG placement and Plavix being held for 5 days. Patient remains on aspirin 81 mg daily. Per notes GI discussed with family and they reportedly aware of slightly increased risk for stroke and wanted to pursue PEG tube for nutritional benefits. Patient remains neurologically stable this morning. PT as tolerated. Continue Statin at current dose as LDL < 100. Continue hydration for NOELLE. MOnitor glucose, maintain euglycemic range. Spoke to pension administrator 07/03 who indicated Afib and therefore plan was to give patient IV heparin for AC and can held for procedure. No objection to this, again slight increased risk of bleed but concern for thrombotic events is greater at this time time. Remains eurologically stable at this time and no new complaints. Awaiting placement of PEG tube. Monitor bp, maintain less than 140/90, Cardiology follow-up. Continue medical mgmt.
--- NOTE | 2019-07-05 12:52 | PN ---
Progress Note (short form) - Note Progress Note: s: no chest pain, palps, dizziness, dyspnea. Current Medications Aspirin (Asa -) 81 mg PO DAILY [facility] Last Admin: 07/05/19 10:55 Dose: 81 mg Atorvastatin Calcium (Lipitor -) 40 mg PO HS [facility] Last Admin: 07/04/19 22:14 Dose: 40 mg Carbidopa/Levodopa (Sinemet 25/100 -) 1 each PO TID [facility] Last Admin: 07/05/19 05:48 Dose: 1 each Heparin Sodium (Porcine) (Heparin -) 1,000 unit IVPUSH PRN PRN PRN Reason: Heparin Heparin Sodium (Porcine) (Heparin -) 5,000 unit IVPUSH PRN PRN PRN Reason: Heparin Heparin Sodium/Dextrose (Heparin Infusion -) 25,000 units in 500 mls @ 16 mls/ hr IV TITR [facility]; Protocol Last Admin: 07/05/19 01:20 Dose: 550 units/hr, 11 mls/hr Insulin Aspart (Novolog Vial Sliding Scale -) 1 vial SQ ACHS [facility]; Protocol Last Admin: 07/05/19 11:20 Dose: 2 units Pantoprazole Sodium (Protonix Iv) 40 mg IVPUSH DAILY [facility] Last Admin: 07/05/19 10:56 Dose: 40 mg Paroxetine HCl (Paxil -) 40 mg PO DAILY [facility] Last Admin: 07/05/19 10:56 Dose: 40 mg Polyethylene Glycol (Miralax (For Daily Use) -) 17 gm NGT DAILY [facility] Last Admin: 07/05/19 10:55 Dose: 17 gm Vital Signs Period Temp Pulse Resp BP Sys/Chavez Pulse Ox Last 24 Hr 97.4 F-98.8 F 61-72 18-20 126-148/56-93 94-95 Constitutional: Yes: No Distress, Calm Eyes: Yes: Conjunctiva Clear Cardiovascular: Yes: Regular Rate and Rhythm Respiratory: Yes: CTA Bilaterally Gastrointestinal: Yes: Soft Edema: No Neurological: Yes: Other (nonverbal) no jaundice, diaphoresis not agitated Assessment/Plan echo 06/2019: nl lv/rv, no sig valve path carotids 06/2019: no sig stenosis tele: sr a/p: 73 year old f with history of CAD s/p remote stents, HTN, NIDDM, and parkinsons disease, dementia here with rle weakness, CVA cva: lacunar -echo and carotids unremarkable -tele shows episode of PAF on 07/02 - now on heparin gtt - plavix was dc'ed - continue aspirin -BP controlled CAD s/p remote pci: - no signs acs - echo unremarkable her - continue atorvastatin for LDL goal 70mg/dl - plavix was dc'ed, now on AC for afib - cont aspirin HTN -stable, cont home meds preop: -no cardiac contraindications to PEG. - plavix was dc'ed - per GI PEG planned for 07/08, will continue asa
[2019-07-05] MEDS: NYSTATIN 500,000 UNITS/5 ML SUSPENSION PO SCH (18:23)
[2019-07-05] MEDS: ATORVASTATIN CA 80 MG TABLET (FP) PO SCH (21:57)
[2019-07-06] MEDS: NYSTATIN 500,000 UNITS/5 ML SUSPENSION PO SCH ×4 (00:03→17:39)
[2019-07-06] MEDS: INSULIN SLIDING SCALE (NOVOLOG) 1 VIAL SQ SCH ×4 (06:03→22:25)
[2019-07-06] MEDS: CARBIDOPA/LEVODOPA 25/100 TABLET (FP) PO SCH ×3 (06:03→22:17)
[2019-07-06] MEDS: HEPARIN INFUSION - 25,000 UNITS/500 ML INFUS.BAG IV SCH ×2 (06:19→12:35)
--- NOTE | 2019-07-06 09:38 | PN ---
Progress Note (short form) - Note Progress Note: Neurology CHIEF COMPLAINT: Weakness HISTORY OF PRESENT ILLNESS: 73 y/o F with PMHx of CAD (s/p 5 stents, on ASA/Plavix), Parkinsons disease, Prior CVA/TIA, HTN, NIDDM, HLD, presented with right lower extremity weakness. Patient was accompanied by her daughter Theresa at time of admission. Theresa stated that patient typically has an abnormal gait requiring assistance, and has recently had at least 2 falls, most recently falling backward day prior to admission into an arm chair without hitting her head or LOC. Evening prior to admission around 0, daughter reportedly noticed that patient had weakness performing her ADLs and speaking very slowly with mumbling; typically patient is able to eat on her own and bring her dishes to the sink. Theresa additionally noticed a right facial droop at this time accompanied by right lower extremity weakness; Patient was dragging her right lower extremity and her gait was changed prompting her daughter to alert EMD. At baseline, patient has dementia, a soft spoken occassionally mumbled speech and difficult with balance but this was much different. Theresa lives at home with her mother and ensures that patient is medication complaint according to note. Denies any recent medication changes or travel. Additionally she mentions that the has constipation, otherwise denies fevers, chills, chest pain, SOB, nausea, vomiting, diarrhea, hematuria. CT head completed and without acute changes though noted chronic L periventricular infarcts. MRI brain completed overnight and although it demonstrated acute R rodriguez radiata infarct that does not localize to R sided weakness. Of note, there are chronic R perventricular chronic infarcts. Patient with minimal speech and limited exam but is moving extremities grossly. She was on ASA 81, Plavix 75. LDL 99, remains on statin 40mg. Remains mminimally interactive and moves b/l extremities with more symetric strength, not providing full effort yet but does not have hemiplegia. NG tube in place, speech pathologist following. Spoke to daughterTheresa on Saturday in detail and discussed my assessment. Likely mutifactorial etiology of patient's condition involving acute infarct superimposed on chronic CVAs and underlying Parkinson's Disease. This combination is likely leading to patient's limitations. GI notes reviewed, plan is for PEG placement and Plavix being held for 5 days. Patient remains on aspirin 81 mg daily. Per notes GI discussed with family and they reportedly aware of slightly increased risk for stroke and wanted to pursue PEG tube for nutritional benefits. Patient remains neurologically stable this morning. Spoke to baker apprentice 07/03 who indicated Afib and therefore plan was to give patient IV heparin for AC and can held for procedure. No objection to this, again slight increased risk of bleed but concern for thrombotic events is greater at this time. no adverse effects since being off Plavix. Remains neurologically stable at this time and no new complaints. Awaiting placement of PEG tube. Allergies No Known Allergies Allergy (Verified 06/24/19 21:27) Active Medications Aspirin (Asa -) 81 mg PO DAILY [facility] Last Admin: 07/05/19 10:55 Dose: 81 mg Atorvastatin Calcium (Lipitor -) 40 mg PO HS [facility] Last Admin: 07/05/19 21:57 Dose: 40 mg Carbidopa/Levodopa (Sinemet 25/100 -) 1 each PO TID [facility] Last Admin: 07/06/19 06:03 Dose: 1 each Heparin Sodium (Porcine) (Heparin -) 1,000 unit IVPUSH PRN PRN PRN Reason: Heparin Heparin Sodium (Porcine) (Heparin -) 5,000 unit IVPUSH PRN PRN PRN Reason: Heparin Heparin Sodium/Dextrose (Heparin Infusion -) 25,000 units in 500 mls @ 16 mls/ hr IV TITR [facility]; Protocol Last Admin: 07/06/19 06:19 Dose: 550 units/hr, 11 mls/hr Insulin Aspart (Novolog Vial Sliding Scale -) 1 vial SQ ACHS [facility]; Protocol Last Admin: 07/06/19 06:03 Dose: 2 units Nystatin (Nystatin Oral Suspension -) 500,000 units PO Q6HPO [facility] Last Admin: 07/06/19 06:03 Dose: 500,000 units Pantoprazole Sodium (Protonix Iv) 40 mg IVPUSH DAILY [facility] Last Admin: 07/05/19 10:56 Dose: 40 mg Paroxetine HCl (Paxil -) 40 mg PO DAILY [facility] Last Admin: 07/05/19 10:56 Dose: 40 mg Polyethylene Glycol (Miralax (For Daily Use) -) 17 gm NGT DAILY [facility] Last Admin: 07/05/19 10:55 Dose: 17 gm PHYSICAL EXAMINATION Vital Signs Period Temp Pulse Resp BP Sys/Chavez Pulse Ox Last 24 Hr 98.2 F-99.0 F 65-79 18-20 113-146/63-93 95 GENERAL: Awake, alert, NAD HEAD: NCAT EYES: PERRL, EOMI, Left lid lag (Chronic) ENT: Moist mucous membranes. NECK: Supple, No JVD LUNGS: CTAB. No wheezes, no crackles. HEART: Regular rate and rhythm, normal S1 and S2 without murmur ABDOMEN: Soft, nontender, not distended, + bowel sounds, no guarding, no rebound MUSCULOSKELETAL: No CVA tenderness. EXTREMITIES: 2+ pulses, No peripheral edema. NEUROLOGICAL: Cranial nerves II-XII intact. Awake and responsive to questioning , still answering yes or no mostly. moves all extremities equally in confrontation testing, sensory grossly intact, gait deferred SKIN: Warm, dry, diffuse ecchymosis over the LLE, and Right medial upper extremity CBCD WBC 6.6 K/mm3 (4.0-10.0) 07/05/19 06:30 RBC 4.15 M/mm3 (3.60-5.2) 07/05/19 06:30 Hgb 12.4 GM/dL (10.7-15.3) 07/05/19 06:30 Hct 37.0 % (32.4-45.2) 07/05/19 06:30 MCV 88.9 fl (80-96) 07/05/19 06:30 MCHC 33.7 g/dl (32.0-36.0) 07/05/19 06:30 RDW 13.9 % (11.6-15.6) 07/05/19 06:30 Plt Count 254 K/MM3 (134-434) D 07/05/19 06:30 MPV 9.4 fl (7.5-11.1) 07/05/19 06:30 CMP Sodium 141 mmol/L (136-145) 07/05/19 05:59 Potassium 3.8 mmol/L (3.5-5.1) 07/05/19 05:59 Chloride 104 mmol/L (98-107) 07/05/19 05:59 Carbon Dioxide 29 mmol/L (21-32) 07/05/19 05:59 Anion Gap 8 MMOL/L (8-16) 07/05/19 05:59 BUN 15.1 mg/dL (7-18) 07/05/19 05:59 Creatinine 1.0 mg/dL (0.55-1.3) 07/05/19 05:59 Random Glucose 232 mg/dL (74-106) H 07/05/19 05:59 Calcium 9.6 mg/dL (8.5-10.1) 07/05/19 05:59 Total Bilirubin 1.3 mg/dL (0.2-1) H 06/30/19 05:10 AST 35 U/L (15-37) 06/30/19 05:10 ALT 14 U/L (13-61) 06/30/19 05:10 Alkaline Phosphatase 107 U/L (45-117) 06/30/19 05:10 Total Protein 5.8 g/dl (6.4-8.2) L 06/30/19 05:10 Albumin 3.2 g/dl (3.4-5.0) L 06/30/19 05:10 CARDIAC ENZYMES Troponin I < 0.02 ng/ml (0.00-0.05) 06/24/19 23:20 ASSESSMENT/PLAN: 73 y/o F with PMHx of CAD (s/p 5 stents, on ASA/Plavix), Parkinsons disease, Prior CVA/TIA, HTN, NIDDM, HLD, presented with right lower extremity weakness. Patient was accompanied by her daughter Theresa who aided in providing HPI per notes. Theresa stated that patient typically has an abnormal gait requiring assistance, and has recently had at least 2 falls, most recently falling backward yesterday into an arm chair without hitting her head or LOC. Evening prior to admission around 1900, daughter reportedly noticed that patient had weakness performing her ADLs and speaking very slowly with mumbling; typically patient is able to eat on her own and bring her dishes to the sink. Theresa additionally noticed a right facial droop at this time accompanied by right lower extremity weakness; Patient was dragging her right lower extremity and her gait was changed prompting her daughter to alert EMD. She was on ASA 81, Plavix 75. LDL 99, remains on statin 40mg. Patient remains neurologically stable this morning. PT as tolerated. Continue Statin at current dose as LDL < 100. Continue hydration for NOELLE. MOnitor glucose, maintain euglycemic range. Spoke to baker apprentice 07/03 who indicated Afib and therefore plan was to give patient IV heparin for AC and can held for procedure. No objection to this, again slight increased risk of bleed but concern for thrombotic events is greater at this time time. CT reviewed with no acute changes noted. Patient slightly more irritable this morning, reports she did not sleep well last night. Awaiting placement. Monitor bp, maintain less than 140/90, Cardiology follow-up. Continue medical mgmt.
--- NOTE | 2019-07-06 10:35 | PN ---
Progress Note, Physician Chief Complaint: stroke History of Present Illness: aphasix, non-verbal. shakes head "no" to cp? sob? palpit? syncope? - Current Medication List Current Medications: Active Medications Aspirin (Asa -) 81 mg PO DAILY [facility] Last Admin: 07/05/19 10:55 Dose: 81 mg Atorvastatin Calcium (Lipitor -) 40 mg PO HS [facility] Last Admin: 07/05/19 21:57 Dose: 40 mg Carbidopa/Levodopa (Sinemet 25/100 -) 1 each PO TID [facility] Last Admin: 07/06/19 06:03 Dose: 1 each Heparin Sodium (Porcine) (Heparin -) 1,000 unit IVPUSH PRN PRN PRN Reason: Heparin Heparin Sodium (Porcine) (Heparin -) 5,000 unit IVPUSH PRN PRN PRN Reason: Heparin Heparin Sodium/Dextrose (Heparin Infusion -) 25,000 units in 500 mls @ 16 mls/ hr IV TITR [facility]; Protocol Last Admin: 07/06/19 06:19 Dose: 550 units/hr, 11 mls/hr Insulin Aspart (Novolog Vial Sliding Scale -) 1 vial SQ ACHS [facility]; Protocol Last Admin: 07/06/19 06:03 Dose: 2 units Nystatin (Nystatin Oral Suspension -) 500,000 units PO Q6HPO [facility] Last Admin: 07/06/19 06:03 Dose: 500,000 units Pantoprazole Sodium (Protonix Iv) 40 mg IVPUSH DAILY [facility] Last Admin: 07/05/19 10:56 Dose: 40 mg Paroxetine HCl (Paxil -) 40 mg PO DAILY [facility] Last Admin: 07/05/19 10:56 Dose: 40 mg Polyethylene Glycol (Miralax (For Daily Use) -) 17 gm NGT DAILY [facility] Last Admin: 07/05/19 10:55 Dose: 17 gm - Objective Vital Signs: Vital Signs Temperature 98.4 F 07/06/19 06:00 Pulse Rate 65 07/06/19 06:00 Respiratory Rate 18 07/06/19 06:00 Blood Pressure 146/74 07/06/19 06:00 O2 Sat by Pulse Oximetry (%) 95 07/05/19 21:00 Constitutional: Yes: Well Nourished, No Distress, Calm Cardiovascular: Yes: Regular Rate and Rhythm, S1, S2. No: Gallop, Murmur Respiratory: Yes: Regular, CTA Bilaterally. No: Accessory Muscle Use, Rales Extremities: No: Cold Edema: No Neurological: Yes: Alert. No: Seizure Psychiatric: No: Agitated Labs: CBC, BMP 07/05/19 06:30 07/05/19 05:59 INR, PTT INR 1.05 (0.83-1.09) 06/24/19 23:20 Assessment/Plan echo 06/2019: nl lv/rv, no sig valve path carotids 06/2019: no sig stenosis tele: NSR a/p: 73 year old f with history of CAD s/p remote stents, HTN, NIDDM, and parkinsons disease, dementia here with rle weakness, CVA lacunar stroke, PAFib - echo and carotids unremarkable - tele shows episode of PAF on 07/02 here, new dx - now on heparin gtt - plan to transition to NOAC after PEG is completed this week - plavix was dc'ed - continue aspirin - BP controlled, same plan CAD s/p remote pci: - no signs acs - echo unremarkable her - continue atorvastatin for LDL goal 70mg/dl - plavix was dc'ed, now on AC for afib - cont aspirin--low threshold to stop if any bleeding concerns, once on NOAC HTN -stable -cont present meds preop: -no cardiac contraindications to PEG. - plavix was dc'ed - PEG planned for 07/08, will continue asa per d/w Dr. Kauffman
[2019-07-06] MEDS ORDERED: PARoxetine HCL 10 MG TABLET ONE (10:53)
[2019-07-06] MEDS: PANTOPRAZOLE SODIUM 40 MG VIAL IVPUSH SCH (10:55)
[2019-07-06] MEDS: ASPIRIN 81 MG CHEWABLE TABLETS PO SCH (10:55)
[2019-07-06] MEDS: PARoxetine HCL 20 MG TABLET PO SCH (10:55)
--- NOTE | 2019-07-06 12:29 | PN ---
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 Practiced reading aloud. Able to point to communication board and letters and write. Impaired speech initiation but able to repeat words, delayed, with dysarthric speech production. No longer drooling. Delayed swallow noted. Continue use of Comm board/Writing/ yes-No questions/gesture to maximize functional communication as well as speech drills/conversation. Repeat MBS for possible PO tolerance. PEG to supplement PO possibly? PEG planned for Saturday. Excellent rehab candidate once PEG placed
--- NOTE | 2019-07-06 12:47 | PN ---
Progress Note, Physician Chief Complaint: patient seen and examiend today awake alert able to tell me her name slow to initiate speech - Current Medication List Current Medications: Active Medications Aspirin (Asa -) 81 mg PO DAILY [facility] Last Admin: 07/06/19 10:55 Dose: 81 mg Atorvastatin Calcium (Lipitor -) 40 mg PO HS [facility] Last Admin: 07/05/19 21:57 Dose: 40 mg Carbidopa/Levodopa (Sinemet 25/100 -) 1 each PO TID [facility] Last Admin: 07/06/19 06:03 Dose: 1 each Heparin Sodium (Porcine) (Heparin -) 1,000 unit IVPUSH PRN PRN PRN Reason: Heparin Heparin Sodium (Porcine) (Heparin -) 5,000 unit IVPUSH PRN PRN PRN Reason: Heparin Heparin Sodium/Dextrose (Heparin Infusion -) 25,000 units in 500 mls @ 16 mls/ hr IV TITR [facility]; Protocol Last Admin: 07/06/19 06:19 Dose: 550 units/hr, 11 mls/hr Insulin Aspart (Novolog Vial Sliding Scale -) 1 vial SQ ACHS [facility]; Protocol Last Admin: 07/06/19 06:03 Dose: 2 units Nystatin (Nystatin Oral Suspension -) 500,000 units PO Q6HPO [facility] Last Admin: 07/06/19 06:03 Dose: 500,000 units Pantoprazole Sodium (Protonix Iv) 40 mg IVPUSH DAILY [facility] Last Admin: 07/06/19 10:55 Dose: 40 mg Paroxetine HCl (Paxil -) 40 mg PO DAILY [facility] Last Admin: 07/06/19 10:55 Dose: 40 mg Polyethylene Glycol (Miralax (For Daily Use) -) 17 gm NGT DAILY [facility] Last Admin: 07/05/19 10:55 Dose: 17 gm - Objective Vital Signs: Vital Signs Temperature 98.3 F 07/06/19 10:00 Pulse Rate 62 07/06/19 10:00 Respiratory Rate 18 07/06/19 10:00 Blood Pressure 146/93 07/06/19 10:00 O2 Sat by Pulse Oximetry (%) 95 07/06/19 09:00 Constitutional: Yes: Calm HENT: Yes: Other (NG tube) Cardiovascular: Yes: Regular Rate and Rhythm, S1, S2 Respiratory: Yes: CTA Bilaterally, Diminished (at bases) Gastrointestinal: Yes: Normal Bowel Sounds, Soft Edema: No Neurological: Yes: Alert, Other (slow to initiate speech) Labs: CBC, BMP 07/05/19 06:30 07/05/19 05:59 INR, PTT INR 1.05 (0.83-1.09) 06/24/19 23:20 Problem List - Problems (1) CVA (cerebral vascular accident) Assessment/Plan: MRI note acute /subacute infarct in right side rodriguez radiate and periventricular white matter ng tube with tube feeds- PEG SATURDAY swallow eval - MBS TODAY statin aspirin on hold, DC plavix- started in iv heparin drip no bolus neuro consult noted PT- [facility] after peg echo noted for normal left ventricle function and size carotid doppler no significant stenosis hold asprin and DC plavix for peg tube placement Code(s): I63.9 - CEREBRAL INFARCTION, UNSPECIFIED Qualifiers: CVA mechanism: unspecified Qualified Code(s): I63.9 - Cerebral infarction, unspecified (2) Hypokalemia Assessment/Plan: repleted Code(s): E87.6 - HYPOKALEMIA (3) Diabetes Assessment/Plan: bgm sliding scale hgba1c 7.2 Code(s): E11.9 - TYPE 2 DIABETES MELLITUS WITHOUT COMPLICATIONS Qualifiers: Diabetes mellitus type: type 2 (4) Parkinsons disease Assessment/Plan: sinemet crush with apple sauce neuro eval noted Code(s): G20 - PARKINSON'S DISEASE (5) Paroxysmal A-fib Assessment/Plan: will need NOAC after peg iv heparin no bolus for now Code(s): I48.0 - PAROXYSMAL ATRIAL FIBRILLATION (6) Dysphagia as late effect of cerebrovascular accident (CVA) Assessment/Plan: needs peg by GI On saturday plavix stopped since 07/02 hold aspirin iv heparin drip no bolus- hold for a few hours prior to peg Code(s): I69.391 - DYSPHAGIA FOLLOWING CEREBRAL INFARCTION
[2019-07-06] MEDS: POLYETHYLENE GLYCOL 3350 119 GM BTL NGT SCH (12:56)
--- NOTE | 2019-07-06 18:04 | PN ---
Progress Note (short form) - Note Progress Note: Brief GI note Pt awake/alert, attempting to speak, dysarthric. DIRECTOR ASSET re-evaluation noted. Pt on asa and heparin gtt. Plavix has been held since 07/02. Plan for EGD/PEG tentatively on Saturday. Heparin will need to be held 4-6 hours prior to procedure. Please check cbc, bmp and PT/INR on morning of procedure.
[2019-07-06] MEDS: ATORVASTATIN CA 80 MG TABLET (FP) PO SCH (22:15)
[2019-07-07] MEDS: NYSTATIN 500,000 UNITS/5 ML SUSPENSION PO SCH ×5 (01:03→23:49)
[2019-07-07] MEDS: CARBIDOPA/LEVODOPA 25/100 TABLET (FP) PO SCH ×3 (06:06→23:48)
[2019-07-07] MEDS: HEPARIN INFUSION - 25,000 UNITS/500 ML INFUS.BAG IV SCH ×2 (06:07→14:10)
[2019-07-07] MEDS: INSULIN SLIDING SCALE (NOVOLOG) 1 VIAL SQ SCH ×4 (06:11→23:49)
--- NOTE | 2019-07-07 09:39 | PN ---
Progress Note, Physician - Current Medication List Current Medications: Active Medications Aspirin (Asa -) 81 mg PO DAILY [facility] Last Admin: 07/06/19 10:55 Dose: 81 mg Atorvastatin Calcium (Lipitor -) 40 mg PO HS [facility] Last Admin: 07/06/19 22:15 Dose: 40 mg Carbidopa/Levodopa (Sinemet 25/100 -) 1 each PO TID [facility] Last Admin: 07/07/19 06:06 Dose: 1 each Heparin Sodium (Porcine) (Heparin -) 1,000 unit IVPUSH PRN PRN PRN Reason: Heparin Heparin Sodium (Porcine) (Heparin -) 5,000 unit IVPUSH PRN PRN PRN Reason: Heparin Heparin Sodium/Dextrose (Heparin Infusion -) 25,000 units in 500 mls @ 16 mls/ hr IV TITR [facility]; Protocol Last Admin: 07/07/19 06:07 Dose: 550 units/hr, 11 mls/hr Insulin Aspart (Novolog Vial Sliding Scale -) 1 vial SQ ACHS [facility]; Protocol Last Admin: 07/07/19 06:11 Dose: 4 units Nystatin (Nystatin Oral Suspension -) 500,000 units PO Q6HPO [facility] Last Admin: 07/07/19 06:06 Dose: 500,000 units Pantoprazole Sodium (Protonix Iv) 40 mg IVPUSH DAILY [facility] Last Admin: 07/06/19 10:55 Dose: 40 mg Paroxetine HCl (Paxil -) 40 mg PO DAILY [facility] Last Admin: 07/06/19 10:55 Dose: 40 mg Polyethylene Glycol (Miralax (For Daily Use) -) 17 gm NGT DAILY [facility] Last Admin: 07/06/19 12:56 Dose: 17 gm - Objective Vital Signs: Vital Signs Temperature 98 F 07/07/19 09:31 Pulse Rate 62 07/07/19 09:31 Respiratory Rate 17 07/07/19 09:31 Blood Pressure 127/71 07/07/19 09:31 O2 Sat by Pulse Oximetry (%) 95 07/06/19 21:00 Cardiovascular: Yes: S1, S2 Respiratory: Yes: Regular, CTA Bilaterally Gastrointestinal: Yes: Normal Bowel Sounds, Soft Neurological: Yes: Alert, Pre-Existing Deficit Labs: CBC, BMP 07/05/19 06:30 07/05/19 05:59 INR, PTT INR 1.05 (0.83-1.09) 06/24/19 23:20 Assessment/Plan - Problems (1) CVA (cerebral vascular accident) Assessment/Plan: MRI note acute /subacute infarct in right side rodriguez radiate and periventricular white matter ng tube with tube feeds- PEG SATURDAY statin aspirin on hold, DC plavix- started in iv heparin drip no bolus neuro consult noted PT- [facility] after peg echo noted for normal left ventricle function and size carotid doppler no significant stenosis hold asprin and DC plavix for peg tube placement Code(s): I63.9 - CEREBRAL INFARCTION, UNSPECIFIED Qualifiers: CVA mechanism: unspecified Qualified Code(s): I63.9 - Cerebral infarction, unspecified (2) Hypokalemia Assessment/Plan: replete Code(s): E87.6 - HYPOKALEMIA (3) Diabetes Assessment/Plan: bgm sliding scale hgba1c 7.2 Code(s): E11.9 - TYPE 2 DIABETES MELLITUS WITHOUT COMPLICATIONS Qualifiers: Diabetes mellitus type: type 2 (4) Parkinsons disease Assessment/Plan: sinemet crush with apple sauce neuro eval noted Code(s): G20 - PARKINSON'S DISEASE (5) Paroxysmal A-fib Assessment/Plan: will need NOAC after peg iv heparin no bolus for now Code(s): I48.0 - PAROXYSMAL ATRIAL FIBRILLATION (6) Dysphagia as late effect of cerebrovascular accident (CVA) Assessment/Plan: needs peg by GI On saturday plavix stopped since 07/02 hold aspirin iv heparin drip no bolus- hold for a few hours prior to peg Code(s): I69.391 - DYSPHAGIA FOLLOWING CEREBRAL INFARCTION
[2019-07-07] MEDS ORDERED: PARoxetine HCL 10 MG TABLET ONE (10:16)
[2019-07-07 10:27] LABS: HEMATOCRIT 35.2 % (32.4-45.2); MCH 29.9 pg (25.7-33.7); MCHC 34.1 g/dl (32.0-36.0); MEAN CELL VOLUME 87.7 fl (80-96); MEAN PLT VOLUME 8.7 fl (7.5-11.1); PLATELET COUNT 267 K/MM3 (134-434); RBC 4.01 M/mm3 (3.60-5.2); RDW 13.6 % (11.6-15.6); WHITE BLOOD COUNT 8.5 K/mm3 (4.0-10.0)
[2019-07-07] MEDS: ASPIRIN 81 MG CHEWABLE TABLETS PO SCH (10:34)
[2019-07-07] MEDS: POLYETHYLENE GLYCOL 3350 119 GM BTL NGT SCH (10:35)
[2019-07-07] MEDS: PARoxetine HCL 20 MG TABLET PO SCH (10:36)
[2019-07-07] MEDS: PANTOPRAZOLE SODIUM 40 MG VIAL IVPUSH SCH (10:36)
--- NOTE | 2019-07-07 10:39 | PN ---
Progress Note (short form) - Note Progress Note: shakes head no to chest pain, palps, dizziness. nonverbal Current Medications Aspirin (Asa -) 81 mg PO DAILY [facility] Last Admin: 07/06/19 10:55 Dose: 81 mg Atorvastatin Calcium (Lipitor -) 40 mg PO HS [facility] Last Admin: 07/06/19 22:15 Dose: 40 mg Carbidopa/Levodopa (Sinemet 25/100 -) 1 each PO TID [facility] Last Admin: 07/07/19 06:06 Dose: 1 each Heparin Sodium (Porcine) (Heparin -) 1,000 unit IVPUSH PRN PRN PRN Reason: Heparin Heparin Sodium (Porcine) (Heparin -) 5,000 unit IVPUSH PRN PRN PRN Reason: Heparin Heparin Sodium/Dextrose (Heparin Infusion -) 25,000 units in 500 mls @ 16 mls/ hr IV TITR [facility]; Protocol Last Admin: 07/07/19 06:07 Dose: 550 units/hr, 11 mls/hr Insulin Aspart (Novolog Vial Sliding Scale -) 1 vial SQ ACHS [facility]; Protocol Last Admin: 07/07/19 06:11 Dose: 4 units Nystatin (Nystatin Oral Suspension -) 500,000 units PO Q6HPO [facility] Last Admin: 07/07/19 06:06 Dose: 500,000 units Pantoprazole Sodium (Protonix Iv) 40 mg IVPUSH DAILY [facility] Last Admin: 07/06/19 10:55 Dose: 40 mg Paroxetine HCl (Paxil -) 40 mg PO DAILY [facility] Last Admin: 07/06/19 10:55 Dose: 40 mg Polyethylene Glycol (Miralax (For Daily Use) -) 17 gm NGT DAILY [facility] Last Admin: 07/06/19 12:56 Dose: 17 gm Vital Signs Period Temp Pulse Resp BP Sys/Chavez Pulse Ox Last 24 Hr 98 F-98.9 F 59-84 16-18 120-145/50-84 95 Constitutional: Yes: Well Nourished, No Distress, Calm Cardiovascular: Yes: Regular Rate and Rhythm, S1, S2. No: Gallop, Murmur Respiratory: Yes: Regular, CTA Bilaterally. No: Accessory Muscle Use, Rales Extremities: No: Cold Edema: No Neurological: Yes: Alert. No: Seizure Psychiatric: No: Agitated Assessment/Plan echo 06/2019: nl lv/rv, no sig valve path carotids 06/2019: no sig stenosis a/p: 73 year old f with history of CAD s/p remote stents, HTN, NIDDM, and parkinsons disease, dementia here with rle weakness, CVA lacunar stroke, PAFib - echo and carotids unremarkable - tele shows episode of PAF on 07/02 here, new dx - now on heparin gtt - plan to transition to NOAC after PEG is completed this week - plavix was dc'ed - continue aspirin - BP controlled, same plan CAD s/p remote pci: - no signs acs - echo unremarkable her - continue atorvastatin for LDL goal 70mg/dl - plavix was dc'ed, now on AC for afib - cont aspirin--low threshold to stop if any bleeding concerns, once on NOAC HTN -stable -cont present meds preop: -no cardiac contraindications to PEG. - plavix was dc'ed - PEG planned for 07/08, will continue asa per d/w Dr. Kauffman
--- NOTE | 2019-07-07 11:14 | PN ---
Progress Note, [facility]AL - Note Progress Note: Reviewed MBS results with staff/pt and plan for PEG insertion, d/c to [facility] rehab to initiate po trials with supplemental TF. Pt in agreement. Pt speaking more. Left facial improving with slight retration not seen before ( Severe bilateral facial weakness) Encourage speech drills/swallowing exercises, speaking/writing/comm board to communicate.
--- NOTE | 2019-07-07 14:48 | PN ---
Progress Note (short form) - Note Progress Note: Plan for PEG 07/08: Hold heparin drip @ 6am tomorrow
[2019-07-07] MEDS: ATORVASTATIN CA 80 MG TABLET (FP) PO SCH (23:48)
[2019-07-08] MEDS: CARBIDOPA/LEVODOPA 25/100 TABLET (FP) PO SCH ×3 (06:35→21:54)
[2019-07-08] MEDS: NYSTATIN 500,000 UNITS/5 ML SUSPENSION PO SCH ×3 (06:35→19:53)
[2019-07-08] MEDS: INSULIN SLIDING SCALE (NOVOLOG) 1 VIAL SQ SCH ×4 (06:35→21:56)
[2019-07-08] MEDS ORDERED: INSULIN SLIDING SCALE (NOVOLOG) 1 VIAL SQ ONE (07:07)
--- NOTE | 2019-07-08 09:28 | PN ---
Progress Note (short form) - Note Progress Note: Neurology CHIEF COMPLAINT: Weakness HISTORY OF PRESENT ILLNESS: 73 y/o F with PMHx of CAD (s/p 5 stents, on ASA/Plavix), Parkinsons disease, Prior CVA/TIA, HTN, NIDDM, HLD, presented with right lower extremity weakness. Patient was accompanied by her daughter Theresa at time of admission. Theresa stated that patient typically has an abnormal gait requiring assistance, and has recently had at least 2 falls, most recently falling backward day prior to admission into an arm chair without hitting her head or LOC. Evening prior to admission around 1900, daughter reportedly noticed that patient had weakness performing her ADLs and speaking very slowly with mumbling; typically patient is able to eat on her own and bring her dishes to the sink. Theresa additionally noticed a right facial droop at this time accompanied by right lower extremity weakness; Patient was dragging her right lower extremity and her gait was changed prompting her daughter to alert EMD. At baseline, patient has dementia, a soft spoken occassionally mumbled speech and difficult with balance but this was much different. Theresa lives at home with her mother and ensures that patient is medication complaint according to note. Denies any recent medication changes or travel. Additionally she mentions that the has constipation, otherwise denies fevers, chills, chest pain, SOB, nausea, vomiting, diarrhea, hematuria. CT head completed and without acute changes though noted chronic L periventricular infarcts. MRI brain completed overnight and although it demonstrated acute R rodriguez radiata infarct that does not localize to R sided weakness. Of note, there are chronic R perventricular chronic infarcts. GI notes reviewed, plan is for PEG placement today and Plavix held for 5 days. Patient remains on aspirin 81 mg daily. No adverse effects since being off Plavix. Remains neurologically stable at this time and no new complaints. No Known Allergies Allergy (Verified 06/24/19 21:27) Active Medications Aspirin (Asa -) 81 mg PO DAILY [facility] Last Admin: 07/07/19 10:34 Dose: 81 mg Atorvastatin Calcium (Lipitor -) 40 mg PO HS [facility] Last Admin: 07/07/19 23:48 Dose: 40 mg Carbidopa/Levodopa (Sinemet 25/100 -) 1 each PO TID [facility] Last Admin: 07/08/19 06:35 Dose: 1 each Heparin Sodium (Porcine) (Heparin -) 1,000 unit IVPUSH PRN PRN PRN Reason: Heparin Heparin Sodium (Porcine) (Heparin -) 5,000 unit IVPUSH PRN PRN PRN Reason: Heparin Heparin Sodium/Dextrose (Heparin Infusion -) 25,000 units in 500 mls @ 16 mls/ hr IV TITR [facility]; Protocol Last Admin: 07/07/19 14:10 Dose: Not Given Insulin Aspart (Novolog Vial Sliding Scale -) 1 vial SQ ACHS [facility]; Protocol Last Admin: 07/08/19 06:35 Dose: Not Given Nystatin (Nystatin Oral Suspension -) 500,000 units PO Q6HPO [facility] Last Admin: 07/08/19 06:35 Dose: 500,000 units Pantoprazole Sodium (Protonix Iv) 40 mg IVPUSH DAILY [facility] Last Admin: 07/07/19 10:36 Dose: 40 mg Paroxetine HCl (Paxil -) 40 mg PO DAILY [facility] Last Admin: 07/07/19 10:36 Dose: 40 mg Polyethylene Glycol (Miralax (For Daily Use) -) 17 gm NGT DAILY [facility] Last Admin: 07/07/19 10:35 Dose: 17 gm PHYSICAL EXAMINATION Vital Signs Period Temp Pulse Resp BP Sys/Chavez Pulse Ox Last 24 Hr 97.5 F-99.0 F 62-85 16-18 127-146/66-88 94 GENERAL: Awake, alert, NAD HEAD: NCAT EYES: PERRL, EOMI, Left lid lag (Chronic) ENT: Moist mucous membranes. NECK: Supple, No JVD LUNGS: CTAB. No wheezes, no crackles. HEART: Regular rate and rhythm, normal S1 and S2 without murmur ABDOMEN: Soft, nontender, not distended, + bowel sounds, no guarding, no rebound MUSCULOSKELETAL: No CVA tenderness. EXTREMITIES: 2+ pulses, No peripheral edema. NEUROLOGICAL: Cranial nerves II-XII intact. Awake and responsive to questioning , still answering yes or no mostly. moves all extremities equally in confrontation testing, sensory grossly intact, gait deferred SKIN: Warm, dry, diffuse ecchymosis over the LLE, and Right medial upper extremity CBCD WBC 8.5 K/mm3 (4.0-10.0) 07/07/19 09:35 RBC 4.01 M/mm3 (3.60-5.2) 07/07/19 09:35 Hgb 12.0 GM/dL (10.7-15.3) 07/07/19 09:35 Hct 35.2 % (32.4-45.2) 07/07/19 09:35 MCV 87.7 fl (80-96) 07/07/19 09:35 MCHC 34.1 g/dl (32.0-36.0) 07/07/19 09:35 RDW 13.6 % (11.6-15.6) 07/07/19 09:35 Plt Count 267 K/MM3 (134-434) 07/07/19 09:35 MPV 8.7 fl (7.5-11.1) 07/07/19 09:35 CMP Sodium 141 mmol/L (136-145) 07/05/19 05:59 Potassium 3.8 mmol/L (3.5-5.1) 07/05/19 05:59 Chloride 104 mmol/L (98-107) 07/05/19 05:59 Carbon Dioxide 29 mmol/L (21-32) 07/05/19 05:59 Anion Gap 8 MMOL/L (8-16) 07/05/19 05:59 BUN 15.1 mg/dL (7-18) 07/05/19 05:59 Creatinine 1.0 mg/dL (0.55-1.3) 07/05/19 05:59 Random Glucose 232 mg/dL (74-106) H 07/05/19 05:59 Calcium 9.6 mg/dL (8.5-10.1) 07/05/19 05:59 Total Bilirubin 1.3 mg/dL (0.2-1) H 06/30/19 05:10 AST 35 U/L (15-37) 06/30/19 05:10 ALT 14 U/L (13-61) 06/30/19 05:10 Alkaline Phosphatase 107 U/L (45-117) 06/30/19 05:10 Total Protein 5.8 g/dl (6.4-8.2) L 06/30/19 05:10 Albumin 3.2 g/dl (3.4-5.0) L 06/30/19 05:10 CARDIAC ENZYMES Troponin I < 0.02 ng/ml (0.00-0.05) 06/24/19 23:20 ASSESSMENT/PLAN: 73 y/o F with PMHx of CAD (s/p 5 stents, on ASA/Plavix), Parkinsons disease, Prior CVA/TIA, HTN, NIDDM, HLD, presented with right lower extremity weakness. Patient was accompanied by her daughter Theresa who aided in providing HPI per notes. Theresa stated that patient typically has an abnormal gait requiring assistance, and has recently had at least 2 falls, most recently falling backward yesterday into an arm chair without hitting her head or LOC. Evening prior to admission around 1900, daughter reportedly noticed that patient had weakness performing her ADLs and speaking very slowly with mumbling; typically patient is able to eat on her own and bring her dishes to the sink. Theresa additionally noticed a right facial droop at this time accompanied by right lower extremity weakness; Patient was dragging her right lower extremity and her gait was changed prompting her daughter to alert EMD. She was on ASA 81, Plavix 75. LDL 99, remains on statin 40mg. Patient remains neurologically stable this morning. PT as tolerated. Continue Statin at current dose as LDL < 100. Continue hydration for NOELLE. MOnitor glucose, maintain euglycemic range. Spoke to energy management specialist 07/03 who indicated Afib and therefore plan was to give patient IV heparin for AC and can held for procedure. No objection to this, again slight increased risk of bleed but concern for thrombotic events is greater at this time time. CT reviewed with no acute changes noted. GI notes reviewed, plan is for PEG placement today and Plavix held for 5 days. Patient remains on aspirin 81 mg daily. No adverse effects since being off Plavix. Remains neurologically stable at this time and no new complaints. Monitor bp, maintain less than 140/90, GI follow-up. Continue medical mgmt.
[2019-07-08 10:07] LABS: HEMATOCRIT 35.8 % (32.4-45.2); HEMOGLOBIN 12.1 GM/dL (10.7-15.3); MCH 29.6 pg (25.7-33.7); MCHC 33.8 g/dl (32.0-36.0); MEAN CELL VOLUME 87.5 fl (80-96); MEAN PLT VOLUME 8.3 fl (7.5-11.1); PLATELET COUNT 274 K/MM3 (134-434); RBC 4.09 M/mm3 (3.60-5.2); RDW 13.9 % (11.6-15.6); WHITE BLOOD COUNT 9.4 K/mm3 (4.0-10.0)
--- NOTE | 2019-07-08 10:15 | PN ---
Progress Note, Physician - Current Medication List Current Medications: Active Medications Aspirin (Asa -) 81 mg PO DAILY [facility] Last Admin: 07/07/19 10:34 Dose: 81 mg Atorvastatin Calcium (Lipitor -) 40 mg PO HS [facility] Last Admin: 07/07/19 23:48 Dose: 40 mg Carbidopa/Levodopa (Sinemet 25/100 -) 1 each PO TID [facility] Last Admin: 07/08/19 06:35 Dose: 1 each Heparin Sodium (Porcine) (Heparin -) 1,000 unit IVPUSH PRN PRN PRN Reason: Heparin Heparin Sodium (Porcine) (Heparin -) 5,000 unit IVPUSH PRN PRN PRN Reason: Heparin Heparin Sodium/Dextrose (Heparin Infusion -) 25,000 units in 500 mls @ 16 mls/ hr IV TITR [facility]; Protocol Last Admin: 07/07/19 14:10 Dose: Not Given Insulin Aspart (Novolog Vial Sliding Scale -) 1 vial SQ ACHS [facility]; Protocol Last Admin: 07/08/19 06:35 Dose: Not Given Nystatin (Nystatin Oral Suspension -) 500,000 units PO Q6HPO [facility] Last Admin: 07/08/19 06:35 Dose: 500,000 units Pantoprazole Sodium (Protonix Iv) 40 mg IVPUSH DAILY [facility] Last Admin: 07/07/19 10:36 Dose: 40 mg Paroxetine HCl (Paxil -) 40 mg PO DAILY [facility] Last Admin: 07/07/19 10:36 Dose: 40 mg Polyethylene Glycol (Miralax (For Daily Use) -) 17 gm NGT DAILY [facility] Last Admin: 07/07/19 10:35 Dose: 17 gm - Objective Vital Signs: Vital Signs Temperature 98 F 07/08/19 08:43 Pulse Rate 76 07/08/19 08:43 Respiratory Rate 18 07/08/19 08:43 Blood Pressure 146/75 07/08/19 08:43 O2 Sat by Pulse Oximetry (%) 94 L 07/07/19 21:00 Cardiovascular: Yes: S1, S2 Respiratory: Yes: Regular, CTA Bilaterally Gastrointestinal: Yes: Normal Bowel Sounds, Soft Neurological: Yes: Pre-Existing Deficit Labs: INR, PTT INR 1.05 (0.83-1.09) 06/24/19 23:20 Assessment/Plan - Problems (1) CVA (cerebral vascular accident) Assessment/Plan: MRI note acute /subacute infarct in right side rodriguez radiate and periventricular white matter ng tube with tube feeds- PEG Today statin aspirin on hold, DC plavix- started in iv heparin drip no bolus neuro consult noted PT- [facility] after peg echo noted for normal left ventricle function and size carotid doppler no significant stenosis hold asprin and DC plavix for peg tube placement Code(s): I63.9 - CEREBRAL INFARCTION, UNSPECIFIED Qualifiers: CVA mechanism: unspecified Qualified Code(s): I63.9 - Cerebral infarction, unspecified (2) Hypokalemia Assessment/Plan: replete Code(s): E87.6 - HYPOKALEMIA (3) Diabetes Assessment/Plan: bgm sliding scale [id number] 7.2 Code(s): E11.9 - TYPE 2 DIABETES MELLITUS WITHOUT COMPLICATIONS Qualifiers: Diabetes mellitus type: type 2 (4) Parkinsons disease Assessment/Plan: sinemet crush with apple sauce neuro eval noted Code(s): G20 - PARKINSON'S DISEASE (5) Paroxysmal A-fib Assessment/Plan: will need NOAC after peg iv heparin no bolus for now Code(s): I48.0 - PAROXYSMAL ATRIAL FIBRILLATION (6) Dysphagia as late effect of cerebrovascular accident (CVA) Assessment/Plan: needs peg by GI On saturday plavix stopped since 07/02 hold aspirin iv heparin drip no bolus- hold for a few hours prior to peg Code(s): I69.391 - DYSPHAGIA FOLLOWING CEREBRAL INFARCTION
[2019-07-08 10:29] LABS: INR 1.08 (0.83-1.09); PROTHROMBIN TIME (PATIENT) 12.8 SEC (9.7-13.0)
[2019-07-08 10:36] LABS: BLOOD UREA NITROGEN 17.3 mg/dL (7-18); CALCIUM 9.6 mg/dL (8.5-10.1); CREATININE 1.1 mg/dL (0.55-1.3)
--- NOTE | 2019-07-08 10:56 | PN ---
Progress Note (short form) - Note Progress Note: shakes head no to chest pain, palps, dizziness. nonverbal Current Medications Aspirin (Asa -) 81 mg PO DAILY [facility] Last Admin: 07/07/19 10:34 Dose: 81 mg Atorvastatin Calcium (Lipitor -) 40 mg PO HS [facility] Last Admin: 07/07/19 23:48 Dose: 40 mg Carbidopa/Levodopa (Sinemet 25/100 -) 1 each PO TID [facility] Last Admin: 07/08/19 06:35 Dose: 1 each Heparin Sodium (Porcine) (Heparin -) 1,000 unit IVPUSH PRN PRN PRN Reason: Heparin Heparin Sodium (Porcine) (Heparin -) 5,000 unit IVPUSH PRN PRN PRN Reason: Heparin Heparin Sodium/Dextrose (Heparin Infusion -) 25,000 units in 500 mls @ 16 mls/ hr IV TITR [facility]; Protocol Last Admin: 07/07/19 14:10 Dose: Not Given Insulin Aspart (Novolog Vial Sliding Scale -) 1 vial SQ ACHS [facility]; Protocol Last Admin: 07/08/19 06:35 Dose: Not Given Nystatin (Nystatin Oral Suspension -) 500,000 units PO Q6HPO [facility] Last Admin: 07/08/19 06:35 Dose: 500,000 units Pantoprazole Sodium (Protonix Iv) 40 mg IVPUSH DAILY [facility] Last Admin: 07/07/19 10:36 Dose: 40 mg Paroxetine HCl (Paxil -) 40 mg PO DAILY [facility] Last Admin: 07/07/19 10:36 Dose: 40 mg Polyethylene Glycol (Miralax (For Daily Use) -) 17 gm NGT DAILY [facility] Last Admin: 07/07/19 10:35 Dose: 17 gm Vital Signs Period Temp Pulse Resp BP Sys/Chavez Pulse Ox Last 24 Hr 97.5 F-99.0 F 64-85 16-18 129-146/66-88 94 Constitutional: Yes: Well Nourished, No Distress, Calm Cardiovascular: Yes: Regular Rate and Rhythm, S1, S2. No: Gallop, Murmur Respiratory: Yes: Regular, CTA Bilaterally. No: Accessory Muscle Use, Rales Extremities: No: Cold Edema: No Neurological: Yes: Alert. No: Seizure Psychiatric: No: Agitated Assessment/Plan echo 06/2019: nl lv/rv, no sig valve path carotids 06/2019: no sig stenosis a/p: 73 year old f with history of CAD s/p remote stents, HTN, NIDDM, and parkinsons disease, dementia here with rle weakness, CVA lacunar stroke, PAFib - echo and carotids unremarkable - tele shows episode of PAF on 07/02 here, new dx - now on heparin gtt - plan to transition to NOAC after PEG is completed - plavix was dc'ed - continue aspirin - BP controlled, same plan CAD s/p remote pci: - no signs acs - echo unremarkable her - continue atorvastatin for LDL goal 70mg/dl - plavix was dc'ed, now on AC for afib - cont aspirin--low threshold to stop if any bleeding concerns, once on NOAC HTN -stable -cont present meds preop: -no cardiac contraindications to PEG. - plavix was dc'ed - PEG today, will continue asa per d/w Dr. Kauffman; transition to NOAC when able after PEG placed
[2019-07-08] MEDS ORDERED: ceFAZolin 2 GRAM PREMIX BAG IVPB ONE (11:30)
[2019-07-08] MEDS ORDERED: CEFAZOLIN 1 GM/D5W 2 GM/100 ML BAG ONE (11:35)
--- NOTE | 2019-07-08 14:17 | PN ---
Progress Note, PULP OPERATOR - Note Progress Note: Selected Entries 07/08/19 07/08/19 07/08/19 01:40 06:00 08:43 Breakfast Temperature 99.0 F 98.1 F 98 F 07/08/19 07/08/19 10:25 12:00 Breakfast NPO Temperature 98.1 F Laboratory Tests 07/08/19 09:53 WBC 9.4 PEG placed today. Pt denies pain. Seen by Psych on 07/03. Pt alert, comfortable, oriented. Pt rarely initiates speech or responds verbally unless verbally cued to do so. Reviewed with pt and Speech drills -oral reading, repetition, responsive should be practiced as often as possible to improve speech initiation and intelligibility.Good comprehension. Follows commands. Pt now able to slightly retract both R and L side of mouth to smile upon command.Speech intelligibility improving on single word level - 1-2 syllables in length. Less hypernasality and vocal harshness. Tongue still coated-r/o thrush Excellent rehab candidate- Pending [facility] transfer for sp/swallow rehab /PT/OT..
[2019-07-08] MEDS: ASPIRIN 81 MG CHEWABLE TABLETS PO SCH (14:58)
[2019-07-08] MEDS: POLYETHYLENE GLYCOL 3350 119 GM BTL NGT SCH (14:58)
[2019-07-08] MEDS: PARoxetine HCL 20 MG TABLET PO SCH (14:59)
[2019-07-08] MEDS: PANTOPRAZOLE SODIUM 40 MG VIAL IVPUSH SCH (17:01)
--- NOTE | 2019-07-08 19:01 | PN ---
Progress Note (short form) - Note Progress Note: Brief GI note EGD/PEG performed today, successful placement of 20Fr gastrostomy. Please see post op PEG care instructions. Recommend resume medications and feeds tomorrow via PEG following evaluation by GI team in am. See scanned endoscopy report for additional details.
[2019-07-08] MEDS: HEPARIN INFUSION - 25,000 UNITS/500 ML INFUS.BAG IV SCH (20:10)
[2019-07-08] MEDS: ATORVASTATIN CA 80 MG TABLET (FP) PO SCH (21:53)
[2019-07-08] MEDS: BACITRACIN 15 GM TUBE TOPICAL OINTMENT TP SCH (21:57)
[2019-07-09] MEDS: NYSTATIN 500,000 UNITS/5 ML SUSPENSION PO SCH ×5 (00:53→23:14)
[2019-07-09] MEDS: HEPARIN INFUSION - 25,000 UNITS/500 ML INFUS.BAG IV SCH ×2 (03:02→13:53)
[2019-07-09] MEDS: CARBIDOPA/LEVODOPA 25/100 TABLET (FP) PO SCH ×3 (06:18→22:48)
[2019-07-09] MEDS: INSULIN SLIDING SCALE (NOVOLOG) 1 VIAL SQ SCH ×4 (06:19→22:53)
[2019-07-09] MEDS ORDERED: INSULIN SLIDING SCALE (NOVOLOG) 1 VIAL SQ ONE (06:53)
--- NOTE | 2019-07-09 08:02 | PN ---
Progress Note (short form) - Note Progress Note: Neurology CHIEF COMPLAINT: Weakness HISTORY OF PRESENT ILLNESS: 73 y/o F with PMHx of CAD (s/p 5 stents, on ASA/Plavix), Parkinsons disease, Prior CVA/TIA, HTN, NIDDM, HLD, presented with right lower extremity weakness. Patient was accompanied by her daughter Theresa at time of admission. Theresa stated that patient typically has an abnormal gait requiring assistance, and has recently had at least 2 falls, most recently falling backward day prior to admission into an arm chair without hitting her head or LOC. Evening prior to admission around 1900, daughter reportedly noticed that patient had weakness performing her ADLs and speaking very slowly with mumbling; typically patient is able to eat on her own and bring her dishes to the sink. Theresa additionally noticed a right facial droop at this time accompanied by right lower extremity weakness; Patient was dragging her right lower extremity and her gait was changed prompting her daughter to alert EMD. At baseline, patient has dementia, a soft spoken occassionally mumbled speech and difficult with balance but this was much different. Theresa lives at home with her mother and ensures that patient is medication complaint according to note. Denies any recent medication changes or travel. Additionally she mentions that the has constipation, otherwise denies fevers, chills, chest pain, SOB, nausea, vomiting, diarrhea, hematuria. CT head completed and without acute changes though noted chronic L periventricular infarcts. MRI brain completed overnight and although it demonstrated acute R rodriguez radiata infarct that does not localize to R sided weakness. Of note, there are chronic R perventricular chronic infarcts. GI notes reviewed, PEG in place. Patient atigued appearing this morning, discussed with nurse and did not receive aspirin this morning and advised that she can have this medication in the evening when peg is functional. No Known Allergies Allergy (Verified 06/24/19 21:27) Active Medications Aspirin (Asa -) 81 mg PO DAILY [facility] Last Admin: 07/08/19 14:58 Dose: Not Given Atorvastatin Calcium (Lipitor -) 40 mg PO HS [facility] Last Admin: 07/08/19 21:53 Dose: Not Given Bacitracin (Bacitracin -) 1 applic TP BID [facility] Last Admin: 07/08/19 21:57 Dose: 1 applic Carbidopa/Levodopa (Sinemet 25/100 -) 1 each PO TID [facility] Last Admin: 07/09/19 06:18 Dose: Not Given Heparin Sodium (Porcine) (Heparin -) 1,000 unit IVPUSH PRN PRN PRN Reason: Heparin Heparin Sodium (Porcine) (Heparin -) 5,000 unit IVPUSH PRN PRN PRN Reason: Heparin Heparin Sodium/Dextrose (Heparin Infusion -) 25,000 units in 500 mls @ 16 mls/ hr IV TITR [facility]; Protocol Last Admin: 07/09/19 03:02 Dose: 750 units/hr, 15 mls/hr Insulin Aspart (Novolog Vial Sliding Scale -) 1 vial SQ ACHS [facility]; Protocol Last Admin: 07/09/19 06:19 Dose: Not Given Nystatin (Nystatin Oral Suspension -) 500,000 units PO Q6HPO [facility] Last Admin: 07/09/19 06:18 Dose: 500,000 units Pantoprazole Sodium (Protonix Iv) 40 mg IVPUSH DAILY [facility] Last Admin: 07/08/19 17:01 Dose: 40 mg Paroxetine HCl (Paxil -) 40 mg PO DAILY [facility] Last Admin: 07/08/19 14:59 Dose: Not Given Polyethylene Glycol (Miralax (For Daily Use) -) 17 gm NGT DAILY [facility] Last Admin: 07/08/19 14:58 Dose: Not Given PHYSICAL EXAMINATION Vital Signs Period Temp Pulse Resp BP Sys/Chavez Pulse Ox Last 24 Hr 98 F-100.1 F 75-96 16-20 107-146/42-85 95-100 GENERAL: Awake, alert, NAD HEAD: NCAT EYES: PERRL, EOMI, Left lid lag (Chronic) ENT: Moist mucous membranes. NECK: Supple, No JVD LUNGS: CTAB. No wheezes, no crackles. HEART: Regular rate and rhythm, normal S1 and S2 without murmur ABDOMEN: Soft, nontender, not distended, + bowel sounds, no guarding, no rebound MUSCULOSKELETAL: No CVA tenderness. EXTREMITIES: 2+ pulses, No peripheral edema. NEUROLOGICAL: Cranial nerves II-XII intact. Awake and responsive to questioning , still answering yes or no mostly. moves all extremities equally in confrontation testing, sensory grossly intact, gait deferred SKIN: Warm, dry, diffuse ecchymosis over the LLE, and Right medial upper extremity CBCD WBC 9.4 K/mm3 (4.0-10.0) 07/08/19 09:53 RBC 4.09 M/mm3 (3.60-5.2) 07/08/19 09:53 Hgb 12.1 GM/dL (10.7-15.3) 07/08/19 09:53 Hct 35.8 % (32.4-45.2) 07/08/19 09:53 MCV 87.5 fl (80-96) 07/08/19 09:53 MCHC 33.8 g/dl (32.0-36.0) 07/08/19 09:53 RDW 13.9 % (11.6-15.6) 07/08/19 09:53 Plt Count 274 K/MM3 (134-434) 07/08/19 09:53 MPV 8.3 fl (7.5-11.1) 07/08/19 09:53 CMP Sodium 140 mmol/L (136-145) 07/08/19 09:53 Potassium 4.0 mmol/L (3.5-5.1) 07/08/19 09:53 Chloride 104 mmol/L (98-107) 07/08/19 09:53 Carbon Dioxide 29 mmol/L (21-32) 07/08/19 09:53 Anion Gap 7 MMOL/L (8-16) L 07/08/19 09:53 BUN 17.3 mg/dL (7-18) 07/08/19 09:53 Creatinine 1.1 mg/dL (0.55-1.3) 07/08/19 09:53 Random Glucose 195 mg/dL (74-106) H 07/08/19 09:53 Calcium 9.6 mg/dL (8.5-10.1) 07/08/19 09:53 Total Bilirubin 1.3 mg/dL (0.2-1) H 06/30/19 05:10 AST 35 U/L (15-37) 06/30/19 05:10 ALT 14 U/L (13-61) 06/30/19 05:10 Alkaline Phosphatase 107 U/L (45-117) 06/30/19 05:10 Total Protein 5.8 g/dl (6.4-8.2) L 06/30/19 05:10 Albumin 3.2 g/dl (3.4-5.0) L 06/30/19 05:10 CARDIAC ENZYMES Troponin I < 0.02 ng/ml (0.00-0.05) 06/24/19 23:20 ASSESSMENT/PLAN: 73 y/o F with PMHx of CAD (s/p 5 stents, on ASA/Plavix), Parkinsons disease, Prior CVA/TIA, HTN, NIDDM, HLD, presented with right lower extremity weakness. Patient was accompanied by her daughter Theresa who aided in providing HPI per notes. Theresa stated that patient typically has an abnormal gait requiring assistance, and has recently had at least 2 falls, most recently falling backward yesterday into an arm chair without hitting her head or LOC. Evening prior to admission around 1900, daughter reportedly noticed that patient had weakness performing her ADLs and speaking very slowly with mumbling; typically patient is able to eat on her own and bring her dishes to the sink. Theresa additionally noticed a right facial droop at this time accompanied by right lower extremity weakness; Patient was dragging her right lower extremity and her gait was changed prompting her daughter to alert EMD. She was on ASA 81, Plavix 75. LDL 99, remains on statin 40mg. Patient remains neurologically stable this morning. PT as tolerated. Continue Statin at current dose as LDL < 100. Continue hydration for NOELLE. MOnitor glucose, maintain euglycemic range. Spoke to hand coremaker 07/03 who indicated Afib and therefore plan was to give patient IV heparin for AC and can held for procedure. No objection to this, again slight increased risk of bleed but concern for thrombotic events is greater at this time time. CT reviewed with no acute changes noted. GI notes reviewed, PEG in place. Patient atigued appearing this morning, discussed with nurse and did not receive aspirin this morning and advised that she can have this medication in the evening when peg is functional. Remains neurologically stable at this time and no new complaints. Monitor bp, maintain less than 140/90 , GI follow-up. Advise restarting aspirin and Plavix combination as soon as feasible.
[2019-07-09] MEDS: ASPIRIN 81 MG CHEWABLE TABLETS PO SCH (10:34)
[2019-07-09] MEDS: POLYETHYLENE GLYCOL 3350 119 GM BTL NGT SCH (10:35)
[2019-07-09] MEDS: PARoxetine HCL 20 MG TABLET PO SCH (10:36)
[2019-07-09] MEDS: BACITRACIN 15 GM TUBE TOPICAL OINTMENT TP SCH ×2 (10:46→22:54)
[2019-07-09] MEDS ORDERED: PARoxetine HCL 10 MG TABLET ONE (10:47)
[2019-07-09] MEDS: PANTOPRAZOLE SODIUM 40 MG VIAL IVPUSH SCH (10:48)
[2019-07-09 11:28] LABS: HEMATOCRIT 36.9 % (32.4-45.2); HEMOGLOBIN 12.3 GM/dL (10.7-15.3); MCH 29.5 pg (25.7-33.7); MCHC 33.4 g/dl (32.0-36.0); MEAN CELL VOLUME 88.4 fl (80-96); MEAN PLT VOLUME 8.2 fl (7.5-11.1); PLATELET COUNT 253 K/MM3 (134-434); RBC 4.17 M/mm3 (3.60-5.2); RDW 13.8 % (11.6-15.6); WHITE BLOOD COUNT 9.7 K/mm3 (4.0-10.0)
--- NOTE | 2019-07-09 11:54 | PN ---
Progress Note (short form) - Note Progress Note: s: not communicating Current Medications Generic Name Dose Route Start Last Admin Trade Name Freq PRN Reason Stop Dose Admin Aspirin 81 mg 07/04/19 10:00 07/09/19 10:34 Asa - PO Not Given DAILY CORWIN Atorvastatin Calcium 40 mg 06/25/19 22:00 07/08/19 21:53 Lipitor - PO Not Given HS CORWIN Bacitracin 1 applic 07/08/19 22:00 07/09/19 10:46 Bacitracin - TP 1 applic BID CORWIN Administration Carbidopa/Levodopa 1 each 06/30/19 17:04 07/09/19 06:18 Sinemet 25/100 - PO Not Given TID CORWIN Heparin Sodium (Porcine) 1,000 unit 07/03/19 11:28 Heparin - IVPUSH PRN PRN Heparin Heparin Sodium (Porcine) 5,000 unit 07/03/19 11:28 Heparin - IVPUSH PRN PRN Heparin Heparin Sodium/Dextrose 25,000 units in 500 mls @ 16 mls/hr 07/03/19 12:15 03:02 Heparin Infusion - IV 750 units/hr TITR CORWIN 15 mls/hr Administration Protocol 800 UNITS/HR Insulin Aspart 1 vial 06/25/19 11:00 07/09/19 06:19 Novolog Vial Sliding Scale - SQ Not Given ACHS [facility] Protocol Nystatin 500,000 units 07/05/19 18:00 07/09/19 06:18 Nystatin Oral Suspension - PO 500,000 units Q6HPO CORWIN Administration Pantoprazole Sodium 40 mg 07/02/19 17:30 07/09/19 10:48 Protonix Iv IVPUSH 40 mg DAILY CORWIN Administration Paroxetine HCl 40 mg 07/04/19 10:00 07/09/19 10:36 Paxil - PO Not Given DAILY CORWIN Polyethylene Glycol 17 gm 06/28/19 16:30 07/09/19 10:35 Miralax (For Daily Use) - NGT Not Given DAILY [facility] Vital Signs Period Temp Pulse Resp BP Sys/Chavez Pulse Ox Last 24 Hr 98.1 F-100.1 F 61-96 16-20 107-144/42-85 98-100 Constitutional: Yes: Well Nourished, No Distress, Calm Cardiovascular: Yes: Regular Rate and Rhythm, S1, S2. No: Gallop, Murmur Respiratory: Yes: Regular, CTA Bilaterally. No: Accessory Muscle Use, Rales Extremities: No: Cold Edema: No Neurological: Yes: Alert. No: Seizure Psychiatric: No: Agitated no jaundice diaphoresis CBC, BMP 07/09/19 11:18 07/08/19 09:53 echo 06/2019: nl lv/rv, no sig valve path carotids 06/2019: no sig stenosis tele: sr, brief atrial run a/p: 73 year old f with history of CAD s/p remote stents, HTN, NIDDM, and parkinsons disease, dementia here with rle weakness, CVA lacunar stroke, PAFib - echo and carotids unremarkable - tele shows episode of PAF on 07/02 here, new dx - now on heparin gtt - plan to transition to NOAC when possible - plavix was dc'ed - continue aspirin - BP controlled, same plan CAD s/p remote pci: - no signs acs - echo unremarkable her - continue atorvastatin for LDL goal 70mg/dl - plavix was dc'ed, now on AC for afib - cont aspirin--low threshold to stop if any bleeding concerns, once on NOAC HTN -stable -cont present meds
--- NOTE | 2019-07-09 12:03 | PN ---
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 Pending GI f/u for TF. Tongue coated. No zeinab noted on EGD.Mouth care and Nystatin used locally on tongue with little improvement. Poor speech initiation again today. Bubbles of saliva on lips. Speech/swallow function varies significantly. PEG will benefit pt for consistency of nutrition, hydration, meds. May need repeat MBS at [place] before PO trials due to waxing/waning of sp/sw function
--- NOTE | 2019-07-09 13:13 | PN ---
Progress Note, Physician Chief Complaint: patient seen and examined peg placed - Current Medication List Current Medications: Active Medications Aspirin (Asa -) 81 mg PO DAILY [facility] Last Admin: 07/09/19 10:34 Dose: Not Given Atorvastatin Calcium (Lipitor -) 40 mg PO HS [facility] Last Admin: 07/08/19 21:53 Dose: Not Given Bacitracin (Bacitracin -) 1 applic TP BID [facility] Last Admin: 07/09/19 10:46 Dose: 1 applic Carbidopa/Levodopa (Sinemet 25/100 -) 1 each PO TID [facility] Last Admin: 07/09/19 06:18 Dose: Not Given Heparin Sodium (Porcine) (Heparin -) 1,000 unit IVPUSH PRN PRN PRN Reason: Heparin Heparin Sodium (Porcine) (Heparin -) 5,000 unit IVPUSH PRN PRN PRN Reason: Heparin Heparin Sodium/Dextrose (Heparin Infusion -) 25,000 units in 500 mls @ 16 mls/ hr IV TITR [facility]; Protocol Last Admin: 07/09/19 03:02 Dose: 750 units/hr, 15 mls/hr Insulin Aspart (Novolog Vial Sliding Scale -) 1 vial SQ ACHS [facility]; Protocol Last Admin: 07/09/19 12:14 Dose: Not Given Nystatin (Nystatin Oral Suspension -) 500,000 units PO Q6HPO [facility] Last Admin: 07/09/19 12:14 Dose: 500,000 units Pantoprazole Sodium (Protonix Iv) 40 mg IVPUSH DAILY [facility] Last Admin: 07/09/19 10:48 Dose: 40 mg Paroxetine HCl (Paxil -) 40 mg PO DAILY [facility] Last Admin: 07/09/19 10:36 Dose: Not Given Polyethylene Glycol (Miralax (For Daily Use) -) 17 gm NGT DAILY [facility] Last Admin: 07/09/19 10:35 Dose: Not Given - Objective Vital Signs: Vital Signs Temperature 98.2 F 07/09/19 06:00 Pulse Rate 61 07/09/19 08:49 Respiratory Rate 18 07/09/19 09:00 Blood Pressure 129/75 07/09/19 08:49 O2 Sat by Pulse Oximetry (%) 97 07/09/19 09:00 Constitutional: Yes: Calm, Thin HENT: Yes: Thrush Cardiovascular: Yes: Regular Rate and Rhythm, S1, S2 Respiratory: Yes: CTA Bilaterally Gastrointestinal: Yes: Normal Bowel Sounds, Soft, Other (dressing in abdomen covering the peg tube) Edema: No Neurological: Yes: Other (able to move upper and lower extremites) Labs: CBC, BMP 07/09/19 11:18 07/08/19 09:53 INR, PTT INR 1.08 (0.83-1.09) 07/08/19 09:53 Problem List - Problems (1) CVA (cerebral vascular accident) Assessment/Plan: s/p PEG tube placement awaiting GI to confirm usage prior to giving feeds on aspirin arguello for rehab Code(s): I63.9 - CEREBRAL INFARCTION, UNSPECIFIED Qualifiers: CVA mechanism: unspecified Qualified Code(s): I63.9 - Cerebral infarction, unspecified (2) Hypokalemia Assessment/Plan: resolved now normal Code(s): E87.6 - HYPOKALEMIA (3) Diabetes Assessment/Plan: bgm sliding scale hgba1c 7.2 Code(s): E11.9 - TYPE 2 DIABETES MELLITUS WITHOUT COMPLICATIONS Qualifiers: Diabetes mellitus type: type 2 (4) Parkinsons disease Assessment/Plan: sinemet crush with apple sauce neuro eval noted Code(s): G20 - PARKINSON'S DISEASE (5) Paroxysmal A-fib Assessment/Plan: will need NOAC after peg is cleared to use by GI-eliquis bid iv heparin for now Code(s): I48.0 - PAROXYSMAL ATRIAL FIBRILLATION (6) Dysphagia as late effect of cerebrovascular accident (CVA) Assessment/Plan: s/p PEG placement Code(s): I69.391 - DYSPHAGIA FOLLOWING CEREBRAL INFARCTION (7) Depression Assessment/Plan: paxil via g tube dose increased seen by psych Code(s): F32.9 - MAJOR DEPRESSIVE DISORDER, SINGLE EPISODE, UNSPECIFIED
--- NOTE | 2019-07-09 16:21 | PN ---
Progress Note (short form) - Note Progress Note: Abdomen and G-Tube examind: Abdomen sft, + normaoactive BS. Dressing in place in mid upper abdomen. Removed. G-tube noted in mid upper abdomen. rotated freely. No Maura-pg erythema/induration. mild tenderness at the site OK to use tube for feeds. Advance to goal rate per nutrition Aspiration precautions Keep loose fitting abdominal binder in place (was present during this exam) PEG Care per procedure report
--- NOTE | 2019-07-09 16:27 | PN ---
Progress Note (short form) - Note Progress Note: start eliquis carlos a morning stop heparin drip in Am as well tube feeds ordered dietary consult ordered to adjust tube feeds Problem List - Problems (1) CVA (cerebral vascular accident) Code(s): I63.9 - CEREBRAL INFARCTION, UNSPECIFIED Qualifiers: CVA mechanism: unspecified Qualified Code(s): I63.9 - Cerebral infarction, unspecified (2) Hypokalemia Code(s): E87.6 - HYPOKALEMIA (3) Diabetes Code(s): E11.9 - TYPE 2 DIABETES MELLITUS WITHOUT COMPLICATIONS Qualifiers: Diabetes mellitus type: type 2 (4) Parkinsons disease Code(s): G20 - PARKINSON'S DISEASE (5) Paroxysmal A-fib Code(s): I48.0 - PAROXYSMAL ATRIAL FIBRILLATION (6) Dysphagia as late effect of cerebrovascular accident (CVA) Code(s): I69.391 - DYSPHAGIA FOLLOWING CEREBRAL INFARCTION (7) Depression Code(s): F32.9 - MAJOR DEPRESSIVE DISORDER, SINGLE EPISODE, UNSPECIFIED
[2019-07-09 16:38] LABS: PH,URINE 6.5 (5.0-8.0); URINE APPEARANCE CLEAR; URINE BILIRUBIN NEGATIVE (NEGATIVE); URINE COLOR YELLOW; URINE GLUCOSE (UA) NEGATIVE (NEGATIVE); URINE KETONE TRACE (NEGATIVE); URINE LEUK ESTERASE NEGATIVE (NEGATIVE); URINE NITRITE NEGATIVE (NEGATIVE); URINE PROTEIN TRACE (NEGATIVE)
[2019-07-09] MEDS: FLUCONAZOLE 40 MG/ML SUSPENSION GT SCH (17:42)
[2019-07-09] MEDS: ATORVASTATIN CA 80 MG TABLET (FP) PO SCH (22:48)
[2019-07-10] MEDS: CARBIDOPA/LEVODOPA 25/100 TABLET (FP) PO SCH ×3 (05:23→21:31)
[2019-07-10] MEDS: NYSTATIN 500,000 UNITS/5 ML SUSPENSION PO SCH ×3 (05:23→17:13)
[2019-07-10] MEDS: INSULIN SLIDING SCALE (NOVOLOG) 1 VIAL SQ SCH ×4 (06:54→21:34)
--- NOTE | 2019-07-10 08:38 | PN ---
Progress Note (short form) - Note Progress Note: Neurology CHIEF COMPLAINT: Weakness HISTORY OF PRESENT ILLNESS: 73 y/o F with PMHx of CAD (s/p 5 stents, on ASA/Plavix), Parkinsons disease, Prior CVA/TIA, HTN, NIDDM, HLD, presented with right lower extremity weakness. Patient was accompanied by her daughter Theresa at time of admission. Theresa stated that patient typically has an abnormal gait requiring assistance, and has recently had at least 2 falls, most recently falling backward day prior to admission into an arm chair without hitting her head or LOC. Evening prior to admission around 1900, daughter reportedly noticed that patient had weakness performing her ADLs and speaking very slowly with mumbling; typically patient is able to eat on her own and bring her dishes to the sink. Theresa additionally noticed a right facial droop at this time accompanied by right lower extremity weakness; Patient was dragging her right lower extremity and her gait was changed prompting her daughter to alert EMD. At baseline, patient has dementia, a soft spoken occassionally mumbled speech and difficult with balance but this was much different. Theresa lives at home with her mother and ensures that patient is medication complaint according to note. Denies any recent medication changes or travel. Additionally she mentions that the has constipation, otherwise denies fevers, chills, chest pain, SOB, nausea, vomiting, diarrhea, hematuria. CT head completed and without acute changes though noted chronic L periventricular infarcts. MRI brain completed overnight and although it demonstrated acute R rodriguez radiata infarct that does not localize to R sided weakness. Of note, there are chronic R perventricular chronic infarcts. GI notes reviewed, PEG in place. Patient well-appearing this morning and does not look to be fatigued as she did yesterday. PEG management as per GI, possibly for discharge planning. Active Medications Apixaban (Eliquis -) 5 mg PO BID [facility] Aspirin (Asa -) 81 mg PO DAILY [facility] Last Admin: 07/09/19 10:34 Dose: Not Given Atorvastatin Calcium (Lipitor -) 40 mg PO HS [facility] Last Admin: 07/09/19 22:48 Dose: 40 mg Bacitracin (Bacitracin -) 1 applic TP BID [facility] Last Admin: 07/09/19 22:54 Dose: 1 applic Carbidopa/Levodopa (Sinemet 25/100 -) 1 each PO TID [facility] Last Admin: 07/10/19 05:23 Dose: 1 each Fluconazole (Diflucan 40mg/Ml Suspension -) 100 mg GT DAILY [facility] Last Admin: 07/09/19 17:42 Dose: 100 mg Heparin Sodium (Porcine) (Heparin -) 1,000 unit IVPUSH PRN PRN PRN Reason: Heparin Stop: 07/10/19 08:59 Heparin Sodium (Porcine) (Heparin -) 5,000 unit IVPUSH PRN PRN PRN Reason: Heparin Stop: 07/10/19 08:59 Heparin Sodium/Dextrose (Heparin Infusion -) 25,000 units in 500 mls @ 16 mls/ hr IV TITR [facility]; Protocol Stop: 07/10/19 08:59 Last Admin: 07/09/19 13:53 Dose: Not Given Insulin Aspart (Novolog Vial Sliding Scale -) 1 vial SQ ACHS [facility]; Protocol Last Admin: 07/10/19 06:54 Dose: 4 units Nystatin (Nystatin Oral Suspension -) 500,000 units PO Q6HPO [facility] Last Admin: 07/10/19 05:23 Dose: 500,000 units Pantoprazole Sodium (Protonix Iv) 40 mg IVPUSH DAILY [facility] Last Admin: 07/09/19 10:48 Dose: 40 mg Paroxetine HCl (Paxil -) 40 mg PO DAILY [facility] Last Admin: 07/09/19 10:36 Dose: Not Given Polyethylene Glycol (Miralax (For Daily Use) -) 17 gm NGT DAILY [facility] Last Admin: 07/09/19 10:35 Dose: Not Given PHYSICAL EXAMINATION Vital Signs Period Temp Pulse Resp BP Sys/Chavez Pulse Ox Last 24 Hr 97.6 F-99.0 F 61-82 16-20 103-145/71-90 93-97 GENERAL: Awake, alert, NAD HEAD: NCAT EYES: PERRL, EOMI, Left lid lag (Chronic) ENT: Moist mucous membranes. NECK: Supple, No JVD LUNGS: CTAB. No wheezes, no crackles. HEART: Regular rate and rhythm, normal S1 and S2 without murmur ABDOMEN: Soft, nontender, not distended, + bowel sounds, no guarding, no rebound MUSCULOSKELETAL: No CVA tenderness. EXTREMITIES: 2+ pulses, No peripheral edema. NEUROLOGICAL: Cranial nerves II-XII intact. Awake and responsive to questioning , still answering yes or no mostly. moves all extremities equally in confrontation testing, sensory grossly intact, gait deferred SKIN: Warm, dry, diffuse ecchymosis over the LLE, and Right medial upper extremity CBCD WBC 9.7 K/mm3 (4.0-10.0) 07/09/19 11:18 RBC 4.17 M/mm3 (3.60-5.2) 07/09/19 11:18 Hgb 12.3 GM/dL (10.7-15.3) 07/09/19 11:18 Hct 36.9 % (32.4-45.2) 07/09/19 11:18 MCV 88.4 fl (80-96) 07/09/19 11:18 MCHC 33.4 g/dl (32.0-36.0) 07/09/19 11:18 RDW 13.8 % (11.6-15.6) 07/09/19 11:18 Plt Count 253 K/MM3 (134-434) 07/09/19 11:18 MPV 8.2 fl (7.5-11.1) 07/09/19 11:18 CMP Sodium 140 mmol/L (136-145) 07/08/19 09:53 Potassium 4.0 mmol/L (3.5-5.1) 07/08/19 09:53 Chloride 104 mmol/L (98-107) 07/08/19 09:53 Carbon Dioxide 29 mmol/L (21-32) 07/08/19 09:53 Anion Gap 7 MMOL/L (8-16) L 07/08/19 09:53 BUN 17.3 mg/dL (7-18) 07/08/19 09:53 Creatinine 1.1 mg/dL (0.55-1.3) 07/08/19 09:53 Random Glucose 195 mg/dL (74-106) H 07/08/19 09:53 Calcium 9.6 mg/dL (8.5-10.1) 07/08/19 09:53 Total Bilirubin 1.3 mg/dL (0.2-1) H 06/30/19 05:10 AST 35 U/L (15-37) 06/30/19 05:10 ALT 14 U/L (13-61) 06/30/19 05:10 Alkaline Phosphatase 107 U/L (45-117) 06/30/19 05:10 Total Protein 5.8 g/dl (6.4-8.2) L 06/30/19 05:10 Albumin 3.2 g/dl (3.4-5.0) L 06/30/19 05:10 CARDIAC ENZYMES Troponin I < 0.02 ng/ml (0.00-0.05) 06/24/19 23:20 ASSESSMENT/PLAN: 73 y/o F with PMHx of CAD (s/p 5 stents, on ASA/Plavix), Parkinsons disease, Prior CVA/TIA, HTN, NIDDM, HLD, presented with right lower extremity weakness. Patient was accompanied by her daughter Theresa who aided in providing HPI per notes. Theresa stated that patient typically has an abnormal gait requiring assistance, and has recently had at least 2 falls, most recently falling backward yesterday into an arm chair without hitting her head or LOC. Evening prior to admission around 1900, daughter reportedly noticed that patient had weakness performing her ADLs and speaking very slowly with mumbling; typically patient is able to eat on her own and bring her dishes to the sink. Theresa additionally noticed a right facial droop at this time accompanied by right lower extremity weakness; Patient was dragging her right lower extremity and her gait was changed prompting her daughter to alert EMD. She was on ASA 81, Plavix 75. LDL 99, remains on statin 40mg. Patient remains neurologically stable this morning. PT as tolerated. Continue Statin at current dose as LDL < 100. Continue hydration for NOELLE. MOnitor glucose, maintain euglycemic range. Spoke to education program specialist 07/03 who indicated Afib and therefore plan was to give patient IV heparin for AC and can held for procedure. No objection to this, again slight increased risk of bleed but concern for thrombotic events is greater at this time time. CT reviewed with no acute changes noted. GI notes reviewed, PEG in place. Patient well-appearing this morning and does not look to be fatigued as she did yesterday. PEG management as per GI, possibly for discharge planning. Remains neurologically stable at this time and no new complaints. Monitor bp, maintain less than 140/90, GI follow-up. Advise restarting aspirin and Plavix combination as soon as feasible.
[2019-07-10] MEDS ORDERED: PARoxetine HCL 10 MG TABLET ONE (09:25)
[2019-07-10] MEDS: PANTOPRAZOLE SODIUM 40 MG VIAL IVPUSH SCH (09:55)
[2019-07-10] MEDS: APIXABAN 5 MG TABLET PO SCH ×2 (09:55→21:31)
[2019-07-10] MEDS: FLUCONAZOLE 40 MG/ML SUSPENSION GT SCH (09:55)
[2019-07-10] MEDS: ASPIRIN 81 MG CHEWABLE TABLETS PO SCH (09:55)
[2019-07-10] MEDS: PARoxetine HCL 20 MG TABLET PO SCH (09:56)
[2019-07-10] MEDS: POLYETHYLENE GLYCOL 3350 119 GM BTL NGT SCH (09:57)
[2019-07-10] MEDS: BACITRACIN 15 GM TUBE TOPICAL OINTMENT TP SCH ×2 (09:58→21:33)
--- NOTE | 2019-07-10 10:02 | PN ---
Progress Note, Physician Chief Complaint: no new complaints TELE: NSR, PAF short run - Current Medication List Current Medications: Active Medications Apixaban (Eliquis -) 5 mg PO BID [facility] Aspirin (Asa -) 81 mg PO DAILY [facility] Last Admin: 07/09/19 10:34 Dose: Not Given Atorvastatin Calcium (Lipitor -) 40 mg PO HS [facility] Last Admin: 07/09/19 22:48 Dose: 40 mg Bacitracin (Bacitracin -) 1 applic TP BID [facility] Last Admin: 07/09/19 22:54 Dose: 1 applic Carbidopa/Levodopa (Sinemet 25/100 -) 1 each PO TID [facility] Last Admin: 07/10/19 05:23 Dose: 1 each Fluconazole (Diflucan 40mg/Ml Suspension -) 100 mg GT DAILY [facility] Last Admin: 07/09/19 17:42 Dose: 100 mg Insulin Aspart (Novolog Vial Sliding Scale -) 1 vial SQ ACHS [facility]; Protocol Last Admin: 07/10/19 06:54 Dose: 4 units Nystatin (Nystatin Oral Suspension -) 500,000 units PO Q6HPO [facility] Last Admin: 07/10/19 05:23 Dose: 500,000 units Pantoprazole Sodium (Protonix Iv) 40 mg IVPUSH DAILY [facility] Last Admin: 07/09/19 10:48 Dose: 40 mg Paroxetine HCl (Paxil -) 40 mg PO DAILY [facility] Last Admin: 07/09/19 10:36 Dose: Not Given Polyethylene Glycol (Miralax (For Daily Use) -) 17 gm NGT DAILY [facility] Last Admin: 07/09/19 10:35 Dose: Not Given - Objective Vital Signs: Vital Signs Temperature 98.1 F 07/10/19 08:46 Pulse Rate 66 07/10/19 08:46 Respiratory Rate 17 07/10/19 08:46 Blood Pressure 121/74 07/10/19 08:46 O2 Sat by Pulse Oximetry (%) 93 L 07/09/19 20:34 Constitutional: Yes: No Distress Eyes: Yes: Conjunctiva Clear Cardiovascular: Yes: Regular Rate and Rhythm Respiratory: Yes: CTA Bilaterally Gastrointestinal: Yes: Soft Edema: No Neurological: Yes: Alert, Oriented Labs: CBC, BMP 07/09/19 11:18 07/08/19 09:53 INR, PTT INR 1.08 (0.83-1.09) 07/08/19 09:53 - ....Imaging EKG: Image Reviewed Assessment/Plan echo 06/2019: nl lv/rv, no sig valve path carotids 06/2019: no sig stenosis tele: sr, brief atrial run a/p: 73 year old f with history of CAD s/p remote stents, HTN, NIDDM, and parkinsons disease, dementia here with rle weakness, CVA. lacunar stroke, PAFib: - echo and carotids unremarkable - tele shows episode of PAF on 07/02 here, new dx - now on heparin gtt - plan to transition to NOAC when possible - plavix was dc'ed - continue aspirin - BP controlled, same plan CAD s/p remote pci: - no signs acs - echo unremarkable her - continue atorvastatin for LDL goal 70mg/dl - plavix was dc'ed, now on AC for afib - cont aspirin--low threshold to stop if any bleeding concerns, once on NOAC HTN -stable -cont present meds
--- NOTE | 2019-07-10 11:12 | PN ---
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 TF initiated Tongue coated. Diflucan via GT ordered. Speech/swallow function varies significantly. Today more verbal again. "I hope so" Improved intelligibilty. Beginning to initiate speech more. Pt writing occas sentences eg I need tissues. Encourage verbalization but PLEASE KEEP COMMUNICATION BOARD/PAPER/pencil ON BED FOR ACCESSIBILITY.
--- NOTE | 2019-07-10 11:45 | DS ---
Physical Examination Vital Signs: Vital Signs Temperature 98.1 F 07/10/19 08:46 Pulse Rate 66 07/10/19 08:46 Respiratory Rate 17 07/10/19 08:46 Blood Pressure 121/74 07/10/19 08:46 O2 Sat by Pulse Oximetry (%) 93 L 07/09/19 20:34 Constitutional: Yes: Calm HENT: Yes: Thrush Cardiovascular: Yes: Regular Rate and Rhythm, S1, S2 Respiratory: Yes: CTA Bilaterally Gastrointestinal: Yes: Normal Bowel Sounds, Soft, Other (peg tube) Edema: No Neurological: Yes: Alert Labs: CBC, BMP 07/09/19 11:18 07/08/19 09:53 Discharge Summary Problems reviewed: Yes Reason For Visit: POSSIBLE STROKE,WEAKNESS Current Active Problems CVA (cerebral vascular accident) (Acute) Depression (Acute) Diabetes (Acute) Dysphagia as late effect of cerebrovascular accident (CVA) (Acute) Facial droop (Acute) Hypokalemia (Acute) Paroxysmal A-fib (Acute) Right sided weakness (Acute) Other Procedures: MRI brain acute/subacute lacunar infarct. carotid doppler Hospital Course: CHIEF COMPLAINT: RLE Weakness + R Facial droop PCP: Dr. Moreland HISTORY OF PRESENT ILLNESS: 73 y/o F with PMHx of CAD (s/p 5 stents, on ASA/Plavix), Parkinsons disease, Prior CVA/TIA, HTN, NIDDM, HLD, presents with Right lower extremity weakness. patient had MRI brain shows acute CVA, had a peg placed, developed new onset afib started on heparin drip now transition to [facility] seen by cardiology and neurology plan to continue statin and aspirin paxil for depression seen by psych Goals: PT and speech and occupational therapy Condition: Guarded - Instructions Disposition: TRANSFER ACUTE CARE/OTHER HOSP - Home Medications Comprehensive Discharge Medication List: Ambulatory Orders PARoxetine HCL [Paxil] 20 mg PO DAILY #7 tablet 07/19/14 Ascorbate Calcium [Vitamin C] 500 mg PO DAILY 10/14/16 Aspirin [Aspirin EC] 81 mg PO DAILY 10/14/16 Atorvastatin Ca [Lipitor] 40 mg PO HS 10/14/16 Clopidogrel Bisulfate [Plavix -] 75 mg PO DAILY 10/14/16 Metoprolol Tartrate [Lopressor -] 50 mg PO DAILY 10/14/16 Triamterene/Hydrochlorothiazid [Triamterene-Hctz 37.5-25 mg Cp] 1 each PO DAILY 10/14/16 Acetaminophen [Tylenol .Regular Strength -] 650 mg PO Q6H PRN #0 tablet Calcitonin-[place] [Miacalcin [place] -] 200 units NS DAILY #1 spray 04/04/17 Carbidopa/Levodopa *Cr* 25/100 [Sinemet *Cr* 25/100 -] 1 combo PO TID #90 tab Ergocalciferol [Vitamin D2] 50,000 unit PO Q7D@1000 #4 cap 04/04/17 Sitagliptin Phosphate [Januvia] 0 mg PO DAILY 06/25/19 Vitamin E 0 unit PO DAILY 06/25/19
[2019-07-10] MEDS: ATORVASTATIN CA 80 MG TABLET (FP) PO SCH (21:31)
[2019-07-11] MEDS: NYSTATIN 500,000 UNITS/5 ML SUSPENSION PO SCH ×2 (00:05→05:24)
[2019-07-11] MEDS: CARBIDOPA/LEVODOPA 25/100 TABLET (FP) PO SCH (05:24)
[2019-07-11] MEDS: INSULIN SLIDING SCALE (NOVOLOG) 1 VIAL SQ SCH (06:13)
[2019-07-11] MEDS ORDERED: sitaGLIPtin PHOSPHATE 50 MG TABLET PO SCH (07:00)
[2019-07-11 08:15] VITALS: BP 121/67; PULSE 73; TEMP 98
[2019-07-11] MEDS: POLYETHYLENE GLYCOL 3350 119 GM BTL NGT SCH (09:08)
[2019-07-11] MEDS: PARoxetine HCL 20 MG TABLET PO SCH (09:08)
[2019-07-11] MEDS: ASPIRIN 81 MG CHEWABLE TABLETS PO SCH (09:08)
[2019-07-11] MEDS: APIXABAN 5 MG TABLET PO SCH (09:08)
[2019-07-11] MEDS: FLUCONAZOLE 40 MG/ML SUSPENSION GT SCH (09:08)
[2019-07-11] MEDS: BACITRACIN 15 GM TUBE TOPICAL OINTMENT TP SCH (09:09)
[2019-07-11] MEDS ORDERED: PANTOPRAZOLE SOD 40 MG SUSPENSION PACKET PEG SCH (10:00)
--- NOTE | 2019-07-11 11:05 | PN ---
Progress Note (short form) - Note Progress Note: s: not communicating Current Medications Generic Name Dose Route Start Last Admin Trade Name Carol PRN Reason Stop Dose Admin Apixaban 5 mg 07/10/19 09:00 07/11/19 09:08 Eliquis - PO 5 mg BID CORWIN Administration Aspirin 81 mg 07/04/19 10:00 07/11/19 09:08 Asa - PO 81 mg DAILY CORWIN Administration Atorvastatin Calcium 40 mg 06/25/19 22:00 07/10/19 21:31 Lipitor - PO 40 mg HS CORWIN Administration Bacitracin 1 applic 07/08/19 22:00 07/11/19 09:09 Bacitracin - TP 1 applic BID CORWIN Administration Carbidopa/Levodopa 1 each 06/30/19 17:04 07/11/19 05:24 Sinemet 25/100 - PO 1 each TID CORWIN Administration Fluconazole 100 mg 07/09/19 16:00 07/11/19 09:08 Diflucan 40mg/Ml Suspension - GT 100 mg DAILY CORWIN Administration Insulin Aspart 1 vial 06/25/19 11:00 07/11/19 06:13 Novolog Vial Sliding Scale - SQ 4 units ACHS CORWIN Administration Protocol Nystatin 500,000 units 07/05/19 18:00 07/11/19 05:24 Nystatin Oral Suspension - PO 500,000 units Q6HPO CORWIN Administration Pantoprazole Sodium 40 mg 07/11/19 10:00 07/11/19 09:07 Protonix Packets For Oral Suspension - PEG 40 mg DAILY CORWIN Administration Paroxetine HCl 40 mg 07/04/19 10:00 07/11/19 09:08 Paxil - PO 40 mg DAILY CORWIN Administration Polyethylene Glycol 17 gm 06/28/19 16:30 07/11/19 09:08 Miralax (For Daily Use) - NGT 17 gm DAILY CORWIN Administration Sitagliptin Phosphate 50 mg 07/11/19 07:00 07/11/19 06:13 Januvia - PO 50 mg DAILY@0700 CORWIN Administration Vital Signs Period Temp Pulse Resp BP Sys/Chavez Pulse Ox Last 24 Hr 98.0 F-99.8 F 66-92 18-20 114-145/67-88 96 Constitutional: Yes: Well Nourished, No Distress, Calm Cardiovascular: Yes: Regular Rate and Rhythm, S1, S2. No: Gallop, Murmur Respiratory: Yes: Regular, CTA Bilaterally. No: Accessory Muscle Use, Rales Extremities: No: Cold Edema: No Neurological: Yes: Alert. No: Seizure Psychiatric: No: Agitated no jaundice diaphoresis CBC, BMP 07/09/19 11:18 07/08/19 09:53 echo 06/2019: nl lv/rv, no sig valve path carotids 06/2019: no sig stenosis tele: sr a/p: 73 year old f with history of CAD s/p remote stents, HTN, NIDDM, and parkinsons disease, dementia here with rle weakness, CVA lacunar stroke, PAFib: - echo and carotids unremarkable - tele shows episode of PAF on 07/02 here, new dx - now on eliquis - plavix was dc'ed - continue aspirin - BP controlled, same plan CAD s/p remote pci: - no signs acs - echo unremarkable her - continue atorvastatin for LDL goal 70mg/dl - plavix was dc'ed, now on AC for afib - cont aspirin--low threshold to stop if any bleeding concerns on NOAC HTN -stable -cont present meds
--- NOTE | 2019-07-11 12:32 | PN ---
Progress Note, Physician Chief Complaint: CVA R sided Weakness History of Present Illness: Previous notes and events reviewed awake and alert NAD patient being discharged to SNF today no complaints verbalized - Objective Vital Signs: Vital Signs Temperature 98.0 F 07/11/19 08:14 Pulse Rate 73 07/11/19 08:14 Respiratory Rate 07/11/19 08:14 Blood Pressure 121/67 07/11/19 08:14 O2 Sat by Pulse Oximetry (%) 96 07/11/19 09:00 Constitutional: Yes: No Distress, Calm Eyes: Yes: Conjunctiva Clear HENT: Yes: Atraumatic Cardiovascular: Yes: Regular Rate and Rhythm Respiratory: Yes: Regular, CTA Bilaterally Gastrointestinal: Yes: Normal Bowel Sounds, Soft Genitourinary: Yes: Incontinence Musculoskeletal: Yes: Muscle Weakness Extremities: Yes: WNL Edema: No Neurological: Yes: Alert, Oriented Psychiatric: Yes: Alert, Oriented Labs: CBC, BMP 07/09/19 11:18 07/08/19 09:53 INR, PTT INR 1.08 (0.83-1.09) 07/08/19 09:53 Microbiology 07/09/19 16:00 Urine - Urine - Catheterized Urine Culture - Final NO GROWTH OBTAINED 06/25/19 00:00 Urine - Urine Clean Catch Urine Culture - Final Normal Urogenital Imelda Problem List - Problems (1) CVA (cerebral vascular accident) Code(s): I63.9 - CEREBRAL INFARCTION, UNSPECIFIED Qualifiers: CVA mechanism: unspecified Qualified Code(s): I63.9 - Cerebral infarction, unspecified (2) Diabetes Code(s): E11.9 - TYPE 2 DIABETES MELLITUS WITHOUT COMPLICATIONS Qualifiers: Diabetes mellitus type: type 2 (3) Right sided weakness Code(s): R53.1 - WEAKNESS (4) Parkinsons disease Code(s): G20 - PARKINSON'S DISEASE Assessment/Plan discharged today to SNF
== END 2019-07-11 11:59 | DRG 65 ==
LOC: JER 21:17 → JERBED 06-25 05:54 → OBSVTOIN 06-25 08:09 → J4S 06-25 18:26
PROVIDERS: ADMIT Family Medicine; ATTEND Family Medicine
PROC: 0DH67UZ Insertion of Feeding Device into Stomach, Via Natural or Artificial Opening (ICD-10-PCS; 2019-06-27)
PROC: 3E0G76Z Introduction of Nutritional Substance into Upper GI, Via Natural or Artificial Opening (ICD-10-PCS; 2019-06-27)
PROC: 0DH63UZ Insertion of Feeding Device into Stomach, Percutaneous Approach (ICD-10-PCS; principal; 2019-07-08 10:30)
DX: I63.9 Cerebral infarction, unspecified (principal); N17.9 Acute kidney failure, unspecified; G81.91 Hemiplegia, unspecified affecting right dominant side; I10 Essential (primary) hypertension; R47.01 Aphasia; E78.00 Pure hypercholesterolemia, unspecified; I25.10 Atherosclerotic heart disease of native coronary artery without angina pectoris; E11.9 Type 2 diabetes mellitus without complications; G20 Parkinson's disease; R29.700 NIHSS score 0; Z79.84 Long term (current) use of oral hypoglycemic drugs; Z87.891 Personal history of nicotine dependence; E86.0 Dehydration; E87.6 Hypokalemia; D64.9 Anemia, unspecified; I48.0 Paroxysmal atrial fibrillation; R13.10 Dysphagia, unspecified; F02.80 Dementia in other diseases classified elsewhere, unspecified severity, without behavioral disturbance, psychotic disturbance, mood disturbance, and anxiety; F32.9 Major depressive disorder, single episode, unspecified
CPT/HCPCS: 36415; 70450-TC; 70551-TC; 71045-TC-FY; 74230-TC-FY; 80048; 80053; 80061; 81003; 82272; 82962; 83036; 83721; 83735; 83880; 84100; 84443; 84484; 85025; 85027; 85610; 85730; 87086; 92611-GN; 93005; 93010; 93306-TC; 93880-TC; 97116-GP; 97162-GP; 99285-25; G0378; J1644; J7030